=== PATIENT | male | born 1950 | race Caucasian/White ===

== ENCOUNTER 2017-06-13 10:23 | Inpatient (IN) ==
--- NOTE | 2017-06-13 10:33 | Emergency Department Note ---
Disposition Clinical Impression: Dizziness, Near syncope, Hyponatremia Disposition: Admitted As Inpatient Condition: Fair Time of Disposition: 11:06 Dizziness HPI - General Chief Complaint: ED Dizziness Stated Complaint: Dizzy Time Seen by Provider: 06/13/17 10:29 Source: patient Mode of arrival: EMS Limitations: no limitations Nursing Notes Reviewed: Yes Vital Signs Reviewed: Yes - History of Present Illness HPI Narrative: Alert and oriented nontoxic appearing 67-year-old male presents by EMS for evaluation of a near syncopal episode sustained just prior to his arrival. 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 He states that he felt as if he was going to pass out so he sat down on a chair. He states that symptoms resolved quickly after he sat down, however due to his radius medical history, his employer's wanted him to be evaluated at the emergency department. The patient states that he was performing vigorous physical activity both inside the plan and out. He states that "I think I just got winded". He does have a history of COPD and wears oxygen by nasal cannula at 2 L of a nighttime. He denies any recent fevers or increased cough. He denies any change in the characteristics of his sputum. He denies any chest pain during or after this near syncopal event. He denies any visual disturbances, nausea, vomiting, or diaphoresis. He states the symptoms have resolved completely upon his arrival to the emergency department. Pt Subjective Complaint: dizziness Onset (ago): Just THERAPIST RADIATION Timing: sudden onset Description: lightheadedness, near-syncope History of trauma: No Severity: now resolved Improves with: rest Associated symptoms: Reports: denies other symptoms. Denies: chest pain, confusion, diaphoresis, fever, syncope, vision changes, nausea, vomiting, palpitations - Related Data Home Medications Medication Instructions Recorded Confirmed Albuterol Sulfate [Proair Hfa] 2 puff IH Q4-6H PRN 02/12/16 06/13/17 Budesonide/Formoterol 160/4.5 2 puff IH BID 02/12/16 06/13/17 [Symbicort 160/4.5] Ipratropium/Albuterol Neb [Duoneb] 3 ml IH QID PRN 02/12/16 06/13/17 Lisinopril [Zestril] 20 mg PO QAM 02/12/16 06/13/17 Multivitamin/Iron/Folic Acid 1 tab PO QA 02/12/16 06/13/17 [Centrum Complete Multivit Tab] Paroxetine HCl 40 mg PO QA 02/12/16 06/13/17 Pravastatin Sodium [Pravachol] 20 mg PO QPM 02/12/16 06/13/17 clonazePAM [Klonopin] 0.5 mg PO BID PRN 02/12/16 06/13/17 Finasteride [Proscar] 5 mg PO DAILY 10/20/16 06/13/17 Doxazosin [Cardura] 4 mg PO HS 06/13/17 06/13/17 Loratadine [Claritin] 10 mg PO DAILY 06/13/17 06/13/17 Previous Rx's Medication Instructions Recorded Tamsulosin HCl [Flomax] 0.4 mg PO DAILY #14 cap.er.24h 04/19/16 GuaiFENesin ER [Mucinex] 1,200 mg PO BID #28 tbbp.12hr 10/22/16 Allergies Allergy/AdvReac Type Severity Reaction Status Date / Time ampicillin Allergy Hives Verified 06/13/17 10:33 promethazine [From Phenergan] Allergy Confusion Verified 06/13/17 14:36 All systems ED: reviewed and negative except as stated. Constitutional: Denies: fever, chills, weakness, weight change Eyes: Denies: eye pain, eye discharge, vision change ENT ED: Denies: ear pain, throat pain, dental pain, hearing loss, epistaxis, congestion, dysphagia Cardiovascular: Denies: chest pain, palpitations, dyspnea on exertion, edema, syncope Respiratory: Denies: cough, dyspnea, wheezes, hemoptysis, stridor Gastrointestinal: Denies: abdominal pain, nausea, vomiting, diarrhea, constipation, hematemesis, melena, hematochezia Genitourinary: Denies: urgency, dysuria, frequency, hematuria Musculoskeletal: Denies: back pain, neck pain, arthralgia, myalgia Integumentary: Denies: rash, abrasion, lesions Neurological: Reports: as per HPI, other (dizziness). Denies: headache, weakness, numbness, paresthesias, confusion, abnormal gait, vertigo Psychiatric: Denies: anxiety, depression, suicidal thoughts, homicidal thoughts , auditory hallucinations, visual hallucinations Endocrine: Denies: fatigue Hematological/Lymphatic: Denies: easy bleeding, easy bruising Allergic/Immunologic: Denies: facial swelling, urticaria Past Medical History - Past Medical History Attestation: Yes The following information was validated with the patient. Source: patient, nursing notes reviewed Medical history: Reports: COPD, CVA, hyperlipidemia, hypertension, other Surgical history: Reports: other Psychiatric history: Reports: anxiety, depression - Social History Smoking Status: Current some day smoker Smokeless Tobacco Status: No Alcohol use: Reports: none Drug use: Reports: none Physical Exam - General Limitations: no limitations General appearance: alert, in no apparent distress - Head Head exam: atraumatic, normocephalic, normal inspection - Eye Eye exam: Present: normal appearance, PERRL, EOMI. Absent: nystagmus - ENT ENT exam: mucous membranes moist - Neck Neck exam: Present: normal inspection, full ROM, trachea midline - Chest Chest inspection: Present: normal inspection - Respiratory Respiratory exam: Present: wheezes (Bilateral expiratory wheezes throughout the lung periphery). Absent: respiratory distress, stridor, accessory muscle use, prolonged expiratory phase - Cardiovascular Cardiovascular exam: Present: regular rate, normal rhythm, normal heart sounds - Abdominal Exam Abdominal exam: Present: soft, Non-Tender, normal bowel sounds. Absent: tenderness, distention, guarding, rebound, rigidity - Extremities Exam Extremities exam: Present: normal inspection, full ROM. Absent: tenderness, pedal edema - Neurological Exam Neurological exam: Present: alert, oriented X3 - Psychiatric Psychiatric exam: Present: normal affect, normal mood - Skin Skin exam: Present: warm, dry, intact, normal color Course Vital Signs Temperature 97.7 F 06/13/17 10:27 Pulse Rate 86 06/13/17 10:27 Respiratory Rate 20 06/13/17 10:27 Blood Pressure 169/110 06/13/17 10:27 O2 Sat by Pulse Oximetry 100 06/13/17 10:27 Temperature 97.7 F 06/13/17 10:27 Pulse Rate 82 06/13/17 14:24 Respiratory Rate 18 06/13/17 15:27 Blood Pressure 156/99 06/13/17 15:27 O2 Sat by Pulse Oximetry 96 06/13/17 14:24 Oxygen Delivery Oxygen Delivery Room Air Dizziness - Medical Records Medical records reviewed: Yes I reviewed the patient's medical records. - Lab Data Result diagrams: 06/13/17 10:45 06/13/17 10:45 Lab Results 06/13/17 06/13/17 06/13/17 Range/Units 10:40 10:45 10:45 WBC 8.4 (4.3-11.1) K/mcL RBC 4.39 (4.19-5.50) M/mcL Hgb 13.9 (12.9-16.9) g/dL Hct 40.8 (37.5-50.1) % MCV 92.9 (83.0-100.0) fL MCH 31.7 (28.0-33.3) pg MCHC 34.1 (31.6-35.5) g/dL RDW 12.6 (11.5-14.5) % Plt Count 307 (140-400) K/mcL MPV 10.3 (9.4-12.4) fL Immature Gran % 0.7 (0-4) % Seg Neutrophils % 67.0 % Lymphocytes % 20.8 % Monocytes % 9.6 % Eosinophils % 1.4 % Basophils % 0.5 % Neutrophils # 5.6 (1.6-8.9) K/mcL Lymphocytes # 1.7 (0.6-4.6) K/mcL Monocytes # 0.8 (0.0-1.3) K/mcL Eosinophils # 0.1 (0.0-0.6) K/mcL Basophils # 0.0 (0.0-0.2) K/mcL Sodium 130 L (136-145) mEq/L Potassium 4.4 (3.5-4.5) mEq/L Chloride 94 L (98-109) mEq/L Carbon Dioxide 27 (19-29) mEq/L BUN 8 (8-26) mg/dL Creatinine 0.90 (0.72-1.25) mg/dL Est GFR ( Amer) > 60 (> 60) Est GFR (Non-Af Amer) > 60 (> 60) BUN/Creatinine Ratio 9 (6-26) Glucose 88 (70-99) mg/dL POC Glucose 90 H (58-89) Calculated Osmolality 268 L (280-300) Calcium 9.4 (8.6-10.8) mg/dL Troponin I (0-0.03) ng/mL 06/13/17 Range/Units 10:45 WBC (4.3-11.1) K/mcL RBC (4.19-5.50) M/mcL Hgb (12.9-16.9) g/dL Hct (37.5-50.1) % MCV (83.0-100.0) fL MCH (28.0-33.3) pg MCHC (31.6-35.5) g/dL RDW (11.5-14.5) % Plt Count (140-400) K/mcL MPV (9.4-12.4) fL Immature Gran % (0-4) % Seg Neutrophils % % Lymphocytes % % Monocytes % % Eosinophils % % Basophils % % Neutrophils # (1.6-8.9) K/mcL Lymphocytes # (0.6-4.6) K/mcL Monocytes # (0.0-1.3) K/mcL Eosinophils # (0.0-0.6) K/mcL Basophils # (0.0-0.2) K/mcL Sodium (136-145) mEq/L Potassium (3.5-4.5) mEq/L Chloride (98-109) mEq/L Carbon Dioxide (19-29) mEq/L BUN (8-26) mg/dL Creatinine (0.72-1.25) mg/dL Est GFR ( Amer) (> 60) Est GFR (Non-Af Amer) (> 60) BUN/Creatinine Ratio (6-26) Glucose (70-99) mg/dL POC Glucose (58-89) Calculated Osmolality (280-300) Calcium (8.6-10.8) mg/dL Troponin I 0.02 (0-0.03) ng/mL Critical Care Time Total Critical Care Time: 35 Attestation: Greater than 35 minutes of critical care time was spent resuscitating this acutely ill male suffering from CVA. This is excluding billable procedures S.B.A.R. - S.B.A.R. Situation: Demographics, MOA Background: Presenting Complaint, Relevant PMH, Meds, & Allergies Assessment: Vital Signs, Course and respsone to treatment, Exam Concerns, Patient/Family Expectation, Pertinant Lab Results, Outstanding Labs Recommendation: Barrier(s) to disposition, Recommendation based on pending studies, treatments, or consults S.B.A.R. Report Given to: Dr. Moises Dacosta Repor Time: 11:06 Attestation Statement - Attestation Attestation: I examined this patient and my medical decision-making was reviewed with the Resident Physician. I agree with the documented findings, disposition and treatment plan as described except to the extent set forth below. In summary 67 -year-old male presents with vertiginous symptoms. Ultimately has history of stroke. And age score 0 on arrival. Onset of symptoms was approximately 2 hours ago along work. He has no symptoms currently. 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 I do feel he would benefit from medical maximization and inpatient care for further evaluation of chronic cerebellar infarct which could be contributing to acute vertiginous episodes. Full dose aspirin given. No metabolic derangements identified. Patient be admitted for further evaluation.
--- NOTE | 2017-06-13 11:16 | Emergency Department Note ---
Disposition Clinical Impression: Dizziness, Near syncope, Hyponatremia Disposition: Admitted As Inpatient Condition: Fair Time of Disposition: 14:38 Syncope HPI - General Chief Complaint: ED Dizziness Stated Complaint: Dizzy Time Seen by Provider: 06/13/17 10:29 Source: patient Mode of arrival: EMS Limitations: no limitations Nursing Notes Reviewed: Yes Vital Signs Reviewed: Yes - History of Present Illness HPI Narrative: PATIENT PRESENTS TO THE ED VIA EMS FROM [facility]. 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 He got very lightheaded and dizzy and felt like he was going to pass out. States that he has been having similar exertional near syncopal episodes for the last several years. He reports no previous history of coronary artery disease, has never had a stress test or heart catheter. He did not have any chest pain during this event, but he did feel somewhat more short of breath than usual. He is home oxygen dependent at 4 L at night for COPD and has a history of enlarged prostate, but otherwise states he is healthy. He had no diaphoresis, changes in vision, nausea, chest discomfort, abdominal pain associated with this event. No numbness, weakness or headache. No fevers. States he felt completely better by the time EMS got there. - Related Data Home Medications Medication Instructions Recorded Confirmed Albuterol Sulfate [Proair Hfa] 2 puff IH Q4-6H PRN 02/12/16 06/13/17 Budesonide/Formoterol 160/4.5 2 puff IH BID 02/12/16 06/13/17 [Symbicort 160/4.5] Ipratropium/Albuterol Neb [Duoneb] 3 ml IH QID PRN 02/12/16 06/13/17 Lisinopril [Zestril] 20 mg PO QAM 02/12/16 06/13/17 Multivitamin/Iron/Folic Acid 1 tab PO QAM 02/12/16 06/13/17 [Centrum Complete Multivit Tab] Paroxetine HCl 40 mg PO QAM 02/12/16 06/13/17 Pravastatin Sodium [Pravachol] 20 mg PO QPM 02/12/16 06/13/17 clonazePAM [Klonopin] 0.5 mg PO BID PRN 02/12/16 06/13/17 Finasteride [Proscar] 5 mg PO DAILY 10/20/16 06/13/17 Doxazosin [Cardura] 4 mg PO HS 06/13/17 06/13/17 Loratadine [Claritin] 10 mg PO DAILY 06/13/17 06/13/17 Previous Rx's Medication Instructions Recorded Tamsulosin HCl [Flomax] 0.4 mg PO DAILY #14 cap.er.24h 04/19/16 GuaiFENesin ER [Mucinex] 1,200 mg PO BID #28 tbbp.12hr 10/22/16 Allergies Allergy/AdvReac Type Severity Reaction Status Date / Time ampicillin Allergy Hives Verified 06/13/17 10:33 promethazine [From Phenergan] Allergy Confusion Verified 06/13/17 14:36 Constitutional: Denies: fever, chills, weakness, weight change Eyes: Denies: eye pain, eye discharge, vision change ENT ED: Denies: ear pain, throat pain, dental pain, hearing loss, epistaxis, congestion, dysphagia Cardiovascular: Denies: chest pain, palpitations, dyspnea on exertion, edema, syncope Respiratory: Denies: cough, dyspnea, wheezes, hemoptysis, stridor Gastrointestinal: Denies: abdominal pain, nausea, vomiting, diarrhea, constipation, hematemesis, melena, hematochezia Genitourinary: Denies: urgency, dysuria, frequency, hematuria Musculoskeletal: Denies: back pain, neck pain, arthralgia, myalgia Integumentary: Denies: rash, abrasion, lesions Neurological: Reports: as per HPI, other (dizziness). Denies: headache, weakness, numbness, paresthesias, confusion, abnormal gait, vertigo Psychiatric: Denies: anxiety, depression, suicidal thoughts, homicidal thoughts , auditory hallucinations, visual hallucinations Endocrine: Denies: fatigue Hematological/Lymphatic: Denies: easy bleeding, easy bruising Allergic/Immunologic: Denies: facial swelling, urticaria Past Medical History - Past Medical History Medical history: Reports: COPD, CVA, hyperlipidemia, hypertension, other Surgical history: Reports: other Psychiatric history: Reports: anxiety, depression - Social History Smoking Status: Current some day smoker Smokeless Tobacco Status: No Alcohol use: Reports: none Drug use: Reports: none Physical Exam - General Limitations: no limitations General appearance: alert, in no apparent distress - Head Head exam: atraumatic, normocephalic, normal inspection - Eye Eye exam: Present: normal appearance, PERRL, EOMI - ENT ENT exam: normal exam, normal oropharynx, mucous membranes moist, other (4. Dentition) - Neck Neck exam: Present: normal inspection, full ROM, trachea midline - Chest Chest inspection: Present: normal inspection, symmetric chest wall rise - Respiratory Respiratory exam: Present: normal lung sounds bilaterally, other (Decreased breath sounds in bilateral bases, no wheezes, no respiratory distress) - Cardiovascular Cardiovascular exam: Present: regular rate, normal rhythm, normal heart sounds - Abdominal Exam Abdominal exam: Present: soft, Non-Tender. Absent: tenderness, distention, guarding, rebound, rigidity - Extremities Exam Extremities exam: Present: normal inspection, full ROM. Absent: tenderness, pedal edema - Back Exam Back exam: Present: normal inspection, full ROM. Absent: tenderness - Neurological Exam Neurological exam: Present: alert, oriented X3 - Psychiatric Psychiatric exam: Present: normal affect, normal mood - Skin Skin exam: Present: warm, dry, intact, normal color Course - Reevaluation(s) Reevaluation #1: Imaging showed multiple cerebellar and cerebral infarctions, worsening since 2010. We will admit to the hospitalist service for further workup. He is also hyponatremic and looks slightly dehydrated, so we will give IV fluids as well Vital Signs Temperature 97.7 F 06/13/17 10:27 Pulse Rate 86 06/13/17 10:27 Respiratory Rate 20 06/13/17 10:27 Blood Pressure 169/110 06/13/17 10:27 O2 Sat by Pulse Oximetry 100 06/13/17 10:27 Temperature 97.6 F 06/13/17 19:23 Pulse Rate 89 06/13/17 19:23 Respiratory Rate 17 06/13/17 21:22 Blood Pressure 152/98 06/13/17 19:23 O2 Sat by Pulse Oximetry 98 06/13/17 21:22 Oxygen Delivery Oxygen Delivery Room Air Syncope - Medical Records Medical records reviewed: Yes I reviewed the patient's medical records. - Lab Data Lab results reviewed: Yes I reviewed the patient's lab results. Result diagrams: 06/13/17 10:45 06/13/17 10:45 Lab Results 06/13/17 06/13/17 06/13/17 Range/Units 10:40 10:45 10:45 WBC 8.4 (4.3-11.1) K/mcL RBC 4.39 (4.19-5.50) M/mcL Hgb 13.9 (12.9-16.9) g/dL Hct 40.8 (37.5-50.1) % MCV 92.9 (83.0-100.0) fL MCH 31.7 (28.0-33.3) pg MCHC 34.1 (31.6-35.5) g/dL RDW 12.6 (11.5-14.5) % Plt Count 307 (140-400) K/mcL MPV 10.3 (9.4-12.4) fL Immature Gran % 0.7 (0-4) % Seg Neutrophils % 67.0 % Lymphocytes % 20.8 % Monocytes % 9.6 % Eosinophils % 1.4 % Basophils % 0.5 % Neutrophils # 5.6 (1.6-8.9) K/mcL Lymphocytes # 1.7 (0.6-4.6) K/mcL Monocytes # 0.8 (0.0-1.3) K/mcL Eosinophils # 0.1 (0.0-0.6) K/mcL Basophils # 0.0 (0.0-0.2) K/mcL Sodium 130 L (136-145) mEq/L Potassium 4.4 (3.5-4.5) mEq/L Chloride 94 L (98-109) mEq/L Carbon Dioxide 27 (19-29) mEq/L BUN 8 (8-26) mg/dL Creatinine 0.90 (0.72-1.25) mg/dL Est GFR ( Amer) > 60 (> 60) Est GFR (Non-Af Amer) > 60 (> 60) BUN/Creatinine Ratio 9 (6-26) Glucose 88 (70-99) mg/dL POC Glucose 90 H (58-89) Calculated Osmolality 268 L (280-300) Calcium 9.4 (8.6-10.8) mg/dL Troponin I (0-0.03) ng/mL 06/13/17 Range/Units 10:45 WBC (4.3-11.1) K/mcL RBC (4.19-5.50) M/mcL Hgb (12.9-16.9) g/dL Hct (37.5-50.1) % MCV (83.0-100.0) fL MCH (28.0-33.3) pg MCHC (31.6-35.5) g/dL RDW (11.5-14.5) % Plt Count (140-400) K/mcL MPV (9.4-12.4) fL Immature Gran % (0-4) % Seg Neutrophils % % Lymphocytes % % Monocytes % % Eosinophils % % Basophils % % Neutrophils # (1.6-8.9) K/mcL Lymphocytes # (0.6-4.6) K/mcL Monocytes # (0.0-1.3) K/mcL Eosinophils # (0.0-0.6) K/mcL Basophils # (0.0-0.2) K/mcL Sodium (136-145) mEq/L Potassium (3.5-4.5) mEq/L Chloride (98-109) mEq/L Carbon Dioxide (19-29) mEq/L BUN (8-26) mg/dL Creatinine (0.72-1.25) mg/dL Est GFR ( Amer) (> 60) Est GFR (Non-Af Amer) (> 60) BUN/Creatinine Ratio (6-26) Glucose (70-99) mg/dL POC Glucose (58-89) Calculated Osmolality (280-300) Calcium (8.6-10.8) mg/dL Troponin I 0.02 (0-0.03) ng/mL - Radiology Data Radiology results reviewed: Yes I reviewed the patient's radiology results. - EKG Data EKG attestation: Yes I reviewed and interpreted this EKG. EKG results narrative: Sinus rhythm, rate 89, HI interval 122, QRS 98, QTC 416, normal axis, no acute ischemic changes S.B.A.R. - S.B.A.R. Situation: Demographics, MOA Background: Presenting Complaint, Relevant PMH, Meds, & Allergies Assessment: Vital Signs, Course and respsone to treatment, Exam Concerns, Patient/Family Expectation, Pertinant Lab Results, Outstanding Labs Recommendation: Barrier(s) to disposition, Recommendation based on pending studies, treatments, or consults S.B.A.R. Report Given to: Dr. Brandon Dacosta Repor Time: 14:39 Attestation Statement - Attestation Attestation: I examined this patient and my medical decision-making was reviewed with the Resident Physician. I agree with the documented findings, disposition and treatment plan as described except to the extent set forth below. The patient presents with concern for intermittent vertiginous symptoms. Ultimately had negative and age coronary arrival. Does complain of nonspecific nonreproducible intermittent vertigo. Hints testing does not reveal a benign etiology at this time and there is no reproducible nature of his vertiginous symptoms. As such she did undergo to advanced imaging with CT of the head and neck. This shows possible chronic cerebellar infarction which certainly could explain the patient's symptoms. At this point I would proceed with admission for medical maximization and advanced imaging with possible need for MRI and consultation to neurology.
[2017-06-13 11:19] LABS: Basophils % 0.5 %; Eosinophils # 0.1 K/mcL (0.0-0.6); Eosinophils % 1.4 %; Hematocrit 40.8 % (37.5-50.1); Hemoglobin 13.9 g/dL (12.9-16.9); Immature Granulocytes % 0.7 % (0-4); Lymphocytes # 1.7 K/mcL (0.6-4.6); Lymphocytes % 20.8 %; Mean Corpuscular HGB Conc 34.1 g/dL (31.6-35.5); Mean Corpuscular Hemoglobin 31.7 pg (28.0-33.3); Mean Corpuscular Volume 92.9 fL (83.0-100.0); Mean Platelet Volume 10.3 fL (9.4-12.4); Monocytes # 0.8 K/mcL (0.0-1.3); Monocytes % 9.6 %; Neutrophils # 5.6 K/mcL (1.6-8.9); Platelet Count 307 K/mcL (140-400); Red Blood Count 4.39 M/mcL (4.19-5.50); Red Cell Distribution Width 12.6 % (11.5-14.5)
[2017-06-13 11:34] LABS: BUN/Creatinine Ratio 9 (6-26); Blood Urea Nitrogen 8 mg/dL (8-26); Calcium 9.4 mg/dL (8.6-10.8); Carbon Dioxide 27 mEq/L (19-29); Chloride 94 mEq/L (98-109); Glucose 88 mg/dL (70-99); Osmolality,Calculated 268 (280-300); Potassium 4.4 mEq/L (3.5-4.5); Sodium 130 mEq/L (136-145); eGFR For African Americans > 60 (> 60); eGFR For Non-African Americans > 60 (> 60)
[2017-06-13] MEDS ORDERED: 0.9 % Sodium Chloride 1,000 ML IVC ONE (14:11)
[2017-06-13] MEDS ORDERED: Aspirin 325 MG TABLET PO ONE (15:27)
[2017-06-13] MEDS ORDERED: *HR* OxyCODONE Immed Rel 5 MG TABLET PO PRN (15:35)
[2017-06-13] MEDS ORDERED: Naloxone 0.4 MG/ML INJ IVP PRN (15:35)
[2017-06-13] MEDS ORDERED: Ondansetron ODT 4 MG TAB.RAPDIS SL PRN (15:35)
[2017-06-13] MEDS ORDERED: Ondansetron 4 MG/2 ML VIAL IVP PRN (15:35)
[2017-06-13] MEDS ORDERED: *HR* Morphine 2 MG/ML SYRINGE IVP PRN (15:35)
[2017-06-13] MEDS ORDERED: Acetaminophen 325 MG TABLET PO PRN (15:35)
[2017-06-13] MEDS ORDERED: Nicotine 21 MG PATCH.TD24 TD SCH (15:45)
--- NOTE | 2017-06-13 15:47 | Internal Med History&Physical ---
Date of Encounter: 06/13/17 Time of Encounter: 14:30 Assessment and Plan (1) Near syncope Current visit: Yes Status: Acute Placed the pt into Tele for observation his near syncope could be due to dehydration however given his multiple cardiac resik factors and recurrent episodes of dizziness need further work up will put him on manager cardiac cath check serial troponin started on ASA 81mg Will obtain 2 D Echo in AM started him on gentle IV hydration (2) Hyponatremia Current visit: Yes Status: Acute Mild hyponatremia due to dehydration no further work up needed cont gentle IV hydration and check BMP in AM (3) Lung nodule Current visit: Yes Status: Acute Concerned about this Rt LL lung nodule 9mm in size with his extensive smoking history counseled to quit smoking also educated the pt about f/u CT of Chest in 3 months (4) HLD (hyperlipidemia) Current visit: No Status: Chronic resume home med statin check FLP in AM Qualifiers: Hyperlipidemia type: unspecified Qualified Code(s): E78.5 - Hyperlipidemia , unspecified (5) Tobacco abuse Current visit: No Status: Chronic Counseled to quit smoking placed on nicotine patch (6) DVT prophylaxis Current visit: No Status: Acute early ambulation Internal Medicine - H&P: HPI Chief complaint: Dizziness / Lightheadedness , near syncope Admitted From: Home Plans for Post Hospital Care: Home History of present illness: Mr. 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 States that he has been having similar exertional near syncopal episodes for the last several years. He denied any previous cardiac problems or any cardiac work up before. He did have chronic tobacco dependence otherwise denied any illicit drug use / alcohol intake. He denied any micturation , however he does have inc urinary frequency due to his recently diagnosed BPH Past Med Surg Social Fam HX - Past Medical History Medical history: COPD, CVA, hyperlipidemia, hypertension, other Psychiatric history: anxiety, depression - Past Surgical History Surgical History: other - Social History Smoking Status: Current some day smoker Smokeless Tobacco Status: No Alcohol use: none Drug use: none - Additional Family History Additional family history: Reviewed, father with emphysema. Mother had diabetes and hypertension Internal Medicine - H&P: Meds Albuterol Sulfate [Proair Hfa] 2 puff IH Q4-6H PRN 02/12/16 [History] Budesonide/Formoterol 160/4.5 [Symbicort 160/4.5] 2 puff IH BID 02/12/16 [ History] Ipratropium/Albuterol Neb [Duoneb] 3 ml IH QID PRN 02/12/16 [History] Lisinopril [Zestril] 20 mg PO QAM 02/12/16 [History] Multivitamin/Iron/Folic Acid [Centrum Complete Multivit Tab] 1 tab PO QAM [History] Paroxetine HCl 40 mg PO QAM 02/12/16 [History] Pravastatin Sodium [Pravachol] 20 mg PO QPM 02/12/16 [History] clonazePAM [Klonopin] 0.5 mg PO BID PRN 02/12/16 [History] Tamsulosin HCl [Flomax] 0.4 mg PO DAILY #14 cap.er.24h 04/19/16 [Rx] Finasteride [Proscar] 5 mg PO DAILY 10/20/16 [History] GuaiFENesin ER [Mucinex] 1,200 mg PO BID #28 tbbp.12hr 10/22/16 [Rx] Doxazosin [Cardura] 4 mg PO HS 06/13/17 [History] Loratadine [Claritin] 10 mg PO DAILY 06/13/17 [History] Allergies ampicillin Allergy (Verified 06/13/17 10:33) Hives promethazine [From Phenergan] Allergy (Verified 06/13/17 14:36) Confusion All Systems PM: A 10-system review of systems was performed and is negative for pertinent findings except as documented above in the HPI. Review of systems: All the systems are reviewed everything is benign except the systems and symptoms I mentioned in the history of present illness - Constitutional Vitals: Temp Pulse Resp BP Pulse Ox 97.7 F 82 18 156/99 96 06/13/17 10:27 06/13/17 14:24 06/13/17 15:27 06/13/17 15:27 06/13/17 14:24 General appearance: Present: A&O X 3, answers questions appropriately. Absent: no acute distress - Head Head exam: Present: atraumatic, normal inspection - Neck Neck exam general surgery: Present: normal inspection, supple. Absent: lymphadenopathy, thyromegaly - Respiratory Respiratory exam: Present: decreased breath sounds. Absent: accessory muscle use, rales, respiratory distress, rhonchi, wheezes, tachypnea - Cardiovascular Cardiovascular exam: Present: +S1, +S2 - GI/Abdominal GI/Abdominal exam: Present: normal bowel sounds, soft, no peritoneal signs. Absent: distended, tenderness - Extremities Exam Extremities exam: Absent: calf tenderness, pedal edema, tenderness - Neurological Exam Neurological exam: Present: CN II-XII intact, oriented X3, no focal deficits. Absent: pronater drift, facial droop, speech deficit - Psychiatric Psychiatric exam: Present: normal affect, normal mood - Skin Skin exam: Present: dry, intact, warm. Absent: rash Internal Med - H&P Results - Labs CBC & Chem 7: 06/13/17 10:45 06/13/17 10:45 - EKG Data EKG comments: 06/13/17 15:57 Sinus rhythm, rate 89, AL interval 122, QRS 98, normal axis, No ST, T changes, no acute changes - Diagnostic Studies CT scan - chest Additional comments: Emphysema and Pulmonary nodules which measure up to 9 mm. Recommend follow-up CT in 3 months. Chest x-ray Status: image reviewed by me (No acute infiltrates / No consolidations. Poor inspiratory effort)
[2017-06-13] MEDS: Nicotine 21 MG PATCH.TD24 TD SCH (15:49)
[2017-06-13] MEDS: 0.9 % Sodium Chloride 1,000 ML IVC SCH (16:50)
[2017-06-13 18:52] LABS: Bilirubin,Urine Negative (Negative); Blood,Urine Negative (Negative); Clarity,Urine Clear (Clear); Color,Urine Yellow (Yellow); Glucose,Urine (UA) Normal (Normal); Ketones,Urine Trace mg/dL (Negative); Leukocyte Esterase,Urine Negative (Negative); Nitrite,Urine Negative (Negative); Protein,Urine Negative (Neg-Trace); Specific Gravity,Urine 1.014 (1.010-1.025); Urobilinogen,Urine Normal (Normal)
[2017-06-13] MEDS ORDERED: Ipratropium/Albuterol Neb 3 ML IH PRN (20:16)
[2017-06-13] MEDS: Budesonide/Formoterol 160/4.5 MDI IH SCH (21:23)
[2017-06-13] MEDS: clonazePAM 0.5 MG TABLET PO PRN (21:30)
[2017-06-13] MEDS: Famotidine 20 MG TABLET PO SCH (21:31)
[2017-06-14] MEDS: 0.9 % Sodium Chloride 1,000 ML IVC SCH ×2 (00:23→09:21)
[2017-06-14 05:21] LABS: Basophils # 0.1 K/mcL (0.0-0.2); Basophils % 0.7 %; Eosinophils # 0.2 K/mcL (0.0-0.6); Eosinophils % 2.2 %; Hematocrit 38.1 % (37.5-50.1); Hemoglobin 12.4 g/dL (12.9-16.9); Immature Granulocytes % 0.6 % (0-4); Lymphocytes # 1.9 K/mcL (0.6-4.6); Mean Corpuscular HGB Conc 32.5 g/dL (31.6-35.5); Mean Corpuscular Hemoglobin 30.8 pg (28.0-33.3); Mean Corpuscular Volume 94.8 fL (83.0-100.0); Mean Platelet Volume 10.4 fL (9.4-12.4); Monocytes # 0.7 K/mcL (0.0-1.3); Monocytes % 9.1 %; Neutrophils # 5.2 K/mcL (1.6-8.9); Platelet Count 279 K/mcL (140-400); Red Blood Count 4.02 M/mcL (4.19-5.50); Red Cell Distribution Width 12.8 % (11.5-14.5); Segmented Neutrophils % 64.4 %
[2017-06-14 05:38] LABS: Alanine Aminotransferase 12 Units/L (0-55); Albumin 3.2 g/dL (3.5-5.0); Albumin/Globulin Ratio 1.3 (1.1-2.2); Alkaline Phosphatase 60 Units/L (38-126); Aspartate Amino Transferase 23 Units/L (5-34); BUN/Creatinine Ratio 11 (6-26); Bilirubin,Total 0.3 mg/dL (0.2-1.2); Blood Urea Nitrogen 9 mg/dL (8-26); Calcium 8.5 mg/dL (8.6-10.8); Carbon Dioxide 27 mEq/L (19-29); Chloride 105 mEq/L (98-109); Chol/HDL Ratio 2.6 (0-4.9); Cholesterol 145 mg/dL (< 200); Globulin 2.4 g/dL (2.4-3.5); Glucose 85 mg/dL (70-99); HDL Cholesterol 55 mg/dL (40-59); LDL Cholesterol,Calculated 80 mg/dL (0-99); Magnesium 1.9 mg/dL (1.6-2.6); Osmolality,Calculated 282 (280-300); Potassium 4.2 mEq/L (3.5-4.5); Total Protein 5.6 g/dL (6.0-8.3); Triglycerides 51 mg/dL (< 150); eGFR For African Americans > 60 (> 60); eGFR For Non-African Americans > 60 (> 60)
[2017-06-14 05:39] LABS: Sodium 137 mEq/L (136-145)
[2017-06-14 06:00] LABS: Thyroid Stimulating Hormone 1.567 mcIU/mL (0.350-4.840)
[2017-06-14] MEDS: Aspirin Enteric Coated 81 MG Tablet PO SCH (09:20)
[2017-06-14] MEDS: Famotidine 20 MG TABLET PO SCH ×2 (09:20→21:37)
[2017-06-14] MEDS: Nicotine 21 MG PATCH.TD24 TD SCH (09:20)
[2017-06-14] MEDS: Loratadine 10 MG TABLET PO SCH (09:20)
[2017-06-14] MEDS: Finasteride 5 MG TABLET PO SCH (09:21)
[2017-06-14] MEDS: Lisinopril 20 MG TABLET PO SCH (09:21)
[2017-06-14] MEDS: Budesonide/Formoterol 160/4.5 MDI IH SCH ×2 (10:11→20:18)
--- NOTE | 2017-06-14 15:46 | Internal Med Progress Note ---
Date of Encounter: 06/14/17 Time of Encounter: 11:00 (and 1430) - Assessment and plan (1) Acute combined systolic and diastolic heart failure Current Visit: Yes Status: Acute Assessment and plan: Echocardiogram revealing ejection fraction of 20-25% with moderate AR and diastolic dysfunction. In review of his chart, patient had a ERIN in 2010 had an ejection fraction of 55%. Cardiology has been brought on board and they stated to keep the patient nothing by mouth after midnight and we will see him in the morning. Transferring him down to cardiac unit when available. Patient is euvolemic on examination. He does endorse mild shortness of breath above his norm and is requesting a DuoNeb treatment at this time. He is eating and drinking well, renal functioning normal, borderline hypertensive at times, will hold IV fluids at this time. (2) Acute exacerbation of chronic obstructive airways disease Current Visit: No Status: Acute Assessment and plan: Aeration poor to fair with diffuse expiratory wheezing throughout. Will schedule duo nebs every 4 and monitor. Patient upset that he did not get his Symbicort this morning however he was out of the room when staff attempted to give him this medication. He states that his daughter gave him the medication from his home meds. He is also upset that he has not been getting regular breathing treatments but states he has not informed his primary nurse or any other staff that he was short of breath and has not requested a DuoNeb so I will schedule these at this time. (3) Near syncope Current Visit: Yes Status: Acute Assessment and plan: Likely multifactorial. Mildly dehydrated upon arrival, new diagnoses of combined heart failure, COPD exacerbation with continued tobacco abuse. Chest x -ray and chest CT revealing multiple lung nodules with recommendation to follow- up in [address] also revealing remote rib fracture, patient denies rib pain on the left side. Head and neck CTA both unremarkable. Urinalysis negative. Hyponatremia resolved. We will continue to address new onset of heart failure with cardiology consultation. We will continue to treat for COPD exacerbation as well. He is eating and drinking well and ambulating about his room without limitation. ITS Impressions Chest X-Ray 06/13/17 10:29 IMPRESSION: 1. No acute cardiopulmonary disease. 2. Small right upper lobe nodule. Further evaluation with noncontrast chest CT is recommended. D/ / Juan Dueñas MD / Juan Dueñas MD Interpreting Provider: Juan Dueñas MD Head CTA 06/13/17 11:29 IMPRESSION: No evidence of cervical or intracranial arterial occlusion or flow-limiting stenosis. No evidence of acute intracranial hemorrhage or mass effect. Multiple cerebral and cerebellar infarcts appear chronic and progressed from 2010. D/ / Fam Zambrano MD / Fam Zambrano MD Interpreting Provider: Fam Zambrano MD Neck CTA 06/13/17 11:29 IMPRESSION: No evidence of cervical or intracranial arterial occlusion or flow-limiting stenosis. No evidence of acute intracranial hemorrhage or mass effect. Multiple cerebral and cerebellar infarcts appear chronic and progressed from 2010. D/ / Fam Zambrano MD / Fam Zambrano MD Interpreting Provider: Fam Zambrano MD Chest CT 06/13/17 12:20 IMPRESSION: Emphysema. Pulmonary nodules which measure up to 9 mm. Recommend follow-up CT in 3 months. RECOMMENDATIONS: Fleischner Society guidelines for follow-up and management of incidentally detected pulmonary nodules: Multiple Solid Nodules: Nodule size greater than 8 mm In a low-risk patient, CT at 3-6 months, then consider CT at 18-24 months. In a high-risk patient, CT at 3-6 months, then CT at 18-24 months. Radiology 2017 http://pubs.[facility].org/doi/full/[email or web address] D/ / Linh Carr MD / Linh Carr MD Interpreting Provider: Linh Carr MD Echocardiogram impressions: LVEF 20-25%. Moderate aortic regurgitation. Diastolic dysfunction, NOS. Unable to estimate RVSP due to lack of TR jet. (4) Lung nodule Current Visit: Yes Status: Acute Assessment and plan: Recommendation is for follow-up in 3 months (5) Dizziness Current Visit: Yes Status: Resolved Assessment and plan: Currently denies dizziness. States he is ambulating around his room without limitation or difficulty, is requesting to go home. (6) Anxiety Current Visit: Yes Status: Chronic Assessment and plan: Patient appears very anxious and restless at this time. After given the results of his echocardiogram, the patient became more agitated, restless, and appears anxious. Continue home clonazepam. May need IV lorazepam, will monitor (7) Hyponatremia Current Visit: No Status: Resolved (8) DVT prophylaxis Current Visit: No Status: Acute Assessment and plan: Subcutaneous heparin (9) HLD (hyperlipidemia) Current Visit: No Status: Chronic Assessment and plan: Lipid panel normal, statin is indicated given that his LDL is greater than 75, continue home statin low-cholesterol diet Qualifiers: Hyperlipidemia type: unspecified Qualified Code(s): E78.5 - Hyperlipidemia , unspecified (10) Tobacco abuse Current Visit: No Status: Chronic Assessment and plan: Nicotine patch in place. Patient becomes angry when the topic of smoking cessation is broached. (11) Acute and chronic respiratory failure Current Visit: No Status: Acute Assessment and plan: Acute on chronic. He currently complains of shortness of breath but he is tolerating room air at this time. At home, patient is on oxygen at nighttime only. We will place 2 L on him at this time given new diagnosis of combined heart failure. Qualifiers: Respiratory failure complication: hypoxia Qualified Code(s): J96.21 - Acute and chronic respiratory failure with hypoxia (12) Hypertension Current Visit: No Status: Chronic Assessment and plan: Uncontrolled upon arrival with initial blood pressure 169/110. Blood pressure has improved since admission however he remains hypertensive at this time. Patient is currently agitated and emotionally upset, will address his shortness of breath and agitation and adjust blood pressure medications as indicated Qualifiers: Hypertension type: essential hypertension Qualified Code(s): I10 - Essential (primary) hypertension - Subjective Interval history: Patient seen and examined earlier this morning and the patient was upset stating he wanted to go home. He was informed at that time that we were awaiting echocardiogram results. Patient then seen and reexamined once echocardiogram results were available and he was informed of new diagnosis of heart failure. Patient became upset at that time stating he was upset that he had not had any breathing treatments yet today. His daughter was present for both of these interactions. Other than being upset about his care thus far, patient stating his symptoms are slightly better but did not want to elaborate. - Constitutional Vitals: Temp Pulse Resp BP Pulse Ox 97.5 F L 80 16 161/77 96 06/14/17 11:30 06/14/17 11:30 06/14/17 11:30 06/14/17 11:30 06/14/17 11:30 General appearance: Present: mild distress, A&O X 3, answers questions appropriately - Head Head exam: Present: atraumatic, normocephalic - Eye Eye exam: Present: PERRL, conjuntiva pink, sclera anicteric Pupils: Present: PERRL - Neck Neck exam general surgery: Present: supple, trachea midline. Absent: lymphadenopathy - Respiratory Respiratory exam: Present: accessory muscle use, decreased breath sounds, prolonged expiratory phase, respiratory distress, wheezes. Absent: rales, rhonchi - Cardiovascular Cardiovascular exam: Present: RRR, +S1, +S2. Absent: diastolic murmur, gallop, rubs, systolic murmur - GI/Abdominal GI/Abdominal exam: Present: normal bowel sounds, soft, no peritoneal signs. Absent: distended, tenderness - Extremities Exam Extremities exam: Present: warm, radial pulses palpable and symetrical. Absent : calf tenderness, cyanotic, pedal edema - Neurological Exam Neurological exam: Present: alert, CN II-XII intact, normal gait, oriented X3, no focal deficits, strengths equal and symetr throughout. Absent: pronater drift, facial droop, speech deficit - Psychiatric Psychiatric exam: Present: agitated - Expanded Psychiatric Exam Focused psych exam: Present: restlessness - Skin Skin exam: Present: dry, intact, pallor, warm Internal Medicine: Result - Labs CBC & Chem 7: 06/14/17 04:41 06/14/17 04:41 Labs: Short CBC 06/14/17 Range/Units 04:41 WBC 8.1 (4.3-11.1) K/mcL Hgb 12.4 L D (12.9-16.9) g/dL Hct 38.1 (37.5-50.1) % Plt Count 279 (140-400) K/mcL Neutrophils # 5.2 (1.6-8.9) K/mcL BMP 06/14/17 04:41 Sodium 137 D Potassium 4.2 Chloride 105 Carbon Dioxide 27 BUN 9 Creatinine 0.81 Glucose 85 Calcium 8.5 L Cardiac Enzymes 06/13/17 06/13/17 Range/Units 16:50 22:37 Troponin I 0.01 0.02 (0-0.03) ng/mL Liver Function 06/14/17 Range/Units 04:41 Total Bilirubin 0.3 (0.2-1.2) mg/dL AST 23 (5-34) Units/L ALT 12 (0-55) Units/L Alkaline Phosphatase 60 (38-126) Units/L Albumin 3.2 L (3.5-5.0) g/dL Urine 06/13/17 Range/Units 18:00 Urine Color Yellow (Yellow) Urine Clarity Clear (Clear) Urine pH 7.0 (5.0-8.0) pH Units Ur Specific [place] 1.014 (1.010-1.025) Urine Protein Negative (Neg-Trace) mg/dL Urine Glucose (UA) Normal (Normal) mg/dL Consult Discharge Plan - Plan Referrals: Yane Garcia, ELLIS [Primary Care Provider] -
[2017-06-14] MEDS: Ipratropium/Albuterol Neb 3 ML IH SCH ×3 (16:18→23:01)
[2017-06-14] MEDS: clonazePAM 0.5 MG TABLET PO PRN (16:46)
[2017-06-14] MEDS: *HR* Heparin 5,000 UNIT/ML VIAL SQ SCH (18:01)
[2017-06-15] MEDS: Ipratropium/Albuterol Neb 3 ML IH SCH ×5 (04:41→20:46)
[2017-06-15 05:38] LABS: Basophils # 0.1 K/mcL (0.0-0.2); Basophils % 0.6 %; Eosinophils # 0.1 K/mcL (0.0-0.6); Eosinophils % 1.5 %; Hemoglobin 12.5 g/dL (12.9-16.9); Immature Granulocytes % 0.6 % (0-4); Mean Corpuscular HGB Conc 33.8 g/dL (31.6-35.5); Mean Corpuscular Hemoglobin 31.6 pg (28.0-33.3); Mean Corpuscular Volume 93.4 fL (83.0-100.0); Mean Platelet Volume 10.4 fL (9.4-12.4); Monocytes # 0.7 K/mcL (0.0-1.3); Monocytes % 8.4 %; Neutrophils # 5.7 K/mcL (1.6-8.9); Platelet Count 262 K/mcL (140-400); Red Blood Count 3.96 M/mcL (4.19-5.50); Red Cell Distribution Width 12.7 % (11.5-14.5); Segmented Neutrophils % 65.9 %
[2017-06-15] MEDS: *HR* Heparin 5,000 UNIT/ML VIAL SQ SCH ×2 (05:46→18:14)
[2017-06-15 05:48] LABS: BUN/Creatinine Ratio 12 (6-26); Blood Urea Nitrogen 10 mg/dL (8-26); Calcium 8.6 mg/dL (8.6-10.8); Carbon Dioxide 25 mEq/L (19-29); Chloride 102 mEq/L (98-109); Glucose 87 mg/dL (70-99); Osmolality,Calculated 278 (280-300); Potassium 3.7 mEq/L (3.5-4.5); Sodium 135 mEq/L (136-145); eGFR For African Americans > 60 (> 60); eGFR For Non-African Americans > 60 (> 60)
[2017-06-15] MEDS: Budesonide/Formoterol 160/4.5 MDI IH SCH ×2 (08:20→20:46)
[2017-06-15] MEDS: Loratadine 10 MG TABLET PO SCH (08:55)
[2017-06-15] MEDS: Aspirin Enteric Coated 81 MG Tablet PO SCH (08:55)
[2017-06-15] MEDS: Lisinopril 20 MG TABLET PO SCH (08:57)
[2017-06-15] MEDS: Famotidine 20 MG TABLET PO SCH ×2 (08:57→20:30)
[2017-06-15] MEDS: Nicotine 21 MG PATCH.TD24 TD SCH (08:57)
[2017-06-15] MEDS: Finasteride 5 MG TABLET PO SCH (08:57)
[2017-06-15] MEDS: clonazePAM 0.5 MG TABLET PO PRN ×2 (09:03→20:30)
--- NOTE | 2017-06-15 10:13 | Cardiology Consult Note ---
Date of Encounter: 06/15/17 Time of Encounter: 10:15 Assessment and Plan (1) Cardiomyopathy Current Visit: Yes Status: Acute Per Cardiology: Current echo shows EF 20-25%, moderate aortic regurgitation. Upon review of records echo from February 2011 showed EF 55% with mild AR. Had ERIN February 2011 at time of CVA which showed EF 55%. Euvolemic on exam. Troponins negative 3. Experiencing increasing fatigue and dizziness. I had lengthy discussion with patient and family regarding further ischemic evaluation and agreeable to proceed with catheterization-- left heart catheterization tomorrow. We'll check INR. Patient on LEWIS inhibitor, aspirin, statin. Will add beta yane. Further recommendations pending catheterization results. Discussed and reviewed with Dr. West. Qualifiers: Cardiomyopathy type: unspecified Qualified Code(s): I42.9 - Cardiomyopathy , unspecified (2) Lung nodule Current Visit: Yes Status: Acute Per Cardiology: Noted on chest x-ray with CT scan completed-- recs were for continued surveillance. Management per primary service. (3) Tobacco abuse Current Visit: No Status: Chronic Per Cardiology: Smokes 1 pack per day and has smoked one pack per day for 50 years. Has nicotine patch. I spent 5 minutes today providing smoking cessation counseling and education. Known history of COPD and utilizes home oxygen at night. Discussion w patient/family: The assessment and plan as outlined above was discussed with the patient and/or family members who expressed understanding and agreement. All questions were answered. Thank you for involving us in the care of your patient. Please call with any questions. History of Present Illness Consult date: 06/15/17 Requesting physician: Lorene Weiss Consult reason: Decreased EF Chief complaint: Dizziness History of present illness: Mr. Headley is a 67 year old male with relevant past history of nicotine abuse , COPD, hypertension, hyperlipidemia, and CVA in 2010. Cardiology consult for decreased EF on echo. Patient seen with family at bedside. He denies any known history of CAD. Continues to smoke about one pack per day for the past 50 years. Utilizes oxygen at night. He denies any chest pain. He denies any palpitations. He reports shortness of breath at rest and with exertion unchanged about baseline. He does report increasing fatigue from baseline over the past few weeks to few months. 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 He denies any syncope or falls. He denies any active bleeding or blood loss. Denies any edema. Denies any recent fever, chills , nausea, vomiting, cough. Past Med Surg Social Fam HX - Past Medical History Attestation: Yes The following information was validated with the patient. Source: patient, old records reviewed, obtained from family Medical history: COPD, CVA, hyperlipidemia, hypertension, other Psychiatric history: anxiety, depression - Past Surgical History Surgical History: other - Social History Smoking Status: Current some day smoker Packs per day: 1 Smokeless Tobacco Status: No Alcohol use: none Drug use: none - Family History Mother Living Status: Age at : 82 Cause of : cancer Hx Family Cardiac Disorders: Yes Hx Family Cancer: Yes Hx Family Endocrine Disorder: Yes (DM) Father Living Status: Age at : 71 Cause of : Emphasemia Hx Family Respiratory Disorders: Yes Medications and Allergies Albuterol Sulfate [Proair Hfa] 2 puff IH Q4-6H PRN 02/12/16 [History] Budesonide/Formoterol 160/4.5 [Symbicort 160/4.5] 2 puff IH BID 02/12/16 [ History] Ipratropium/Albuterol Neb [Duoneb] 3 ml IH QID PRN 02/12/16 [History] Lisinopril [Zestril] 20 mg PO QAM 02/12/16 [History] Multivitamin/Iron/Folic Acid [Centrum Complete Multivit Tab] 1 tab PO QAM [History] Paroxetine HCl 40 mg PO QAM 02/12/16 [History] Pravastatin Sodium [Pravachol] 20 mg PO QPM 02/12/16 [History] clonazePAM [Klonopin] 0.5 mg PO BID PRN 02/12/16 [History] Tamsulosin HCl [Flomax] 0.4 mg PO DAILY #14 cap.er.24h 04/19/16 [Rx] Finasteride [Proscar] 5 mg PO DAILY 10/20/16 [History] GuaiFENesin ER [Mucinex] 1,200 mg PO BID #28 tbbp.12hr 10/22/16 [Rx] Doxazosin [Cardura] 4 mg PO HS 06/13/17 [History] Loratadine [Claritin] 10 mg PO DAILY 06/13/17 [History] Allergies ampicillin Allergy (Verified 06/13/17 10:33) Hives promethazine [From Phenergan] Allergy (Verified 06/13/17 14:36) Confusion All Systems Review: A 10-system review of systems was performed and is negative for pertinent findings except as documented above in the HPI. - Constitutional Constitutional: fatigue - EENT Ears: bilateral: hearing loss ([place]) - Cardiovascular Cardiovascular: as per HPI, dyspnea at rest, dyspnea on exertion - Neurological Neurological: dizziness Physical Examination Vital Signs, Last 4 Hours Temp Pulse Resp BP Pulse Ox 06/15/17 08:16 16 143/90 90 06/15/17 07:00 98.4 F 86 16 143/90 98 General: Conversant, No Apparent Distress HEENT: Atraumatic, Normocephaly, Mucus Membranes Moist Neck: No JVD, Normal carotid pulses Cardiac: Reg Rate and Rhythm, Normal S1 and S2, No Murmur Lungs: Normal Breath Sounds, No Wheeze, Rales, Rhonchi Neuro: Alert and responsive, No focal deficits noted Abdomen: Soft, Non-Tender Skin: No rashes noted on visualized skin Musculoskeletal: No Chest Wall Tenderness Extremities: No Clubbing, No Cyanosis, No Edema, Normal Pulses Results 06/15/17 04:43 06/15/17 04:43 Lab Results Laboratory Tests 06/13/17 06/13/17 06/13/17 10:45 16:50 22:37 Troponin I 0.02 0.01 0.02 LDL Cholesterol, Calc TSH 06/14/17 04:41 Troponin I LDL Cholesterol, Calc 80 TSH 1.567 ITS Impressions Chest X-Ray 06/13/17 10:29 IMPRESSION: 1. No acute cardiopulmonary disease. 2. Small right upper lobe nodule. Further evaluation with noncontrast chest CT is recommended. D/ / Juan Dueñas MD / Juan Dueñas MD Interpreting Provider: Juan Dueñas MD Head CTA 06/13/17 11:29 IMPRESSION: No evidence of cervical or intracranial arterial occlusion or flow-limiting stenosis. No evidence of acute intracranial hemorrhage or mass effect. Multiple cerebral and cerebellar infarcts appear chronic and progressed from 2010. D/ / Fam Zambrano MD / Fam Zambrano MD Interpreting Provider: Fam Zambrano MD Neck CTA 06/13/17 11:29 IMPRESSION: No evidence of cervical or intracranial arterial occlusion or flow-limiting stenosis. No evidence of acute intracranial hemorrhage or mass effect. Multiple cerebral and cerebellar infarcts appear chronic and progressed from 2010. D/ / Fam Zambrano MD / Fam Zambrano MD Interpreting Provider: Fam Zambrano MD Chest CT 06/13/17 12:20 IMPRESSION: Emphysema. Pulmonary nodules which measure up to 9 mm. Recommend follow-up CT in 3 months. RECOMMENDATIONS: Fleischner Society guidelines for follow-up and management of incidentally detected pulmonary nodules: Multiple Solid Nodules: Nodule size greater than 8 mm In a low-risk patient, CT at 3-6 months, then consider CT at 18-24 months. In a high-risk patient, CT at 3-6 months, then CT at 18-24 months. Radiology 2017 http://pubs.rsna.org/doi/full/10.1148/radiol.[email or web address] D/ / Linh Carr MD / Linh Carr MD Interpreting Provider: Linh Carr MD Intake & Output 06/12/17 06/13/17 06/14/17 06/15/17 23:59 23:59 23:59 23:59 Intake Total 240 / 240 5180 / 5180 200 / 200 Output Total 1400 / 1400 1350 / 1350 950 / 950 Balance -1160 / -1160 3830 / 3830 -750 / -750 Weight 63.701 kg 64.229 kg 64.864 kg Active Medications Acetaminophen (Tylenol) 650 mg PO Q6HR PRN PRN Reason: Mild Pain (1-3) Stop: 12/13/17 15:36 Albuterol Sulfate (Albuterol Inhaler) 2 puff IH Q4H PRN PRN Reason: Shortness Of Breath Stop: 12/13/17 20:17 Last Admin: 06/13/17 21:22 Dose: 2 puff Albuterol/Ipratropium (Duoneb) 3 ml IH [id number] [facility] Stop: 12/14/17 16:01 Last Admin: 06/15/17 08:16 Dose: 3 ml Aspirin (Aspirin Ec) 81 mg PO DAILY [facility] Stop: 12/14/17 09:01 Last Admin: 06/15/17 08:55 Dose: 81 mg Budesonide/Formoterol Fumarate (Symbicort) 2 puff IH BIDR [facility] PRN Reason: Protocol Stop: 12/13/17 22:01 Last Admin: 06/15/17 08:20 Dose: 2 puff Clonazepam (Klonopin) 0.5 mg PO BID PRN PRN Reason: Anxiety Stop: 12/13/17 20:17 Last Admin: 06/15/17 09:03 Dose: 0.5 mg Doxazosin Mesylate (Cardura) 4 mg PO HS [facility] Stop: 12/13/17 21:01 Last Admin: 06/14/17 21:37 Dose: 4 mg Famotidine (Pepcid) 20 mg PO BID [facility] Stop: 12/13/17 21:01 Last Admin: 06/15/17 08:57 Dose: 20 mg Finasteride (Proscar) 5 mg PO DAILY [facility] PRN Reason: Protocol Stop: 12/14/17 09:01 Last Admin: 06/15/17 08:57 Dose: 5 mg Guaifenesin (Mucinex) 1,200 mg PO BID [facility] Stop: 12/13/17 21:01 Last Admin: 06/15/17 08:56 Dose: 1,200 mg Heparin Sodium (Porcine) (Heparin) 5,000 unit SQ Q12HR [facility] Stop: 12/14/17 18:01 Last Admin: 06/15/17 05:46 Dose: Not Given Lisinopril (Zestril) 20 mg PO QAM [facility] PRN Reason: Protocol Stop: 12/14/17 09:01 Last Admin: 06/15/17 08:57 Dose: 20 mg Loratadine (Claritin) 10 mg PO DAILY [facility] PRN Reason: Protocol Stop: 12/14/17 09:01 Last Admin: 06/15/17 08:55 Dose: 10 mg Morphine Sulfate (Morphine Sulfate) 2 mg IVP Q4HR PRN PRN Reason: Severe Pain (7-10) Stop: 12/13/17 15:36 Naloxone HCl (Narcan) 0.4 mg IVP Q2MIN PRN PRN Reason: Opioid Reversal Stop: 12/13/17 15:36 Nicotine (Nicoderm) 21 mg TD DAILY [facility] PRN Reason: Protocol Stop: 12/13/17 14:31 Last Admin: 06/15/17 08:57 Dose: 21 mg Ondansetron HCl (Zofran) 4 mg IVP Q8HR PRN PRN Reason: Nausea And Vomiting Stop: 12/13/17 15:36 Ondansetron HCl (Zofran Odt) 4 mg SL Q8HR PRN PRN Reason: Nausea And Vomiting Stop: 12/13/17 15:36 Oxycodone HCl (Roxicodone) 5 mg PO Q6HR PRN PRN Reason: Moderate Pain (4-6) Stop: 12/13/17 15:36 Paroxetine HCl (Paxil) 40 mg PO QAM [facility] Stop: 12/14/17 09:01 Last Admin: 06/15/17 08:56 Dose: 40 mg Simvastatin (Zocor) 10 mg PO QPM [facility] Stop: 12/14/17 18:01 Last Admin: 06/14/17 18:01 Dose: 10 mg Tamsulosin HCl (Flomax) 0.4 mg PO DAILY [facility] PRN Reason: Protocol Stop: 12/14/17 09:01 Last Admin: 06/15/17 08:55 Dose: 0.4 mg - Imaging and Cardiology Chest Xray: report reviewed Echo: report reviewed Cardiac cath: pending - EKG Interpretation EKG results cardiology: personally reviewed, normal ECG, sinus rhythm, other ( Telemetry reviewed with average heart rate past 24 hours 88, sinus rhythm with brief atrial tachycardia) Consult Discharge Plan - Plan Referrals: Yane Garcia, MRP CONTROLLER [Primary Care Provider] -
[2017-06-15] MEDS: Metoprolol XL (24 HR) Succ 25 MG TAB.ER.24H PO SCH (10:49)
--- NOTE | 2017-06-15 17:56 | Pre-Sedation Evaluation ---
Pre-sedation evaluation - Pre-sedation checklist Date of procedure: 06/15/17 Procedure: [facility] Recent Vitals: Last Vital Signs Temp 98.5 F 06/15/17 15:16 Pulse 71 06/15/17 15:16 Resp 16 06/15/17 16:33 BP 145/66 06/15/17 15:16 Pulse Ox 95 06/15/17 16:33 H&P (including ROS) documented in medical record: Yes Previous reaction to sedatives/anesthetics: No Dietary Status: NPO after Midnight Airway Assessment: Patient can open mouth completely, TMJ function normal ASA Classification *see protocol: CLASS II-Mild systemic disease
--- NOTE | 2017-06-15 18:06 | Internal Med Progress Note ---
Date of Encounter: 06/15/17 Time of Encounter: 11:30 - Assessment and plan (1) Acute combined systolic and diastolic heart failure Current Visit: Yes Status: Acute Assessment and plan: Echocardiogram revealing ejection fraction of 20-25% with moderate AR and diastolic dysfunction. In review of his chart, patient had a ERIN in 2010 had an ejection fraction of 55%. Cardiology has been brought on board and they have added a beta yane and will proceed with a left heart catheter tomorrow. Patient is euvolemic on examination. He does endorse mild shortness of breath but states he feels a lot better than yesterday. He is eating and drinking well, renal functioning normal, borderline hypertensive at times, will hold IV fluids at this time. Echocardiogram Impressions: LVEF 20-25%. Moderate aortic regurgitation. Diastolic dysfunction, NOS Unable to estimate RVSP due to lack of TR jet. (2) Acute exacerbation of chronic obstructive airways disease Current Visit: No Status: Acute Assessment and plan: Aeration much improved today though he continues with fair aeration and diffuse expiratory wheezing. He states he is feeling much better from a respiratory standpoint today. (3) Near syncope Current Visit: Yes Status: Acute Assessment and plan: Likely multifactorial. Mildly dehydrated upon arrival, new diagnoses of combined heart failure, COPD exacerbation with continued tobacco abuse. Chest x -ray and chest CT revealing multiple lung nodules with recommendation to follow- up in [address] also revealing remote rib fracture, patient denies rib pain on the left side. Head and neck CTA both unremarkable. Urinalysis negative. Hyponatremia resolved. Cardiology has been brought on board-left heart catheter tomorrow. We will continue to treat for COPD exacerbation as well. He is eating and drinking well and ambulating about his room without limitation. ITS Impressions Chest X-Ray 06/13/17 10:29 IMPRESSION: 1. No acute cardiopulmonary disease. 2. Small right upper lobe nodule. Further evaluation with noncontrast chest CT is recommended. D/ / Juan Dueñas MD / Juan Dueñas MD Interpreting Provider: Juan Dueñas MD Head CTA 06/13/17 11:29 IMPRESSION: No evidence of cervical or intracranial arterial occlusion or flow-limiting stenosis. No evidence of acute intracranial hemorrhage or mass effect. Multiple cerebral and cerebellar infarcts appear chronic and progressed from 2010. D/ / Fam Zambrano MD / Fam Zambrano MD Interpreting Provider: Fam Zambrano MD Neck CTA 06/13/17 11:29 IMPRESSION: No evidence of cervical or intracranial arterial occlusion or flow-limiting stenosis. No evidence of acute intracranial hemorrhage or mass effect. Multiple cerebral and cerebellar infarcts appear chronic and progressed from 2010. D/ / Fam Zambrano MD / Fam Zambrano MD Interpreting Provider: Fam Zambrano MD Chest CT 06/13/17 12:20 IMPRESSION: Emphysema. Pulmonary nodules which measure up to 9 mm. Recommend follow-up CT in 3 months. RECOMMENDATIONS: Fleischner Society guidelines for follow-up and management of incidentally detected pulmonary nodules: Multiple Solid Nodules: Nodule size greater than 8 mm In a low-risk patient, CT at 3-6 months, then consider CT at 18-24 months. In a high-risk patient, CT at 3-6 months, then CT at 18-24 months. Radiology 2017 http://pubs.rsna.org/doi/full/10.1148/radiol.0933579476 D/ / Linh Carr MD / Linh Carr MD Interpreting Provider: Linh Carr MD Echocardiogram impressions: LVEF 20-25%. Moderate aortic regurgitation. Diastolic dysfunction, NOS. Unable to estimate RVSP due to lack of TR jet. (4) Lung nodule Current Visit: Yes Status: Acute Assessment and plan: Recommendation is for follow-up in 3 months (5) Dizziness Current Visit: Yes Status: Resolved Assessment and plan: Currently denies dizziness. States he is ambulating around his room without limitation or difficulty (6) Anxiety Current Visit: Yes Status: Chronic Assessment and plan: Patient is much calmer today, his home clonazepam was continued. (7) Hyponatremia Current Visit: No Status: Acute Assessment and plan: Mild, acute on chronic and associated with hyperosmolality, will trend (8) DVT prophylaxis Current Visit: No Status: Acute Assessment and plan: Subcutaneous heparin (9) HLD (hyperlipidemia) Current Visit: No Status: Chronic Assessment and plan: Lipid panel normal, statin is indicated given that his LDL is greater than 75, continue home statin and recommend low-cholesterol diet Qualifiers: Hyperlipidemia type: unspecified Qualified Code(s): E78.5 - Hyperlipidemia , unspecified (10) Tobacco abuse Current Visit: No Status: Chronic Assessment and plan: Nicotine patch in place. Patient becomes angry when the topic of smoking cessation is broached. (11) Acute and chronic respiratory failure Current Visit: No Status: Acute Assessment and plan: Acute on chronic. He currently complains of shortness of breath but he is tolerating room air at this time. At home, patient is on oxygen at nighttime only. Will place 2 L on him at this time given new diagnosis of combined heart failure. Qualifiers: Respiratory failure complication: hypoxia Qualified Code(s): J96.21 - Acute and chronic respiratory failure with hypoxia (12) Hypertension Current Visit: No Status: Chronic Assessment and plan: Uncontrolled upon arrival with initial blood pressure 169/110. Blood pressure has improved since admission. We will continue to trend and adjust medications as indicated. Metoprolol has been added to his regimen. Qualifiers: Hypertension type: essential hypertension Qualified Code(s): I10 - Essential (primary) hypertension - Subjective Interval history: Patient seen and examined. On examination, patient sitting upright in bed conversing with his brother. Patient stating he is feeling better today. He states his breathing is better than yesterday. He states he is eating well. He states that he is upset that he was told that his heart catheter would be today, and he is upset that it will be tomorrow. - Constitutional Vitals: Temp Pulse Resp BP Pulse Ox 98.5 F 71 16 145/66 95 06/15/17 15:16 06/15/17 15:16 06/15/17 16:33 06/15/17 15:16 06/15/17 16:33 General appearance: Present: A&O X 3, no acute distress, answers questions appropriately - Head Head exam: Present: atraumatic, normocephalic - Eye Eye exam: Present: PERRL, conjuntiva pink, sclera anicteric Pupils: Present: PERRL - Neck Neck exam general surgery: Present: supple, trachea midline. Absent: lymphadenopathy - Respiratory Respiratory exam: Present: accessory muscle use, decreased breath sounds ( improved from yesterday), prolonged expiratory phase, wheezes. Absent: rales, respiratory distress, rhonchi - Cardiovascular Cardiovascular exam: Present: RRR, +S1, +S2. Absent: diastolic murmur, gallop, rubs, systolic murmur - GI/Abdominal GI/Abdominal exam: Present: normal bowel sounds, soft, no peritoneal signs. Absent: distended, tenderness - Extremities Exam Extremities exam: Present: warm, radial pulses palpable and symetrical. Absent : calf tenderness, cyanotic, pedal edema - Neurological Exam Neurological exam: Present: alert, CN II-XII intact, normal gait, oriented X3, no focal deficits, strengths equal and symetr throughout. Absent: pronater drift, facial droop, speech deficit - Skin Skin exam: Present: dry, intact, pallor, warm Internal Medicine: Result - Labs CBC & Chem 7: 06/15/17 04:43 06/15/17 04:43 Labs: Short CBC 06/15/17 Range/Units 04:43 WBC 8.6 (4.3-11.1) K/mcL Hgb 12.5 L (12.9-16.9) g/dL Hct 37.0 L (37.5-50.1) % Plt Count 262 (140-400) K/mcL Neutrophils # 5.7 (1.6-8.9) K/mcL BMP 06/15/17 04:43 Sodium 135 L Potassium 3.7 Chloride 102 Carbon Dioxide 25 BUN 10 Creatinine 0.81 Glucose 87 Calcium 8.6 Consult Discharge Plan - Plan Referrals: Yane Garcia, [employer] MACHINE OPERATOR [Primary Care Provider] - (web requested an apppointment, will call with a date and time)
[2017-06-16] MEDS: Ipratropium/Albuterol Neb 3 ML IH SCH ×5 (00:43→16:47)
[2017-06-16] MEDS: *HR* Heparin 5,000 UNIT/ML VIAL SQ SCH (04:54)
[2017-06-16 04:58] LABS: INR 0.9; Prothrombin Time 10.1 Seconds (9.4-12.1)
[2017-06-16 05:07] LABS: BUN/Creatinine Ratio 9 (6-26); Blood Urea Nitrogen 9 mg/dL (8-26); Carbon Dioxide 29 mEq/L (19-29); Chloride 102 mEq/L (98-109); Glucose 98 mg/dL (70-99); Osmolality,Calculated 281 (280-300); Potassium 3.7 mEq/L (3.5-4.5); Sodium 136 mEq/L (136-145); eGFR For African Americans > 60 (> 60); eGFR For Non-African Americans > 60 (> 60)
--- NOTE | 2017-06-16 06:12 | Electrocardiograph Report ---
[facility] Test Date: 2017-06-13 Pat Name: Vishal Headley Department: 105 Room: 3B55 Gender: M [employer] Driver: [facility] : 1950 Requested By: Edin Lane Order Number: [id number] Reading MD: Navid Frost DO Measurements Intervals [place] Rate: 89 P: 78 RI: 122 QRS: 82 QRSD: 98 T: 76 QT: 369 QTc: 416 Interpretive Statements SINUS RHYTHM Electronically Signed On 06-16-2017 6:10:09 EDT by Navid Frost DO
[2017-06-16] MEDS: Metoprolol XL (24 HR) Succ 25 MG TAB.ER.24H PO SCH (07:12)
[2017-06-16] MEDS ORDERED: *HR* Heparin 10,000 UNIT/10 ML VIAL ONE (07:18)
[2017-06-16] MEDS ORDERED: 0.9 % Sodium Chloride 1,000 ML ONE ×2 (07:18→07:28)
[2017-06-16] MEDS ORDERED: Heparin 1,000 UNITS/500 mL NS 500 ML ONE (07:18)
[2017-06-16] MEDS ORDERED: Nitroglycerin 1,000 MCG/10 ML VIAL IV ONE (07:25)
[2017-06-16] MEDS ORDERED: Verapamil 5 MG/2 ML VIAL ONE (07:25)
[2017-06-16] MEDS ORDERED: *HR* FentaNYL (PF) 100 MCG/2 ML VIAL ONE (07:34)
[2017-06-16] MEDS ORDERED: *HR* Midazolam HCl 2 MG/2 ML VIAL ONE (07:34)
[2017-06-16] MEDS ORDERED: *HR* Adenosine 6 MG/2 ML VIAL IVP ONE (07:56)
--- NOTE | 2017-06-16 08:32 | Invasive Diagnostic Lab Proc ---
Name: Vishal Headley Date of Study: 06/16/2017 Date: 1950 Ht: 68.1in Medical Record#: [id number] Age: 67 Wt: 141.10lb Gender: Male BSA: 1.76 Order #: [id number] BMI: 21.38 Physicians Procedure Physician: Justino West MD, [facility] Referring MD: Referring MD: Staff Name Position Time In LluviaGladys RN Monitor 07:32 AM Rufino Conway RN Monitor 07:32 AM Stephen Stewart RT (R) Scrub 07:32 AM Ana Mariee RN Dean For Student Affairs 07:33 AM Ofelia Hillman RN Dean For Student Affairs 07:33 AM Indications Indication Unstable Angina Procedures Performed Procedure L HRT ARTERY/VENTRICLE ANGIO IV Doppler BLD Flow 1st Vessel Pre-Procedure Checklist Informed consent is complete signed and on chart. H&P is on chart. ID band is on and ID verified with patient. Patient NPO for procedure The procedure was described for the patient and questions were answered. Blood Pressure: 125/78 ECG is on chart. Rhythm: NSR Plan of Care Patient will tolerate the procedure without complications. Adequate level of comfort will be maintained. Hemodynamics will remain stable Patient will recover from procedure without complications. Respiratory function will be maintained. Cardiac rhythm will remain stable. Patient temperature will be maintained. Patient and/or family have verbalized understanding of the procedure. Patient Education Chief Complaint/Reason for Test: Cardiac Cath Developmental Category: Adult (18-64 years) Developmentally Appropriate for Age: Yes Learning Barriers: None Education Needs: Procedure Education Method: Verbal Information Taught: Cardiac Cath Educational Evaluation: Able to repeat information Intravenous Access Time IV Size Location DC'd Fluid/Drip Rate Units RN 07:36 AM 20g 1 1/" Patent On Arrival 0.9NaCl Allergies promethazine ampicillin NO Vital Signs Time BP (mmHg) HR (bpm) O2 Sat. RR (bpm) LOC 125 / 78 69 98 % 16 5 = Fully awake and oriented or at pre-proc level 07:37 AM / % 5 = Fully awake and oriented or at pre-proc level 07:37 AM / % 4 = Oriented but drowsy 07:52 AM / % 4 = Oriented but drowsy 07:36 AM 142 / 95 77 96 % 13 07:41 AM 140 / 90 74 94 % 16 07:46 AM 132 / 84 69 96 % 10 07:51 AM 119 / 73 72 93 % 11 07:56 AM 123 / 69 78 92 % 18 08:01 AM 130 / 79 86 94 % 26 08:06 AM 123 / 76 69 94 % 15 08:11 AM 133 / 74 70 93 % 26 Procedural Medications Time Medication Dose Units Method Given By 07:37 AM Oxygen 2 L/min nasal cannula Ofelia Hillman RN 07:38 AM Versed 2 mg Intravenous Ofelia Hillman RN 07:38 AM Fentanyl 50 mcg Intravenous Ofelia Hillman RN 07:48 AM Lidocaine 2% 0.5 ml Subcutaneous Justino West MD, [facility] 07:49 AM Heparin 4000 units Nitroglycerin 200 mcg Verapamil 2.5 mg Intraarterial Justino West MD, [facility] 08:03 AM Adenosine 200 mcg Intracoronary Justino West MD, [facility] ASA Classification: CLASS II- Mild systemic disease (i.e. well-controlled diabetes, hypertension, asthma, cigarette smoking) Roxanna Score Preprocedure Postprocedure Activity 2- Moves 4 extremities sustained head lift Activity 2- Moves 4 extremities sustained head lift Circulation 2- SBP +/= 20 points of pre-anesthetic level Circulation 2- SBP +/= 20 points of pre-anesthetic level Consciousness 2- Awake and alert oriented x 3 Consciousness 2- Awake and alert oriented x 3 O2 Saturation 2- Able to maintain O2 satruation of 92% on room air O2 Saturation 2- Able to maintain O2 satruation of 92% on room air Respiratory 2- Able to deep breathe and cough well Respiratory 2- Able to deep breathe and cough well Total Score 10 Total Score 10 Contrast Agent: Isovue Diagnostic Contrast: 77 ml Total Contrast: 77 ml Fluoro Dose: 188 mGy Activated Clotting Time Time Seconds to Clot 08:02 AM 300 Procedure Log Time Note Enter By 07:20 AM CathStat 07:32 AM 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 2 at 07:32 scoates 07:32 AM Gladys Teixeira RN Position: Monitor Time in: 07:32 scoates 07:32 AM Rufino Conway RN Position: Monitor Time in: 07:32 scoates 07:33 AM Stephen Stewart RT (R) Position: Scrub Time in: 07:32 scoates 07:33 AM Ana Mariee RN Position: Dean For Student Affairs Time in: 07:33 scoates 07:33 AM Ofelia Hillman RN Position: Dean For Student Affairs Time in: 07:33 scoates 07:33 AM Patient charges- Angio tray pack, Navilyst 3mm J, Pulse Oximetry and ACIST tubing and transducer scoates 07:34 AM Case Delayed No, Inpatient scoates 07:35 AM Hair removed from procedure site in procedure lab using clippers. Rt groin and rt wrist prepped with Chloraprep by Ofelia Hillman RN, then patient was draped. Skin intact. scoates 07:35 AM Vitals capture started with the following parameters, Patient=Adult, Interval=5 min, Initial Gncuhyvx=628 mmHg, Deflation Rate=5 mmHg, Cuff placed on Left Arm 07:36 AM Physician arrived 07:36 scoates 07:36 AM Meet and greet completed scoates 07:36 AM Sign in performed according to hospital policy. scoates 07:36 AM Procedure start 07:36 scoates 07:36 AM ASA Class CLASS II- Mild systemic disease (i.e. well-controlled diabetes, hypertension, asthma, cigarette smoking) scoates 07:36 AM HR=77 bpm, PLSU=673/95 mmhg, SpO2=96.0 %, Resp=13 B/min, Comment=nsr 07:37 AM Time: 07:37 Patient comfortable and pain free: Yes scoates 07:37 AM Time: 07:37LOC: 5 = Fully awake and oriented or at pre-proc level scoates 07:38 AM Time: 07:37 Oxygen on at 2 L/min per nasal cannula by Ofelia Hillman RN scoates 07:38 AM Time: 07:38 Versed 2 mg Intravenous Given by Ofelia Hillman RN scoates 07:38 AM Time: 07:38 Fentanyl 50 mcg Intravenous Given by Ofelia Hillman RN scoates 07:39 AM Clinical Presentation: Stable angina scoates 07:40 AM Recorded ECG: HR=75 Condition=Condition 1 07:41 AM HR=74 bpm, AQZB=561/90 mmhg, SpO2=94.0 %, Resp=16 B/min, Comment=nsr 07:43 AM Pressure channel 1 zeroed. 07:46 AM HR=69 bpm, EZXN=406/84 mmhg, SpO2=96.0 %, Resp=10 B/min, Comment=nsr 07:47 AM Time out performed according to hospital policy scoates 07:48 AM Time: 07:48 0.5 ml Lidocaine 2% to right radial Subcutaneous Given by Justino West MD, [facility] scoates 07:49 AM Access obtained by percutaneous puncture. 6Fr 11cm Terumo Glidesheath sheath placed in right Radial artery. [id number] scoates 07:49 AM Time: 07:49 Patient given 4,000 units Heparin, 200 mcg Nitroglycerin, and 2.5 mg Verapamil Intraarterial by Justino West MD, [facility] scoates 07:49 AM 5Fr TIG catheter inserted over the wire DN scoates 07:51 AM HR=72 bpm, PZXG=079/73 mmhg, SpO2=93.0 %, Resp=11 B/min, Comment=nsr 07:51 AM LCA angiography performed in multiple views. scoates 07:51 AM Recorded Pressure: Ao, HR=71, Condition=Condition 1 (Aorta) Ao 103/69/84 07:52 AM catheter repositioned to the RCA scoates 07:52 AM Time: 07:37LOC: 4 = Oriented but drowsy scoates 07:53 AM RCA angiography performed in multiple views. scoates 07:54 AM Lesion found in Mid LAD. Pre Stenosis: 50 Pre LEONEL Flow: scoates 07:54 AM Recorded Pressure: Ao, HR=74, Condition=Condition 1 (Aorta) Ao 107/68/86 07:54 AM Lesion found in Distal Circumflex. Pre Stenosis: 60 Pre LEONEL Flow: scoates 07:54 AM Catheter removed scoates 07:54 AM 5Fr Pigtail catheter inserted over the wire [facility] scoates 07:56 AM Catheter selectively placed in left ventricle scoates 07:56 AM HR=78 bpm, LTXN=438/69 mmhg, SpO2=92.0 %, Resp=18 B/min, Comment=nsr 07:56 AM Recorded Pressure: LV, HR=83, Condition=Condition 1 (Left Ventricle) LV 113/23/28 07:56 AM Recorded Pressure: LV, HR=82, Condition=Condition 1 (Left Ventricle) LV 120/13/8 07:57 AM Recorded Pressure: LV, Ao, HR=75, Condition=Condition 1 (Left Ventricle) LV 106/4/27, (Aorta) Ao 115/58/83 07:59 AM Bolus angiogram of left Ventricle complete: 12 ml/sec for a total of 30 mls scoates 07:59 AM Catheter removed scoates 08:01 AM HR=86 bpm, MUCE=732/79 mmhg, SpO2=94.0 %, Resp=26 B/min, Comment=nsr 08:02 AM At 08:02 the ACT was 300 seconds. scoates 08:02 AM [employer] - SNADEC advanced to target lesion. scoates 08:03 AM 6Fr IM Runway guide catheter was used to cannulate the PCI vessel successfully. reused? No scoates 08:03 AM Inflation device was opened. scoates 08:03 AM Time: 08:03 Adenosine 200 mcg administered Intracoronary by Justino West MD, [facility] scoates 08:03 AM Recorded Pressure: Ao, HR=80, Condition=Condition 1 (Aorta) Ao 120/65/87 08:04 AM FFR Measurement: 0.97 scoates 08:04 AM Flow Wire removed intact scoates 08:04 AM Guide catheter removed intact. scoates 08:04 AM Lesion found in Mid RCA. Pre Stenosis: 60 Pre LEONEL Flow: scoates 08:06 AM HR=69 bpm, UFSY=261/76 mmhg, SpO2=94.0 %, Resp=15 B/min, Comment=nsr 08:06 AM Procedure completed at 08:06 scoates 08:07 AM Sign out completed: Radiation Dose 188 mGy Fluoro Time: 2.3 Isovue 370 - 200ml contrast 77 ml given by Justino West MD, [facility]. Complications: NoneCardiac Rehab Consult needed: YesConfirmed administered medications: Yes scoates 08:11 AM Time: 07:52LOC: 4 = Oriented but drowsy scoates 08:11 AM Time: 07:52 Patient comfortable and pain free: Yes scoates 08:11 AM HR=70 bpm, JEFS=564/74 mmhg, SpO2=93.0 %, Resp=26 B/min 08:12 AM Isovue 370 - 200ml,1 Bottle(s) used. scoates 08:12 AM Arterial sheath pulled, Vasc Band closure device used and was Successful S/N. scoates 08:12 AM 11 ml air in Vasc Band. scoates 08:12 AM Post ECG NSR scoates 08:13 AM Post Blood Pressure 133/74 scoates 08:13 AM 08:13 Post Pulses Rt Radial 2+ scoates 08:13 AM Information taught Cardiac Cath, IVUS/Flowire, and Vasc Band scoates 08:13 AM Education needs Procedure, Plan of Care, and Responsibilities of Patient in Care scoates 08:13 AM Learning barriers :None scoates 08:14 AM Education Methods Verbal and written scoates 08:14 AM Education evaluation Able to repeat information scoates 08:14 AM Site status No bleeding/hematoma - Rt Wrist as reported by Stephen Stewart RT (R) at 08:14 scoates 08:14 AM Plavix, Effient or Brilinta given No scoates 08:14 AM Delay to floor No scoates 08:14 AM Family placed in consult room. scoates 08:15 AM Complications: None scoates 08:15 AM Fluoro Time: 2.3 scoates 08:15 AM Radiation Dose 188 mGy scoates 08:16 AM Coronary Dominance: right scoates 08:17 AM Mid/Distal Left Anterior Descending Coronary Artery and diagonal branches with 50% stenosis. If graft is supplying this area, 0 % stenosis scoates 08:17 AM Circumflex, Obtuse Marginal, Left Posterior Descending, and Left Posterolateral Coronary Arteries with 60 % stenosis. If graft is supplying this area, 0 % stenosis scoates 08:17 AM Right Coronary, Right Posterior Descending Arteries with Right Posterolateral and Acute Marginal branches with 60 % stenosis. If graft is supplying this area, 0 % stenosis scoates Complications Complication None None Hemodynamics Pressures Site Systolic/A Wave Diastolic/V Wave Mean AO 103 69 84 AO 107 68 86 LV 113 23 28 LV 120 13 8 LV 106 4 27 AO 115 58 83 AO 120 65 87 Post Procedure Information Blood Pressure: 133/74 mmHg Rhythm: NSR Post procedural instructions were given Closure Device Time Device Success/Fail 06/16/2017 8:15:00 AM Mechanical Compression Successful Site Checks Time Location Status Staff Sheath In? Note 08:14 AM Rt Wrist No bleeding/hematoma Stephen Stewart RT (R) Pulses Time Site Pre-Procedure Post-Procedure Note 06/16/2017 7:36:00 AM Bilateral DP & PT 2+ 06/16/2017 7:36:00 AM Bilateral radial 2+ 8:13:00 AM Rt Radial 2+ Updated by Gladys Kruse RN on 06/16/2017 8:27:00 AM electronically signed on 06/16/2017 8:27:27 AM with status of Final
[2017-06-16] MEDS: Aspirin Enteric Coated 81 MG Tablet PO SCH (10:03)
[2017-06-16] MEDS: Loratadine 10 MG TABLET PO SCH (10:04)
[2017-06-16] MEDS: Famotidine 20 MG TABLET PO SCH (10:05)
[2017-06-16] MEDS: Nicotine 21 MG PATCH.TD24 TD SCH (10:05)
[2017-06-16] MEDS: Finasteride 5 MG TABLET PO SCH (10:06)
[2017-06-16] MEDS: clonazePAM 0.5 MG TABLET PO PRN (10:06)
[2017-06-16] MEDS: Lisinopril 20 MG TABLET PO SCH (10:06)
--- NOTE | 2017-06-16 10:48 | Event Note ---
Date of Encounter: 06/16/17 Time of Encounter: 09:30 Patient seen today with family at bedside. Status post catheterization and per discussion with Dr. West nonischemic cardiomyopathy. Telemetry reviewed with average heart rate 83 and no significant events noted. Current systolic blood pressures in the 120s to 130s. We'll increase Toprol-XL to 50 mg by mouth daily. Patient received a heart rate, blood pressure log, daily weight log and bring to follow-up appointment. 2 L fluid restriction and sodium resection diet provided. Smoking cessation reinforced. Cardiology will sign off, re-consult as needed, follow up as outpatient scheduled. Remain off work until seen by Cardiology. Discussed with Dr. Casper Rogers.
[2017-06-16] MEDS ORDERED: Metoprolol XL (24 HR) Succ 25 MG TAB.ER.24H PO ONE (11:00)
[2017-06-16] MEDS: Budesonide/Formoterol 160/4.5 MDI IH SCH (11:07)
[2017-06-16 12:17] VITALS: BP 111/68
--- NOTE | 2017-06-16 13:03 | Discharge Summary ---
Date of Encounter: 06/16/17 Time of Encounter: 11:00 - Discharge Diagnosis (1) Acute combined systolic and diastolic heart failure Priority: Primary Status: Acute Comments: Echocardiogram revealing ejection fraction of 20-25% with moderate AR and diastolic dysfunction. New for this patient. [facility] with nonischemic cardiomyopathy. Started on a BB per cardiology- fluid and sodium restricted diet. Followup closely outpatient. (2) Acute exacerbation of chronic obstructive airways disease Priority: Primary Status: Resolved Comments: Patient denies shortness of breath above his norm on day of discharge. (3) Near syncope Priority: Primary Status: Acute Comments: Likely multifactorial including new onset nonischemic cardiomyopathy, continued tobacco abuse with COPD, as well as mild dehydration upon arrival. (4) Lung nodule Priority: Primary Status: Acute Comments: Follow-up in 3 months (5) Dizziness Priority: Primary Status: Resolved (6) Anxiety Priority: Secondary Status: Chronic Comments: Controlled with his home clonazepam (7) Hyponatremia Priority: Primary Status: Resolved (8) DVT prophylaxis Priority: Primary Status: Acute Comments: Subcutaneous heparin while admitted (9) HLD (hyperlipidemia) Priority: Secondary Status: Chronic Comments: Lipid panel normal, statin is indicated given that his LDL is greater than 75, continue home statin and recommend low-cholesterol diet Qualifiers: Hyperlipidemia type: unspecified Qualified Code(s): E78.5 - Hyperlipidemia , unspecified (10) Tobacco abuse Priority: Secondary Status: Chronic Comments: Declined smoking cessation counseling (11) Acute and chronic respiratory failure Priority: Secondary Status: Chronic Comments: at home, patient is listed as being on 2L per NC at night only, but he states that he uses 4L at night. On day of discharge, we performed a walking test to see if he needed continuous oxygen at home, and he qualified for 3 L of continuous oxygen. Patient was very upset stating that he would lose his job if he was oxygen dependent. Educated importance on smoking cessation, wearing his oxygen as prescribed, and taking his new cardiac medications. Qualifiers: Respiratory failure complication: hypoxia Qualified Code(s): J96.21 - Acute and chronic respiratory failure with hypoxia (12) Hypertension Priority: Secondary Status: Chronic Comments: Uncontrolled upon arrival with initial blood pressure 169/110. Blood pressure has improved since admission the addition of metoprolol to his regimen. Normotensive on day of discharge. He was given a blood pressure and heart rate log upon discharge. Qualifiers: Hypertension type: essential hypertension Qualified Code(s): I10 - Essential (primary) hypertension - Discharge Medications Prescriptions: Aspirin Enteric Coated [Aspirin EC] 81 mg PO DAILY #30 mg Metoprolol XL (24 HR) Succ [Toprol Xl] 50 mg PO DAILY #30 tab.er.24h Oxygen 3 l IN CONT #1 each Home Medications: Albuterol Sulfate [Proair Hfa] 2 puff IH Q4-6H PRN 02/12/16 [History] Budesonide/Formoterol 160/4.5 [Symbicort 160/4.5] 2 puff IH BID 02/12/16 [ History] Ipratropium/Albuterol Neb [Duoneb] 3 ml IH QID PRN 02/12/16 [History] Lisinopril [Zestril] 20 mg PO QAM 02/12/16 [History] Multivitamin/Iron/Folic Acid [Centrum Complete Multivit Tab] 1 tab PO QAM [History] Paroxetine HCl 40 mg PO QAM 02/12/16 [History] Pravastatin Sodium [Pravachol] 20 mg PO QPM 02/12/16 [History] clonazePAM [Klonopin] 0.5 mg PO BID PRN 02/12/16 [History] Tamsulosin HCl [Flomax] 0.4 mg PO DAILY #14 cap.er.24h 04/19/16 [Rx] Finasteride [Proscar] 5 mg PO DAILY 10/20/16 [History] GuaiFENesin ER [Mucinex] 1,200 mg PO BID #28 tbbp.12hr 10/22/16 [Rx] Doxazosin [Cardura] 4 mg PO HS 06/13/17 [History] Loratadine [Claritin] 10 mg PO DAILY 06/13/17 [History] Aspirin Enteric Coated [Aspirin EC] 81 mg PO DAILY #30 mg 06/16/17 [Rx] Metoprolol XL (24 HR) Succ [Toprol Xl] 50 mg PO DAILY #30 tab.er.24h 06/16/17 [ Rx] Oxygen 3 l IN CONT #1 each 06/16/17 [Rx] Allergies/Adverse Reactions: Allergies ampicillin Allergy (Verified 06/13/17 10:33) Hives promethazine [From Phenergan] Allergy (Verified 06/13/17 14:36) Confusion Procedures/tests Complete & Pending: Procedures Performed prior 72 hours Category Date Time Status CL Cardiac Catheterization [CL] Routine Childcare Attendant 06/16/17 10:19 Ordered Date of admission: 06/14/17 15:30 Primary care physician: Yane Garcia CNP Consults: 06/14/17 15:08 Consult to Cardiology [CONS] Routine Comment: Consulting Provider: [facility] Reason for Consult: here for presyncope. EF 20-25%. prior ERIN from 2010- EF was 55%. Time Notified: 15:09 Call Completed: Yes Discharging clinician: Lorene Weiss Anticipated date of discharge: 06/16/17 - Patient Status Disposition: Home, Self-Care Condition: Fair Functional capacity at discharge: independent ambulation Overall status at discharge: patient is progressing back to baseline - Discharge Instructions Instructions: Heart Failure (DC), Left Heart Catheterization (DC), Pacemaker ( DC), How to Stop Smoking (DC), Chronic Obstructive Pulmonary Disease (DC) Follow Up With: Yane Garcia CNP [Primary Care Provider] - (web requested an apppointment, will call with a date and time) [facility] [Provider Group] Forms: Work/School Release Additional Instructions: RISK FACTORS: STOP SMOKING: If you smoke, STOP. Smoking or tobacco use significantly increases your risk of heart disease because nicotine causes the arteries to narrow or constrict. It also causes fats to stick to the artery. Your chances of having a heart attack are greatly increased if you continue to smoke. For more information, call the education line for smoking cessation 4-372-[id number] EAT A LOW FAT/CHOLESTEROL/SODIUM DIET: This diet may help reduce your chances of having a heart attack. LIFTING: With affected extremity: Avoid bending, pushing off and lifting more than 2 pounds for 24 hours The following 48 hours, avoid lifting anything more than 5 pounds Avoid strenuous activity or repetitive motions ACTIVITY: You may walk or climb stairs as tolerated You can resume sexual activity as tolerated In general, you are encouraged to engage in a minimum of 30 minutes or more of moderate intensity physical activity, such as brisk walking, daily or at least 3 -4 times weekly BATHING Do not submerge the site into water (bath tub, hot tub, swimming pool, dishes) for 1 week. This can be a source for infection into the blood stream. You may shower after 24 hours SITE CARE: After 24 hours, you may remove the dressing and leave the site open to air. Keep the site clean and dry. Clean gently and pat dry. You can expect bruising and tenderness that gradually resolve within a week or two. Return to work as instructed per your physician Resume driving as instructed per physician Keep all scheduled follow up appointments Resume medications as instructed IMPORTANT: If prescribed a Platelet Aggregation Inhibitor such as, Plavix, Brilinta or Effient: Duration of therapy is minimum one year These medications are often used in combination with Aspirin in prevention of future heart attacks Never discontinue unless consult with your Grain Combiner STROKE (CVA) Risk factors for a stroke are: Age, cigarette smoking, diabetes, excessive alcohol consumption, family history, high blood pressure, overweight, physical inactivity, prior stroke, heart attack, diagnosis of carotid artery stenosis or other artery disease. Warning signs: Sudden numbness or weakness of the face, arm or leg; especially on one side of the body, sudden confusion, trouble speaking or understanding, sudden trouble seeing in one or both eyes, sudden trouble walking, dizziness, loss of balance or coordination, sudden severe headache with no cause. Call 911 or go to the Emergency Room. CONGESTIVE HEART FAILURE: If you have been diagnosed with Congestive Heart Failure (CHF) and your symptoms return, make an appointment with your physician Weigh yourself daily. Notify your physician if you have a weight gain of two or more pounds in one day or five or more pounds in one week. If you experience any difficulty breathing, please call 911 BLEEDING: Although the risk of bleeding is minimal, it can happen. If you have any bleeding from the site, apply firm pressure above the puncture site for 10-15 minutes. If the bleeding does not stop, continue manual pressure and call 911 Contact [facility] ( ) if: You develop a fever greater than 101 degrees Fahrenheit Your site becomes reddened or has any drainage You have an increase in pain or burning at the site or if a large knot forms at the site. If you experience chest pain, shortness of breath, dizziness, or extreme tiredness, stop the activity and rest. Please notify [facility] office if you experience any of these symptoms and they are not relieved by rest please call 911! - Diet and Activity Activity: increase activity as tolerated, return to work once cleared by your PCP/specialist (must be cleared by cardiology.), wear oxygen at all times Diet: low fat, low cholesterol, low salt diet (2L fluid restriction as well) Hospital course: Mr. Headley is a 67 year old male with past medical history of COPD on oxygen at night, CVA, hyperlipidemia, hypertension, tobacco abuse. 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 Patient stating he has had similar exertional near syncopal episodes for the past several years. Patient denied any prior cardiac issues or cardiac workup. Workup in the emergency department unremarkable other than accelerated hypertension. Chest x-ray negative for acute processes other than pulmonary nodules. Head and neck CTA negative for acute processes. Chest CT was obtained which again revealed pulmonary nodules with recommendation to follow up in [address] also revealing remote rib fracture, patient denies rib pain on the left side. Patient was admitted to the hospitalist service for further evaluation and management. Echocardiogram revealed ejection fraction of 20-25% with moderate AR and diastolic dysfunction. This is new for this patient, his most recent echo was in 2010 revealed an ejection fraction of 55%. Cardiology was brought on board and added a beta yane to his regimen then proceeded with a left heart catheter. Left heart catheter was reported as nonischemic cardiomyopathy and recommendation for risk factor modification including smoking cessation. The patient was on an LEWIS inhibitor and a statin, aspirin and a beta yane were added to his regimen. With the addition of the beta yane, patient was normotensive on day of discharge. On day of discharge , patient denies shortness of breath above his norm. He tolerated a regular diet prior to discharge. Urinalysis was negative. Patient was ambulatory without restrictions during this admission. He was also educated on a fluid and sodium restricted diet and was given logs so that he can check his heart rate, blood pressure, and daily weights in preparation for his follow-up appointment with cardiology. Patient was euvolemic on examination during this admission. At home, patient is on oxygen at bedtime, prior to discharge, we performed a walking test to see if he qualified for continuous supplemental oxygenation, and he qualified for 3 L of continuous supplemental oxygen at home. Patient became very upset and stated that he would lose his job if he had to wear oxygen. Importance of stopping smoking, wearing his oxygen, adhering to his fluid and sodium restricted diet to take some of the pressure off his heart was discussed with the patient. He remained upset. Per cardiology, he is not to return to work until cleared by them. He was discharged home in stable condition with close outpatient follow-up recommended. ITS Impressions Chest X-Ray 06/13/17 10:29 IMPRESSION: 1. No acute cardiopulmonary disease. 2. Small right upper lobe nodule. Further evaluation with noncontrast chest CT is recommended. D/ / Juan Dueñas MD / Juan Dueñas MD Interpreting Provider: Juan Dueñas MD Head CTA 06/13/17 11:29 IMPRESSION: No evidence of cervical or intracranial arterial occlusion or flow-limiting stenosis. No evidence of acute intracranial hemorrhage or mass effect. Multiple cerebral and cerebellar infarcts appear chronic and progressed from 2010. D/ / Fam Zambrano MD / Fam Zambrano MD Interpreting Provider: Fam Zambrano MD Neck CTA 06/13/17 11:29 IMPRESSION: No evidence of cervical or intracranial arterial occlusion or flow-limiting stenosis. No evidence of acute intracranial hemorrhage or mass effect. Multiple cerebral and cerebellar infarcts appear chronic and progressed from 2010. D/ / Fam Zambrano MD / Fam Zambrano MD Interpreting Provider: Fma Zambrano MD Chest CT 06/13/17 12:20 IMPRESSION: Emphysema. Pulmonary nodules which measure up to 9 mm. Recommend follow-up CT in 3 months. RECOMMENDATIONS: Fleischner Society guidelines for follow-up and management of incidentally detected pulmonary nodules: Multiple Solid Nodules: Nodule size greater than 8 mm In a low-risk patient, CT at 3-6 months, then consider CT at 18-24 months. In a high-risk patient, CT at 3-6 months, then CT at 18-24 months. Radiology 2017 http://pubs.[facility].org/doi/full/10.1148/[email or web address] D/ / Linh Carr MD / Linh Carr MD Interpreting Provider: Linh Carr MD Echocardiogram Impressions: LVEF 20-25%. Moderate aortic regurgitation. Diastolic dysfunction, NOS Unable to estimate RVSP due to lack of TR jet. Time spent discussing smoking cessation with patient: 3 to 10 minutes - Time Spent with Patient Total time spent providing and/or coordinating discharge services: - Constitutional Vitals: Temp Pulse Resp BP Pulse Ox 97.4 F L 84 16 111/68 92 06/16/17 12:10 06/16/17 12:10 06/16/17 12:10 06/16/17 12:10 06/16/17 12:10 General appearance: Present: A&O X 3, no acute distress, answers questions appropriately - Head Head exam: Present: atraumatic, normocephalic - Eye Eye exam: Present: PERRL, conjuntiva pink, sclera anicteric Pupils: Present: PERRL - Neck Neck exam general surgery: Present: supple, trachea midline. Absent: lymphadenopathy - Respiratory Respiratory exam: Present: decreased breath sounds, prolonged expiratory phase, wheezes. Absent: accessory muscle use, rales, respiratory distress, rhonchi - Cardiovascular Cardiovascular exam: Present: RRR, +S1, +S2. Absent: diastolic murmur, gallop, rubs, systolic murmur - GI/Abdominal GI/Abdominal exam: Present: normal bowel sounds, soft, no peritoneal signs. Absent: distended, tenderness - Extremities Exam Extremities exam: Present: warm, radial pulses palpable and symetrical. Absent : calf tenderness, cyanotic, pedal edema - Neurological Exam Neurological exam: Present: alert, CN II-XII intact, normal gait, oriented X3, no focal deficits, strengths equal and symetr throughout. Absent: pronater drift, facial droop, speech deficit - Skin Skin exam: Present: dry, intact, normal color, warm
[2017-06-17] MEDS ORDERED: Metoprolol XL (24 HR) Succ 25 MG TAB.ER.24H PO SCH (09:00)
--- NOTE | 2017-06-18 17:21 | Invasive Diagnostic Lab ---
Name: Vishal Headley Date of Study: 06/16/2017 Date: 1950 Ht: 173.0 cm /68.1 in Medical Record#: [id number] Age: 67 Wt: 64. kg / 141.10 lb Account/Order#: [id number] Gender: Male BSA: 1.76 Order #: [id number] Fluoro Dose: 188 mGy BMI: 21.38 Procedure Physician: Justino West MD, FACC Referring MD: Referring MD: Procedures Performed: Transradial LEFT HEART CATH IV Doppler BLD Flow 1st Vessel Indications: Unstable Angina Impressions: There is moderate three vessel coronary artery disease. There is severe LV Dysfunction EF 20% FFR Measurement: 0.97 Recommendations: Optimal medical therapy of patient's disease. Aggressive risk factor modification. Patient being referred for cardiac rehab. History/Risk Factors: COPD CVA Hypertension Dyslipidemia Procedure Access obtained in the right Radial artery by percutaneous puncture A pressure tipped wire was advanced through the catheter into the RCA. Measurements of FFR were made during hyperemia induced by intracoronary adenosine. FFR Measurement 0.97 Complications: None, None Contrast: Isovue 77ml Closure Device: Mechanical Compression Hemodynamics: Pressures Site Systolic/ A Wave Diastolic/ V Wave End Diastolic/ Mean HR AO 103 69 84 71 AO 107 68 86 74 LV 113 23 28 83 LV 120 13 8 82 LV 106 4 27 73 AO 115 58 83 80 AO 120 65 87 80 LV Ventriculography Ejection Method: LV Gram Ejection Fraction: 20% Wall Motion: XAVIER Anterobasal Severe Hypokinesis Anterolateral Severe Hypokinesis Apical: Severe Hypokinesis Inferoapical Severe Hypokinesis Inferobasal Severe Hypokinesis Coronary Dominance: right Lesion Findings/Interventions * Left Main Coronary Artery The LMCA is angiographically free of disease. * Left Anterior Descending There is a 50% stenosis in the Mid LAD. * Circumflex There is a 60% stenosis in the Distal Circumflex. * Right Coronary Artery There is a 60% stenosis in the Mid RCA. Updated by Gladys Kruse RN on 06/16/2017 8:26:29 AM Justino West MD, FACC electronically signed on 06/18/2017 5:17:17 PM with status of Final
== END 2017-06-16 17:00 | disposition home or self-care (01) | DRG 286 ==
LOC: 3BNU 10:23 → EMEROO 10:23 → 3BNU 15:00
PROVIDERS: ADMIT Family Medicine; ATTEND Nurse Practitioner Family

== ENCOUNTER 2018-04-21 11:47 | Inpatient (IN) ==
[2018-04-21 12:06] LABS: Basophils % 0.2 %; Eosinophils % 0.1 %; Hematocrit 40.4 % (37.5-50.1); Hemoglobin 14.2 g/dL (12.9-16.9); Immature Granulocytes % 1.2 % (0-4); Lymphocytes # 1.4 K/mcL (0.6-4.6); Lymphocytes % 7.1 %; Mean Corpuscular HGB Conc 35.1 g/dL (31.6-35.5); Mean Corpuscular Hemoglobin 32.5 pg (28.0-33.3); Mean Corpuscular Volume 92.4 fL (83.0-100.0); Mean Platelet Volume 9.6 fL (9.4-12.4); Monocytes % 5.4 %; Neutrophils # 16.6 K/mcL (1.6-8.9); Platelet Count 391 K/mcL (140-400); Red Blood Count 4.37 M/mcL (4.19-5.50); Red Cell Distribution Width 12.9 % (11.5-14.5)
[2018-04-21 12:12] LABS: Prothrombin Time 10.5 Seconds (9.4-12.1)
[2018-04-21 12:15] LABS: Activated Partial Thrombo Time 28.3 Seconds (26.0-36.0)
[2018-04-21 12:28] LABS: BUN/Creatinine Ratio 10 (6-26); Blood Urea Nitrogen 11 mg/dL (8-23); Carbon Dioxide 28 mEq/L (23-29); Chloride 97 mEq/L (98-107); Glucose 119 mg/dL (70-105); Osmolality,Calculated 279 (280-300); Sodium 134 mEq/L (136-145); eGFR For African Americans > 60 (> 60); eGFR For Non-African Americans > 60 (> 60)
[2018-04-21 12:31] LABS: Troponin I 0.08 ng/mL (< 0.04)
[2018-04-21] MEDS ORDERED: Isovue-370 500 ML INFUS..BTL IV ONE (12:34)
[2018-04-21 13:09] LABS: Thyroid Stimulating Hormone 1.485 mcIU/mL (0.340-5.600)
[2018-04-21 13:55] LABS: Bilirubin,Urine Negative (Negative); Blood,Urine Negative (Negative); Clarity,Urine Clear (Clear); Color,Urine Yellow (Yellow); Glucose,Urine (UA) Normal (Normal); Ketones,Urine Negative (Negative); Leukocyte Esterase,Urine Negative (Negative); Nitrite,Urine Negative (Negative); Protein,Urine Negative (Neg-Trace); Specific Gravity,Urine 1.017 (1.010-1.025); Urobilinogen,Urine Normal (Normal)
--- NOTE | 2018-04-21 14:27 | Emergency Department Note ---
Disposition Clinical Impression: Stroke, Hyponatremia, Elevated troponin, COPD (chronic obstructive pulmonary disease) Disposition: Admitted As Inpatient Condition: Critical Referrals: Yane Garcia CNP [Primary Care Provider] - Time of Disposition: 15:38 Neuro HPI - General Chief Complaint: ED Neuro Symptoms/Deficit Stated Complaint: neuro sx Time Seen by Provider: 04/21/18 11:48 Source: patient, family Mode of arrival: ambulatory Limitations: no limitations Nursing Notes Reviewed: Yes Vital Signs Reviewed: Yes - History of Present Illness HPI Narrative: Patient presents emergency room by personal vehicle for evaluation of left- sided facial droop and slurred speech. Patient was talking his brother this morning when he notices. Patient did not notice any acute onset of the symptoms. Since any significant difficulty with putting on his clothes and ambulating. Symptom Onset Unknown: No Timing confirmed by: family member Location: speech, left face History of same: No Severity: moderate Quality: weakness Symptoms Improving: No Improves with: none Worsens with: none Context: other On Anticoagulants: No Associated symptoms: Reports: denies other symptoms Treatments Prior to Arrival: none - Related Data Home Medications: Home Medications Medication Instructions Recorded Confirmed Albuterol Sulfate [Proair Hfa] 2 puff IH Q4-6H PRN 02/12/16 04/21/18 Budesonide/Formoterol 160/4.5 2 puff IH BID 02/12/16 04/21/18 [Symbicort 160/4.5] Ipratropium/Albuterol Neb [Duoneb] 3 ml IH QID PRN 02/12/16 04/21/18 Lisinopril [Zestril] 20 mg PO QAM 02/12/16 04/21/18 Multivitamin/Iron/Folic Acid 1 tab PO QAM 02/12/16 04/21/18 [Centrum Complete Multivit Tab] Paroxetine HCl 40 mg PO QAM 02/12/16 04/21/18 Pravastatin Sodium [Pravachol] 20 mg PO QPM 02/12/16 04/21/18 clonazePAM [Klonopin] 0.5 mg PO BID PRN 02/12/16 04/21/18 Finasteride [Proscar] 5 mg PO DAILY 10/20/16 04/21/18 Tamsulosin HCl [Flomax] 0.4 mg PO HS 07/28/17 04/21/18 Previous Rx's Medication Instructions Recorded Aspirin Enteric Coated [Aspirin EC] 81 mg PO DAILY #30 mg 06/16/17 Metoprolol XL (24 HR) Succ [Toprol 50 mg PO DAILY #30 tab.er.24h 06/16/17 Xl] Oxygen 3 l IN CONT #1 each 06/16/17 Albuterol Neb [Proventil Neb] 2.5 mg IH Q2H PRN #120 vial.neb 04/19/18 Levofloxacin [Levaquin] 750 mg PO DAILY #10 tablet 04/19/18 PredniSONE [Deltasone] 60 mg PO DAILY #15 tablet 04/19/18 Allergies/Adverse Reactions: Allergies Allergy/AdvReac Type Severity Reaction Status Date / Time ampicillin Allergy Hives Verified 04/19/18 13:17 promethazine [From Phenergan] AdvReac Confusion Verified 04/19/18 13:17 All systems ED: reviewed and negative except as stated. Review of Systems: As Per HPI Constitutional: Denies: fever, chills ENT ED: Denies: ear pain Cardiovascular: Denies: chest pain, palpitations, dyspnea on exertion, orthopnea Respiratory: Denies: cough, dyspnea, wheezes Gastrointestinal: Denies: abdominal pain, nausea, vomiting Genitourinary: Denies: urgency, dysuria, frequency Musculoskeletal: Denies: back pain, neck pain Integumentary: Denies: rash Neurological: Reports: weakness, numbness. Denies: headache Psychiatric: Denies: anxiety, depression Endocrine: Denies: fatigue Hematological/Lymphatic: Denies: easy bleeding Past Medical History - Past Medical History Attestation: Yes The following information was validated with the patient. Source: patient Medical history: Reports: CHF, COPD, CVA, hyperlipidemia, hypertension, other Surgical history: Reports: other Psychiatric history: Reports: anxiety, depression - Social History Smoking Status: Current every day smoker Smokeless Tobacco Status: No Alcohol use: Reports: occasionally Drug use: Reports: none Physical Exam - General Limitations: no limitations General appearance: alert, in no apparent distress - Head Head exam: atraumatic, normocephalic, normal inspection - Eye Eye exam: Present: normal appearance, PERRL, EOMI. Absent: miosis, mydriasis - ENT ENT exam: normal exam, normal oropharynx, mucous membranes moist - Neck Neck exam: Present: normal inspection, full ROM, trachea midline - Chest Chest inspection: Present: normal inspection, symmetric chest wall rise - Respiratory Respiratory exam: Present: normal lung sounds bilaterally - Cardiovascular Cardiovascular exam: Present: regular rate, normal rhythm, normal heart sounds - Abdominal Exam Abdominal exam: Present: soft, Non-Tender. Absent: tenderness, distention, guarding, rebound, rigidity - Extremities Exam Extremities exam: Present: normal inspection - Back Exam Back exam: Present: normal inspection - Neurological Exam Neurological exam: Present: alert, oriented X3. Absent: CN II-XII intact, normal gait - Skin Skin exam: Present: warm, dry, intact, normal color Course Course Narrative: Patient seen and examined the time of arrival here to the emergency room. Patient presented by personal vehicle. See history of present illness. 67-year -old male presents here today with left-sided facial droop slurred speech and difficulty with walking or trying to provide is closed. Patient had a history of previous strokes. On arrival here patient does not know when he had the onset of the symptoms. He went to bed last night feeling fine this morning and felt fine was talking to his brother and mother noticed some slurred speech. Denies any recent falls traumas or injuries. Patient is alert he follows commands appropriately. He is rated left-sided facial droop slurred speech. He has no other issues at this time. Cranial nerves appear to be grossly intact cerebellar function appears to be normal but the patient does need some coaching to complete evaluation. Otherwise his visual grace appear to be appropriate. Patient is acting at baseline outside of the slurred speech and facial droop. Patient is a significant history of strokes in the past but is not taking any medications and has not follow-up with his primary care provider for these issues. Detailed workup will be completed. Patient is not a TPA candidate based on the unknown time frame. Patient will have CT imaging completed at this time along with screening evaluation disposition to be determined. Aspirin will be given once the CT is reviewed. Patient has no other acute complaints or issues. - Reevaluation(s) Reevaluation #1: CT imaging shows no subacute right-sided temporoparietal stroke. Neurology was contacted and Dr. camp no other recommendations at this point. Vascular surgery was also contacted secondary to stenosis in the carotid artery. This was reviewed with the on-call vascular surgeon as well. No other symptoms at this time. Aspirin was given. The remainder the labs reviewed in detail. Patient was informed of the findings. Patient was discussed with the hospitalist. Detailed review the presentation symptoms medical intervention consultations were discussed and reviewed. No other concerns or issues. Patient will be admitted this time for definitive management. Patient is otherwise clinically stable. Family was informed that coupled with the plan. Aspirin was given. Patient does have hyponatremia and elevated troponin here today. These are new findings. Patient denied any chest pain or other etiology at this time. Initial EKG did not show any acute pathology. Time: 15:33 Reevaluation #2: Patient's heart rate was elevated. Patient did just received 3 breathing treatments secondary to COPD history. Otherwise his heart rate was down trending after he arrived here today we will continue to monitor. Time: 15:38 Vital Signs Temperature 97.9 F 04/21/18 11:49 Pulse Rate 95 04/21/18 11:49 Respiratory Rate 20 04/21/18 11:49 Blood Pressure 168/131 04/21/18 11:49 O2 Sat by Pulse Oximetry 97 04/21/18 11:49 Temperature 97.9 F 04/21/18 11:49 Pulse Rate 101 04/21/18 13:37 Respiratory Rate 20 04/21/18 13:37 Blood Pressure 156/97 04/21/18 13:37 O2 Sat by Pulse Oximetry 96 04/21/18 13:37 Oxygen Delivery Oxygen Delivery Room Air Neuro Symptoms/Deficit - MDM Narrative Medical decision making narrative: Left-sided facial droop and weakness. Dysmetric.. Acute right-sided parietal stroke. Elevated troponin. Hyponatremia - Medical Records Medical records reviewed: Yes I reviewed the patient's medical records. - Lab Data Lab results reviewed: Yes I reviewed the patient's lab results. Result diagrams: 04/21/18 11:53 04/21/18 11:53 Lab Results 04/21/18 04/21/18 04/21/18 Range/Units 11:53 11:53 11:53 WBC 19.2 H (4.3-11.1) K/mcL RBC 4.37 (4.19-5.50) M/mcL Hgb 14.2 (12.9-16.9) g/dL Hct 40.4 (37.5-50.1) % MCV 92.4 (83.0-100.0) fL MCH 32.5 (28.0-33.3) pg MCHC 35.1 (31.6-35.5) g/dL RDW 12.9 (11.5-14.5) % Plt Count 391 (140-400) K/mcL MPV 9.6 (9.4-12.4) fL Immature Gran % 1.2 (0-4) % Seg Neutrophils % 86.0 % Lymphocytes % 7.1 % Monocytes % 5.4 % Eosinophils % 0.1 % Basophils % 0.2 % Neutrophils # 16.6 H (1.6-8.9) K/mcL Lymphocytes # 1.4 (0.6-4.6) K/mcL Monocytes # 1.0 (0.0-1.3) K/mcL Eosinophils # 0.0 (0.0-0.6) K/mcL Basophils # 0.0 (0.0-0.2) K/mcL PT 10.5 (9.4-12.1) Seconds INR 1.0 APTT 28.3 (26.0-36.0) Seconds Sodium 134 L (136-145) mEq/L Potassium 4.0 (3.5-5.1) mEq/L Chloride 97 L (98-107) mEq/L Carbon Dioxide 28 (23-29) mEq/L BUN 11 (8-23) mg/dL Creatinine 1.05 (0.70-1.30) mg/dL Est GFR ( Amer) > 60 (> 60) Est GFR (Non-Af Amer) > 60 (> 60) BUN/Creatinine Ratio 10 (6-26) Glucose 119 H (70-105) mg/dL Calculated Osmolality 279 L (280-300) Calcium 10.0 (8.6-10.3) mg/dL Troponin I 0.08 H* (< 0.04) ng/mL TSH 1.485 (0.340-5.600) mcIU/mL Urine Color (Yellow) Urine Clarity (Clear) Urine pH (5.0-8.0) pH Units Ur Specific [place] (1.010-1.025) Urine Protein (Neg-Trace) mg/dL Urine Glucose (UA) (Normal) mg/dL Urine Ketones (Negative) mg/dL Urine Blood (Negative) Urine Nitrite (Negative) Urine Bilirubin (Negative) Urine Urobilinogen (Normal) mg/dL Ur Leukocyte Esterase (Negative) Ur Culture Indicated? (NO) 04/21/18 Range/Units 13:43 WBC (4.3-11.1) K/mcL RBC (4.19-5.50) M/mcL Hgb (12.9-16.9) g/dL Hct (37.5-50.1) % MCV (83.0-100.0) fL MCH (28.0-33.3) pg MCHC (31.6-35.5) g/dL RDW (11.5-14.5) % Plt Count (140-400) K/mcL MPV (9.4-12.4) fL Immature Gran % (0-4) % Seg Neutrophils % % Lymphocytes % % Monocytes % % Eosinophils % % Basophils % % Neutrophils # (1.6-8.9) K/mcL Lymphocytes # (0.6-4.6) K/mcL Monocytes # (0.0-1.3) K/mcL Eosinophils # (0.0-0.6) K/mcL Basophils # (0.0-0.2) K/mcL PT (9.4-12.1) Seconds INR APTT (26.0-36.0) Seconds Sodium (136-145) mEq/L Potassium (3.5-5.1) mEq/L Chloride (98-107) mEq/L Carbon Dioxide (23-29) mEq/L BUN (8-23) mg/dL Creatinine (0.70-1.30) mg/dL Est GFR ( Amer) (> 60) Est GFR (Non-Af Amer) (> 60) BUN/Creatinine Ratio (6-26) Glucose (70-105) mg/dL Calculated Osmolality (280-300) Calcium (8.6-10.3) mg/dL Troponin I (< 0.04) ng/mL TSH (0.340-5.600) mcIU/mL Urine Color Yellow (Yellow) Urine Clarity Clear (Clear) Urine pH 7.0 (5.0-8.0) pH Units Ur Specific [place] 1.017 (1.010-1.025) Urine Protein Negative (Neg-Trace) mg/dL Urine Glucose (UA) Normal (Normal) mg/dL Urine Ketones Negative (Negative) mg/dL Urine Blood Negative (Negative) Urine Nitrite Negative (Negative) Urine Bilirubin Negative (Negative) Urine Urobilinogen Normal (Normal) mg/dL Ur Leukocyte Esterase Negative (Negative) Ur Culture Indicated? NO (NO) - Radiology Data Radiology results reviewed: Yes I reviewed the patient's radiology results. CT angiography of the head and neck as well as plain film of the head do show what appears to be right-sided temporal parietal stroke that is subacute in presentation along with carotid stenosis. Otherwise no other acute pathology. Patient has a chest x-ray does not show any acute signs of infection or effusion. Patient has known COPD - EKG Data EKG attestation: Yes I reviewed and interpreted this EKG. EKG results narrative: EKG shows sinus rhythm. Ventricular rate of 92. [place] interval 125. QRS duration of 90. QTC of 417. No acute signs of ST segment elevation or abnormality. No acute signs of WPW or Brugada syndrome. EKG was compared and reviewed. EKG collected on 04/19/18 the does not show any acute changes or abnormality NIH Stroke Scale - Level of Consciousness LOC: Alert - LOC Questions LOC Questions: Answers both correctly - LOC Commands LOC Commands: Performs both correctly - Best Gaze Best Gaze: Normal - Visual Visual: No visual loss - Facial Palsy Facial Palsy: Partial, total, or near-total paralysis of lower face - Motor Arms Motor Arm-Left: No drift for 10 seconds Motor Arm-Right: No drift for 10 seconds - Motor Legs Motor Leg-Left: No drift for 5 seconds Motor Leg-Right: No drift for 5 seconds - Limb Ataxia Limb Ataxia: Normal, No Ataxia - Sensory Sensory: Normal - Best Language Best Language: No aphasia - Dysarthria Dysarthria: Mild, slurs some words - Extinction and Inattention Extinction and Inattention: Normal - NIHSS Total Score NIHSS Total Score: 3 TPA Checklist - LKW: 3-4.5 hrs Add. Warnings/Precautions Patient/family understanding: The patient/family members have been counseled and understood the risk, benefit , and alternatives of treatment. Critical Care Time Critical Care Time: Yes Total Critical Care Time: 35 Attestation: Critical care performed: Time is exclusive of separately billable procedures. Time includes: direct patient care, patient reassessment, coordination of patient care, interpretation of data (laboratory data, radiology data, and respiratory data), review of patient's medical records, medical consultation and documentation of patient care. Procedures included in critical care time: Procedures excluded from critical care time:
[2018-04-21] MEDS ORDERED: Ipratropium/Albuterol Neb 3 ML IH ONE (14:34)
[2018-04-21] MEDS ORDERED: methylPREDNISolone 125 MG/2 ML VIAL IVP ONE (14:34)
[2018-04-21] MEDS ORDERED: Aspirin 81 MG TAB.CHEW PO STA (15:39)
--- NOTE | 2018-04-21 15:41 | Internal Med History&Physical ---
Date of Encounter: 04/21/18 Time of Encounter: 15:36 Internal Medicine - H&P: HPI Chief complaint: slurred speech Admitted From: Emergency Dept Plans for Post Hospital Care: Home History of present illness: Mr. Headley is a 67 year old male Patient with history of COPD, CVA cardiomyopathy ejection fraction 20-25%, moderate aortic insufficiency, smoking history, COPD, prior CVA, high cholesterol, hypertension, anxiety and depression, and lung nodule. Patient was brought in by family patient due to slurred speech patient was talking to his brother and he noted slurred speech also had left facial droop and was then brought into the emergency room and apparently has some confusion and unsteady gait when he tried to walk. CT of the head showed right frontal subacute infarct. CTA of neck shows stenosis of left common , carotid artery. Neurology has been consulted Dr. Roche by the ER physician. troponin noted to be elevated no chest pain Past Med Surg Social Fam HX - Past Medical History Medical history: CHF, COPD, CVA, hyperlipidemia, hypertension, other Additional medical history: depression,BPH,psoriasis,dyslipidemia. HARD OF HEARING. HOME OXYGEN AT NIGHT. SMOKER Psychiatric history: anxiety, depression - Past Surgical History Surgical History: other Additional surgical history: nasal surgery. TURP - Social History Smoking Status: Current every day smoker Smokeless Tobacco Status: No Alcohol use: occasionally Drug use: none - Family History Mother Living Status: Hx Family Cardiac Disorders: Yes Hx Family Cancer: Yes Hx Family Endocrine Disorder: Yes (DM) Father Living Status: Hx Family Respiratory Disorders: Yes Internal Medicine - H&P: Meds Albuterol Sulfate [Proair Hfa] 2 puff IH Q4-6H PRN 02/12/16 [History] Budesonide/Formoterol 160/4.5 [Symbicort 160/4.5] 2 puff IH BID 02/12/16 [ History] Ipratropium/Albuterol Neb [Duoneb] 3 ml IH QID PRN 02/12/16 [History] Lisinopril [Zestril] 20 mg PO QAM 02/12/16 [History] Multivitamin/Iron/Folic Acid [Centrum Complete Multivit Tab] 1 tab PO QAM [History] Paroxetine HCl 40 mg PO QAM 02/12/16 [History] Pravastatin Sodium [Pravachol] 20 mg PO QPM 02/12/16 [History] clonazePAM [Klonopin] 0.5 mg PO BID PRN 02/12/16 [History] Finasteride [Proscar] 5 mg PO DAILY 10/20/16 [History] Aspirin Enteric Coated [Aspirin EC] 81 mg PO DAILY #30 mg 06/16/17 [Rx] Metoprolol XL (24 HR) Succ [Toprol Xl] 50 mg PO DAILY #30 tab.er.24h 06/16/17 [ Rx] Oxygen 3 l IN CONT #1 each 06/16/17 [Rx] Tamsulosin HCl [Flomax] 0.4 mg PO HS 07/28/17 [History] Albuterol Neb [Proventil Neb] 2.5 mg IH Q2H PRN #120 vial.neb 04/19/18 [Rx] Levofloxacin [Levaquin] 750 mg PO DAILY #10 tablet 04/19/18 [Rx] PredniSONE [Deltasone] 60 mg PO DAILY #15 tablet 04/19/18 [Rx] 3 Allergy/AdvReac Type Severity Reaction Status Date / Time ampicillin Allergy Hives Verified 04/19/18 13:17 promethazine [From Phenergan] AdvReac Confusion Verified 04/19/18 13:17 All Systems PM: A 10-system review of systems was performed and is negative for pertinent findings except as documented above in the HPI. - EENT Eyes: no change in vision, no discharge, no pain, no photophobia Ears: no ear discharge, no ear pain, no tinnitus Nose, mouth and throat: no dysphagia, no nasal discharge, no neck pain, no sore throat - Cardiovascular Cardiovascular ROS IM: no chest pain, no diaphoresis, no dyspnea, no lightheadedness, no palpitations, no syncope - Respiratory Respiratory: dyspnea - Gastrointestinal Gastrointestinal: no abdominal pain, no diarrhea, no hematemesis, no hematochezia, no melena, no nausea, no vomiting - Musculoskeletal Musculoskeletal ROS IM: no numbness, no tingling - Integumentary Integumentary IM: no rash, no unusual bruising - Constitutional Vitals: Temp Pulse Resp BP Pulse Ox 97.9 F 107 20 166/97 91 04/21/18 11:49 04/21/18 15:06 04/21/18 15:06 04/21/18 15:06 04/21/18 15:06 General appearance: Present: mild distress - Eye Eye exam: Present: PERRL, conjuntiva pink, sclera anicteric Pupils: Present: PERRL - Neck Neck exam general surgery: Present: supple, trachea midline. Absent: lymphadenopathy - Respiratory Respiratory exam: Present: rhonchi - Cardiovascular Cardiovascular exam: Present: RRR, +S1, +S2. Absent: diastolic murmur, gallop, rubs, systolic murmur - GI/Abdominal GI/Abdominal exam: Present: normal bowel sounds, soft, no peritoneal signs. Absent: distended, tenderness - Extremities Exam Extremities exam: Present: pedal edema, tenderness Internal Med - H&P Results - Labs CBC & Chem 7: 04/21/18 11:53 04/21/18 11:53 Labs: Short CBC 04/21/18 Range/Units 11:53 WBC 19.2 H (4.3-11.1) K/mcL Hgb 14.2 (12.9-16.9) g/dL Hct 40.4 (37.5-50.1) % Plt Count 391 (140-400) K/mcL Neutrophils # 16.6 H (1.6-8.9) K/mcL BMP 04/21/18 11:53 Sodium 134 L Potassium 4.0 Chloride 97 L Carbon Dioxide 28 BUN 11 Creatinine 1.05 Glucose 119 H Calcium 10.0 Cardiac Enzymes 04/21/18 Range/Units 11:53 Troponin I 0.08 H* (< 0.04) ng/mL Urine 04/21/18 Range/Units 13:43 Urine Color Yellow (Yellow) Urine Clarity Clear (Clear) Urine pH 7.0 (5.0-8.0) pH Units Ur Specific [place] 1.017 (1.010-1.025) Urine Protein Negative (Neg-Trace) mg/dL Urine Glucose (UA) Normal (Normal) mg/dL - Impressions ITS Impressions Chest X-Ray 04/21/18 11:54 IMPRESSION: No acute abnormality. D/ / Vignesh Camp MD / Vignesh Camp MD Interpreting Provider: Vignesh Camp MD Head CT 04/21/18 11:54 IMPRESSION: 1. Right frontal region demonstrates a likely subacute ischemic infarct. 2. No intracranial hemorrhage. 3. Multiple bilateral old infarcts with encephalomalacia as well as left cerebellar old infarct. Extensive atrophy. RECOMMENDATIONS: Brain MRI. D/ / 04/21/2018 12:13:18 Alea Ba MD / [email or web address] Interpreting Provider: Alea Ba MD Head CTA 04/21/18 12:34 IMPRESSION: No occlusion or severe stenosis of the proximal intracranial arteries. D/ / Vignesh Camp MD / Vignesh Camp MD Interpreting Provider: Vignesh Camp MD Neck CTA 04/21/18 12:34 IMPRESSION: 1. Suggestion of stenosis of the left common carotid artery as it originates from the aortic arch although there is artifact in this area and evaluation is difficult. 2. No evidence of hemodynamically significant carotid bifurcation disease on either side. 3. Patent vertebrobasilar circulation. 4. Severe lung emphysema. RECOMMENDATIONS: Further evaluation of the origin of the left common carotid artery with contrast angiography would be appropriate. D/ / 04/21/2018 13:43:26 Alea Ba MD / [email or web address] Interpreting Provider: Alea Ba MD - Assessment and plan (1) CVA (cerebral vascular accident) Current Visit: Yes Status: Acute Assessment and plan: acute cva DR Roche consulted Qualifiers: CVA mechanism: unspecified Qualified Code(s): I63.9 - Cerebral infarction, unspecified (2) Cardiomyopathy Current Visit: No Status: Acute Assessment and plan: chronic resume home meds Qualifiers: Cardiomyopathy type: unspecified Qualified Code(s): I42.9 - Cardiomyopathy , unspecified (3) Lung nodule Current Visit: No Status: Chronic Assessment and plan: chronic (4) Hypertension Current Visit: No Status: Chronic Assessment and plan: chronci BP not well controlled Qualifiers: Hypertension type: essential hypertension Qualified Code(s): I10 - Essential (primary) hypertension (5) Tobacco abuse Current Visit: No Status: Chronic (6) Elevated troponin Current Visit: Yes Status: Acute Assessment and plan: no chest pain will trend - Time Spent With Patient Total time spent is greater than 50% in coordination of care (as documented) at patient's floor/unit and/or counseling patient:
[2018-04-21] MEDS ORDERED: traMADol 50 MG TABLET PO PRN (15:47)
[2018-04-21] MEDS ORDERED: Acetaminophen 325 MG TABLET PO PRN (15:47)
[2018-04-21] MEDS ORDERED: Naloxone 0.4 MG/ML INJ IVP PRN (15:47)
[2018-04-21] MEDS ORDERED: Albuterol 2.5 MG/3 ML NEBULIZER IH PRN (15:49)
[2018-04-21] MEDS ORDERED: NON-FORMULARY MEDICATION 1 EACH EACH (Oxygen [Oxygen] 3 L) IN SCH (16:00)
--- NOTE | 2018-04-21 16:13 | Electrocardiograph Report ---
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
[2018-04-21 17:28] LABS: ABG Base Excess 3 mEq/L (-2 to 3); ABG HCO3 26 mEq/L (21-27); ABG Oxygen Saturation 93 % (95-98); ABG PCO2 35 mmHg (35-45); ABG PH 7.48 pH Units (7.32-7.45); ABG PO2 60 mmHg (85-104); ABG TCO2 27 mEq/L (20-26)
[2018-04-21] MEDS: clonazePAM 0.5 MG TABLET PO PRN (22:17)
[2018-04-21] MEDS: Budesonide/Formoterol 160/4.5 MDI IH SCH (22:35)
[2018-04-21 22:45] LABS: Bilirubin,Urine Negative (Negative); Blood,Urine Negative (Negative); Clarity,Urine Clear (Clear); Color,Urine Yellow (Yellow); Glucose,Urine (UA) Normal (Normal); Ketones,Urine Negative (Negative); Leukocyte Esterase,Urine Negative (Negative); Nitrite,Urine Negative (Negative); PH,Urine 7.5 pH Units (5.0-8.0); Protein,Urine Trace mg/dL (Neg-Trace); Specific Gravity,Urine 1.023 (1.010-1.025); Urobilinogen,Urine Normal (Normal)
[2018-04-21 22:46] LABS: Bacteria,Urine None Seen per hpf (None-Few); Hyaline Casts,Urine None Seen per lpf (None-Few); RBC,Urine 0-3 per hpf (0-3); Squamous Epithelial Cell,Urine Few per lpf (None-Few); WBC,Urine 0-3 per hpf (0-3)
[2018-04-22 01:21] LABS: Hematocrit 37.2 % (37.5-50.1); Mean Corpuscular HGB Conc 34.9 g/dL (31.6-35.5); Mean Corpuscular Hemoglobin 31.6 pg (28.0-33.3); Mean Corpuscular Volume 90.5 fL (83.0-100.0); Mean Platelet Volume 9.7 fL (9.4-12.4); Platelet Count 396 K/mcL (140-400); Red Blood Count 4.11 M/mcL (4.19-5.50); Red Cell Distribution Width 12.9 % (11.5-14.5)
[2018-04-22 01:36] LABS: Alanine Aminotransferase 12 Units/L (7-52); Albumin 3.8 g/dL (3.5-5.7); Alkaline Phosphatase 55 Units/L (34-104); Aspartate Amino Transferase 21 Units/L (13-39); BUN/Creatinine Ratio 13 (6-26); Bilirubin,Total 0.3 mg/dL (0.3-1.0); Blood Urea Nitrogen 13 mg/dL (8-23); Calcium 9.2 mg/dL (8.6-10.3); Carbon Dioxide 25 mEq/L (23-29); Chloride 101 mEq/L (98-107); Chol/HDL Ratio 1.7 (0-4.9); Cholesterol 136 mg/dL (< 200); Globulin 1.9 g/dL (2.4-3.5); Glucose 210 mg/dL (70-105); HDL Cholesterol 80 mg/dL (40-59); LDL Cholesterol,Calculated 46 mg/dL (0-99); Osmolality,Calculated 288 (280-300); Potassium 4.1 mEq/L (3.5-5.1); Sodium 136 mEq/L (136-145); Total Protein 5.7 g/dL (6.4-8.9); Triglycerides 48 mg/dL (< 150); Troponin I 0.04 ng/mL (< 0.04); eGFR For African Americans > 60 (> 60); eGFR For Non-African Americans > 60 (> 60)
[2018-04-22] MEDS: Aspirin Enteric Coated 81 MG Tablet PO SCH (07:57)
[2018-04-22] MEDS: Lisinopril 20 MG TABLET PO SCH (07:57)
[2018-04-22] MEDS: Multivit/Ca/Min/Fe/FA 1 TAB TABLET PO SCH (07:58)
[2018-04-22] MEDS: predniSONE 20 MG TABLET PO SCH (07:58)
[2018-04-22] MEDS: Metoprolol XL (24 HR) Succ 50 MG TAB.ER.24H PO SCH (07:58)
[2018-04-22] MEDS: Isosorbide MONOnitrate (24 HR) 60 MG TAB.ER.24H PO SCH (07:58)
[2018-04-22] MEDS: amLODIPine 5 MG TABLET PO SCH (07:58)
[2018-04-22] MEDS: Finasteride 5 MG TABLET PO SCH (07:58)
--- NOTE | 2018-04-22 08:19 | Vascular/Endovasc Consult Note ---
Date of Encounter: 04/22/18 Time of Encounter: 08:00 Assessment and Plan (1) Carotid stenosis, left Current Visit: Yes Status: Chronic The pathophysiology and natural history of carotid stenosis was discussed the patient and all questions were answered. The patient has evidence of a left common carotid artery stenosis by CT angiogram. Given the patient is a right hemispheric subacute infarcts is unlikely of the left carotid stenosis factor. Left carotid stenosis appears to be asymptomatic at this time. The etiology of his right hemisphere extremity vascular accident is unclear. He continues to have a left facial droop as well as speech deficit. Recommend speech therapy for the patient. Further evaluate the etiology of his cerebrovascular accident consider an echocardiogram. Recommend Plavix 75 mg daily. Recommend atherosclerotic risk factor reduction. (2) Tobacco abuse Current Visit: No Status: Chronic He was counseled regarding smoking cessation. (3) Hypertension Current Visit: No Status: Chronic Qualifiers: Hypertension type: essential hypertension Qualified Code(s): I10 - Essential (primary) hypertension (4) CVA (cerebral vascular accident) Current Visit: Yes Status: Acute Qualifiers: CVA mechanism: other Qualified Code(s): I63.8 - Other cerebral infarction - History of Present Illness Consult date: 04/22/18 Consult reason: Carotid stenosis Chief complaint: Right hemispheric cerebrovascular accident History of present illness: Mr. Headley is a 67 year old male with history of COPD, congestive heart failure, hyperlipidemia, hypertension and cardiomyopathy. Patient history of bilateral cerebral vascular accidents in the past. He presented to the emergency room yesterday with approximately 12-24 hours of a left facial droop and speech deficitThe patient was brought in by sister. She reports that he is unaware of his neurologic deficits. The patient denies any motor or sensory deficits. He underwent a CT scan which revealed a right hemispheric subacute infarct. He also underwent a CTA of the neck which revealed left common carotid artery stenosis. The patient reports no changes in his symptoms today. He denies any worsening of his symptoms. He denies chest or shortness of breath. Past Med Surg Social Fam HX - Past Medical History Medical history: CHF, COPD, CVA, hyperlipidemia, hypertension, other Additional medical history: depression,BPH,psoriasis,dyslipidemia. HARD OF HEARING. HOME OXYGEN AT NIGHT. SMOKER Psychiatric history: anxiety, depression - Past Surgical History Surgical History: other Additional surgical history: nasal surgery. TURP - Social History Smoking Status: Current every day smoker Packs per day: 0.5 Smokeless Tobacco Status: No Alcohol use: occasionally Drug use: none - Family History Mother Living Status: Hx Family Cardiac Disorders: Yes Hx Family Cancer: Yes Hx Family Endocrine Disorder: Yes (DM) Father Living Status: Hx Family Respiratory Disorders: Yes Medications and Allergies Albuterol Sulfate [Proair Hfa] 2 puff IH Q4-6H PRN 02/12/16 [History] Budesonide/Formoterol 160/4.5 [Symbicort 160/4.5] 2 puff IH BID 02/12/16 [ History] Ipratropium/Albuterol Neb [Duoneb] 3 ml IH QID PRN 02/12/16 [History] Lisinopril [Zestril] 20 mg PO QAM 02/12/16 [History] Multivitamin/Iron/Folic Acid [Centrum Complete Multivit Tab] 1 tab PO QAM [History] Paroxetine HCl 40 mg PO QAM 02/12/16 [History] Pravastatin Sodium [Pravachol] 20 mg PO QPM 02/12/16 [History] clonazePAM [Klonopin] 0.5 mg PO BID PRN 02/12/16 [History] Finasteride [Proscar] 5 mg PO DAILY 10/20/16 [History] Aspirin Enteric Coated [Aspirin EC] 81 mg PO DAILY #30 mg 06/16/17 [Rx] Metoprolol XL (24 HR) Succ [Toprol Xl] 50 mg PO DAILY #30 tab.er.24h 06/16/17 [ Rx] Oxygen 3 l IN CONT #1 each 06/16/17 [Rx] Tamsulosin HCl [Flomax] 0.4 mg PO HS 07/28/17 [History] Albuterol Neb [Proventil Neb] 2.5 mg IH Q2H PRN #120 vial.neb 04/19/18 [Rx] Levofloxacin [Levaquin] 750 mg PO DAILY #10 tablet 04/19/18 [Rx] PredniSONE [Deltasone] 60 mg PO DAILY #15 tablet 04/19/18 [Rx] 3 Allergy/AdvReac Type Severity Reaction Status Date / Time ampicillin Allergy Hives Verified 04/19/18 13:17 promethazine [From Phenergan] AdvReac Confusion Verified 04/19/18 13:17 All Systems Review: The remainder of the systems were reviewed and are negative Exam Vital Signs, Last 4 Hours Temp Pulse Resp BP Pulse Ox 04/22/18 07:32 98.7 F 85 17 153/89 93 General: Present: Conversant, No Apparent Distress HEENT: Present: Trachea midline, Pupils equal Neck: Absent: JVD, Left Carotid bruit, Right Carotid bruit Cardiac: Present: Reg Rate and Rhythm Lungs: Present: Normal Breath Sounds, No Wheeze, Rales, Rhonchi Neuro: Present: Alert and responsive, Motor nerves grossly intact, Sensory nerves grossly intact, Other (Left facial droop, speech deficit noted) Abdomen: Present: Soft, Non-tender. Absent: Masses Vascular: Present: Normal capillary refill. Absent: Cyanosis, Edema Consult Discharge Plan - Plan Referrals: Yane Garcia CNP [Primary Care Provider] -
[2018-04-22] MEDS: Budesonide/Formoterol 160/4.5 MDI IH SCH ×2 (09:46→19:51)
--- NOTE | 2018-04-22 17:37 | Neurology - Consult Note ---
Date of Encounter: 04/22/18 Time of Encounter: 17:30 Assessment and Plan (1) CVA (cerebral vascular accident) Current Visit: Yes Status: Acute Patient's clinical presentation is consistent with some acute right hemispheric event. However his CT of the brain shows multiple areas of infarct. I would like to obtain an MRI to determine whether he has had more than one acute infarct. Noncompliance may be an issue because he is not on ASA and his bp was significantly elevated upon admission. Stroke protocol orders should be implemented. Echocardiogram also pending. Will follow. Ok for VTE prophylaxis. Low dose heparin no bolus. Qualifiers: CVA mechanism: other Qualified Code(s): I63.8 - Other cerebral infarction History of Present Illness HPI: Chart was reviewed, the patient was seen and examined. Mr. Headley is a 67 year old male with a prior hx of multiple strokes presents with c/o left facial droop and slurred speech. Pt. is hard of hearing and is a poor historian. CTA of the neck reveals stenosis of the left common carotid. CT of the brain reveals multiple areas of infarction involvong large vessel and small vessel territories bilaterally.It is presumed that theright frontal infarct is subacute. He was also hypertnsive upon admission. Apparently he lives at home with his daughter. Past Med Surg Social Fam HX - Past Medical History Medical history: CHF, COPD, CVA, hyperlipidemia, hypertension, other Additional medical history: depression,BPH,psoriasis,dyslipidemia. HARD OF HEARING. HOME OXYGEN AT NIGHT. SMOKER Psychiatric history: anxiety, depression - Past Surgical History Surgical History: other Additional surgical history: nasal surgery. TURP - Social History Smoking Status: Current every day smoker Packs per day: 0.5 Smokeless Tobacco Status: No Alcohol use: occasionally Drug use: none - Family History Mother Living Status: Hx Family Cardiac Disorders: Yes Hx Family Cancer: Yes Hx Family Endocrine Disorder: Yes (DM) Father Living Status: Hx Family Respiratory Disorders: Yes Medications and Allergies Albuterol Sulfate [Proair Hfa] 2 puff IH Q4-6H PRN 02/12/16 [History] Budesonide/Formoterol 160/4.5 [Symbicort 160/4.5] 2 puff IH BID 02/12/16 [ History] Ipratropium/Albuterol Neb [Duoneb] 3 ml IH QID PRN 02/12/16 [History] Lisinopril [Zestril] 20 mg PO QAM 02/12/16 [History] Multivitamin/Iron/Folic Acid [Centrum Complete Multivit Tab] 1 tab PO QAM [History] Paroxetine HCl 40 mg PO QAM 02/12/16 [History] Pravastatin Sodium [Pravachol] 20 mg PO QPM 02/12/16 [History] clonazePAM [Klonopin] 0.5 mg PO BID PRN 02/12/16 [History] Finasteride [Proscar] 5 mg PO DAILY 10/20/16 [History] Aspirin Enteric Coated [Aspirin EC] 81 mg PO DAILY #30 mg 06/16/17 [Rx] Metoprolol XL (24 HR) Succ [Toprol Xl] 50 mg PO DAILY #30 tab.er.24h 06/16/17 [ Rx] Oxygen 3 l IN CONT #1 each 06/16/17 [Rx] Tamsulosin HCl [Flomax] 0.4 mg PO HS 07/28/17 [History] Albuterol Neb [Proventil Neb] 2.5 mg IH Q2H PRN #120 vial.neb 04/19/18 [Rx] Levofloxacin [Levaquin] 750 mg PO DAILY #10 tablet 04/19/18 [Rx] PredniSONE [Deltasone] 60 mg PO DAILY #15 tablet 04/19/18 [Rx] 3 Allergy/AdvReac Type Severity Reaction Status Date / Time ampicillin Allergy Hives Verified 04/19/18 13:17 promethazine [From Phenergan] AdvReac Confusion Verified 04/19/18 13:17 All Systems: The remainder of the systems were reviewed and are negative Review of Systems: The balance of the systems review is negative. Physical Examination - Vital Signs Vital Signs: Initial Vital Signs Temp Pulse Resp BP Pulse Ox 97.9 F 95 20 168/131 97 04/21/18 11:49 04/21/18 11:49 04/21/18 11:49 04/21/18 11:49 04/21/18 11:49 - Neurologic Detailed motor examination: full strength in all major muscle groups Detailed sensory examination: intact Reflex and gait examination: intact Mental Status Examination: awake, alert, oriented to person, oriented to place, follows commands appropriately Cranial nerve examination: PERRL, EOMI, visual grace intact, sensory to face intact, mastication intact Cranial Nerve Exam: facial droop: Left (Speech is also dysarthric.), flattening of masolabic/folds: Left, hearing decreased: Left (Bilateral hearing loss) Cerebellar examination: no dysmetria Results - Laboratory Findings CBC and BMP: 04/22/18 00:37 04/22/18 00:37 Abnormal lab findings: Abnormal lab results WBC 12.3 K/mcL (4.3-11.1) H 04/22/18 00:37 RBC 4.11 M/mcL (4.19-5.50) L 04/22/18 00:37 Hct 37.2 % (37.5-50.1) L 04/22/18 00:37 Neutrophils # 16.6 K/mcL (1.6-8.9) H 04/21/18 11:53 ABG pH 7.48 pH Units (7.32-7.45) H 04/21/18 17:25 ABG pO2 60 mmHg (85-104) L 04/21/18 17:25 ABG Total CO2 27 mEq/L (20-26) H 04/21/18 17:25 ABG O2 Saturation 93 % (95-98) L 04/21/18 17:25 Glucose 210 mg/dL (70-105) H 04/22/18 00:37 POC Glucose 116 mg/dL (70-99) H 04/21/18 11:52 Lactic Acid 2.6 mmol/L (0.5-2.2) H 04/22/18 00:37 Troponin I 0.04 ng/mL (< 0.04) H* 04/22/18 00:37 B-Natriuretic Peptide 193 pg/mL (Less than 100) H 04/21/18 11:56 Serum Total Protein 5.7 g/dL (6.4-8.9) L 04/22/18 00:37 Globulin 1.9 g/dL (2.4-3.5) L 04/22/18 00:37 HDL Cholesterol 80 mg/dL (40-59) H 04/22/18 00:37 Consult Discharge Plan - Plan Referrals: Yane Garcia, BRANCH SERVICE REPRESENTATIVE [Primary Care Provider] -
[2018-04-22] MEDS: *HR* Enoxaparin 40 MG/0.4 ML SYRINGE SQ SCH (18:44)
[2018-04-22] MEDS: Nicotine 21 MG PATCH.TD24 TD SCH (19:43)
[2018-04-22] MEDS: Ipratropium/Albuterol Neb 3 ML IH PRN (19:51)
[2018-04-22] MEDS: GuaiFENesin Liq 200 MG/10 ML UDC PO PRN (20:55)
[2018-04-22] MEDS: clonazePAM 0.5 MG TABLET PO PRN (20:56)
--- NOTE | 2018-04-22 22:02 | Internal Med Progress Note ---
Date of Encounter: 04/22/18 Time of Encounter: 17:00 - Assessment and plan (1) CVA (cerebral vascular accident) Current Visit: Yes Status: Acute Assessment and plan: CT of brain shows multiple areas of infarct patient was seen by neurology recommends MRI Continue with aspirin and statin Maintain blood pressure control Echo cardiogram Okay VTE prophylaxis Lovenox PT OT consult Speech therapy recommends diet of advanced soft textures and thin liquids medications in [facility] supervisor for discharge planning Neuro checks Was seen by vascular surgery who fell infarct is unlikely of the left carotid stenosis Qualifiers: CVA mechanism: other Qualified Code(s): I63.8 - Other cerebral infarction (2) Elevated troponin Current Visit: Yes Status: Acute Assessment and plan: Troponins have trended down we will obtain cardiac echo-previous echo does show EF of 2024% with moderate aortic regurgitation and diastolic dysfunction No chest pain this time EKG with no ST-T wave abnormalities We will recheck EKG Continuous cardiac monitoring (3) Cardiomyopathy Current Visit: No Status: Acute Assessment and plan: Thank you echo completed 2016 with EF between 25% with moderate aortic regurgitation Underwent left heart 06/06/17 moderate three-vessel coronary artery disease severe LV dysfunction EF of 25% We will obtain cardiac echo Tenuous cardiac monitoring Consult cardiology if needed Monitor intake and output patient continues to smoke encouraged patient to stop smoking monitor blood pressure Qualifiers: Cardiomyopathy type: unspecified Qualified Code(s): I42.9 - Cardiomyopathy , unspecified (4) DVT prophylaxis Current Visit: No Status: Acute Assessment and plan: Lovenox subcutaneous (5) Hypertension Current Visit: No Status: Chronic Assessment and plan: Presently controlled continue with home medications Qualifiers: Hypertension type: essential hypertension Qualified Code(s): I10 - Essential (primary) hypertension (6) Tobacco abuse Current Visit: No Status: Chronic - Time Spent With Patient Total time spent is greater than 50% in coordination of care (as documented) at patient's floor/unit and/or counseling patient: - Subjective Interval history: Patient was seen and examined at bedside I did discuss recommendations of neurology with the patient he is to undergo MRI in the a.m. Patient verbalized understanding. He denies any pain or discomfort at this time he does have a left-sided facial droop no other neurological deficits. - Constitutional Vitals: Temp Pulse Resp BP Pulse Ox 97.7 F 83 18 137/75 96 04/22/18 16:14 04/22/18 16:14 04/22/18 19:51 04/22/18 16:14 04/22/18 19:51 General appearance: Present: mild distress - Head Head exam: Present: atraumatic, normocephalic - Eye Eye exam: Present: PERRL, conjuntiva pink, sclera anicteric Pupils: Present: PERRL - Neck Neck exam general surgery: Present: supple, trachea midline. Absent: lymphadenopathy - Respiratory Respiratory exam: Present: CTAB. Absent: accessory muscle use, rales, rhonchi, wheezes - Cardiovascular Cardiovascular exam: Present: RRR, +S1, +S2. Absent: diastolic murmur, gallop, rubs, systolic murmur - GI/Abdominal GI/Abdominal exam: Present: normal bowel sounds, soft, no peritoneal signs. Absent: distended, tenderness - Extremities Exam Extremities exam: Present: warm, radial pulses palpable and symmetrical. Absent : calf tenderness, cyanotic, pedal edema - Neurological Exam Neurological exam: Present: CN II-XII intact, oriented X3, no focal deficits, facial droop. Absent: pronater drift, speech deficit - Skin Skin exam: Present: dry, intact Internal Medicine: Result - Labs CBC & Chem 7: 04/22/18 00:37 04/22/18 00:37 Labs: Short CBC 04/22/18 Range/Units 00:37 WBC 12.3 H (4.3-11.1) K/mcL Hgb 13.0 (12.9-16.9) g/dL Hct 37.2 L (37.5-50.1) % Plt Count 396 (140-400) K/mcL BMP 04/22/18 00:37 Sodium 136 Potassium 4.1 Chloride 101 Carbon Dioxide 25 BUN 13 Creatinine 0.97 Glucose 210 H Calcium 9.2 Cardiac Enzymes 04/21/18 04/22/18 Range/Units 21:54 00:37 Troponin I 0.04 H* 0.04 H* (< 0.04) ng/mL Liver Function 04/22/18 Range/Units 00:37 Total Bilirubin 0.3 (0.3-1.0) mg/dL AST 21 (13-39) Units/L ALT 12 (7-52) Units/L Alkaline Phosphatase 55 (34-104) Units/L Albumin 3.8 (3.5-5.7) g/dL Urine 04/21/18 Range/Units 22:40 Urine Color Yellow (Yellow) Urine Clarity Clear (Clear) Urine pH 7.5 (5.0-8.0) pH Units Ur Specific [place] 1.023 (1.010-1.025) Urine Protein Trace (Neg-Trace) mg/dL Urine Glucose (UA) Normal (Normal) mg/dL - ABG Interpretation ABG results: ABG ABG pH 7.48 pH Units (7.32-7.45) H 04/21/18 17:25 ABG pCO2 35 mmHg (35-45) 04/21/18 17:25 ABG pO2 60 mmHg (85-104) L 04/21/18 17:25 ABG O2 Saturation 93 % (95-98) L 04/21/18 17:25 PT/INR, D-dimer PT 10.5 Seconds (9.4-12.1) 04/21/18 11:53 - Impressions Impressions Brain MRI 04/22/18 17:52 IMPRESSION: Motion artifact degrades the images. There is a 5.0 x 3.6 cm area of acute infarct involving the right frontal lobe from an acute right middle cerebral artery territory infarct. Remote infarcts in the left frontal, left parietal, right parietal, and left cerebellum. D/ / 04/22/2018 19:49:25 Lenora Musa MD / nael Interpreting Provider: Lenora Musa MD Consult Discharge Plan - Plan Referrals: Yane Garcia, PROCESS DESCRIPTION WRITER [Primary Care Provider] -
[2018-04-23 01:19] LABS: Basophils % 0.2 %; Hematocrit 37.5 % (37.5-50.1); Hemoglobin 12.6 g/dL (12.9-16.9); Immature Granulocytes % 1.2 % (0-4); Lymphocytes # 1.9 K/mcL (0.6-4.6); Lymphocytes % 15.5 %; Mean Corpuscular HGB Conc 33.6 g/dL (31.6-35.5); Mean Corpuscular Hemoglobin 30.7 pg (28.0-33.3); Mean Corpuscular Volume 91.5 fL (83.0-100.0); Mean Platelet Volume 9.3 fL (9.4-12.4); Monocytes # 1.2 K/mcL (0.0-1.3); Monocytes % 9.5 %; Platelet Count 353 K/mcL (140-400); Red Cell Distribution Width 12.9 % (11.5-14.5); Segmented Neutrophils % 73.6 %
[2018-04-23 01:39] LABS: BUN/Creatinine Ratio 12 (6-26); Blood Urea Nitrogen 12 mg/dL (8-23); Calcium 9.3 mg/dL (8.6-10.3); Carbon Dioxide 27 mEq/L (23-29); Chloride 100 mEq/L (98-107); Glucose 99 mg/dL (70-105); Osmolality,Calculated 282 (280-300); Potassium 3.8 mEq/L (3.5-5.1); Sodium 136 mEq/L (136-145); eGFR For African Americans > 60 (> 60); eGFR For Non-African Americans > 60 (> 60)
[2018-04-23] MEDS: *HR* Enoxaparin 40 MG/0.4 ML SYRINGE SQ SCH (05:12)
[2018-04-23] MEDS: Ipratropium/Albuterol Neb 3 ML IH PRN (07:22)
[2018-04-23] MEDS: Budesonide/Formoterol 160/4.5 MDI IH SCH ×2 (07:23→22:22)
[2018-04-23] MEDS: Finasteride 5 MG TABLET PO SCH (09:48)
[2018-04-23] MEDS: Aspirin Enteric Coated 81 MG Tablet PO SCH (09:48)
[2018-04-23] MEDS: amLODIPine 5 MG TABLET PO SCH (09:48)
[2018-04-23] MEDS: Isosorbide MONOnitrate (24 HR) 60 MG TAB.ER.24H PO SCH (09:48)
[2018-04-23] MEDS: Multivit/Ca/Min/Fe/FA 1 TAB TABLET PO SCH (09:48)
[2018-04-23] MEDS: predniSONE 20 MG TABLET PO SCH (09:48)
[2018-04-23] MEDS: Lisinopril 20 MG TABLET PO SCH (09:48)
[2018-04-23] MEDS: Metoprolol XL (24 HR) Succ 50 MG TAB.ER.24H PO SCH (09:48)
[2018-04-23] MEDS: Nicotine 21 MG PATCH.TD24 TD SCH (09:49)
[2018-04-23] MEDS: clonazePAM 0.5 MG TABLET PO PRN ×2 (09:51→20:59)
[2018-04-23] MEDS: levoFLOXacin 750 MG TABLET PO SCH (15:09)
--- NOTE | 2018-04-23 16:08 | Neurology Progress Note ---
Date of Encounter: 04/23/18 Time of Encounter: 16:04 Assessment and Plan (1) CVA (cerebral vascular accident) Current Visit: Yes Status: Acute I did personally review the MRI scan of the brain which does infact reveal a moderate sized infarct in the right frontal lobe as well as scattered infarcts of the left frontal, left parietal, right parietal, and left cerebellum. The echocardiogram reveals an ejection fraction of 30-35% with multiple components of the left ventricular noted to be hypokinetic. There is also global left ventricular systolic dysfunction. His my suspicion that this dysfunction may be resulting in clot formation. Leading to cardio embolic events.. Other concerning factors are his hypertension, and his cigarette smoking. At this time I believe he is at great risk for further events. Recommend cardiac consultation. Recommend considering anticoagulation long-term. I think it would be safe to pursue anticoagulation 4-5 days after the initial cerebrovascular event. He is also pushing to be released home however I do not feel that this is realistic considering the fact that he is still not steady on his feet. We also have to be assured that his support network is intact and he would be committed to taking the anticoagulation medication. I will reevaluate him tomorrow all of this was discussed with the family. Qualifiers: CVA mechanism: other Qualified Code(s): I63.8 - Other cerebral infarction Subjective Interval history: The chart was reviewed, the patient was seen and examined. Multiple family members are present. He seems to be much more alert today. He denies any headache, he feels that his deficits are stable he certainly denies being any worse. He still has some weakness of the left upper extremity. MRI scan was completed and does reveal an acute infarct in the right frontal region. Echocardiogram was also completed which reveals an ejection fraction of 30-35%. Multiple components of the left ventricle are hypokinetic. But he is more conversant today, however speech is still somewhat dysarthric. His left upper extremity remains ataxic. His gait is a bit unstable as well. Objective - Constitutional Vitals: Temp Pulse Resp BP Pulse Ox 97.2 F L 79 16 117/71 93 04/23/18 16:00 04/23/18 16:00 04/23/18 16:00 04/23/18 16:00 04/23/18 16:00 - Neurological Exam Motor Examination: Present: other (Patient seems to have a tad bit of weakness of the left upper extremity. 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 Left finger to nose is somewhat ataxic as well. 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 His gait is a bit ataxic however.) Mental Status Examination: Present: awake, alert, oriented to person, oriented to place, follows commands appropriately, answers questions appropriately Cranial nerve examination: Present: PERRL, EOMI, visual grace intact, sensory to face intact, mastication intact. Absent: no dysarthria (Patient does have dysarthric speech.) Cranial Nerve Exam: facial droop: Left (Speech is also dysarthric.), flattening of masolabic/folds: Left, hearing decreased: Left (Bilateral hearing loss) Cerebellar examination: Present: no dysmetria Results - Laboratory Findings CBC and BMP: 04/23/18 00:58 04/23/18 00:58 Abnormal lab findings: Abnormal lab results WBC 12.2 K/mcL (4.3-11.1) H 04/23/18 00:58 RBC 4.10 M/mcL (4.19-5.50) L 04/23/18 00:58 Hgb 12.6 g/dL (12.9-16.9) L 04/23/18 00:58 MPV 9.3 fL (9.4-12.4) L 04/23/18 00:58 Neutrophils # 9.0 K/mcL (1.6-8.9) H 04/23/18 00:58 ABG pH 7.48 pH Units (7.32-7.45) H 04/21/18 17:25 ABG pO2 60 mmHg (85-104) L 04/21/18 17:25 ABG Total CO2 27 mEq/L (20-26) H 04/21/18 17:25 ABG O2 Saturation 93 % (95-98) L 04/21/18 17:25 POC Glucose 116 mg/dL (70-99) H 04/21/18 11:52 Lactic Acid 2.6 mmol/L (0.5-2.2) H 04/22/18 00:37 Troponin I 0.04 ng/mL (< 0.04) H* 04/22/18 00:37 B-Natriuretic Peptide 193 pg/mL (Less than 100) H 04/21/18 11:56 Serum Total Protein 5.7 g/dL (6.4-8.9) L 04/22/18 00:37 Globulin 1.9 g/dL (2.4-3.5) L 04/22/18 00:37 HDL Cholesterol 80 mg/dL (40-59) H 04/22/18 00:37 Consult Discharge Plan - Plan Referrals: Yane Garcia, ELLIS [Primary Care Provider] - 05/19/18 1:30 pm
--- NOTE | 2018-04-23 16:47 | Vascular/Endovas Progress Note ---
Date of Encounter: 04/23/18 Time of Encounter: 15:25 - Assessment and plan (1) Carotid stenosis, left Current Visit: Yes Status: Chronic The patient has a left common carotid artery stenosis by CT angiogram. He developed right hemispheric subacute infarcts which are related to the left carotid stenosis factor. His left carotid stenosis appears to be asymptomatic at this time. He underwent an echocardiogram today. Although no mural thrombus is identified, the patient is a low ejection fraction and a cardiac source is suspected. Long-term anticoagulation is recommended. (2) Tobacco abuse Current Visit: No Status: Chronic He was counseled regarding smoking cessation. (3) Hypertension Current Visit: No Status: Chronic Qualifiers: Hypertension type: essential hypertension Qualified Code(s): I10 - Essential (primary) hypertension (4) CVA (cerebral vascular accident) Current Visit: Yes Status: Acute Qualifiers: CVA mechanism: other Qualified Code(s): I63.8 - Other cerebral infarction - Subjective Interval history: The patient denies any acute events overnight. He denies any new symptoms of CVA, TIA or amaurosis fugax. He continues to report a facial droop as well as speech deficits. He denies chest pain or shortness of breath. Vital Signs, Last 4 Hours Temp Pulse Resp BP Pulse Ox 04/23/18 16:00 97.2 F L 79 16 117/71 93 - Physical Examination General: Present: Conversant HEENT: Present: Pupils equal Neck: Absent: Left Carotid bruit, Right Carotid bruit Cardiac: Present: Reg Rate and Rhythm Lungs: Present: Normal Breath Sounds Neuro: Present: Alert and responsive, Motor nerves grossly intact, Sensory nerves grossly intact (Left facial droop, speech deficits) Vascular: Present: Normal capillary refill. Absent: Cyanosis, Edema Abdomen: Present: Soft, Non-tender Skin: Present: No rashes noted on visualized skin Results 04/23/18 00:58 04/23/18 00:58 Lab Results, Last 24 hours 04/23/18 04/23/18 00:58 00:58 WBC 12.2 H Hgb 12.6 L Hct 37.5 Plt Count 353 Sodium 136 Potassium 3.8 Chloride 100 Carbon Dioxide 27 BUN 12 Creatinine 0.97 Glucose 99 Calcium 9.3 - Imaging / Other Tests Echo: report reviewed (LVEF 30-35%. Normal LV chamber size and wall thickness. Global left ventricular systolic dysfunction. Mild left ventricular diastolic dysfunction. Normal right ventricular structure and function. Mild aortic regurgitation. Mild mitral regurgitation. No evidence of pulmonary hypertension. ) Consult Discharge Plan - Plan Referrals: Yane Garcia CNP [Primary Care Provider] - 05/19/18 1:30 pm
--- NOTE | 2018-04-23 17:11 | Internal Med Progress Note ---
Date of Encounter: 04/23/18 Time of Encounter: 17:09 - Assessment and plan (1) CVA (cerebral vascular accident) Current Visit: Yes Status: Acute Assessment and plan: CT of brain shows multiple areas of infarct patient was seen by neurology recommends MRI Continue with aspirin and statin Maintain blood pressure control Echo EF of 3035% which is actually improved from previous-left ventricular noted to be hypokinetic global left ventricular systolic dysfunction neurology suspicious of clot formation-cardioembolic event. Will consult cardiology concerning anticoagulation on long-term basis Okay VTE prophylaxis Lovenox PT OT consult Speech therapy recommends diet of advanced soft textures and thin liquids medications [facility] for discharge planning Neuro checks Was seen by vascular surgery who fell infarct is unlikely of the left carotid stenosis Qualifiers: CVA mechanism: other Qualified Code(s): I63.8 - Other cerebral infarction (2) Elevated troponin Current Visit: Yes Status: Acute Assessment and plan: Troponins have trended down we will obtain cardiac echo-previous echo does show EF of 2025% current echo does show increase in EF to 30-35% global left ventricular systolic dysfunction No chest pain this time EKG with no ST-T wave abnormalities We will recheck EKG Continuous cardiac monitoring (3) Cardiomyopathy Current Visit: No Status: Acute Assessment and plan: Thank you echo completed 2017 with EF between 25% with moderate aortic regurgitation-repeat echo today shows EF of 30-35% global left systolic ventricular dysfunction Underwent left heart 06/06/17 moderate three-vessel coronary artery disease severe LV dysfunction EF of 25% We will obtain cardiac echo Tenuous cardiac monitoring Consult cardiology Monitor intake and output patient continues to smoke encouraged patient to stop smoking monitor blood pressure Qualifiers: Cardiomyopathy type: unspecified Qualified Code(s): I42.9 - Cardiomyopathy , unspecified (4) DVT prophylaxis Current Visit: No Status: Acute Assessment and plan: Lovenox subcutaneous (5) Hypertension Current Visit: No Status: Chronic Assessment and plan: Presently controlled continue with home medications Qualifiers: Hypertension type: essential hypertension Qualified Code(s): I10 - Essential (primary) hypertension (6) Tobacco abuse Current Visit: No Status: Chronic Assessment and plan: Nicotine patch-encourage patient to stop smoking - Time Spent With Patient Total time spent is greater than 50% in coordination of care (as documented) at patient's floor/unit and/or counseling patient: - Subjective Interval history: Patient was seen and examined at bedside he is more alert today he does have some upper extremity weakness. Discussed with patient that physical therapy will be working with him, awaiting neurology recommendations. Patient verbalized understanding of treatment plan. - Constitutional Vitals: Temp Pulse Resp BP Pulse Ox 97.2 F L 79 16 117/71 93 04/23/18 16:00 04/23/18 16:00 04/23/18 16:00 04/23/18 16:00 04/23/18 16:00 General appearance: Present: mild distress - Head Head exam: Present: atraumatic, normocephalic - Eye Eye exam: Present: PERRL, conjuntiva pink, sclera anicteric Pupils: Present: PERRL - Neck Neck exam general surgery: Present: supple, trachea midline. Absent: lymphadenopathy - Respiratory Respiratory exam: Present: CTAB. Absent: accessory muscle use, rales, rhonchi, wheezes - Cardiovascular Cardiovascular exam: Present: RRR, +S1, +S2. Absent: diastolic murmur, gallop, rubs, systolic murmur - GI/Abdominal GI/Abdominal exam: Present: normal bowel sounds, soft, no peritoneal signs. Absent: distended, tenderness - Extremities Exam Extremities exam: Present: warm, radial pulses palpable and symmetrical. Absent : calf tenderness, cyanotic, pedal edema - Neurological Exam Neurological exam: Present: CN II-XII intact, oriented X3. Absent: pronater drift, facial droop, speech deficit Additional comments: Unstable gait left upper extremity weakness and garbled speech - Skin Skin exam: Present: dry, intact Internal Medicine: Result - Labs CBC & Chem 7: 04/23/18 00:58 04/23/18 00:58 Labs: Short CBC 04/23/18 Range/Units 00:58 WBC 12.2 H (4.3-11.1) K/mcL Hgb 12.6 L (12.9-16.9) g/dL Hct 37.5 (37.5-50.1) % Plt Count 353 (140-400) K/mcL Neutrophils # 9.0 H (1.6-8.9) K/mcL BMP 04/23/18 00:58 Sodium 136 Potassium 3.8 Chloride 100 Carbon Dioxide 27 BUN 12 Creatinine 0.97 Glucose 99 Calcium 9.3 - ABG Interpretation ABG results: ABG ABG pH 7.48 pH Units (7.32-7.45) H 04/21/18 17:25 ABG pCO2 35 mmHg (35-45) 04/21/18 17:25 ABG pO2 60 mmHg (85-104) L 04/21/18 17:25 ABG O2 Saturation 93 % (95-98) L 04/21/18 17:25 PT/INR, D-dimer PT 10.5 Seconds (9.4-12.1) 04/21/18 11:53 - Impressions Impressions Brain MRI 04/22/18 17:52 IMPRESSION: Motion artifact degrades the images. There is a 5.0 x 3.6 cm area of acute infarct involving the right frontal lobe from an acute right middle cerebral artery territory infarct. Remote infarcts in the left frontal, left parietal, right parietal, and left cerebellum. D/ / 04/22/2018 19:49:25 Lenora Musa MD / nael Interpreting Provider: Lenora Musa MD Echocardiogram 04/23/18 17:20 Impressions: LVEF 30-35%. Normal LV chamber size and wall thickness. Global left ventricular systolic dysfunction. Mild left ventricular diastolic dysfunction. Normal right ventricular structure and function. Mild aortic regurgitation. Mild mitral regurgitation. No evidence of pulmonary hypertension. Left Ventricular Wall Motion: Rest Echo Findings The apex, apical inferior, mid inferior, basal inferior, apical anterior, mid anterior, basal anterior, apical septal, mid inferior septal, basal inferior septal, apical lateral, mid anterior lateral, basal anterior lateral, mid anterior septal, mid inferior lateral, basal anterior septal and basal inferior lateral almodovar were hypokinetic. Findings: Study Quality * Technically adequate exam. ECG Findings * Normal sinus rhythm. Left Ventricle * LVEF 30-35%. * Normal LV chamber size and wall thickness. * Global left ventricular systolic dysfunction. * Mild left ventricular diastolic dysfunction. Right Ventricle * Normal right ventricular structure and function. Left Atrium * Mildly dilated left atrium. Right Atrium * Normal right atrial size. Aortic Valve * Aortic valve not well visualized. * Mild aortic regurgitation. * No aortic stenosis. Mitral Valve * Normal mitral valve structure. * Mild mitral regurgitation. * No mitral stenosis. Tricuspid Valve * Normal tricuspid valve structure and function. * Trace tricuspid regurgitation. * No evidence of pulmonary hypertension. Pulmonic Valve * Normal pulmonic valve structure and function. * No pulmonic regurgitation. Aorta * Normally sized aortic root. Pericardium * The pericardium appears normal. IVC * Normal IVC dimensions and inspiratory collapse. Pulmonary Artery * Normal visualized portions of the main pulmonary artery. Consult Discharge Plan - Plan Referrals: Yane Garcia CNP [Primary Care Provider] - 05/19/18 1:30 pm
[2018-04-23] MEDS: GuaiFENesin Liq 200 MG/10 ML UDC PO PRN (20:59)
[2018-04-24] MEDS: *HR* Enoxaparin 40 MG/0.4 ML SYRINGE SQ SCH (04:34)
[2018-04-24 06:43] LABS: Basophils % 0.3 %; Eosinophils # 0.1 K/mcL (0.0-0.6); Eosinophils % 0.4 %; Hematocrit 37.3 % (37.5-50.1); Hemoglobin 12.7 g/dL (12.9-16.9); Immature Granulocytes % 2.5 % (0-4); Lymphocytes # 2.9 K/mcL (0.6-4.6); Lymphocytes % 21.1 %; Mean Corpuscular Hemoglobin 30.7 pg (28.0-33.3); Mean Corpuscular Volume 90.1 fL (83.0-100.0); Mean Platelet Volume 9.5 fL (9.4-12.4); Monocytes # 1.1 K/mcL (0.0-1.3); Monocytes % 8.4 %; Neutrophils # 9.1 K/mcL (1.6-8.9); Platelet Count 368 K/mcL (140-400); Red Blood Count 4.14 M/mcL (4.19-5.50); Red Cell Distribution Width 12.8 % (11.5-14.5); Segmented Neutrophils % 67.3 %
[2018-04-24 07:02] LABS: BUN/Creatinine Ratio 11 (6-26); Blood Urea Nitrogen 10 mg/dL (8-23); Calcium 8.8 mg/dL (8.6-10.3); Carbon Dioxide 26 mEq/L (23-29); Chloride 97 mEq/L (98-107); Glucose 121 mg/dL (70-105); Osmolality,Calculated 270 (280-300); Potassium 3.4 mEq/L (3.5-5.1); Sodium 130 mEq/L (136-145); eGFR For African Americans > 60 (> 60); eGFR For Non-African Americans > 60 (> 60)
[2018-04-24] MEDS: Metoprolol XL (24 HR) Succ 50 MG TAB.ER.24H PO SCH (08:03)
[2018-04-24] MEDS: Multivit/Ca/Min/Fe/FA 1 TAB TABLET PO SCH (08:03)
[2018-04-24] MEDS: Lisinopril 20 MG TABLET PO SCH (08:03)
[2018-04-24] MEDS: Isosorbide MONOnitrate (24 HR) 60 MG TAB.ER.24H PO SCH (08:03)
[2018-04-24] MEDS: amLODIPine 5 MG TABLET PO SCH (08:03)
[2018-04-24] MEDS: Aspirin Enteric Coated 81 MG Tablet PO SCH (08:03)
[2018-04-24] MEDS: Finasteride 5 MG TABLET PO SCH (08:03)
[2018-04-24] MEDS: Nicotine 21 MG PATCH.TD24 TD SCH (08:04)
[2018-04-24] MEDS: levoFLOXacin 750 MG TABLET PO SCH (08:04)
[2018-04-24] MEDS: predniSONE 20 MG TABLET PO SCH (08:04)
[2018-04-24] MEDS: Budesonide/Formoterol 160/4.5 MDI IH SCH ×2 (08:04→19:58)
[2018-04-24] MEDS: clonazePAM 0.5 MG TABLET PO PRN ×2 (08:12→23:50)
[2018-04-24] MEDS ORDERED: Metoprolol XL (24 HR) Succ 25 MG TAB.ER.24H PO ONE (09:54)
--- NOTE | 2018-04-24 12:16 | Cardiology Consult Note ---
<Jose MEric Lavonne - Last Filed: 04/24/18 12:27> Date of Encounter: 04/24/18 Time of Encounter: 12:00 Assessment and Plan (1) CVA (cerebral vascular accident) Status: Acute Per Cardiology: History of CVA. Presented with CVA during this hospital stay. Neurology following. Anticipate Neurology would want AC since now at least 2 CVAs and no evidence of conversion. No afib hx warranted-- no need for loop recorder since AC already recommended. Qualifiers: CVA mechanism: other Qualified Code(s): I63.8 - Other cerebral infarction (2) Carotid stenosis, left Status: Chronic Per Cardiology: Vascular following. Recs provided for AC already. (3) Elevated troponin Status: Acute Per Cardiology: Troponins flat and adynamic with peak of 0.08 in setting of acute CVA. Chest pain-free. Suspect demand ischemia. No cardiac rehabilitation warranted. No further ischemic evaluation at this time in setting of acute stroke and patient asymptomatic. (4) CAD (coronary artery disease) Status: Chronic Per Cardiology: [facility] 05/2017: Lesion Findings/Interventions * Left Main Coronary Artery The LMCA is angiographically free of disease. * Left Anterior Descending There is a 50% stenosis in the Mid LAD. * Circumflex There is a 60% stenosis in the Distal Circumflex. * Right Coronary Artery There is a 60% stenosis in the Mid RCA. On aspirin, statin, beta yane, LEWIS inhibitor, and long-acting nitrate. Qualifiers: Coronary Disease-Associated Artery/Lesion type: [place] artery [place] vs. transplanted heart: [place] heart Associated angina: without angina Qualified Code(s): I25.10 - Atherosclerotic heart disease of [place] coronary artery without angina pectoris (5) Cardiomyopathy Status: Chronic Per Cardiology: Previous NICMP with EF 20%. Patient apparently lost to follow-up and did not complete repeat echo to evaluate for potential ICD. Echo noted during this hospitalization with EF 30-35%. Euvolemic on exam. On beta yane and LEWIS inhibitor. Patient scheduled for follow-up and will need evaluation for outpatient ICD. Qualifiers: Cardiomyopathy type: unspecified Qualified Code(s): I42.9 - Cardiomyopathy , unspecified (6) Ventricular tachycardia Status: Acute Per Cardiology: 1 episode noted of 26 beat run of ventricular tachycardia. Magnesium stable 2.0 and potassium slightly depleted at 3.4. Will provide potassium replacement. Recommend keep magnesium above 2.0 and potassium above 4.0. On Toprol-XL 50 mg by mouth daily. Systolic blood pressure stable. We will increase Toprol to 75 mg by mouth daily. Continue to monitor telemetry-- continue to titrate BB as able if warranted. Discussion w patient/family: The assessment and plan as outlined above was discussed with the patient who expressed understanding and agreement. All questions were answered. Thank you for involving us in the care of your patient. Please call with any questions. History of Present Illness Consult date: 04/24/18 Requesting physician: Jenifer Mathews Consult reason: Recs for AC, NSVT, CMP Chief complaint: Slurred Speech History of present illness: Mr. Headley is a 67 year old male with a relevant past medical history of HTN, dyslipidemia, history CVA, nonischemic cardiomyopathy. Last seen by Radha Chen FALAFEL CART COOK August 2017 with cardiology. Cardiology consult initially for anticoagulation recommendations and consult canceled due to recommendations already provided to proceed by Vascular. Cardiology now consulted for 26 beat run of nonsustained ventricular tachycardia. Patient reports upon arrival to the hospital he was on the phone with his brother and his brother called family due to concerns of slurred speech on the phone. Patient denied any chest pain, dizziness, palpitations, syncope, falls, headache, any bleeding or blood loss. Patient unsure if he has been on blood thinners before. He reports currently on aspirin. Past Med Surg Social Fam HX - Past Medical History Attestation: Yes The following information was validated with the patient. Source: patient, old records reviewed Medical history: CHF, COPD, CVA, hyperlipidemia, hypertension, other Additional medical history: depression,BPH,psoriasis,dyslipidemia. HARD OF HEARING. HOME OXYGEN AT NIGHT. SMOKER Psychiatric history: anxiety, depression - Past Surgical History Surgical History: other Additional surgical history: nasal surgery. TURP - Social History Smoking Status: Current every day smoker Packs per day: 0.5 Smokeless Tobacco Status: No Alcohol use: occasionally Drug use: none - Family History Mother Living Status: Hx Family Cardiac Disorders: Yes Hx Family Cancer: Yes Hx Family Endocrine Disorder: Yes (DM) Father Living Status: Hx Family Respiratory Disorders: Yes Medications and Allergies Albuterol Sulfate [Proair Hfa] 2 puff IH Q4-6H PRN 02/12/16 [History] Budesonide/Formoterol 160/4.5 [Symbicort 160/4.5] 2 puff IH BID 02/12/16 [ History] Ipratropium/Albuterol Neb [Duoneb] 3 ml IH QID PRN 02/12/16 [History] Lisinopril [Zestril] 20 mg PO QAM 02/12/16 [History] Multivitamin/Iron/Folic Acid [Centrum Complete Multivit Tab] 1 tab PO QAM [History] Paroxetine HCl 40 mg PO QAM 02/12/16 [History] Pravastatin Sodium [Pravachol] 20 mg PO QPM 02/12/16 [History] clonazePAM [Klonopin] 0.5 mg PO BID PRN 02/12/16 [History] Finasteride [Proscar] 5 mg PO DAILY 10/20/16 [History] Aspirin Enteric Coated [Aspirin EC] 81 mg PO DAILY #30 mg 06/16/17 [Rx] Oxygen 3 l IN CONT #1 each 06/16/17 [Rx] Tamsulosin HCl [Flomax] 0.4 mg PO HS 07/28/17 [History] Albuterol Neb [Proventil Neb] 2.5 mg IH Q2H PRN #120 vial.neb 04/19/18 [Rx] Clindamycin [Cleocin] 300 mg PO Q8HR 3 Days #18 capsule 04/27/18 [Rx] Enoxaparin [Lovenox] 60 mg SQ Q12HR syringe 04/27/18 [Rx] Isosorbide MONOnitrate (24 HR) [Imdur] 60 mg PO DAILY tab.er.24h 04/27/18 [Rx] Lactobacillus [Culturelle] 1 each PO BID cap.sprink 04/27/18 [Rx] Metoprolol XL (24 HR) Succ [Toprol Xl] 75 mg PO DAILY tab.er.24h 04/27/18 [Rx] Nicotine Patch [Nicoderm] 21 mg TD DAILY patch.td24 04/27/18 [Rx] Warfarin [Coumadin] 3 mg PO 1800 #1 tablet 04/27/18 [Rx] Warfarin [Coumadin] 3 mg PO 1800 #10 tablet 04/27/18 [Rx] amLODIPine [Norvasc] 10 mg PO DAILY tablet 04/27/18 [Rx] predniSONE [PredniSONE] 10 mg PO DAILY #12 tablet 04/27/18 [Rx] predniSONE [PredniSONE] 30 mg PO DAILY 2 Days tablet 04/27/18 [Rx] 3 Allergy/AdvReac Type Severity Reaction Status Date / Time ampicillin Allergy Hives Verified 04/19/18 13:17 promethazine [From Phenergan] AdvReac Confusion Verified 04/19/18 13:17 All Systems Review: The remainder of the systems were reviewed and are negative - Cardiovascular Cardiovascular: as per HPI - Neurological Neurological: abnormal speech Physical Examination Vital Signs, Last 4 Hours Temp Pulse Resp BP Pulse Ox 04/24/18 11:41 98.5 F 76 16 106/69 90 General: Conversant, No Apparent Distress HEENT: Atraumatic, Normocephaly, Mucus Membranes Moist Neck: No JVD, Normal carotid pulses Cardiac: Reg Rate and Rhythm, Normal S1 and S2, No Murmur Lungs: Normal Breath Sounds, No Wheeze, Rales, Rhonchi Neuro: Alert and responsive, Other (speech slurred) Abdomen: Soft, Non-Tender Skin: No rashes noted on visualized skin Musculoskeletal: No Chest Wall Tenderness Extremities: No Clubbing, No Cyanosis, No Edema, Normal Pulses Results 04/24/18 05:51 04/24/18 05:51 Lab Results Laboratory Tests 04/21/18 04/21/18 04/21/18 11:53 11:53 11:56 Hgb Hct INR 1.0 Potassium Creatinine Est GFR (Non-Af Amer) Magnesium AST ALT Troponin I 0.08 H* B-Natriuretic Peptide 193 H LDL Cholesterol, Calc TSH 1.485 04/21/18 04/21/18 04/22/18 16:12 21:54 00:37 Hgb Hct INR Potassium Creatinine Est GFR (Non-Af Amer) Magnesium 2.0 AST 21 ALT 12 Troponin I 0.04 H* 0.04 H* 0.04 H* B-Natriuretic Peptide LDL Cholesterol, Calc 46 TSH 04/24/18 04/24/18 05:51 05:51 Hgb 12.7 L Hct 37.3 L INR Potassium 3.4 L Creatinine 0.90 Est GFR (Non-Af Amer) > 60 Magnesium AST ALT Troponin I B-Natriuretic Peptide LDL Cholesterol, Calc TSH ITS Impressions Chest X-Ray 04/21/18 11:54 IMPRESSION: No acute abnormality. D/ / Vignesh Camp MD / Vignesh Camp MD Interpreting Provider: Vignesh Camp MD Head CT 04/21/18 11:54 IMPRESSION: 1. Right frontal region demonstrates a likely subacute ischemic infarct. 2. No intracranial hemorrhage. 3. Multiple bilateral old infarcts with encephalomalacia as well as left cerebellar old infarct. Extensive atrophy. RECOMMENDATIONS: Brain MRI. D/ / 04/21/2018 12:13:18 Alea Ba MD / [email or web address] Interpreting Provider: Alea Ba MD Head CTA 04/21/18 12:34 IMPRESSION: No occlusion or severe stenosis of the proximal intracranial arteries. D/ / Vignesh Camp MD / Vignesh Camp MD Interpreting Provider: Vignesh Camp MD Neck CTA 04/21/18 12:34 IMPRESSION: 1. Suggestion of stenosis of the left common carotid artery as it originates from the aortic arch although there is artifact in this area and evaluation is difficult. 2. No evidence of hemodynamically significant carotid bifurcation disease on either side. 3. Patent vertebrobasilar circulation. 4. Severe lung emphysema. RECOMMENDATIONS: Further evaluation of the origin of the left common carotid artery with contrast angiography would be appropriate. D/ / 04/21/2018 13:43:26 Alea Ba MD / [email or web address] Interpreting Provider: Alea Ba MD Brain MRI 04/22/18 17:52 IMPRESSION: Motion artifact degrades the images. There is a 5.0 x 3.6 cm area of acute infarct involving the right frontal lobe from an acute right middle cerebral artery territory infarct. Remote infarcts in the left frontal, left parietal, right parietal, and left cerebellum. D/ / 04/22/2018 19:49:25 Lenora Musa MD / nael Interpreting Provider: Lenora Musa MD Echocardiogram 04/23/18 17:20 Impressions: LVEF 30-35%. Normal LV chamber size and wall thickness. Global left ventricular systolic dysfunction. Mild left ventricular diastolic dysfunction. Normal right ventricular structure and function. Mild aortic regurgitation. Mild mitral regurgitation. No evidence of pulmonary hypertension. Left Ventricular Wall Motion: Rest Echo Findings The apex, apical inferior, mid inferior, basal inferior, apical anterior, mid anterior, basal anterior, apical septal, mid inferior septal, basal inferior septal, apical lateral, mid anterior lateral, basal anterior lateral, mid anterior septal, mid inferior lateral, basal anterior septal and basal inferior lateral almodovar were hypokinetic. Findings: Study Quality * Technically adequate exam. ECG Findings * Normal sinus rhythm. Left Ventricle * LVEF 30-35%. * Normal LV chamber size and wall thickness. * Global left ventricular systolic dysfunction. * Mild left ventricular diastolic dysfunction. Right Ventricle * Normal right ventricular structure and function. Left Atrium * Mildly dilated left atrium. Right Atrium * Normal right atrial size. Aortic Valve * Aortic valve not well visualized. * Mild aortic regurgitation. * No aortic stenosis. Mitral Valve * Normal mitral valve structure. * Mild mitral regurgitation. * No mitral stenosis. Tricuspid Valve * Normal tricuspid valve structure and function. * Trace tricuspid regurgitation. * No evidence of pulmonary hypertension. Pulmonic Valve * Normal pulmonic valve structure and function. * No pulmonic regurgitation. Aorta * Normally sized aortic root. Pericardium * The pericardium appears normal. IVC * Normal IVC dimensions and inspiratory collapse. Pulmonary Artery * Normal visualized portions of the main pulmonary artery. Active Medications Acetaminophen (Tylenol) 650 mg PO Q6HR PRN PRN Reason: Mild Pain/Fever Stop: 10/21/18 15:48 Albuterol Sulfate (Proventil Neb) 2.5 mg IH Q2H PRN; Protocol PRN Reason: Dyspnea Stop: 10/21/18 15:50 Albuterol Sulfate (Albuterol Inhaler) 2 puff IH [id number] PRN PRN Reason: Shortness Of Breath Stop: 10/21/18 16:01 Last Admin: 04/22/18 16:16 Dose: 2 puff Albuterol/Ipratropium (Duoneb) 3 ml IH QIDR PRN PRN Reason: Shortness Of Breath Stop: 10/21/18 17:01 Last Admin: 04/23/18 07:22 Dose: 3 ml Amlodipine Besylate (Norvasc) 10 mg PO DAILY ABEBE PRN Reason: Protocol Stop: 10/22/18 09:01 Last Admin: 04/24/18 08:03 Dose: 10 mg Aspirin (Aspirin Ec) 81 mg PO DAILY ABEBE Stop: 10/22/18 09:01 Last Admin: 04/24/18 08:03 Dose: 81 mg Budesonide/Formoterol Fumarate (Symbicort) 2 puff IH BIDR ABEBE PRN Reason: Protocol Stop: 10/21/18 22:01 Last Admin: 04/24/18 08:04 Dose: 2 puff Clonazepam (Klonopin) 0.5 mg PO BID PRN PRN Reason: Anxiety Stop: 10/21/18 15:50 Last Admin: 04/24/18 08:12 Dose: 0.5 mg Enoxaparin Sodium (Lovenox) 40 mg SQ 0600 ABEBE PRN Reason: Protocol Stop: 10/22/18 18:16 Last Admin: 04/24/18 04:34 Dose: 40 mg Finasteride (Proscar) 5 mg PO DAILY ABEBE PRN Reason: Protocol Stop: 10/22/18 09:01 Last Admin: 04/24/18 08:03 Dose: 5 mg Guaifenesin (Robitussin Liq) 200 mg PO Q6HR PRN PRN Reason: Cough Stop: 10/22/18 19:55 Last Admin: 04/23/18 20:59 Dose: 200 mg Isosorbide Mononitrate (Imdur) 60 mg PO DAILY ABEBE Stop: 10/22/18 09:01 Last Admin: 04/24/18 08:03 Dose: 60 mg Levofloxacin (Levaquin) 750 mg PO DAILY ABEBE Stop: 10/23/18 14:01 Last Admin: 04/24/18 08:04 Dose: 750 mg Lisinopril (Zestril) 20 mg PO QAM ABEBE PRN Reason: Protocol Stop: 10/22/18 09:01 Last Admin: 04/24/18 08:03 Dose: 20 mg Metoprolol Succinate (Toprol Xl) 75 mg PO DAILY [facility] Stop: 10/25/18 09:01 Multivitamins/Calcium (Thera M Plus) 1 tab PO QAM [facility] Stop: 10/22/18 09:01 Last Admin: 04/24/18 08:03 Dose: 1 tab Naloxone HCl (Narcan) 0.4 mg IVP Q2MIN PRN PRN Reason: SEE COMMENTS Stop: 10/21/18 15:48 Nicotine (Nicoderm) 21 mg TD DAILY ABEBE PRN Reason: Protocol Stop: 10/22/18 17:31 Last Admin: 04/24/18 08:04 Dose: 21 mg Paroxetine HCl (Paxil) 40 mg PO QAM [facility] Stop: 10/22/18 09:01 Last Admin: 04/24/18 08:03 Dose: 40 mg Prednisone (Prednisone) 40 mg PO DAILY [facility] Stop: 10/24/18 09:01 Last Admin: 04/24/18 08:04 Dose: 40 mg Simvastatin (Zocor) 10 mg PO QPM [facility] Stop: 10/21/18 18:01 Last Admin: 04/23/18 17:38 Dose: 10 mg Tamsulosin HCl (Flomax) 0.4 mg PO HS ABEBE PRN Reason: Protocol Stop: 10/21/18 21:01 Last Admin: 04/23/18 20:59 Dose: 0.4 mg Tramadol HCl (Ultram) 50 mg PO Q6HR PRN PRN Reason: Moderate Pain Stop: 10/21/18 15:48 - Imaging and Cardiology Echo: report reviewed - EKG Interpretation EKG results cardiology: personally reviewed, normal ECG, sinus rhythm (SR 90's) , no diagnostic ischemia, other (24-hour telemetry reviewed with average heart rate the past 24 hour 77, one episode of 26 beat run of ventricular tachycardia) Consult Discharge Plan - Plan Instructions: Chronic Obstructive Pulmonary Disease (DC) Referrals: Yane Garcia CNP [Primary Care Provider] - 05/19/18 1:30 pm Prescriptions: Clindamycin [Cleocin] 300 mg PO Q8HR 3 Days #18 capsule predniSONE [PredniSONE] 10 mg PO DAILY #12 tablet Warfarin [Coumadin] 3 mg PO 1800 #1 tablet Warfarin [Coumadin] 3 mg PO 1800 #10 tablet <Andrey Birch - Last Filed: 04/28/18 13:54> Date of Encounter: 04/24/18 Time of Encounter: 15:30 - Attending Attestation I have personally performed a face to face evaluation on this patient. I have reviewed and agree with the care plan. History and Exam by me shows: CC: slurred speech PT initially admitted with his family noting change in speech pattern. Pt denies weakness, numbness, chest pain,palpitations or shortness of breath ROS: reviewed PMH: reviewed PE pt seen and examined, agree with findings as documented. IMP/Plan: 1. Non sustained VT - symptomatic, noted on tele, will increase beta blockade, from 50 mg to 75 mg metoprolol succinate daily, monitor on tele 2. Elevated troponin: flat, adynamic, suspect due to demand ischemia, will monitor on increased beta blockade, not a candidate for invasive strategy with recent stroke. 3. Stroke: note neuro and vascular surgical recommendations for systemic anticoagulation with known left carotid stenosis, following with vascular medications, will defer to their recomendations 4. Cardiomyopathy: Severe dilated non ischemic CMP by hx, last EF 30 to 35%, up from 20%, is a candidate for AICD, will continue to follow, refer to Dr. Casper Rogers for outpatient evalutation 5. CAD: moderate non obstructive CAD @ [facility] 06/02 Assessment and Plan Discussion w patient/family: The assessment and plan as outlined above was discussed with the patient and/or family members who expressed understanding and agreement. All questions were answered. Thank you for involving us in the care of your patient. Please call with any questions. History of Present Illness History of present illness: Mr. Headley is a 67 year old male All Systems Review: The remainder of the systems were reviewed and are negative Results 04/27/18 04:43 04/27/18 04:43
--- NOTE | 2018-04-24 15:00 | Neurology Progress Note ---
Date of Encounter: 04/24/18 Time of Encounter: 08:15 Assessment and Plan (1) CVA (cerebral vascular accident) Current Visit: Yes Status: Acute The case was discussed with the hospitalist. I still feel that we are dealing with a likely with a cardioembolic event secondary to a hypokinetic left ventricle. Ultimately when appropriate, long-term anticoagulation is going to be best for him. Gen. for a small to medium size infarct 3-4 days after the initial event is what I would recommend starting the anticoagulation. Also management of his hypertension is paramount as well as smoking cessation. Apparently he will be going to an inpatient [facility] facility for rehabilitation. You may discharge him at your discretion. Qualifiers: CVA mechanism: other Qualified Code(s): I63.8 - Other cerebral infarction Subjective Interval history: The chart was reviewed, the patient was seen and examined. He was sleeping this morning when I entered the room. Is somewhat startled however was arousable to voice. From a neurologic perspective he appears to be about the same. His speech is slurred, he still has ataxia and weakness of the left upper extremity. However his exam has stabilized. Objective - Constitutional Vitals: Temp Pulse Resp BP Pulse Ox 98.5 F 76 16 106/69 90 04/24/18 11:41 04/24/18 11:41 04/24/18 11:41 04/24/18 11:41 04/24/18 11:41 - Neurological Exam Motor Examination: Present: other (Patient seems to have a tad bit of weakness of the left upper extremity. 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 Left finger to nose is somewhat ataxic as well. 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 His gait is a bit ataxic however.) Mental Status Examination: Present: awake, alert, oriented to person, oriented to place, follows commands appropriately, answers questions appropriately Cranial nerve examination: Present: PERRL, EOMI, visual grace intact, sensory to face intact, mastication intact. Absent: no dysarthria (Patient does have dysarthric speech.) Cranial Nerve Exam: facial droop: Left (Speech is also dysarthric.), flattening of masolabic/folds: Left, hearing decreased: Left (Bilateral hearing loss) Cerebellar examination: Present: no dysmetria Results - Laboratory Findings CBC and BMP: 04/24/18 05:51 04/24/18 05:51 Abnormal lab findings: Abnormal lab results WBC 13.5 K/mcL (4.3-11.1) H 04/24/18 05:51 RBC 4.14 M/mcL (4.19-5.50) L 04/24/18 05:51 Hgb 12.7 g/dL (12.9-16.9) L 04/24/18 05:51 Hct 37.3 % (37.5-50.1) L 04/24/18 05:51 Neutrophils # 9.1 K/mcL (1.6-8.9) H 04/24/18 05:51 ABG pH 7.48 pH Units (7.32-7.45) H 04/21/18 17:25 ABG pO2 60 mmHg (85-104) L 04/21/18 17:25 ABG Total CO2 27 mEq/L (20-26) H 04/21/18 17:25 ABG O2 Saturation 93 % (95-98) L 04/21/18 17:25 Sodium 130 mEq/L (136-145) L 04/24/18 05:51 Potassium 3.4 mEq/L (3.5-5.1) L 04/24/18 05:51 Chloride 97 mEq/L (98-107) L 04/24/18 05:51 Glucose 121 mg/dL (70-105) H 04/24/18 05:51 POC Glucose 116 mg/dL (70-99) H 04/21/18 11:52 Calculated Osmolality 270 (280-300) L 04/24/18 05:51 Lactic Acid 2.6 mmol/L (0.5-2.2) H 04/22/18 00:37 Troponin I 0.04 ng/mL (< 0.04) H* 04/22/18 00:37 B-Natriuretic Peptide 193 pg/mL (Less than 100) H 04/21/18 11:56 Serum Total Protein 5.7 g/dL (6.4-8.9) L 04/22/18 00:37 Globulin 1.9 g/dL (2.4-3.5) L 04/22/18 00:37 HDL Cholesterol 80 mg/dL (40-59) H 04/22/18 00:37 Consult Discharge Plan - Plan Referrals: Yane Garcia CNP [Primary Care Provider] - 05/19/18 1:30 pm
--- NOTE | 2018-04-24 16:19 | Electrocardiograph Report ---
[address] [address] Test Date: 2018-04-22 Pat Name: Vishal Headley Department: 113 Room: 3B Gender: M Upstairs Maid: Artie : 1950 Requested By: Jenifer Mathews Order Number: [id number] Reading MD: Justino West Measurements Intervals [place]ed [place] Rate: 74 P: 66 IA: 127 QRS: 71 QRSD: 113 T: 75 QT: 411 QTc: 439 Interpretive Statements SINUS RHYTHM INCOMPLETE RBBB Electronically Signed On 04-24-2018 16:17:59 EDT by Justino West
--- NOTE | 2018-04-24 16:55 | Vascular/[facility]as Progress Note ---
Date of Encounter: 04/24/18 Time of Encounter: 15:30 - Assessment and plan (1) Carotid stenosis, left Current Visit: Yes Status: Chronic The patient recently sustained a right hemispheric subacute infarction. He has had prior bilateral infarcts as well. He has a left common carotid artery stenosis by CT angiogram. His left carotid stenosis appears a symptomatic. The most likely etiology of his symptoms is a cardiac source. His echocardiogram is unrevealing. Patient had an arrhythmia overnight. It is recommended that the patient have long-term anticoagulation. The patient follow up in vascular clinic after discharge. We will sign off. (2) Tobacco abuse Current Visit: No Status: Chronic He was counseled regarding smoking cessation. (3) Hypertension Current Visit: No Status: Chronic Qualifiers: Hypertension type: essential hypertension Qualified Code(s): I10 - Essential (primary) hypertension (4) CVA (cerebral vascular accident) Current Visit: Yes Status: Acute Qualifiers: CVA mechanism: other Qualified Code(s): I63.8 - Other cerebral infarction - Subjective Interval history: The patient reports he developed an irregular heartbeat during the night. He was asymptomatic and resting comfortably when he was aroused for further evaluation. He denies any recurrent symptoms of CVA, TIA or amaurosis fugax. He reports that his speech deficit and patient to persist. He denies chest pain or shortness of breath. Vital Signs, Last 4 Hours Temp Pulse Resp BP Pulse Ox 04/24/18 15:30 97.9 F 71 16 104/62 92 - Physical Examination General: Present: Conversant, No Apparent Distress Cardiac: Present: Reg Rate and Rhythm Lungs: Present: Normal Breath Sounds Neuro: Present: Alert and responsive, Motor nerves grossly intact, Sensory nerves grossly intact, Other (Left facial droop, speech deficit.) Vascular: Absent: Cyanosis, Edema Abdomen: Present: Soft, Non-tender Skin: Present: No rashes noted on visualized skin Results 04/24/18 05:51 04/24/18 05:51 Lab Results, Last 24 hours 04/24/18 04/24/18 05:51 05:51 WBC 13.5 H Hgb 12.7 L Hct 37.3 L Plt Count 368 Sodium 130 L Potassium 3.4 L Chloride 97 L Carbon Dioxide 26 BUN 10 Creatinine 0.90 Glucose 121 H Calcium 8.8 Consult Discharge Plan - Plan Referrals: Yane Garcia CNP [Primary Care Provider] - 05/19/18 1:30 pm
--- NOTE | 2018-04-24 20:16 | Internal Med Progress Note ---
Date of Encounter: 04/24/18 Time of Encounter: 14:00 - Assessment and plan (1) CVA (cerebral vascular accident) Current Visit: Yes Status: Acute Assessment and plan: CT of brain shows multiple areas of infarct patient was seen by neurology recommends MRI Continue with aspirin and statin Maintain blood pressure control Echo EF of 3035% which is actually improved from previous-left ventricular noted to be hypokinetic global left ventricular systolic dysfunction neurology suspicious of clot formation-cardioembolic event. 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 Neurology recommending initiating anticoagulation 3-4 days after the initial event I did discuss anticoagulation options with the patient/ family who agreed with Coumadin. Daughter states she is able take patient to the Coumadin clinic after he is discharged from rehabilitation Center Qualifiers: CVA mechanism: other Qualified Code(s): I63.8 - Other cerebral infarction (2) Elevated troponin Current Visit: Yes Status: Acute Assessment and plan: Troponins have trended down we will obtain cardiac echo-previous echo does show EF of 20-25% current echo does show increase in EF to 30-35% global left ventricular systolic dysfunction No chest pain this time-most likely demand ischemia EKG with no ST-T wave abnormalities We will recheck EKG Continuous cardiac monitoring (3) Cardiomyopathy Current Visit: No Status: Chronic Assessment and plan: Thank you echo completed 2016 with EF between 25% with moderate aortic regurgitation-repeat echo today shows EF of 30-35% global left systolic ventricular dysfunction Underwent left heart 06/06/17 moderate three-vessel coronary artery disease severe LV dysfunction EF of 25% We will obtain cardiac echo Tenuous cardiac monitoring Monitor intake and output patient continues to smoke encouraged patient to stop smoking monitor blood pressure Continue with beta yane and LEWIS inhibitor Qualifiers: Cardiomyopathy type: unspecified Qualified Code(s): I42.9 - Cardiomyopathy , unspecified (4) DVT prophylaxis Current Visit: No Status: Acute Assessment and plan: Lovenox subcutaneous (5) Hypertension Current Visit: No Status: Chronic Assessment and plan: Presently controlled continue with home medications Qualifiers: Hypertension type: essential hypertension Qualified Code(s): I10 - Essential (primary) hypertension (6) Tobacco abuse Current Visit: No Status: Chronic Assessment and plan: Nicotine patch-encourage patient to stop smoking (7) Ventricular tachycardia Current Visit: Yes Status: Acute Assessment and plan: Patient did have a 26 beat run of ventricular tachycardia electrolytes did show magnesium 2.0 and potassium at 3.4 which we will replace potassium. Cardiology did see the patient ended increased Toprol to 75 mg daily advised to titrate beta yane if able when warranted Continuous cardiac monitoring - Time Spent With Patient Total time spent is greater than 50% in coordination of care (as documented) at patient's floor/unit and/or counseling patient: - Subjective Interval history: Patient was seen and examined at bedside. He is sitting up in a chair requesting to go home and did not inform the patient that he will be going to a rehabilitation because of his stroke. He did verbalize understanding. He repeatedly stated that he did not get any sleep last night was not able sleep in the bed. I did discuss anticoagulation options with the patient and his daughter at the bedside. I explained the benefits and risks of both Coumadin and Xarelto. The daughter expressed that she would prefer Coumadin and that she would be able to take the patient to the Coumadin clinic here at the hospital after leaving the rehabilitation facility. - Constitutional Vitals: Temp Pulse Resp BP Pulse Ox 98.2 F 74 18 122/72 96 04/24/18 19:39 04/24/18 19:39 04/24/18 20:00 04/24/18 19:39 04/24/18 20:00 General appearance: Present: mild distress - Head Head exam: Present: atraumatic, normocephalic - Eye Eye exam: Present: PERRL, conjuntiva pink, sclera anicteric Pupils: Present: PERRL - Neck Neck exam general surgery: Present: supple, trachea midline. Absent: lymphadenopathy - Respiratory Respiratory exam: Present: CTAB. Absent: accessory muscle use, rales, rhonchi, wheezes - Cardiovascular Cardiovascular exam: Present: RRR, +S1, +S2. Absent: diastolic murmur, gallop, rubs, systolic murmur - GI/Abdominal GI/Abdominal exam: Present: normal bowel sounds, soft, no peritoneal signs. Absent: distended, tenderness - Extremities Exam Extremities exam: Present: warm, radial pulses palpable and symmetrical. Absent : calf tenderness, cyanotic, pedal edema - Neurological Exam Neurological exam: Present: CN II-XII intact, oriented X3, no focal deficits. Absent: pronater drift, facial droop, speech deficit - Skin Skin exam: Present: dry, intact Internal Medicine: Result - Labs CBC & Chem 7: 04/24/18 05:51 04/24/18 05:51 Labs: Short CBC 04/24/18 Range/Units 05:51 WBC 13.5 H (4.3-11.1) K/mcL Hgb 12.7 L (12.9-16.9) g/dL Hct 37.3 L (37.5-50.1) % Plt Count 368 (140-400) K/mcL Neutrophils # 9.1 H (1.6-8.9) K/mcL BMP 04/24/18 05:51 Sodium 130 L Potassium 3.4 L Chloride 97 L Carbon Dioxide 26 BUN 10 Creatinine 0.90 Glucose 121 H Calcium 8.8 - ABG Interpretation ABG results: ABG ABG pH 7.48 pH Units (7.32-7.45) H 04/21/18 17:25 ABG pCO2 35 mmHg (35-45) 04/21/18 17:25 ABG pO2 60 mmHg (85-104) L 04/21/18 17:25 ABG O2 Saturation 93 % (95-98) L 04/21/18 17:25 PT/INR, D-dimer PT 10.5 Seconds (9.4-12.1) 04/21/18 11:53 Consult Discharge Plan - Plan Referrals: Yane Garcia CNP [Primary Care Provider] - 05/19/18 1:30 pm
[2018-04-25 04:44] LABS: Basophils # 0.1 K/mcL (0.0-0.2); Basophils % 0.5 %; Eosinophils # 0.1 K/mcL (0.0-0.6); Eosinophils % 0.7 %; Hematocrit 42.9 % (37.5-50.1); Immature Granulocytes % 3.2 % (0-4); Lymphocytes # 3.3 K/mcL (0.6-4.6); Mean Corpuscular HGB Conc 33.8 g/dL (31.6-35.5); Mean Corpuscular Hemoglobin 30.8 pg (28.0-33.3); Mean Corpuscular Volume 91.1 fL (83.0-100.0); Mean Platelet Volume 9.4 fL (9.4-12.4); Monocytes # 1.1 K/mcL (0.0-1.3); Monocytes % 7.5 %; Neutrophils # 9.9 K/mcL (1.6-8.9); Platelet Count 390 K/mcL (140-400); Red Blood Count 4.71 M/mcL (4.19-5.50); Red Cell Distribution Width 12.8 % (11.5-14.5); Segmented Neutrophils % 66.1 %
[2018-04-25 04:45] LABS: Hemoglobin 14.5 g/dL (12.9-16.9)
[2018-04-25 04:57] LABS: BUN/Creatinine Ratio 11 (6-26); Blood Urea Nitrogen 11 mg/dL (8-23); Calcium 9.1 mg/dL (8.6-10.3); Carbon Dioxide 27 mEq/L (23-29); Chloride 96 mEq/L (98-107); Glucose 107 mg/dL (70-105); Osmolality,Calculated 270 (280-300); Potassium 4.2 mEq/L (3.5-5.1); Sodium 130 mEq/L (136-145); eGFR For African Americans > 60 (> 60); eGFR For Non-African Americans > 60 (> 60)
[2018-04-25] MEDS: *HR* Enoxaparin 40 MG/0.4 ML SYRINGE SQ SCH ×2 (06:07→06:12)
--- NOTE | 2018-04-25 08:47 | Internal Med Progress Note ---
Date of Encounter: 04/25/18 Time of Encounter: 08:46 - Assessment and plan (1) CVA (cerebral vascular accident) Current Visit: Yes Status: Acute Assessment and plan: CT of brain shows multiple areas of infarct patient was seen by neurology recommends MRI Continue with aspirin and statin Maintain blood pressure control Echo EF of 3035% which is actually improved from previous-left ventricular noted to be hypokinetic global left ventricular systolic dysfunction neurology suspicious of clot formation-cardioembolic event. 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 Neurology recommending initiating anticoagulation 3-4 days after the initial event I did discuss anticoagulation options with the patient / family who agreed with Coumadin. Daughter states she is able take patient to the Coumadin clinic after he is discharged from rehabilitation Center I did discuss bridging with Dr. West today agreed to bridge with Lovenox to Coumadin. I spoke with pharmacy we will begin with 1 mg per Kg twice a day Lovenox-Coumadin pharmacy to dose. Monitor INR with goal of 2-3. Qualifiers: CVA mechanism: other Qualified Code(s): I63.8 - Other cerebral infarction (2) Elevated troponin Current Visit: Yes Status: Acute Assessment and plan: Troponins have trended down we will obtain cardiac echo-previous echo does show EF of 20-25% current echo does show increase in EF to 30-35% global left ventricular systolic dysfunction No chest pain this time-most likely demand ischemia EKG with no ST-T wave abnormalities We will recheck EKG Continuous cardiac monitoring (3) Cardiomyopathy Current Visit: No Status: Chronic Assessment and plan: Thank you echo completed 2017 with EF between 25% with moderate aortic regurgitation-repeat echo today shows EF of 30-35% global left systolic ventricular dysfunction Underwent left heart 06/06/17 moderate three-vessel coronary artery disease severe LV dysfunction EF of 25% We will obtain cardiac echo Tenuous cardiac monitoring Monitor intake and output patient continues to smoke encouraged patient to stop smoking monitor blood pressure Continue with beta yane and LEWIS inhibitor Qualifiers: Cardiomyopathy type: unspecified Qualified Code(s): I42.9 - Cardiomyopathy , unspecified (4) DVT prophylaxis Current Visit: No Status: Acute Assessment and plan: Lovenox subcutaneous (5) Hypertension Current Visit: No Status: Chronic Assessment and plan: Presently controlled continue with home medications Qualifiers: Hypertension type: essential hypertension Qualified Code(s): I10 - Essential (primary) hypertension (6) Tobacco abuse Current Visit: No Status: Chronic Assessment and plan: Nicotine patch-encourage patient to stop smoking (7) Ventricular tachycardia Current Visit: Yes Status: Acute Assessment and plan: Patient did have a 26 beat run of ventricular tachycardia electrolytes did show magnesium 2.0 and potassium at 3.4 which we will replace potassium. Cardiology did see the patient ended increased Toprol to 75 mg daily advised to titrate beta yane if able when warranted Continuous cardiac monitoring (8) Pneumonia Current Visit: No Status: Acute Assessment and plan: 1 patient was originally seen on Friday 3 was started on Levaquin and steroids due to acquired pneumonia he presented on Friday with stroke symptoms at that time chest x-ray was clear. Levaquin was resumed on as well as steroids. White count was 19 trended down to 12 and now has trended back up to 15. We did do a chest x-ray did show a right lower lobe infiltrate which was new, suspicious for possible aspiration pneumonia. Will obtain blood cultures as well as cultures for Legionella and strep pneumonia. I did discuss with Dr Whittington who recommends continuing Levaquin and adding clindamycin for aspiration pneumonia/community-acquired coverage. Continue to monitor Qualifiers: Pneumonia type: due to unspecified organism Laterality: unspecified laterality Lung location: unspecified part of lung Qualified Code(s): J18.9 - Pneumonia, unspecified organism (9) Hyponatremia Current Visit: Yes Status: Acute Assessment and plan: 1 sodium is 130 today-we will check urine sodium urine osmolality - Time Spent With Patient Total time spent is greater than 50% in coordination of care (as documented) at patient's floor/unit and/or counseling patient: - Subjective Interval history: Patient was seen and examined at bedside. Noted the patient's white count elevated continues to have cough no fever sats are 92% on room air. We did check a chest x-ray which did show new developing right lower lobe infiltrate obtain blood cultures I did update patient and family who verbalized understanding. We will not transfer the patient to rehabilitation today again family is aware - Constitutional Vitals: Temp Pulse Resp BP Pulse Ox 97.8 F 75 18 155/73 92 04/25/18 08:40 04/25/18 08:40 04/25/18 08:40 04/25/18 08:40 04/25/18 08:40 General appearance: Present: A&O X 2 - Head Head exam: Present: atraumatic, normocephalic - Eye Eye exam: Present: PERRL, conjuntiva pink, sclera anicteric Pupils: Present: PERRL - Neck Neck exam general surgery: Present: supple, trachea midline. Absent: lymphadenopathy - Respiratory Respiratory exam: Present: rhonchi. Absent: accessory muscle use, rales, wheezes - Cardiovascular Cardiovascular exam: Present: RRR, +S1, +S2. Absent: diastolic murmur, gallop, rubs, systolic murmur - GI/Abdominal GI/Abdominal exam: Present: normal bowel sounds, soft, no peritoneal signs. Absent: distended, tenderness - Extremities Exam Extremities exam: Present: warm, radial pulses palpable and symmetrical. Absent : calf tenderness, cyanotic, pedal edema - Neurological Exam Neurological exam: Present: CN II-XII intact, oriented X3, no focal deficits, speech deficit. Absent: pronater drift, facial droop - Skin Skin exam: Present: dry, intact Internal Medicine: Result - Labs CBC & Chem 7: 04/25/18 03:59 04/25/18 03:59 Labs: Short CBC 04/25/18 Range/Units 03:59 WBC 15.0 H (4.3-11.1) K/mcL Hgb 14.5 D (12.9-16.9) g/dL Hct 42.9 (37.5-50.1) % Plt Count 390 (140-400) K/mcL Neutrophils # 9.9 H (1.6-8.9) K/mcL BMP 04/25/18 03:59 Sodium 130 L Potassium 4.2 Chloride 96 L Carbon Dioxide 27 BUN 11 Creatinine 0.98 Glucose 107 H Calcium 9.1 - ABG Interpretation ABG results: ABG ABG pH 7.48 pH Units (7.32-7.45) H 04/21/18 17:25 ABG pCO2 35 mmHg (35-45) 04/21/18 17:25 ABG pO2 60 mmHg (85-104) L 04/21/18 17:25 ABG O2 Saturation 93 % (95-98) L 04/21/18 17:25 PT/INR, D-dimer PT 10.5 Seconds (9.4-12.1) 04/21/18 11:53 Consult Discharge Plan - Plan Referrals: Yane Garcia CNP [Primary Care Provider] - 05/19/18 1:30 pm
[2018-04-25 09:03] LABS: Prothrombin Time 10.5 Seconds (9.4-12.1)
[2018-04-25] MEDS: Nicotine 21 MG PATCH.TD24 TD SCH (09:18)
[2018-04-25] MEDS: Aspirin Enteric Coated 81 MG Tablet PO SCH (09:18)
[2018-04-25] MEDS: Metoprolol XL (24 HR) Succ 50 MG TAB.ER.24H PO SCH (09:19)
[2018-04-25] MEDS: Isosorbide MONOnitrate (24 HR) 60 MG TAB.ER.24H PO SCH (09:19)
[2018-04-25] MEDS: predniSONE 20 MG TABLET PO SCH (09:19)
[2018-04-25] MEDS: levoFLOXacin 750 MG TABLET PO SCH (09:19)
[2018-04-25] MEDS: Lisinopril 20 MG TABLET PO SCH (09:19)
[2018-04-25] MEDS: amLODIPine 5 MG TABLET PO SCH (09:19)
[2018-04-25] MEDS: Finasteride 5 MG TABLET PO SCH (09:19)
[2018-04-25] MEDS: Multivit/Ca/Min/Fe/FA 1 TAB TABLET PO SCH (09:19)
[2018-04-25] MEDS: Budesonide/Formoterol 160/4.5 MDI IH SCH ×2 (09:44→20:45)
[2018-04-25 11:48] LABS: Bilirubin,Urine Negative (Negative); Blood,Urine Negative (Negative); Clarity,Urine Clear (Clear); Color,Urine Yellow (Yellow); Glucose,Urine (UA) Normal (Normal); Ketones,Urine Negative (Negative); Leukocyte Esterase,Urine Negative (Negative); Nitrite,Urine Negative (Negative); PH,Urine 7.5 pH Units (5.0-8.0); Protein,Urine Negative (Neg-Trace); Specific Gravity,Urine 1.015 (1.010-1.025); Urobilinogen,Urine Normal (Normal)
[2018-04-25] MEDS: clonazePAM 0.5 MG TABLET PO PRN ×2 (12:06→21:04)
[2018-04-25] MEDS ORDERED: Cefepime HCl 1,000 MG in Water for inj. (sterile) 20 ML 10 ML IVP SCH (13:00)
[2018-04-25] MEDS ORDERED: MetroNIDAZOLE 500 MG/100 ML 500 MG/100 ML BAG IVPB SCH (16:00)
[2018-04-25] MEDS: Ipratropium/Albuterol Neb 3 ML IH PRN (16:04)
[2018-04-25] MEDS: *HR* Enoxaparin 60 MG/0.6 ML SYRINGE SQ SCH (16:51)
[2018-04-25] MEDS ORDERED: Warfarin perPT PO PRN (18:00)
[2018-04-25] MEDS ORDERED: *HR* Warfarin 2.5 MG TABLET PO ONE (18:00)
[2018-04-26 05:11] LABS: Basophils # 0.1 K/mcL (0.0-0.2); Basophils % 0.5 %; Eosinophils # 0.1 K/mcL (0.0-0.6); Eosinophils % 0.4 %; Hematocrit 41.3 % (37.5-50.1); Hemoglobin 13.9 g/dL (12.9-16.9); Immature Granulocytes % 2.8 % (0-4); Lymphocytes # 3.2 K/mcL (0.6-4.6); Lymphocytes % 20.8 %; Mean Corpuscular HGB Conc 33.7 g/dL (31.6-35.5); Mean Corpuscular Hemoglobin 30.5 pg (28.0-33.3); Mean Corpuscular Volume 90.6 fL (83.0-100.0); Mean Platelet Volume 9.7 fL (9.4-12.4); Monocytes % 6.7 %; Neutrophils # 10.6 K/mcL (1.6-8.9); Platelet Count 388 K/mcL (140-400); Red Blood Count 4.56 M/mcL (4.19-5.50); Red Cell Distribution Width 12.8 % (11.5-14.5); Segmented Neutrophils % 68.8 %
[2018-04-26 05:17] LABS: INR 0.9; Prothrombin Time 9.8 Seconds (9.4-12.1)
[2018-04-26 05:36] LABS: BUN/Creatinine Ratio 12 (6-26); Blood Urea Nitrogen 11 mg/dL (8-23); Carbon Dioxide 27 mEq/L (23-29); Chloride 99 mEq/L (98-107); Glucose 105 mg/dL (70-105); Osmolality,Calculated 274 (280-300); Sodium 132 mEq/L (136-145); eGFR For African Americans > 60 (> 60); eGFR For Non-African Americans > 60 (> 60)
[2018-04-26] MEDS: *HR* Enoxaparin 60 MG/0.6 ML SYRINGE SQ SCH ×2 (06:36→17:40)
[2018-04-26] MEDS: amLODIPine 5 MG TABLET PO SCH (07:29)
[2018-04-26] MEDS: Lisinopril 20 MG TABLET PO SCH (07:29)
[2018-04-26] MEDS: Aspirin Enteric Coated 81 MG Tablet PO SCH (07:30)
[2018-04-26] MEDS: Multivit/Ca/Min/Fe/FA 1 TAB TABLET PO SCH (07:30)
[2018-04-26] MEDS: Finasteride 5 MG TABLET PO SCH (07:30)
[2018-04-26] MEDS: predniSONE 20 MG TABLET PO SCH (07:30)
[2018-04-26] MEDS: Nicotine 21 MG PATCH.TD24 TD SCH (07:30)
[2018-04-26] MEDS: Metoprolol XL (24 HR) Succ 50 MG TAB.ER.24H PO SCH (07:30)
[2018-04-26] MEDS: Isosorbide MONOnitrate (24 HR) 60 MG TAB.ER.24H PO SCH (07:30)
[2018-04-26] MEDS: Ipratropium/Albuterol Neb 3 ML IH PRN ×2 (08:48→16:27)
[2018-04-26] MEDS: Budesonide/Formoterol 160/4.5 MDI IH SCH ×2 (08:48→21:57)
[2018-04-26] MEDS ORDERED: levoFLOXacin 750 MG TABLET PO SCH (09:00)
[2018-04-26 10:26] LABS: Acinetobacter baumannii by PCR Not Detected (Not Detect); Candida albicans by PCR Not Detected (Not Detect); Candida glabrata by PCR Not Detected (Not Detect); Candida krusei by PCR Not Detected (Not Detect); Candida parapsilosis by PCR Not Detected (Not Detect); Candida tropicalis by PCR Not Detected (Not Detect); Enterococcus by PCR Not Detected (Not Detect); Escherichia coli by PCR Not Detected (Not Detect); Klebsiella oxytoca by PCR Not Detected (Not Detect); Klebsiella pneumoniae by PCR Not Detected (Not Detect); Pseudomonas aeruginosa by PCR Not Detected (Not Detect); Serratia marcescens by PCR Not Detected (Not Detect); Staphylococcus aureus by PCR Not Detected (Not Detect); Streptococcus agalactiae(B)PCR Not Detected (Not Detect); Streptococcus by PCR Not Detected (Not Detect); Streptococcus pneumoniae PCR Not Detected (Not Detect); Streptococcus pyogenes (A) PCR Not Detected (Not Detect); mecA Methicillin-Resist Gene ***DETECTED*** (Not Detect)
[2018-04-26] MEDS: clonazePAM 0.5 MG TABLET PO PRN (12:21)
[2018-04-26] MEDS: Lactobacillus 1 EACH CAP.SPRINK PO SCH ×2 (12:21→21:06)
--- NOTE | 2018-04-26 15:21 | Internal Med Progress Note ---
Date of Encounter: 04/26/18 Time of Encounter: 10:00 - Assessment and plan (1) CVA (cerebral vascular accident) Current Visit: Yes Status: Acute Assessment and plan: CT of brain shows multiple areas of infarct patient was seen by neurology recommends MRI Continue with aspirin and statin Maintain blood pressure control Echo EF of 3035% which is actually improved from previous-left ventricular noted to be hypokinetic global left ventricular systolic dysfunction neurology suspicious of clot formation-cardioembolic event. 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 Neurology recommending initiating anticoagulation 3-4 days after the initial event I did discuss anticoagulation options with the patient / family who agreed with Coumadin. Daughter states she is able take patient to the Coumadin clinic after he is discharged from rehabilitation Center Continue with Lovenox bridge and Coumadin. Monitor INR with goal of 2-3. Family requesting transfer to rehabilitation facility in the a.m. Qualifiers: CVA mechanism: other Qualified Code(s): I63.8 - Other cerebral infarction (2) Elevated troponin Current Visit: Yes Status: Acute Assessment and plan: Troponins have trended down we will obtain cardiac echo-previous echo does show EF of 20-25% current echo does show increase in EF to 30-35% global left ventricular systolic dysfunction No chest pain this time-most likely demand ischemia EKG with no ST-T wave abnormalities We will recheck EKG Continuous cardiac monitoring (3) Cardiomyopathy Current Visit: No Status: Chronic Assessment and plan: Thank you echo completed 2017 with EF between 25% with moderate aortic regurgitation-repeat echo today shows EF of 30-35% global left systolic ventricular dysfunction Underwent left heart 06/06/17 moderate three-vessel coronary artery disease severe LV dysfunction EF of 25% We will obtain cardiac echo Tenuous cardiac monitoring Monitor intake and output patient continues to smoke encouraged patient to stop smoking monitor blood pressure Continue with beta yane and LEWIS inhibitor Qualifiers: Cardiomyopathy type: unspecified Qualified Code(s): I42.9 - Cardiomyopathy , unspecified (4) DVT prophylaxis Current Visit: No Status: Acute Assessment and plan: Lovenox subcutaneous (5) Hypertension Current Visit: No Status: Chronic Assessment and plan: Presently controlled continue with home medications Qualifiers: Hypertension type: essential hypertension Qualified Code(s): I10 - Essential (primary) hypertension (6) Tobacco abuse Current Visit: No Status: Chronic Assessment and plan: Nicotine patch-encourage patient to stop smoking (7) Ventricular tachycardia Current Visit: Yes Status: Acute Assessment and plan: Patient did have a 26 beat run of ventricular tachycardia on Friday-no new episodes we will continue to monitor electrolytes electrolytes Cardiology did see the patient ended increased Toprol to 75 mg daily advised to titrate beta yane if able when warranted Continuous cardiac monitoring (8) Pneumonia Current Visit: No Status: Acute Assessment and plan: 1 patient was originally seen on Friday 3 was started on Levaquin and steroids due to acquired pneumonia he presented on Friday with stroke symptoms at that time chest x-ray was clear. Levaquin was resumed on as well as steroids. White count was 19 trended down to 12 and now has trended back up to 15. We did do a chest x-ray did show a right lower lobe infiltrate which was new, suspicious for possible aspiration pneumonia. Legionella and strep pneumonia negative. He did complete 5 days of Levaquin to stop. We will place on probiotics by mouth Continue to monitor Qualifiers: Pneumonia type: due to unspecified organism Laterality: unspecified laterality Lung location: unspecified part of lung Qualified Code(s): J18.9 - Pneumonia, unspecified organism (9) Hyponatremia Current Visit: Yes Status: Acute Assessment and plan: 1 sodium improving we will continue to monitor- - Time Spent With Patient Total time spent is greater than 50% in coordination of care (as documented) at patient's floor/unit and/or counseling patient: - Subjective Interval history: Patient was seen and examined at bedside earlier this morning. Patient is up in chair. Alert, speech more clear at this time patient is agitated and cursing at staff. Daughter is at bedside anticipate discharge to rehabilitation today however daughter requesting delay of discharge until tomorrow a.m. due to she is unable to travel to the prison today and feels that her father will transition better if she is there. We will discharge patient tomorrow a.m. - Constitutional Vitals: Temp Pulse Resp BP Pulse Ox 97.9 F 74 15 119/76 94 06/10/18 10:39 04/26/18 10:39 04/26/18 10:39 04/26/18 10:39 04/26/18 10:39 General appearance: Present: A&O X 2 - Head Head exam: Present: atraumatic, normocephalic - Eye Eye exam: Present: PERRL, conjuntiva pink, sclera anicteric Pupils: Present: PERRL - Neck Neck exam general surgery: Present: supple, trachea midline. Absent: lymphadenopathy - Respiratory Respiratory exam: Present: rales. Absent: accessory muscle use, rhonchi, wheezes - Cardiovascular Cardiovascular exam: Present: RRR, +S1, +S2. Absent: diastolic murmur, gallop, rubs, systolic murmur - GI/Abdominal GI/Abdominal exam: Present: normal bowel sounds, soft, no peritoneal signs. Absent: distended, tenderness - Extremities Exam Extremities exam: Present: warm, radial pulses palpable and symmetrical. Absent : calf tenderness, cyanotic, pedal edema - Neurological Exam Neurological exam: Present: CN II-XII intact, oriented X3, no focal deficits, facial droop, speech deficit. Absent: pronater drift Additional comments: Garbled speech and facial droop - Skin Skin exam: Present: dry, intact Internal Medicine: Result - Labs CBC & Chem 7: 04/26/18 04:37 04/26/18 04:37 Labs: Short CBC 04/26/18 Range/Units 04:37 WBC 15.5 H (4.3-11.1) K/mcL Hgb 13.9 (12.9-16.9) g/dL Hct 41.3 (37.5-50.1) % Plt Count 388 (140-400) K/mcL Neutrophils # 10.6 H (1.6-8.9) K/mcL BMP 04/26/18 04:37 Sodium 132 L Potassium 4.0 Chloride 99 Carbon Dioxide 27 BUN 11 Creatinine 0.93 Glucose 105 Calcium 9.0 - ABG Interpretation ABG results: ABG ABG pH 7.48 pH Units (7.32-7.45) H 04/21/18 17:25 ABG pCO2 35 mmHg (35-45) 04/21/18 17:25 ABG pO2 60 mmHg (85-104) L 04/21/18 17:25 ABG O2 Saturation 93 % (95-98) L 04/21/18 17:25 PT/INR, D-dimer PT 9.8 Seconds (9.4-12.1) 04/26/18 04:37 Consult Discharge Plan - Plan Referrals: Yane Garcia CNP [Primary Care Provider] - 05/19/18 1:30 pm
[2018-04-26] MEDS ORDERED: *HR* Warfarin 2.5 MG TABLET PO ONE (18:00)
[2018-04-27 05:09] LABS: Basophils # 0.1 K/mcL (0.0-0.2); Basophils % 0.6 %; Eosinophils # 0.1 K/mcL (0.0-0.6); Eosinophils % 0.5 %; Hematocrit 39.3 % (37.5-50.1); Hemoglobin 13.3 g/dL (12.9-16.9); Immature Granulocytes % 2.6 % (0-4); Lymphocytes # 3.5 K/mcL (0.6-4.6); Lymphocytes % 24.7 %; Mean Corpuscular HGB Conc 33.8 g/dL (31.6-35.5); Mean Corpuscular Hemoglobin 30.4 pg (28.0-33.3); Mean Corpuscular Volume 89.9 fL (83.0-100.0); Mean Platelet Volume 9.5 fL (9.4-12.4); Neutrophils # 9.1 K/mcL (1.6-8.9); Platelet Count 334 K/mcL (140-400); Red Blood Count 4.37 M/mcL (4.19-5.50); Red Cell Distribution Width 12.9 % (11.5-14.5); Segmented Neutrophils % 64.6 %
[2018-04-27 05:28] LABS: Prothrombin Time 10.7 Seconds (9.4-12.1)
[2018-04-27 05:31] LABS: BUN/Creatinine Ratio 13 (6-26); Blood Urea Nitrogen 13 mg/dL (8-23); Calcium 8.7 mg/dL (8.6-10.3); Carbon Dioxide 26 mEq/L (23-29); Chloride 101 mEq/L (98-107); Glucose 102 mg/dL (70-105); Osmolality,Calculated 276 (280-300); Potassium 3.9 mEq/L (3.5-5.1); Sodium 133 mEq/L (136-145); eGFR For African Americans > 60 (> 60); eGFR For Non-African Americans > 60 (> 60)
[2018-04-27] MEDS: *HR* Enoxaparin 60 MG/0.6 ML SYRINGE SQ SCH ×2 (05:45→16:15)
[2018-04-27] MEDS: Budesonide/Formoterol 160/4.5 MDI IH SCH (07:30)
--- NOTE | 2018-04-27 08:21 | Discharge Summary ---
- NOTES TO OUTPATIENT PROVIDER Notes to Outpatient Provider: Patient did experience a moderate sized infarct in the right frontal lobe as well as scattered infarcts of the left frontal parietal and right parietal and left cerebellum. Neurology and vascular surgery recommending anticoagulation family agrees up on Coumadin patient is currently being bridged with Lovenox and Coumadin. Also being treated for possible aspiration pneumonia Orders not resulted at time of discharge: Pending orders 04/28/18 04:00 INR/PT [Prothrombin Time INR] [COAG] AM 0400 04/29/18 04:00 INR/PT [Prothrombin Time INR] [COAG] AM 0400 04/30/18 04:00 INR/PT [Prothrombin Time INR] [COAG] AM 040 Date of Encounter: 04/27/18 Time of Encounter: 08:18 - Discharge Diagnosis (1) CVA (cerebral vascular accident) Priority: Primary Status: Acute Qualifiers: CVA mechanism: other Qualified Code(s): I63.8 - Other cerebral infarction (2) Elevated troponin Priority: Secondary Status: Acute (3) Cardiomyopathy Priority: Secondary Status: Chronic Qualifiers: Cardiomyopathy type: unspecified Qualified Code(s): I42.9 - Cardiomyopathy , unspecified (4) Hypertension Priority: Secondary Status: Chronic Qualifiers: Hypertension type: essential hypertension Qualified Code(s): I10 - Essential (primary) hypertension (5) Tobacco abuse Priority: Secondary Status: Chronic (6) Ventricular tachycardia Priority: Secondary Status: Acute (7) Pneumonia Priority: Secondary Status: Acute Qualifiers: Pneumonia type: due to unspecified organism Laterality: unspecified laterality Lung location: unspecified part of lung Qualified Code(s): J18.9 - Pneumonia, unspecified organism (8) Hyponatremia Priority: Secondary Status: Acute Hospital course: Mr. Headley is a 67 year old male past medical history of COPD CVA cardiomyopathy ejection fraction 3035% moderate aortic insufficiency smoking history COPD prior CVA high cholesterol hypertension anxiety depression and lung nodule. Patient originally presented to the ER on April 19 with cough and shortness of breath he was diagnosed with tinea acquired pneumonia and was given Levaquin and steroid taper. On Friday he began to experience slurred speech while speaking with his brother as well as a left facial droop he was brought to the emergency room and was noted to have confusion and unsteady gait CT of his head showed a right frontal subacute infarct CT of his neck showed stenosis of the left common carotid artery patient was seen by neurology as well as vascular surgery. Vascular surgery noted his left carotid stenosis appears to be asymptomatic at this time and recommended long-term anticoagulation. Neurology noted likely a cardioembolic event secondary to hypokinetic left left ventricle and recommended long-term anticoagulation starting on day 3 or 4 after initial event, recommending [facility]. During the hospital stay patient did have some hyponatremia which eventually was corrected with IV fluids. He also had a slight bump and his white count and continued cough chest x-ray was suspicious for possible aspiration pneumonia. Patient did complete a five-day course of Levaquin for me acquired pneumonia. He was initiated on clindamycin for aspiration pneumonia for another 5 days to complete a 10 day course of antibiotics patient is allergic to ampicillin. We will also place patient on probiotics. Patient also had an episode of ventricular tachycardia and was seen by cardiology who did increase his Toprol. Since this medication change he has not had any more episodes of ectopy. Presently he is alert appropriate he does follow commands continues to have some dysarthria and weakness. Speech therapy has seen him and he is on a modified diet. Patient was initiated on Lovenox bridge with Coumadin/07/2018. Family would like to continue outpatient Coumadin monitoring at the clinic clinic at [facility]. He was evaluated by physical therapy and recommending inpatient rehabilitation he will be discharged to [facility]. I advised family to have patient follow-up with neurology as well as primary care and to monitor INR through the Coumadin clinic. They did verbalize understanding he is hemodynamically stable and he is ready for discharge at this time. Discharge discussed with: patient - Time Spent with Patient Total time spent providing and/or coordinating discharge services: - Discharge Medications Prescriptions: Clindamycin [Cleocin] 300 mg PO Q8HR 3 Days #18 capsule Warfarin [Coumadin] 3 mg PO 1800 #1 tablet Home Medications: Albuterol Sulfate [Proair Hfa] 2 puff IH Q4-6H PRN 02/12/16 [History] Budesonide/Formoterol 160/4.5 [Symbicort 160/4.5] 2 puff IH BID 02/12/16 [ History] Ipratropium/Albuterol Neb [Duoneb] 3 ml IH QID PRN 02/12/16 [History] Lisinopril [Zestril] 20 mg PO QAM 02/12/16 [History] Multivitamin/Iron/Folic Acid [Centrum Complete Multivit Tab] 1 tab PO QAM [History] Paroxetine HCl 40 mg PO QAM 02/12/16 [History] Pravastatin Sodium [Pravachol] 20 mg PO QPM 02/12/16 [History] clonazePAM [Klonopin] 0.5 mg PO BID PRN 02/12/16 [History] Finasteride [Proscar] 5 mg PO DAILY 10/20/16 [History] Aspirin Enteric Coated [Aspirin EC] 81 mg PO DAILY #30 mg 06/16/17 [Rx] Oxygen 3 l IN CONT #1 each 06/16/17 [Rx] Tamsulosin HCl [Flomax] 0.4 mg PO HS 07/28/17 [History] Albuterol Neb [Proventil Neb] 2.5 mg IH Q2H PRN #120 vial.neb 04/19/18 [Rx] Clindamycin [Cleocin] 300 mg PO Q8HR 3 Days #18 capsule 04/27/18 [Rx] Enoxaparin [Lovenox] 60 mg SQ Q12HR syringe 04/27/18 [Rx] Isosorbide MONOnitrate (24 HR) [Imdur] 60 mg PO DAILY tab.er.24h 04/27/18 [Rx] Lactobacillus [Culturelle] 1 each PO BID cap.sprink 04/27/18 [Rx] Metoprolol XL (24 HR) Succ [Toprol Xl] 75 mg PO DAILY tab.er.24h 04/27/18 [Rx] Nicotine Patch [Nicoderm] 21 mg TD DAILY patch.td24 04/27/18 [Rx] Warfarin [Coumadin] 3 mg PO 1800 #1 tablet 04/27/18 [Rx] amLODIPine [Norvasc] 10 mg PO DAILY tablet 04/27/18 [Rx] predniSONE [PredniSONE] 30 mg PO DAILY 2 Days tablet 04/27/18 [Rx] Allergies/Adverse Reactions: 3 Allergy/AdvReac Type Severity Reaction Status Date / Time ampicillin Allergy Hives Verified 04/19/18 13:17 promethazine [From Phenergan] AdvReac Confusion Verified 04/19/18 13:17 Date of admission: 04/25/18 14:16 Primary care physician: Yane Garcia CNP Discharging clinician: Jenifer Mathews Anticipated date of discharge: 04/27/18 - Constitutional Vitals: Temp Pulse Resp BP Pulse Ox 97.9 F 70 18 121/78 93 04/27/18 07:26 04/27/18 07:26 04/27/18 07:33 04/27/18 07:26 04/27/18 07:33 General appearance: Present: A&O X 2 - Head Head exam: Present: atraumatic, normocephalic - Eye Eye exam: Present: PERRL, conjuntiva pink, sclera anicteric Pupils: Present: PERRL - Neck Neck exam general surgery: Present: supple, trachea midline. Absent: lymphadenopathy - Respiratory Respiratory exam: Present: CTAB. Absent: accessory muscle use, rales, rhonchi, wheezes - Cardiovascular Cardiovascular exam: Present: RRR, +S1, +S2. Absent: diastolic murmur, gallop, rubs, systolic murmur - GI/Abdominal GI/Abdominal exam: Present: normal bowel sounds, soft, no peritoneal signs. Absent: distended, tenderness - Extremities Exam Extremities exam: Present: warm, radial pulses palpable and symmetrical. Absent : calf tenderness, cyanotic, pedal edema - Neurological Exam Neurological exam: Present: CN II-XII intact, oriented X3, no focal deficits. Absent: pronater drift, facial droop, speech deficit - Skin Skin exam: Present: dry, intact - Patient Status Disposition: Transfer SNF Condition: Critical Functional capacity at discharge: uses cane/walker Overall status at discharge: patient is not back to baseline - Discharge Instructions Instructions: Chronic Obstructive Pulmonary Disease (DC) Follow Up With: Yane Garcia CNP [Primary Care Provider] - 05/19/18 1:30 pm - Diet and Activity Activity: as per physical therapy Diet: other
[2018-04-27] MEDS: Lactobacillus 1 EACH CAP.SPRINK PO SCH (09:54)
[2018-04-27] MEDS: predniSONE 20 MG TABLET PO SCH (09:54)
[2018-04-27] MEDS: Nicotine 21 MG PATCH.TD24 TD SCH (09:55)
[2018-04-27] MEDS: Lisinopril 20 MG TABLET PO SCH (09:55)
[2018-04-27] MEDS: Aspirin Enteric Coated 81 MG Tablet PO SCH (09:55)
[2018-04-27] MEDS: Metoprolol XL (24 HR) Succ 50 MG TAB.ER.24H PO SCH (09:56)
[2018-04-27] MEDS: Multivit/Ca/Min/Fe/FA 1 TAB TABLET PO SCH (09:56)
[2018-04-27] MEDS: amLODIPine 5 MG TABLET PO SCH (09:56)
[2018-04-27] MEDS: Finasteride 5 MG TABLET PO SCH (09:56)
[2018-04-27] MEDS: Isosorbide MONOnitrate (24 HR) 60 MG TAB.ER.24H PO SCH (09:56)
[2018-04-27] MEDS: clonazePAM 0.5 MG TABLET PO PRN (10:00)
[2018-04-27 12:27] VITALS: BP 97/66
--- NOTE | 2018-04-27 16:00 | Physician Discharge Referral ---
<Jenifer Mathews - Last Filed: 04/27/18 16:02> Home Health/Hosp Referral Info Transfer to: Home Health Attending Provider: Jenifer Mathews Provider in Charge Post Discharge: PCP - Diagnosis (1) CVA (cerebral vascular accident) Priority: Primary Status: Acute (2) Elevated troponin Priority: Secondary Status: Acute (3) Cardiomyopathy Priority: Secondary Status: Chronic (4) Hypertension Priority: Secondary Status: Chronic (5) Tobacco abuse Priority: Secondary Status: Chronic (6) Ventricular tachycardia Priority: Secondary Status: Acute (7) Pneumonia Priority: Secondary Status: Acute (8) Hyponatremia Priority: Secondary Status: Acute - Respiratory Orders Smoking Cessation: Smoking cessation has been advised. For more information, call the [place] Tobacco Quit Line at 3-752-RIEE-NOW. - Diet/Nutrition Diet/Nutrition Orders: Mechanical Soft - Activity Activity Orders: Ambulate - Services Needed Following services are medically necessary services: Nursing, Physical Therapy, Occupational Therapy Home Care Orders: INR 3x week - for first 2 weeks to be managed by Nette Garcia [facility] PCP Chem 7 CBC on 04/30/2018 - Transfer Medications Prescriptions: Clindamycin [Cleocin] 300 mg PO Q8HR 3 Days #18 capsule predniSONE [PredniSONE] 10 mg PO DAILY #12 tablet Warfarin [Coumadin] 3 mg PO 1800 #1 tablet Warfarin [Coumadin] 3 mg PO 1800 #10 tablet Home Medications: Albuterol Sulfate [Proair Hfa] 2 puff IH Q4-6H PRN 02/12/16 [History] Budesonide/Formoterol 160/4.5 [Symbicort 160/4.5] 2 puff IH BID 02/12/16 [ History] Ipratropium/Albuterol Neb [Duoneb] 3 ml IH QID PRN 02/12/16 [History] Lisinopril [Zestril] 20 mg PO QAM 02/12/16 [History] Multivitamin/Iron/Folic Acid [Centrum Complete Multivit Tab] 1 tab PO QAM [History] Paroxetine HCl 40 mg PO QAM 02/12/16 [History] Pravastatin Sodium [Pravachol] 20 mg PO QPM 02/12/16 [History] clonazePAM [Klonopin] 0.5 mg PO BID PRN 02/12/16 [History] Finasteride [Proscar] 5 mg PO DAILY 10/20/16 [History] Aspirin Enteric Coated [Aspirin EC] 81 mg PO DAILY #30 mg 06/16/17 [Rx] Oxygen 3 l IN CONT #1 each 06/16/17 [Rx] Tamsulosin HCl [Flomax] 0.4 mg PO HS 07/28/17 [History] Albuterol Neb [Proventil Neb] 2.5 mg IH Q2H PRN #120 vial.neb 04/19/18 [Rx] Clindamycin [Cleocin] 300 mg PO Q8HR 3 Days #18 capsule 04/27/18 [Rx] Enoxaparin [Lovenox] 60 mg SQ Q12HR syringe 04/27/18 [Rx] Isosorbide MONOnitrate (24 HR) [Imdur] 60 mg PO DAILY tab.er.24h 04/27/18 [Rx] Lactobacillus [Culturelle] 1 each PO BID cap.sprink 04/27/18 [Rx] Metoprolol XL (24 HR) Succ [Toprol Xl] 75 mg PO DAILY tab.er.24h 04/27/18 [Rx] Nicotine Patch [Nicoderm] 21 mg TD DAILY patch.td24 04/27/18 [Rx] Warfarin [Coumadin] 3 mg PO 1800 #1 tablet 04/27/18 [Rx] Warfarin [Coumadin] 3 mg PO 1800 #10 tablet 04/27/18 [Rx] amLODIPine [Norvasc] 10 mg PO DAILY tablet 04/27/18 [Rx] predniSONE [PredniSONE] 10 mg PO DAILY #12 tablet 04/27/18 [Rx] predniSONE [PredniSONE] 30 mg PO DAILY 2 Days tablet 04/27/18 [Rx] Allergies/Adverse Reactions: 3 Allergy/AdvReac Type Severity Reaction Status Date / Time ampicillin Allergy Hives Verified 04/19/18 13:17 promethazine [From Phenergan] AdvReac Confusion Verified 04/19/18 13:17 Certification: Further, I certify that my clinical findings support that this patient is homebound (i.e. absences from home require considerable and taxing effort and are for medical reasons or advent services or infrequently or short duration when for other reasons) because: Homebound Reason: Altered mental status requiring supervision when leaving home Attestation: My signature below is to certify that this patient is under my care and that I, or nurse practitioner, or a physician's education assistant working with me, has a face-to -face encounter with this patient. <Salo Taylor - Last Filed: 04/29/18 10:11> - Respiratory Orders Smoking Cessation: Smoking cessation has been advised. For more information, call the [place] Tobacco Quit Line at 8-658-QQAX-NOW. Certification: Further, I certify that my clinical findings support that this patient is homebound (i.e. absences from home require considerable and taxing effort and are for medical reasons or advent services or infrequently or short duration when for other reasons) because: Attestation: My signature below is to certify that this patient is under my care and that I, or nurse practitioner, or a physician's education assistant working with me, has a face-to -face encounter with this patient.
[2018-04-27] MEDS ORDERED: *HR* Warfarin 3 MG TABLET PO ONE (18:00)
== END 2018-04-27 17:02 | disposition home or self-care (01) | DRG 64 ==
LOC: EMEROO 11:47 → 3BNU 11:47
PROVIDERS: ADMIT Nurse Practitioner Acute Care; ATTEND Internal Medicine Cardiovascular Disease

== ENCOUNTER 2018-06-19 11:02 | Observation (INO) ==
[2018-06-19] MEDS ORDERED: Ipratropium/Albuterol Neb 3 ML IH ONE (11:39)
--- NOTE | 2018-06-19 12:22 | Emergency Department Note ---
Disposition Clinical Impression: Hypoxia Disposition: Admitted As Inpatient Condition: Good General Adult HPI - General Chief complaint: ED Shortness of Breath/Dyspnea Stated complaint: Possible pneumonia Time Seen by Provider: 06/19/18 11:06 Source: patient, family Limitations: no limitations Nursing Notes Reviewed: Yes Vital Signs Reviewed: Yes - History of Present Illness HPI Narrative: Patient being sent by his PCP for hypoxia. He was found to have an oxygen saturation in excuse while at the primary care physician's office. Does have rhonchi throughout. Patient complains of a cough. He is resting comfortably however is very hard of hearing and pleasantly demented. Pain Scale: 0 - Related Data Home Medications Medication Instructions Recorded Confirmed Pravastatin Sodium [Pravachol] 20 mg PO QPM 02/12/16 06/19/18 clonazePAM [Klonopin] 0.5 mg PO BID PRN 02/12/16 06/19/18 Aspirin 325 mg PO DAILY 06/01/18 06/19/18 Warfarin [Coumadin] 5 mg PO HS 06/01/18 06/19/18 hydrOXYzine pamoate [HydrOXYzine 25 mg PO Q8H PRN 06/01/18 06/06/18 Pamoate] Amlodipine Besylate 10 mg PO DAILY 06/06/18 06/19/18 Isosorbide MONOnitrate (24 HR) 60 mg PO DAILY 06/06/18 06/19/18 [Imdur] Sertraline [Zoloft] 50 mg PO DAILY 06/06/18 06/19/18 Tamsulosin [Flomax] 0.4 mg PO HS 06/06/18 06/19/18 Finasteride [Proscar] 5 mg PO DAILY 06/19/18 06/19/18 Ipratropium/Albuterol Neb [Duoneb] 3 ml IH Q6HR 06/19/18 06/19/18 Lisinopril [Zestril] 10 mg PO DAILY 06/19/18 06/19/18 Multivit-Min/FA/Lycopen/Lutein 1 tab PO DAILY 06/19/18 06/19/18 [Adults 50+ Multivitamin Tablet] PARoxetine HCl [Paroxetine HCl] 40 mg PO DAILY 06/19/18 06/19/18 Previous Rx's Medication Instructions Recorded Albuterol Neb [Proventil Neb] 2.5 mg IH Q2H PRN #120 vial.neb 04/19/18 Metoprolol XL (24 HR) Succ [Toprol 50 mg PO DAILY #30 tab.er.24h 06/10/18 Xl] Allergies Allergy/AdvReac Type Severity Reaction Status Date / Time ampicillin Allergy Hives Verified 06/19/18 13:16 promethazine [From Phenergan] AdvReac Confusion Verified 06/19/18 13:16 Review of Systems: As Per HPI (Patient unable to provide a review of systems however this was provided by the daughter.) Limitations: ROS unobtainable due to patients medical condition Constitutional: Denies: fever, chills Cardiovascular: Denies: chest pain Respiratory: Denies: cough, dyspnea Gastrointestinal: Denies: vomiting Integumentary: Denies: rash Past Medical History - Past Medical History Attestation: Yes The following information was validated with the patient. Source: patient Medical history: Reports: CHF, COPD, CVA, hyperlipidemia, hypertension, other Surgical history: Reports: other Psychiatric history: Reports: anxiety, depression - Social History Smoking Status: Current every day smoker Smokeless Tobacco Status: No Alcohol use: Reports: occasionally Drug use: Reports: none Physical Exam - General Limitations: altered mental status (Pleasantly demented) General appearance: alert, in no apparent distress - Head Head exam: atraumatic, normocephalic, normal inspection - Eye Eye exam: Present: normal appearance, PERRL, EOMI - ENT ENT exam: normal exam, normal oropharynx, mucous membranes moist - Neck Neck exam: Present: normal inspection, full ROM, trachea midline - Chest Chest inspection: Present: normal inspection, symmetric chest wall rise - Respiratory Respiratory exam: Present: respiratory distress, other (Rhonchi throughout. Expiratory wheezing.). Absent: stridor - Cardiovascular Cardiovascular exam: Present: regular rate, normal rhythm, normal heart sounds - Abdominal Exam Abdominal exam: Present: soft, Non-Tender. Absent: tenderness, distention, guarding, rebound, rigidity, organomegaly - Extremities Exam Extremities exam: Present: normal inspection, full ROM, normal capillary refill. Absent: tenderness, pedal edema - Back Exam Back exam: Present: normal inspection, full ROM. Absent: tenderness - Neurological Exam Neurological exam: Present: alert, other (Pleasantly demented) - Psychiatric Psychiatric exam: Present: normal affect, normal mood - Skin Skin exam: Present: warm, dry, intact, normal color Course Course Narrative: Pleasantly confused male patient presenting to emergency department after being sent by his primary care physician for a low oxygen saturation and wheezing. Daughter is at bedside with the patient. The patient is very hard of hearing. Recently admitted to the hospital for a stroke. Discharged about a week ago. Patient was found to be wheezing prior to his discharge however no sputum and no fever. Daughter states that today is when the patient's breathing status got bad. On exam patient is pleasantly demented. He is audibly wheezing. He has rhonchi throughout. We are providing with the DuoNeb at this time. We will get a chest x-ray and basic lab workup. Patient's family were denies any falls or fevers recently. She states he does have a cough without a productive sputum. We will start patient on antibiotics at this time and provide him with steroids. He was on a short course of steroids while here in the hospital. Patient's oxygen saturation is within normal limits while here. He does wear 2 L of oxygen at home at night. Is on 2 L at this time. - Reevaluation(s) Reevaluation #1: No signs of pneumonia at this time. We did place patient on Levaquin and gave a dose of steroids for COPD exacerbation. We will admit to the hospital. - Consultations Consultation #1: Dr Willis accepted Pt in stable condition. Time: 13:35 Vital Signs Temperature 97.4 F L 06/19/18 11:03 Pulse Rate 67 06/19/18 11:03 Respiratory Rate 24 06/19/18 11:03 Blood Pressure 113/67 06/19/18 11:03 O2 Sat by Pulse Oximetry 95 06/19/18 11:03 Temperature 97.5 F L 06/19/18 14:42 Pulse Rate 72 06/19/18 14:42 Respiratory Rate 17 06/19/18 14:42 Blood Pressure 114/73 06/19/18 14:42 O2 Sat by Pulse Oximetry 98 06/19/18 14:42 Oxygen Delivery Oxygen Delivery Nasal Cannula Medical Decision Making - Medical Records Medical records reviewed: Yes I reviewed the patient's medical records. - Lab Data Lab results reviewed: Yes I reviewed the patient's lab results. Result diagrams: 06/19/18 12:10 06/19/18 12:10 Lab Results 06/19/18 06/19/18 Range/Units 12:10 12:10 WBC 18.1 H (4.3-11.1) K/mcL RBC 3.90 L (4.19-5.50) M/mcL Hgb 11.8 L (12.9-16.9) g/dL Hct 36.1 L (37.5-50.1) % MCV 92.6 (83.0-100.0) fL MCH 30.3 (28.0-33.3) pg MCHC 32.7 (31.6-35.5) g/dL RDW 13.2 (11.5-14.5) % Plt Count 317 (140-400) K/mcL MPV 10.4 (9.4-12.4) fL Immature Gran % 1.1 (0-4) % Seg Neutrophils % 82.0 % Lymphocytes % 9.9 % Monocytes % 6.0 % Eosinophils % 0.7 % Basophils % 0.3 % Neutrophils # 14.9 H (1.6-8.9) K/mcL Lymphocytes # 1.8 (0.6-4.6) K/mcL Monocytes # 1.1 (0.0-1.3) K/mcL Eosinophils # 0.1 (0.0-0.6) K/mcL Basophils # 0.1 (0.0-0.2) K/mcL Sodium 137 (136-145) mEq/L Potassium 4.2 (3.5-5.1) mEq/L Chloride 101 (98-107) mEq/L Carbon Dioxide 31 H (23-29) mEq/L BUN 9 (8-23) mg/dL Creatinine 0.89 (0.70-1.30) mg/dL Est GFR ( Amer) > 60 (> 60) Est GFR (Non-Af Amer) > 60 (> 60) BUN/Creatinine Ratio 10 (6-26) Glucose 102 (70-105) mg/dL Calculated Osmolality 283 (280-300) Calcium 8.8 (8.6-10.3) mg/dL - Radiology Data Radiology results reviewed: Yes I reviewed the patient's radiology results. Chest X-Ray 06/19/18 11:38 IMPRESSION: No acute cardiopulmonary disease. COPD. D/ / Julio César Moore MD / Julio César Moore MD Interpreting Provider: Julio César Moore MD
--- NOTE | 2018-06-19 12:24 | Emergency Department Note ---
Disposition Clinical Impression: Hypoxia Disposition: Admitted As Inpatient Referrals: Yane Garcia CNP [Primary Care Provider] - Forms: ED Satisfaction Letter General Adult HPI - General Chief complaint: ED Shortness of Breath/Dyspnea Stated complaint: Possible pneumonia Time Seen by Provider: 06/19/18 11:06 Source: patient, family Limitations: no limitations - History of Present Illness Pain Scale: 0 - Related Data Home Medications Medication Instructions Recorded Confirmed Lisinopril [Zestril] 20 mg PO QAM 02/12/16 06/06/18 Pravastatin Sodium [Pravachol] 20 mg PO QPM 02/12/16 06/06/18 clonazePAM [Klonopin] 0.5 mg PO BID PRN 02/12/16 06/06/18 Aspirin 325 mg PO DAILY 06/01/18 06/06/18 Warfarin [Coumadin] 5 mg PO DAILY 06/01/18 06/06/18 hydrOXYzine pamoate [HydrOXYzine 25 mg PO Q8H PRN 06/01/18 06/06/18 Pamoate] Amlodipine Besylate 10 mg PO DAILY 06/06/18 06/06/18 Isosorbide MONOnitrate (24 HR) 60 mg PO DAILY 06/06/18 06/06/18 [Imdur] Sertraline [Zoloft] 50 mg PO DAILY 06/06/18 06/06/18 Tamsulosin [Flomax] 0.4 mg PO DAILY 06/06/18 06/06/18 Previous Rx's Medication Instructions Recorded Albuterol Neb [Proventil Neb] 2.5 mg IH Q2H PRN #120 vial.neb 04/19/18 Metoprolol XL (24 HR) Succ [Toprol 50 mg PO DAILY #30 tab.er.24h 06/10/18 Xl] predniSONE [PredniSONE] 40 mg PO DAILY #5 tablet 06/10/18 Allergies Allergy/AdvReac Type Severity Reaction Status Date / Time ampicillin Allergy Hives Verified 04/19/18 13:17 promethazine [From Phenergan] AdvReac Confusion Verified 04/19/18 13:17 Past Medical History - Past Medical History Medical history: Reports: CHF, COPD, CVA, hyperlipidemia, hypertension, other Surgical history: Reports: other Psychiatric history: Reports: anxiety, depression - Social History Smoking Status: Current every day smoker Smokeless Tobacco Status: No Alcohol use: Reports: occasionally Drug use: Reports: none Physical Exam - General Limitations: no limitations General appearance: alert, in no apparent distress Course Vital Signs Temperature 97.4 F L 06/19/18 11:03 Pulse Rate 67 06/19/18 11:03 Respiratory Rate 24 06/19/18 11:03 Blood Pressure 113/67 06/19/18 11:03 O2 Sat by Pulse Oximetry 95 06/19/18 11:03 Temperature 97.4 F L 06/19/18 11:17 Pulse Rate 68 06/19/18 11:17 Respiratory Rate 20 06/19/18 12:03 Blood Pressure 113/67 06/19/18 11:17 O2 Sat by Pulse Oximetry 100 06/19/18 12:03 Oxygen Delivery Oxygen Delivery Nasal Cannula Attestation Statement - Attestation Attestation: I examined this patient and my medical decision-making was reviewed with the Resident Physician. I agree with the documented findings, disposition and treatment plan as described except to the extent set forth below. 68 year old male prsents ot the ED with complaints of shorness of breath and was at his PCP office today and it showed 67% on RA and wear oxygen at home only at night 2LNC, and has required more ovygen lately. He does have COPD and has all area wheexing in his lungs. chronic cough that is productive. We will contineu with pulmonary rehab and we will admit to sally. He was renelt admitted to the hospital for stroke eval in the past week and there is concern for HCAP.
[2018-06-19] MEDS ORDERED: methylPREDNISolone 125 MG/2 ML VIAL IVP ONE (12:29)
[2018-06-19] MEDS ORDERED: Levofloxacin 750 MG/150 ML 750 MG/150 ML BAG IVPB ONE (12:30)
[2018-06-19 12:31] LABS: Basophils # 0.1 K/mcL (0.0-0.2); Basophils % 0.3 %; Eosinophils # 0.1 K/mcL (0.0-0.6); Eosinophils % 0.7 %; Hematocrit 36.1 % (37.5-50.1); Hemoglobin 11.8 g/dL (12.9-16.9); Immature Granulocytes % 1.1 % (0-4); Lymphocytes # 1.8 K/mcL (0.6-4.6); Lymphocytes % 9.9 %; Mean Corpuscular HGB Conc 32.7 g/dL (31.6-35.5); Mean Corpuscular Hemoglobin 30.3 pg (28.0-33.3); Mean Corpuscular Volume 92.6 fL (83.0-100.0); Mean Platelet Volume 10.4 fL (9.4-12.4); Monocytes # 1.1 K/mcL (0.0-1.3); Neutrophils # 14.9 K/mcL (1.6-8.9); Platelet Count 317 K/mcL (140-400); Red Cell Distribution Width 13.2 % (11.5-14.5)
[2018-06-19 12:51] LABS: BUN/Creatinine Ratio 10 (6-26); Blood Urea Nitrogen 9 mg/dL (8-23); Calcium 8.8 mg/dL (8.6-10.3); Carbon Dioxide 31 mEq/L (23-29); Chloride 101 mEq/L (98-107); Glucose 102 mg/dL (70-105); Osmolality,Calculated 283 (280-300); Potassium 4.2 mEq/L (3.5-5.1); Sodium 137 mEq/L (136-145); eGFR For Non-African Americans > 60 (> 60)
[2018-06-19] MEDS ORDERED: Naloxone 0.4 MG/ML INJ IVP PRN (14:47)
--- NOTE | 2018-06-19 15:23 | Internal Med History&Physical ---
Date of Encounter: 06/19/18 Time of Encounter: 15:00 Internal Medicine - H&P: HPI Chief complaint: HYPOXIA; POSSIBLE EXAC OF COPD Admitted From: Home Plans for Post Hospital Care: Home History of present illness: Mr. Headley is a 68 year old male. This patient has had long-standing COPD. He uses oxygen at home continuously at 2 L/min. He visited his PCP today morning. He was found to be hypoxicwith a pulse ox in the low 60s. Subsequently, he was referred to our emergency department. After giving him treatments in ED he is a pulse ox got the effyhi25 % on 2.5 L/min nasal cannula oxygen. The patient feels weak. Otherwise, he is not voicing any other problems. He tells me that he had the pretty good sleep last night. Denies chest pain. Denies abdominal pain, nausea and vomiting. He lives on his own in his mobile home. He is able to ambulate without any devices. He was hospitalized here at the beginning of April of this year for treatment of right MCA CVA. He was hospitalized here at the beginning of June of this year for possible teressa-infarction in the same brain area. The patient has underlying ischemic cardiomyopathy. His last echocardiogram from April of this year showed ejection fraction of 30-35%. He is on warfarin, likely for paroxysmal atrial fibrillation. His other problems include hypertension, hyperlipidemia, BPH and depression with anxiety. Review of systems: All 14 organ systems were reviewed by me with the patient. Positive and pertinent negative findings are listed above. The rest of organ systems is negative. Physical Exam: Skin: Free of rash and discoloration. Eyes: Sclera is white. There is no discharge from eyes. ENMT: Oral/pharyngeal mucosa is normal in appearance. There is no discharge from nose or ears. Respiratory: Normal breath sounds with no crackles and wheezes bilaterally. CV: Heart is regular with no gallop or murmur. GI: Abdomen is flat and soft with no palpable mass or visceromegaly. : There is no tenderness in patient's flanks bilaterally. Neuro exam: He has good strength in upper and lower extremities. He has normal eye movements. A/P: Hypoxia. The possible COPD exacerbation. He is better after getting her treatments in the emergency department. We will continue Levaquin, prednisone and nebulizer treatments with Duoneb. Paroxysmal atrial fibrillation. Currently normal sinus rhythm. Will obtain EKG. We will keep him on warfarin and Toprol-XL. The patient had at least a few cardiovascular accidents in the past. Ischemic cardiomyopathy with chronic systolic heart failure. The treatment has been optimized her. We will continue Toprol-XL, lisinopril, Imdur and low-dose aspirin. His other problems mentioned by me above. They seem to be under control. We will continue previously used medications. Past Med Surg Social Fam HX - Past Medical History Medical history: CHF, COPD, CVA, hyperlipidemia, hypertension, other Additional medical history: depression,BPH,psoriasis,dyslipidemia. HARD OF HEARING. HOME OXYGEN AT NIGHT. SMOKER Psychiatric history: anxiety, depression - Past Surgical History Surgical History: other Additional surgical history: nasal surgery. TURP - Social History Smoking Status: Current every day smoker Smokeless Tobacco Status: No Alcohol use: occasionally Drug use: none - Family History Mother Living Status: Hx Family Cardiac Disorders: Yes Hx Family Cancer: Yes Hx Family Endocrine Disorder: Yes (DM) Father Living Status: Hx Family Respiratory Disorders: Yes Internal Medicine - H&P: Meds Pravastatin Sodium [Pravachol] 20 mg PO QPM 02/12/16 [History] clonazePAM [Klonopin] 0.5 mg PO BID PRN 02/12/16 [History] Albuterol Neb [Proventil Neb] 2.5 mg IH Q2H PRN #120 vial.neb 04/19/18 [Rx] Aspirin 325 mg PO DAILY 06/01/18 [History] Warfarin [Coumadin] 5 mg PO HS 06/01/18 [History] hydrOXYzine pamoate [HydrOXYzine Pamoate] 25 mg PO Q8H PRN 06/01/18 [History] Amlodipine Besylate 10 mg PO DAILY 06/06/18 [History] Isosorbide MONOnitrate (24 HR) [Imdur] 60 mg PO DAILY 06/06/18 [History] Sertraline [Zoloft] 50 mg PO DAILY 06/06/18 [History] Tamsulosin [Flomax] 0.4 mg PO HS 06/06/18 [History] Metoprolol XL (24 HR) Succ [Toprol Xl] 50 mg PO DAILY #30 tab.er.24h 06/10/18 [ Rx] Finasteride [Proscar] 5 mg PO DAILY 06/19/18 [History] Ipratropium/Albuterol Neb [Duoneb] 3 ml IH Q6HR 06/19/18 [History] Lisinopril [Zestril] 10 mg PO DAILY 06/19/18 [History] Multivit-Min/FA/Lycopen/Lutein [Adults 50+ Multivitamin Tablet] 1 tab PO DAILY 06/19/18 [History] PARoxetine HCl [Paroxetine HCl] 40 mg PO DAILY 06/19/18 [History] 3 Allergy/AdvReac Type Severity Reaction Status Date / Time ampicillin Allergy Hives Verified 06/19/18 13:16 promethazine [From Phenergan] AdvReac Confusion Verified 06/19/18 13:16 - Constitutional Vitals: Temp Pulse Resp BP Pulse Ox 97.5 F L 72 17 114/73 98 06/19/18 14:42 06/19/18 14:42 06/19/18 14:42 06/19/18 14:42 06/19/18 14:42 General appearance: Present: A&O X 3, no acute distress, answers questions appropriately Internal Med - H&P Results - Labs CBC & Chem 7: 06/19/18 12:10 06/19/18 12:10 - Assessment and plan (1) Acute on chronic respiratory failure with hypoxia Current Visit: Yes Status: Acute (2) COPD exacerbation Current Visit: No Status: Acute (3) PAF (paroxysmal atrial fibrillation) Current Visit: Yes Status: Chronic (4) CAD (coronary artery disease) Current Visit: No Status: Chronic Qualifiers: Coronary Disease-Associated Artery/Lesion type: [place] artery [place] vs. transplanted heart: [place] heart Associated angina: without angina Qualified Code(s): I25.10 - Atherosclerotic heart disease of [place] coronary artery without angina pectoris (5) Chronic systolic heart failure Current Visit: Yes Status: Acute - Time Spent With Patient Total time spent is greater than 50% in coordination of care (as documented) at patient's floor/unit and/or counseling patient:
[2018-06-19] MEDS: Ipratropium/Albuterol Neb 3 ML IH SCH ×2 (16:06→22:19)
[2018-06-19] MEDS: clonazePAM 0.5 MG TABLET PO PRN (18:06)
[2018-06-19] MEDS: Nicotine 21 MG PATCH.TD24 TD SCH (18:06)
[2018-06-19] MEDS ORDERED: Warfarin perPT PO SCH ×2 (18:30→18:45)
[2018-06-19 19:12] LABS: INR 5.2; Prothrombin Time 59.1 Seconds (9.4-12.1)
[2018-06-19] MEDS ORDERED: *HR* Warfarin 5 MG TABLET PO SCH (21:00)
[2018-06-20] MEDS: Ipratropium/Albuterol Neb 3 ML IH SCH ×6 (04:40→23:20)
[2018-06-20 05:38] LABS: INR 3.5; Prothrombin Time 39.5 Seconds (9.4-12.1)
[2018-06-20] MEDS: levoFLOXacin 500 MG TABLET PO SCH (08:22)
[2018-06-20] MEDS: amLODIPine 5 MG TABLET PO SCH (08:22)
[2018-06-20] MEDS: Isosorbide MONOnitrate (24 HR) 60 MG TAB.ER.24H PO SCH (08:22)
[2018-06-20] MEDS: Finasteride 5 MG TABLET PO SCH (08:22)
[2018-06-20] MEDS: Aspirin Enteric Coated 81 MG Tablet PO SCH (08:22)
[2018-06-20] MEDS: Nicotine 21 MG PATCH.TD24 TD SCH (08:22)
[2018-06-20] MEDS: predniSONE 20 MG TABLET PO SCH (08:22)
--- NOTE | 2018-06-20 08:24 | Electrocardiograph Report ---
[employer] Test Date: 2018-06-19 Pat Name: Vishal Headley Department: 104 Room: [facility] Gender: M Skip Tender: ARTEM : 1950 Requested By: Sandra Malik Order Number: [id number] Reading MD: Jarek Hollingsworth Measurements Intervals [place] Rate: 69 P: 72 [place]: 122 QRS: 77 QRSD: 98 T: 74 QT: 417 QTc: 436 Interpretive Statements SINUS RHYTHM Electronically Signed On 06-20-2018 8:22:33 EDT by Jarek Hollingsworth
[2018-06-20] MEDS: clonazePAM 0.5 MG TABLET PO PRN ×2 (10:16→21:07)
[2018-06-20] MEDS: Metoprolol XL (24 HR) Succ 50 MG TAB.ER.24H PO SCH (10:17)
--- NOTE | 2018-06-20 17:14 | Internal Med Progress Note ---
Hospitalist Progress Note - Encounter Date of Encounter: 06/20/18 Time of Encounter: 12:40 - Subjective Interval History: Patient was seen and assessed at bedside at 12:40 PM. He is alert, awake, oriented, talkative. Normally wears 3 L of oxygen at night, he is requiring supplemental oxygen above his baseline demand. He, nausea, vomiting, chest pain , abdominal pain, peripheral edema. Patient reports he has a hacking, nonproductive cough that is normal for him. Patient is aware of his leukocytosis and aware that he will probably be here day or 2 until he gets back on his feet. - Exam Vitals: Temp Pulse Resp BP Pulse Ox 97.9 F 97 18 98/62 98 06/20/18 16:08 06/20/18 16:08 06/20/18 16:08 06/20/18 16:08 06/20/18 16:08 Exam: General: Pt resting quietly on bed, no distress. Skin: pwd, no rashes, lesions, redness Neurological: Pt is alert and awake, oriented x 3, Speech is clear, PERRLA, EOMI , no nystagmus, no pronator drift. strength equal x 4 extremities HEENT: mucous mumbranes moist, no conjuctival pallor Neck: supple, no tracheal deviation, no lymphadenopathy, tenderness, no thyromegaly Heart: S1S2 heard without gallops, clicks, murmurs, no bradycardia or tachycardia, pt has no peripheral edema, pedal and radial pulses palpable bilaterally. Lungs:Wheezing is heard in all lung field. respirations are unlabored Abdomen: soft and non tender with bowel sound present, no hepatomegaly. Psych: Normal affect with good eye contact - Assessment and Plan (1) CAD (coronary artery disease) Current Visit: Yes Status: Chronic Assessment and Plan: Pt denies chest pain. Continue telemetry. Continue Imdur, Toprol XL, Zocor, warfarin with pharmacy to dose. (2) Acute on chronic respiratory failure with hypoxia Current Visit: Yes Status: Acute Assessment and Plan: Pt is using 02 above his normal 02 baseline demand of 3L 02 at night. See plan as above. (3) PAF (paroxysmal atrial fibrillation) Current Visit: Yes Status: Chronic Assessment and Plan: Continue BB and telemetry (4) Chronic systolic heart failure Current Visit: Yes Status: Acute Assessment and Plan: No acute exacerbation. Pt appears to be euvolemic. Chest x-ray negative, indicative of COPD without infiltrate pleural fluid or evidence of overt failure. Continue telemetry. Pt is not on diuretic at home. Monitor for signs of fluid overload. (5) Acute exacerbation of chronic obstructive pulmonary disease (COPD) Current Visit: Yes Status: Acute Assessment and Plan: Acute exacerbation with acute on chronic respiratory failure. Wheezing heard in all lung grace. Continue Duonebs, Levaquin, Prednisone taper, 02 as needed to maintain sats >92% DVT Prophylaxis: Pt on Warfarin. Pharmacy to dose, INR was elevated on admission. Today is therapeutic at 3.5. - Time Spent with Patient Total time spent is greater than 50% in coordination of care (as documented) at patient's floor/unit and/or counseling patient: less than 15 minutes Plan of Care Discussed with: patient Internal Medicine: Result - Labs CBC & Chem 7: 06/19/18 12:10 06/19/18 12:10 - ABG Interpretation ABG results: PT/INR, D-dimer PT 39.5 Seconds (9.4-12.1) H 06/20/18 05:10 Consult Discharge Plan - Plan Referrals: Yane Garcia, [employer] [Primary Care Provider] - (1) CAD (coronary artery disease) Qualifiers: Coronary Disease-Associated Artery/Lesion type: [place] artery [place] vs. transplanted heart: [place] heart Associated angina: without angina Qualified Code(s): I25.10 - Atherosclerotic heart disease of [place] coronary artery without angina pectoris
[2018-06-20] MEDS ORDERED: Multivit/Ca/Min/Fe/FA 1 TAB TABLET PO SCH (17:30)
[2018-06-20] MEDS ORDERED: *HR* Warfarin 2.5 MG TABLET PO ONE (18:00)
[2018-06-20] MEDS: Multivit/Ca/Min/Fe/FA 1 TAB TABLET PO SCH (22:02)
[2018-06-21] MEDS: Ipratropium/Albuterol Neb 3 ML IH SCH ×7 (03:48→23:08)
[2018-06-21 07:09] LABS: Basophils % 0.2 %; Eosinophils % 0.1 %; Hematocrit 32.2 % (37.5-50.1); Hemoglobin 10.6 g/dL (12.9-16.9); Lymphocytes # 2.1 K/mcL (0.6-4.6); Lymphocytes % 10.6 %; Mean Corpuscular HGB Conc 32.9 g/dL (31.6-35.5); Mean Corpuscular Hemoglobin 30.5 pg (28.0-33.3); Mean Corpuscular Volume 92.5 fL (83.0-100.0); Mean Platelet Volume 10.2 fL (9.4-12.4); Monocytes # 1.1 K/mcL (0.0-1.3); Monocytes % 5.8 %; Neutrophils # 16.2 K/mcL (1.6-8.9); Platelet Count 300 K/mcL (140-400); Red Blood Count 3.48 M/mcL (4.19-5.50); Red Cell Distribution Width 13.4 % (11.5-14.5); Segmented Neutrophils % 82.3 %
[2018-06-21 07:13] LABS: Prothrombin Time 22.6 Seconds (9.4-12.1)
[2018-06-21] MEDS: Finasteride 5 MG TABLET PO SCH (08:06)
[2018-06-21] MEDS: clonazePAM 0.5 MG TABLET PO PRN ×2 (08:06→20:23)
[2018-06-21] MEDS: Metoprolol XL (24 HR) Succ 50 MG TAB.ER.24H PO SCH (08:07)
[2018-06-21] MEDS: Isosorbide MONOnitrate (24 HR) 60 MG TAB.ER.24H PO SCH (08:07)
[2018-06-21] MEDS: amLODIPine 5 MG TABLET PO SCH (08:07)
[2018-06-21] MEDS: Aspirin Enteric Coated 81 MG Tablet PO SCH (08:07)
[2018-06-21] MEDS: predniSONE 20 MG TABLET PO SCH (08:07)
[2018-06-21] MEDS: Multivit/Ca/Min/Fe/FA 1 TAB TABLET PO SCH (08:07)
[2018-06-21] MEDS: levoFLOXacin 500 MG TABLET PO SCH (08:07)
[2018-06-21] MEDS: Nicotine 21 MG PATCH.TD24 TD SCH (08:36)
[2018-06-21 09:53] LABS: BUN/Creatinine Ratio 19 (6-26); Blood Urea Nitrogen 18 mg/dL (8-23); Calcium 8.7 mg/dL (8.6-10.3); Carbon Dioxide 29 mEq/L (23-29); Chloride 108 mEq/L (98-107); Glucose 145 mg/dL (70-105); Osmolality,Calculated 298 (280-300); Potassium 3.7 mEq/L (3.5-5.1); Sodium 142 mEq/L (136-145); eGFR For Non-African Americans > 60 (> 60)
--- NOTE | 2018-06-21 17:18 | Internal Med Progress Note ---
Hospitalist Progress Note - Encounter Date of Encounter: 06/21/18 Time of Encounter: 09:30 - Subjective Interval History: Patient was seen and assessed at bedside at 9:30 AM. He is alert, awake, oriented, talkative. Normally wears 3 L of oxygen at night, he is requiring supplemental oxygen above his baseline demand. He denies nausea, vomiting, chest pain, abdominal pain, peripheral edema. Pt is in obvious respiratory distress and states that he wants to go home, brother is at bedside and encourages pt to stay for continued treatment. Pt states that he is going home tomorrow, "no matter what. " - Exam Vitals: Temp Pulse Resp BP Pulse Ox 97.9 F 86 18 103/58 94 06/21/18 15:46 06/21/18 15:46 06/21/18 15:46 06/21/18 15:46 06/21/18 15:46 Exam: General: Pt resting quietly on bed, no distress. Skin: pwd, no rashes, lesions, redness Neurological: Pt is alert and awake, oriented x 3, Speech is clear, PERRLA, EOMI , no nystagmus, no pronator drift. strength equal x 4 extremities HEENT: mucous mumbranes moist, no conjuctival pallor Neck: supple, no tracheal deviation, no lymphadenopathy, tenderness, no thyromegaly Heart: S1S2 heard without gallops, clicks, murmurs, no bradycardia or tachycardia, pt has no peripheral edema, pedal and radial pulses palpable bilaterally. Lungs: wheezing throughout, pt in mild distress with conversational dyspnea Abdomen: soft and non tender with bowel sound present, no hepatomegaly. Psych: Normal affect with good eye contact - Assessment and Plan (1) CAD (coronary artery disease) Current Visit: Yes Status: Chronic (2) Acute on chronic respiratory failure with hypoxia Current Visit: Yes Status: Acute (3) PAF (paroxysmal atrial fibrillation) Current Visit: Yes Status: Resolved Assessment and Plan: Continue BB, Warfarin, and telemetry (4) Chronic systolic heart failure Current Visit: Yes Status: Acute Assessment and Plan: No acute exacerbation. Pt appears to be euvolemic. Chest x-ray negative, indicative of COPD without infiltrate pleural fluid or evidence of overt failure. Continue telemetry. Pt is not on diuretic at home. Monitor for signs of fluid overload. (5) Acute exacerbation of chronic obstructive pulmonary disease (COPD) Current Visit: Yes Status: Acute Assessment and Plan: Acute exacerbation with acute on chronic respiratory failure. Wheezing heard in all lung grace. Continue Duonebs, Levaquin, Prednisone taper, 02 as needed to maintain sats >92% - Time Spent with Patient Total time spent is greater than 50% in coordination of care (as documented) at patient's floor/unit and/or counseling patient: less than 15 minutes Plan of Care Discussed with: patient Internal Medicine: Result - Labs CBC & Chem 7: 06/21/18 06:55 06/21/18 06:55 Labs: Short CBC 06/21/18 Range/Units 06:55 WBC 19.7 H (4.3-11.1) K/mcL Hgb 10.6 L (12.9-16.9) g/dL Hct 32.2 L (37.5-50.1) % Plt Count 300 (140-400) K/mcL Neutrophils # 16.2 H (1.6-8.9) K/mcL BMP 06/21/18 06:55 Sodium 142 Potassium 3.7 Chloride 108 H Carbon Dioxide 29 BUN 18 Creatinine 0.97 Glucose 145 H Calcium 8.7 - ABG Interpretation ABG results: PT/INR, D-dimer PT 22.6 Seconds (9.4-12.1) H 06/21/18 06:55 Consult Discharge Plan - Plan Referrals: Yane Garcia, TYPESETTER PERFORATOR OPERATOR [Primary Care Provider] - (1) CAD (coronary artery disease) Qualifiers: Coronary Disease-Associated Artery/Lesion type: [place] artery [place] vs. transplanted heart: [place] heart Associated angina: without angina Qualified Code(s): I25.10 - Atherosclerotic heart disease of [place] coronary artery without angina pectoris
[2018-06-21] MEDS ORDERED: *HR* Warfarin 2.5 MG TABLET PO ONE (18:00)
[2018-06-22] MEDS: Ipratropium/Albuterol Neb 3 ML IH SCH ×2 (04:10→07:49)
[2018-06-22 06:13] LABS: Basophils % 0.2 %; Eosinophils # 0.1 K/mcL (0.0-0.6); Eosinophils % 0.3 %; Hematocrit 35.1 % (37.5-50.1); Hemoglobin 11.6 g/dL (12.9-16.9); Lymphocytes # 2.6 K/mcL (0.6-4.6); Lymphocytes % 15.6 %; Mean Corpuscular Hemoglobin 31.1 pg (28.0-33.3); Mean Corpuscular Volume 94.1 fL (83.0-100.0); Mean Platelet Volume 10.7 fL (9.4-12.4); Monocytes # 1.2 K/mcL (0.0-1.3); Neutrophils # 12.5 K/mcL (1.6-8.9); Platelet Count 320 K/mcL (140-400); Red Blood Count 3.73 M/mcL (4.19-5.50); Red Cell Distribution Width 13.6 % (11.5-14.5); Segmented Neutrophils % 75.9 %
[2018-06-22 06:17] LABS: INR 1.7; Prothrombin Time 19.4 Seconds (9.4-12.1)
[2018-06-22 06:55] LABS: BUN/Creatinine Ratio 18 (6-26); Blood Urea Nitrogen 14 mg/dL (8-23); Calcium 8.3 mg/dL (8.6-10.3); Carbon Dioxide 25 mEq/L (23-29); Chloride 106 mEq/L (98-107); Glucose 133 mg/dL (70-105); Osmolality,Calculated 292 (280-300); Potassium 3.4 mEq/L (3.5-5.1); Sodium 140 mEq/L (136-145); eGFR For Non-African Americans > 60 (> 60)
[2018-06-22 06:57] VITALS: BP 121/75
[2018-06-22] MEDS: Isosorbide MONOnitrate (24 HR) 60 MG TAB.ER.24H PO SCH (08:27)
[2018-06-22] MEDS: Metoprolol XL (24 HR) Succ 50 MG TAB.ER.24H PO SCH (08:27)
[2018-06-22] MEDS: Multivit/Ca/Min/Fe/FA 1 TAB TABLET PO SCH (08:28)
[2018-06-22] MEDS: levoFLOXacin 500 MG TABLET PO SCH (08:28)
[2018-06-22] MEDS: Aspirin Enteric Coated 81 MG Tablet PO SCH (08:28)
[2018-06-22] MEDS: Finasteride 5 MG TABLET PO SCH (08:28)
[2018-06-22] MEDS: predniSONE 20 MG TABLET PO SCH (08:29)
[2018-06-22] MEDS: amLODIPine 5 MG TABLET PO SCH (08:29)
[2018-06-22] MEDS: Nicotine 21 MG PATCH.TD24 TD SCH (08:30)
--- NOTE | 2018-06-22 10:09 | Discharge Summary ---
Date of Encounter: 06/22/18 Time of Encounter: 09:20 - Discharge Diagnosis (1) Acute exacerbation of chronic obstructive pulmonary disease (COPD) Priority: Primary Status: Acute Assessment and Plan: Acute exacerbation of COPD with acute on chronic respiratory failure. Wheezing heard in all lung grace, improved and with improved aeration. Continue Duonebs, Levaquin, Prednisone taper, 02 as needed to maintain sats >92% Pt denies need for medication refills. Pt has been on po Levaquin since admission. He will continue course at home. Pt reports that he has home health coming to his home starting on 06/24. Chest X-Ray 06/19/18 11:38 IMPRESSION: No acute cardiopulmonary disease. COPD. D/ / Julio César Moore MD / Julio César Moore MD Interpreting Provider: Julio César Moore MD (2) CAD (coronary artery disease) Priority: Secondary Status: Chronic Assessment and Plan: Chronic. Denies chest pain. Continue Imdur, Toprol XL, Zocor, warfarin with pharmacy to dose. Qualifiers: Coronary Disease-Associated Artery/Lesion type: [place] artery [place] vs. transplanted heart: [place] heart Associated angina: without angina Qualified Code(s): I25.10 - Atherosclerotic heart disease of [place] coronary artery without angina pectoris (3) Acute on chronic respiratory failure with hypoxia Priority: Secondary Status: Acute Assessment and Plan: Pt has returned to baseline 02 demand. Pt has home 02, wears 2L continuous. (4) PAF (paroxysmal atrial fibrillation) Priority: Secondary Status: Resolved Assessment and Plan: Continue BB, Warfarin. Rate controlled . (5) Chronic systolic heart failure Priority: Secondary Status: Chronic Assessment and Plan: No acute exacerbation. Pt appears to be euvolemic. Chest x-ray negative, indicative of COPD without infiltrate pleural fluid or evidence of overt failure. (6) HLD (hyperlipidemia) Priority: Secondary Status: Chronic Assessment and Plan: Chronic. Continue statin. Qualifiers: Hyperlipidemia type: unspecified Qualified Code(s): E78.5 - Hyperlipidemia , unspecified (7) Hypertension Priority: Secondary Status: Chronic Assessment and Plan: Chronic. Well controlled. Continue home medication regimen. Qualifiers: Hypertension type: essential hypertension Qualified Code(s): I10 - Essential (primary) hypertension (8) Tobacco abuse Priority: Secondary Status: Chronic Assessment and Plan: Chronic. Pt states that he is not interested in smoking cessation. Hospital course: Mr. Headley is a 68 year old male with PMH including COPD, anxiety, hypertension, hyperlipidemia, CVA. Patient admitted for COPD exacerbation. He improved with steroids, oral antibiotics, oxygen, nebulizer treatments. Patient has mild, improving leukocytosis without any signs of sirs or sepsis, he is afebrile. Patient had elevated INR on admission, pharmacy was dosing warfarin. He will need close follow-up with Coumadin clinic. Patient has improved to his baseline, he will be discharged in stable condition. Discharge discussed with: patient - Time Spent with Patient Total time spent providing and/or coordinating discharge services: Less than 30 minutes - Discharge Medications Prescriptions: GuaiFENesin ER [Mucinex] 600 mg PO BID PRN #30 tbbp.12hr PRN Reason: Cough levoFLOXacin [Levaquin] 500 mg PO DAILY #4 tablet predniSONE [PredniSONE] 10 mg PO DAILY #41 tablet Home Medications: Pravastatin Sodium [Pravachol] 20 mg PO QPM 02/12/16 [History] clonazePAM [Klonopin] 0.5 mg PO BID PRN 02/12/16 [History] Albuterol Neb [Proventil Neb] 2.5 mg IH Q2H PRN #120 vial.neb 04/19/18 [Rx] Aspirin 325 mg PO DAILY 06/01/18 [History] Warfarin [Coumadin] 5 mg PO HS 06/01/18 [History] hydrOXYzine pamoate [HydrOXYzine Pamoate] 25 mg PO Q8H PRN 06/01/18 [History] Amlodipine Besylate 10 mg PO DAILY 06/06/18 [History] Isosorbide MONOnitrate (24 HR) [Imdur] 60 mg PO DAILY 06/06/18 [History] Sertraline [Zoloft] 50 mg PO DAILY 06/06/18 [History] Tamsulosin [Flomax] 0.4 mg PO HS 06/06/18 [History] Metoprolol XL (24 HR) Succ [Toprol Xl] 50 mg PO DAILY #30 tab.er.24h 06/10/18 [ Rx] Finasteride [Proscar] 5 mg PO DAILY 06/19/18 [History] Ipratropium/Albuterol Neb [Duoneb] 3 ml IH Q6HR 06/19/18 [History] Lisinopril [Zestril] 10 mg PO DAILY 06/19/18 [History] Multivit-Min/FA/Lycopen/Lutein [Adults 50+ Multivitamin Tablet] 1 tab PO DAILY 06/19/18 [History] PARoxetine HCl [Paroxetine HCl] 40 mg PO DAILY 06/19/18 [History] GuaiFENesin ER [Mucinex] 600 mg PO BID PRN #30 tbbp.12hr 06/22/18 [Rx] levoFLOXacin [Levaquin] 500 mg PO DAILY #4 tablet 06/22/18 [Rx] predniSONE [PredniSONE] 10 mg PO DAILY #41 tablet 06/22/18 [Rx] Allergies/Adverse Reactions: 3 Allergy/AdvReac Type Severity Reaction Status Date / Time ampicillin Allergy Hives Verified 06/19/18 13:16 promethazine [From Phenergan] AdvReac Confusion Verified 06/19/18 13:16 Date of admission: 06/19/18 13:41 Primary care physician: Yane Garcia GROOVER AND STRIPER OPERATOR Discharging clinician: Xiao Harrison Anticipated date of discharge: 06/22/18 - Constitutional Vitals: Temp Pulse Resp BP Pulse Ox 97.8 F 78 16 121/75 96 06/22/18 06:54 06/22/18 06:54 06/22/18 08:02 06/22/18 06:54 06/22/18 08:02 General appearance: Present: cooperative, A&O X 3, no acute distress, answers questions appropriately - Head Head exam: Present: atraumatic, normal inspection, normocephalic - Eye Eye exam: Present: normal appearance, conjuntiva pink, sclera anicteric - Neck Neck exam general surgery: Present: supple, trachea midline. Absent: lymphadenopathy, tenderness - Respiratory Respiratory exam: Present: decreased breath sounds, CTAB, wheezes. Absent: accessory muscle use, chest wall tenderness, rales, respiratory distress, rhonchi - Cardiovascular Cardiovascular exam: Present: RRR, +S1, +S2. Absent: diastolic murmur, gallop, rubs, systolic murmur - GI/Abdominal GI/Abdominal exam: Present: normal bowel sounds, soft. Absent: distended, hepatomegaly, tenderness - Extremities Exam Extremities exam: Present: normal capillary refill, normal inspection, warm, radial pulses palpable and symmetrical. Absent: calf tenderness, cyanotic, pedal edema, tenderness - Neurological Exam Neurological exam: Present: alert, CN II-XII intact, oriented X3, no focal deficits. Absent: facial droop, speech deficit - Skin Skin exam: Present: dry, intact, normal color, warm. Absent: rash - Patient Status Disposition: Home Health Service Condition: Fair Functional capacity at discharge: uses cane/walker Overall status at discharge: patient is progressing back to baseline - Discharge Instructions Follow Up With: Yane Garcia CNP [Primary Care Provider] - 06/26/18 10:35 am Additional Instructions: Please follow up with your PCP as scheduled. Stop smoking Take your medications as directed. Your new prescription is at your pharmacy Return to the ER as needed for any other problems or concerns, or if your symptoms return or worsen. Return to your normal diet and activities as tolerated. - Diet and Activity Activity: increase activity as tolerated, wear oxygen at all times Diet: advance to your usual diet
--- NOTE | 2018-06-22 13:03 | Physician Discharge Referral ---
Home Health/Hosp Referral Info Transfer to: Home Health Provider in Charge Post Discharge: PCP - Diagnosis (1) Acute exacerbation of chronic obstructive pulmonary disease (COPD) Priority: Primary Status: Acute (2) CAD (coronary artery disease) Priority: Secondary Status: Chronic (3) Acute on chronic respiratory failure with hypoxia Priority: Secondary Status: Acute (4) PAF (paroxysmal atrial fibrillation) Priority: Secondary Status: Resolved (5) Chronic systolic heart failure Priority: Secondary Status: Chronic (6) HLD (hyperlipidemia) Priority: Secondary Status: Chronic (7) Hypertension Priority: Secondary Status: Chronic (8) Tobacco abuse Priority: Secondary Status: Chronic - Respiratory Orders Oxygen / L per min (PT/INR to be drawn on 06/24 due to subtherapeutic level on discharge. Results to PCP.) Smoking Cessation: Smoking cessation has been advised. For more information, call the [place] Tobacco Quit Line at 4-112-HSOM-NOW. - Diet/Nutrition Diet/Nutrition Orders: Regular - Activity Activity Orders: Up ad brendan - Services Needed Following services are medically necessary services: Nursing, Home Health Aide, Physical Therapy, Occupational Therapy - Transfer Medications Prescriptions: GuaiFENesin ER [Mucinex] 600 mg PO BID PRN #30 tbbp.12hr PRN Reason: Cough levoFLOXacin [Levaquin] 500 mg PO DAILY #4 tablet predniSONE [PredniSONE] 10 mg PO DAILY #41 tablet Home Medications: Pravastatin Sodium [Pravachol] 20 mg PO QPM 02/12/16 [History] clonazePAM [Klonopin] 0.5 mg PO BID PRN 02/12/16 [History] Albuterol Neb [Proventil Neb] 2.5 mg IH Q2H PRN #120 vial.neb 04/19/18 [Rx] Aspirin 325 mg PO DAILY 06/01/18 [History] Warfarin [Coumadin] 5 mg PO HS 06/01/18 [History] hydrOXYzine pamoate [HydrOXYzine Pamoate] 25 mg PO Q8H PRN 06/01/18 [History] Amlodipine Besylate 10 mg PO DAILY 06/06/18 [History] Isosorbide MONOnitrate (24 HR) [Imdur] 60 mg PO DAILY 06/06/18 [History] Sertraline [Zoloft] 50 mg PO DAILY 06/06/18 [History] Tamsulosin [Flomax] 0.4 mg PO HS 06/06/18 [History] Metoprolol XL (24 HR) Succ [Toprol Xl] 50 mg PO DAILY #30 tab.er.24h 06/10/18 [ Rx] Finasteride [Proscar] 5 mg PO DAILY 06/19/18 [History] Ipratropium/Albuterol Neb [Duoneb] 3 ml IH Q6HR 06/19/18 [History] Lisinopril [Zestril] 10 mg PO DAILY 06/19/18 [History] Multivit-Min/FA/Lycopen/Lutein [Adults 50+ Multivitamin Tablet] 1 tab PO DAILY 06/19/18 [History] PARoxetine HCl [Paroxetine HCl] 40 mg PO DAILY 06/19/18 [History] GuaiFENesin ER [Mucinex] 600 mg PO BID PRN #30 tbbp.12hr 06/22/18 [Rx] levoFLOXacin [Levaquin] 500 mg PO DAILY #4 tablet 06/22/18 [Rx] predniSONE [PredniSONE] 10 mg PO DAILY #41 tablet 06/22/18 [Rx] Allergies/Adverse Reactions: 3 Allergy/AdvReac Type Severity Reaction Status Date / Time ampicillin Allergy Hives Verified 06/19/18 13:16 promethazine [From Phenergan] AdvReac Confusion Verified 06/19/18 13:16 Certification: Further, I certify that my clinical findings support that this patient is homebound (i.e. absences from home require considerable and taxing effort and are for medical reasons or mandaen services or infrequently or short duration when for other reasons) because: Homebound Reason: Leaving home requires considerable and taxing effort due to condition, Severity of cardiac or pulmonary status limits activity tolerance Attestation: My signature below is to certify that this patient is under my care and that I, or nurse practitioner, or a physician's pharmacy innovation assistant working with me, has a face-to -face encounter with this patient.
== END 2018-06-22 11:54 | disposition home health service (06) ==
LOC: 3BNU 11:02 → EMEROO 11:02 → SUATTDRO 13:41 → 3BNU 14:15
PROVIDERS: ADMIT Hospitalist; ATTEND Internal Medicine

== ENCOUNTER 2018-08-24 10:42 | Observation (INO) ==
[2018-08-24] MEDS ORDERED: Aspirin 81 MG TAB.CHEW PO ONE (10:51)
[2018-08-24] MEDS ORDERED: Nitroglycerin 1 INCH/GM PACKET TP ONE (11:00)
[2018-08-24 11:21] LABS: Basophils % 0.4 %; Eosinophils # 0.1 K/mcL (0.0-0.6); Eosinophils % 1.5 %; Hematocrit 41.5 % (37.5-50.1); Hemoglobin 13.2 g/dL (12.9-16.9); Immature Granulocytes % 0.6 % (0-4); Lymphocytes # 1.6 K/mcL (0.6-4.6); Lymphocytes % 23.3 %; Mean Corpuscular HGB Conc 31.8 g/dL (31.6-35.5); Mean Corpuscular Hemoglobin 29.5 pg (28.0-33.3); Mean Corpuscular Volume 92.6 fL (83.0-100.0); Mean Platelet Volume 10.5 fL (9.4-12.4); Monocytes # 0.7 K/mcL (0.0-1.3); Monocytes % 10.4 %; Neutrophils # 4.3 K/mcL (1.6-8.9); Platelet Count 278 K/mcL (140-400); Red Blood Count 4.48 M/mcL (4.19-5.50); Segmented Neutrophils % 63.8 %
[2018-08-24 11:35] LABS: INR 2.2; Prothrombin Time 24.4 Seconds (9.4-12.1)
[2018-08-24 11:37] LABS: Activated Partial Thrombo Time 39.4 Seconds (26.0-36.0)
[2018-08-24 11:38] LABS: Troponin I < 0.03 ng/mL (< 0.04)
[2018-08-24 11:39] LABS: BUN/Creatinine Ratio 15 (6-26); Blood Urea Nitrogen 14 mg/dL (8-23); Calcium 9.4 mg/dL (8.6-10.3); Carbon Dioxide 29 mEq/L (23-29); Chloride 100 mEq/L (98-107); Glucose 104 mg/dL (70-105); Osmolality,Calculated 285 (280-300); Potassium 4.2 mEq/L (3.5-5.1); Sodium 137 mEq/L (136-145); eGFR For Non-African Americans > 60 (> 60)
--- NOTE | 2018-08-24 12:26 | Emergency Department Note ---
Disposition Clinical Impression: Chest pain Qualifiers: Chest pain type: unspecified Qualified Code(s): R07.9 - Chest pain, unspecified Disposition: Admitted As Inpatient Condition: Undetermined Referrals: Yane Garcia CNP [Primary Care Provider] - Chest Pain HPI - General Chief Complaint: ED Chest Pain Stated Complaint: "CP" Time Seen by Provider: 08/24/18 10:51 Source: patient, family Limitations: no limitations Vital Signs Reviewed: Yes Nursing Notes Reviewed: Yes - History of Present Illness HPI Narrative: 60-year-old male presents with concern for chest pain. He admits the symptoms started last evening. They have been waxing and waning. His symptoms now are resolved but he is concern about chest pain. He is hard of hearing. He has no hemoptysis, fever, chills. He does admit that he was told he needed a pacemaker in the past but has not had this completed. He has had no chest wall trauma. He has not followed up with his performance architect in the past year. General: No acute distress HEENT: Pupils equal and reactive to light, extraoccular muscle movement is normal, TMS are clear bilaterally. Heart: RRR, No murmor rub or gallop Lungs: lungs clear, no wheezing, rales or ronchi. ABD: SNT, no focal areas or tenderness, no guarding or rebound tenderness. Extremities: No cyanosis, clubbing or edema Neuro: CN 2-12 in tact, no focal deficit. strength 5/5. 12 point review of systems was completed, pertinent positives are discussed in history of present illness Medical decision making Findings consistent with atypical chest pain. We will admit for cardiac consultation. Previous Shows ejection fraction is low, EKG shows sinus rhythm, 74 bpm, normal intervals, normal axis, nonspecific ST segments nonspecific ECG. Patient will be admitted for cardiac consultation and further management workup. Severity scale (1-10): 0 - Related Data Home Medications Medication Instructions Recorded Confirmed Pravastatin Sodium [Pravachol] 20 mg PO QPM 02/12/16 08/24/18 clonazePAM [Klonopin] 0.5 mg PO DAILY PRN 02/12/16 08/24/18 hydrOXYzine pamoate [HydrOXYzine 25 mg PO Q8H PRN 06/01/18 08/24/18 Pamoate] Amlodipine Besylate 10 mg PO DAILY 06/06/18 08/24/18 Isosorbide MONOnitrate (24 HR) 60 mg PO DAILY 06/06/18 08/24/18 [Imdur] Sertraline [Zoloft] 50 mg PO DAILY 06/06/18 08/24/18 Tamsulosin [Flomax] 0.4 mg PO HS 06/06/18 08/24/18 Finasteride [Proscar] 5 mg PO DAILY 06/19/18 08/24/18 Ipratropium/Albuterol Neb [Duoneb] 3 ml IH Q6HR 06/19/18 08/24/18 Lisinopril [Zestril] 10 mg PO DAILY 06/19/18 08/24/18 Multivit-Min/FA/Lycopen/Lutein 1 tab PO DAILY 06/19/18 08/24/18 [Adults 50+ Multivitamin Tablet] PARoxetine HCl [Paroxetine HCl] 40 mg PO DAILY 06/19/18 08/24/18 Albuterol Sulfate [Proair Hfa] 2 puff IH Q6H PRN 08/24/18 08/24/18 Aspirin [Adult Aspirin] 81 mg PO DAILY 08/24/18 08/24/18 Budesonide/Formoterol 160/4.5 2 puff IH BIDR 08/24/18 08/24/18 [Symbicort 160/4.5] Warfarin [Coumadin] 3 mg PO DAILY 08/24/18 08/24/18 Previous Rx's Medication Instructions Recorded Metoprolol XL (24 HR) Succ [Toprol 50 mg PO DAILY #30 tab.er.24h 06/10/18 Xl] Allergies Allergy/AdvReac Type Severity Reaction Status Date / Time ampicillin Allergy Hives Verified 06/19/18 13:16 promethazine [From Phenergan] AdvReac Confusion Verified 06/19/18 13:16 Chest Pain PMH - Past Medical History Medical history: Reports: CHF, COPD, CVA, hyperlipidemia, hypertension, other Surgical history: Reports: other Psychiatric history: Reports: anxiety, depression - Social History Smoking Status: Current every day smoker Alcohol use: Reports: occasionally Drug use: Reports: none Physical Exam - General Limitations: no limitations General appearance: alert, in no apparent distress Course Vital Signs Temperature 97.7 F 08/24/18 10:45 Pulse Rate 79 08/24/18 10:45 Respiratory Rate 20 08/24/18 10:45 Blood Pressure 126/77 08/24/18 10:45 O2 Sat by Pulse Oximetry 98 08/24/18 10:45 Temperature 97.7 F 08/24/18 10:53 Pulse Rate 70 08/24/18 11:58 Respiratory Rate 18 08/24/18 11:58 Blood Pressure 112/81 08/24/18 11:58 O2 Sat by Pulse Oximetry 98 08/24/18 11:58 Oxygen Delivery Oxygen Delivery Room Air Chest Pain - Lab Data Result diagrams: 08/24/18 11:01 08/24/18 11:01 Lab Results 08/24/18 08/24/18 08/24/18 Range/Units 11:01 11:01 11:01 WBC 6.8 (4.3-11.1) K/mcL RBC 4.48 (4.19-5.50) M/mcL Hgb 13.2 (12.9-16.9) g/dL Hct 41.5 (37.5-50.1) % MCV 92.6 (83.0-100.0) fL MCH 29.5 (28.0-33.3) pg MCHC 31.8 (31.6-35.5) g/dL RDW 13.0 (11.5-14.5) % Plt Count 278 (140-400) K/mcL MPV 10.5 (9.4-12.4) fL Immature Gran % 0.6 (0-4) % Seg Neutrophils % 63.8 % Lymphocytes % 23.3 % Monocytes % 10.4 % Eosinophils % 1.5 % Basophils % 0.4 % Neutrophils # 4.3 (1.6-8.9) K/mcL Lymphocytes # 1.6 (0.6-4.6) K/mcL Monocytes # 0.7 (0.0-1.3) K/mcL Eosinophils # 0.1 (0.0-0.6) K/mcL Basophils # 0.0 (0.0-0.2) K/mcL PT 24.4 H (9.4-12.1) Seconds INR 2.2 APTT 39.4 H (26.0-36.0) Seconds Sodium (136-145) mEq/L Potassium (3.5-5.1) mEq/L Chloride (98-107) mEq/L Carbon Dioxide (23-29) mEq/L BUN (8-23) mg/dL Creatinine (0.70-1.30) mg/dL Est GFR ( Amer) (> 60) Est GFR (Non-Af Amer) (> 60) BUN/Creatinine Ratio (6-26) Glucose (70-105) mg/dL Calculated Osmolality (280-300) Calcium (8.6-10.3) mg/dL Troponin I (< 0.04) ng/mL B-Natriuretic Peptide 36 (Less than 100) pg/mL 08/24/18 Range/Units 11:01 WBC (4.3-11.1) K/mcL RBC (4.19-5.50) M/mcL Hgb (12.9-16.9) g/dL Hct (37.5-50.1) % MCV (83.0-100.0) fL MCH (28.0-33.3) pg MCHC (31.6-35.5) g/dL RDW (11.5-14.5) % Plt Count (140-400) K/mcL MPV (9.4-12.4) fL Immature Gran % (0-4) % Seg Neutrophils % % Lymphocytes % % Monocytes % % Eosinophils % % Basophils % % Neutrophils # (1.6-8.9) K/mcL Lymphocytes # (0.6-4.6) K/mcL Monocytes # (0.0-1.3) K/mcL Eosinophils # (0.0-0.6) K/mcL Basophils # (0.0-0.2) K/mcL PT (9.4-12.1) Seconds INR APTT (26.0-36.0) Seconds Sodium 137 (136-145) mEq/L Potassium 4.2 (3.5-5.1) mEq/L Chloride 100 (98-107) mEq/L Carbon Dioxide 29 (23-29) mEq/L BUN 14 (8-23) mg/dL Creatinine 0.95 (0.70-1.30) mg/dL Est GFR ( Amer) > 60 (> 60) Est GFR (Non-Af Amer) > 60 (> 60) BUN/Creatinine Ratio 15 (6-26) Glucose 104 (70-105) mg/dL Calculated Osmolality 285 (280-300) Calcium 9.4 (8.6-10.3) mg/dL Troponin I < 0.03 (< 0.04) ng/mL B-Natriuretic Peptide (Less than 100) pg/mL
[2018-08-24] MEDS ORDERED: Naloxone 0.4 MG/ML INJ IVP PRN (13:31)
--- NOTE | 2018-08-24 13:58 | Internal Med History&Physical ---
<James Andres P - Last Filed: 08/24/18 13:47> Date of Encounter: 08/24/18 Time of Encounter: 13:00 Internal Medicine - H&P: HPI Chief complaint: Chest Pain Admitted From: Home Plans for Post Hospital Care: Home History of present illness: Mr. Headley is a 68 year old male with past medical history significant for CHF , hypertension, hyperlipidemia, CVA, and COPD who presents for one week history of intermittent 5/10 dull aching left sided chest pain associated with nausea and shortness of breath. States pain is exacerbated with activity and improved with rest. Denies vomiting, diaphoresis, chest pain radiation, abdominal pain, or headache. No current treatment. Currently states he is pain free. Currently smokes 1/2 - 1 pack of cigarettes per day. Has previous history of CVA with current deficits including intermittent expressive aphasia, intermittent disorientation, and intermittent facial droop. Was previously hospitalized with cardiac workup and had cardiology follow up arranged but patient with poor compliance and failed to follow up. During this time pacemaker placement was considered, but follow up did not occur due to patient cancelling appointment and not rescheduling. Explained importance of compliance with patient and daughter at bedside. Previous echocardiogram completed in April 2018 showed 30-35% ejection fraction. Wears 4lpm nasal canula at night. Does not routinely check blood pressure at home but states they have been averaging systolics in 90-110. Discussed patient with Dr Gonzalez. Past Med Surg Social Fam HX - Past Medical History Medical history: CHF, COPD, CVA, hyperlipidemia, hypertension, other Additional medical history: depression,BPH,psoriasis,dyslipidemia. HARD OF HEARING. HOME OXYGEN AT NIGHT. SMOKER Psychiatric history: anxiety, depression - Past Surgical History Surgical History: other Additional surgical history: TURP - Social History Smoking Status: Current every day smoker Smokeless Tobacco Status: No Alcohol use: occasionally Drug use: none - Family History Mother Living Status: Hx Family Cardiac Disorders: Yes Hx Family Cancer: Yes Hx Family Endocrine Disorder: Yes (DM) Father Living Status: Hx Family Respiratory Disorders: Yes Internal Medicine - H&P: Meds Pravastatin Sodium [Pravachol] 20 mg PO QPM 02/12/16 [History] clonazePAM [Klonopin] 0.5 mg PO DAILY PRN 02/12/16 [History] hydrOXYzine pamoate [HydrOXYzine Pamoate] 25 mg PO Q8H PRN 06/01/18 [History] Amlodipine Besylate 10 mg PO DAILY 06/06/18 [History] Isosorbide MONOnitrate (24 HR) [Imdur] 60 mg PO DAILY 06/06/18 [History] Sertraline [Zoloft] 50 mg PO DAILY 06/06/18 [History] Tamsulosin [Flomax] 0.4 mg PO HS 06/06/18 [History] Metoprolol XL (24 HR) Succ [Toprol Xl] 50 mg PO DAILY #30 tab.er.24h 06/10/18 [ Rx] Finasteride [Proscar] 5 mg PO DAILY 06/19/18 [History] Ipratropium/Albuterol Neb [Duoneb] 3 ml IH Q6HR 06/19/18 [History] Lisinopril [Zestril] 10 mg PO DAILY 06/19/18 [History] Multivit-Min/FA/Lycopen/Lutein [Adults 50+ Multivitamin Tablet] 1 tab PO DAILY 06/19/18 [History] PARoxetine HCl [Paroxetine HCl] 40 mg PO DAILY 06/19/18 [History] Albuterol Sulfate [Proair Hfa] 2 puff IH Q6H PRN 08/24/18 [History] Aspirin [Adult Aspirin] 81 mg PO DAILY 08/24/18 [History] Budesonide/Formoterol 160/4.5 [Symbicort 160/4.5] 2 puff IH BIDR 08/24/18 [ History] Warfarin [Coumadin] 3 mg PO DAILY 08/24/18 [History] 3 Allergy/AdvReac Type Severity Reaction Status Date / Time ampicillin Allergy Hives Verified 06/19/18 13:16 promethazine [From Phenergan] AdvReac Confusion Verified 06/19/18 13:16 All Systems PM: A 10-system review of systems was performed and is negative for pertinent findings except as documented above in the HPI. - Constitutional Vitals: Temp Pulse Resp BP Pulse Ox 97.5 F L 73 16 108/71 92 08/24/18 13:04 08/24/18 13:04 08/24/18 13:04 08/24/18 13:04 08/24/18 13:04 Exam: General: Alert and oriented. Skin:Normal color, no rash, no lesions. HEENT:Pupils equal, round and reactive. Cardiovascular:Normal S1 & S2, no rubs, murmurs or gallops. No JVD. Pulse regular. Lungs:Breath sounds decreased, no wheezes or crackles. Abdomen:Soft, non-tender, no rigidity. Extremities:No deformity, no edema or tenderness, no joint swelling or clubbing. Neurological:Normal cognition and motor skills. Pulses:Carotid and radial pulses normal +2. Rest of the physical exam is non contributory. 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 Initial troponin in ER negative, serial troponins ordered. Stress test ordered. Limited echo ordered. Cardiac diet. NPO at midnight. Will initiate cardiac workup and consult cardiology as needed rather than now due to patient poor compliance with cardiology follow up. Qualifiers: Chest pain type: unspecified Qualified Code(s): R07.9 - Chest pain, unspecified (2) Hypertension Current Visit: Yes Status: Chronic Assessment and plan: Continue home medications. Qualifiers: Hypertension type: essential hypertension Qualified Code(s): I10 - Essential (primary) hypertension (3) Tobacco abuse Current Visit: Yes Status: Chronic Assessment and plan: Smoking cessation encouraged. Nicotine patch ordered. (4) COPD (chronic obstructive pulmonary disease) Current Visit: Yes Status: Chronic Assessment and plan: Continue home medications. 4lpm nasal canula at night. Qualifiers: COPD type: unspecified COPD Qualified Code(s): J44.9 - Chronic obstructive pulmonary disease, unspecified - Time Spent With Patient Total time spent is greater than 50% in coordination of care (as documented) at patient's floor/unit and/or counseling patient: - VTE Reasons for not Prescribing Prophylaxis: Not indicated-Anticoagulated or INR therapeutic <Alexy Gonzalez - Last Filed: 08/24/18 14:24> Date of Encounter: 08/24/18 Internal Medicine - H&P: HPI History of present illness: Mr. Headley is a 68 year old male All Systems PM: A 10-system review of systems was performed and is negative for pertinent findings except as documented above in the HPI. - Constitutional Vitals: Temp Pulse Resp BP Pulse Ox 97.5 F L 73 16 108/71 92 08/24/18 13:04 08/24/18 13:04 08/24/18 13:04 08/24/18 13:04 08/24/18 13:04 Internal Med - H&P Results - Labs CBC & Chem 7: 08/24/18 11:01 08/24/18 11:01 - Assessment and plan (1) Chest pain Current Visit: Yes Status: Acute Qualifiers: Chest pain type: unspecified Qualified Code(s): R07.9 - Chest pain, unspecified (2) Tobacco abuse Current Visit: Yes Status: Chronic (3) Hypertension Current Visit: Yes Status: Chronic Qualifiers: Hypertension type: essential hypertension Qualified Code(s): I10 - Essential (primary) hypertension (4) COPD (chronic obstructive pulmonary disease) Current Visit: Yes Status: Chronic Qualifiers: COPD type: unspecified COPD Qualified Code(s): J44.9 - Chronic obstructive pulmonary disease, unspecified - Time Spent With Patient Total time spent is greater than 50% in coordination of care (as documented) at patient's floor/unit and/or counseling patient: - Attending Attestation I have seen and examined the patient with C[employer]ARET[employer]KER Jairo Andres and agree with his/her assessment and plan. 68-year-old male with history of CAD, nonischemic cardiomyopathy with EF 30-35% who was supposed to follow-up outpatient for ICD evaluation but defaulted, pAF, presented to the ED with one-week history of atypical chest pain. Afebrile, hemodynamically stable, unremarkable cardiovascular exam. Troponin was negative and EKG did not show any ST-T changes. Left heart catheterization from May 2017 reviewed; 50-60% stenosis in mid LAD, distal circumflex, and mid RCA. Given his history of poor compliance, he does not seem to be a good PCI candidate and hence will opt for stress test first. Spoke to his daughter at length and they seemed to be willing to be more compliant with follow up in future. Trend troponin. Limited Echo for EF evaluation. Alexy Gonzalez MD
[2018-08-24] MEDS ORDERED: hydrOXYzine pamoate 25 MG CAPSULE PO PRN (14:17)
[2018-08-24] MEDS: Nicotine 7 MG PATCH.TD24 TD SCH (15:17)
[2018-08-24] MEDS: Ipratropium/Albuterol Neb 3 ML IH SCH ×2 (18:39→22:00)
[2018-08-24] MEDS: clonazePAM 0.5 MG TABLET PO PRN (21:34)
[2018-08-24] MEDS: Budesonide/Formoterol 160/4.5 1 PUFF INH IH SCH (22:00)
[2018-08-25] MEDS: Ipratropium/Albuterol Neb 3 ML IH SCH ×4 (04:01→21:47)
[2018-08-25 05:34] LABS: Basophils % 0.6 %; Eosinophils # 0.1 K/mcL (0.0-0.6); Eosinophils % 1.7 %; Hematocrit 37.9 % (37.5-50.1); Immature Granulocytes % 0.6 % (0-4); Lymphocytes # 1.8 K/mcL (0.6-4.6); Lymphocytes % 26.8 %; Mean Corpuscular HGB Conc 31.7 g/dL (31.6-35.5); Mean Corpuscular Hemoglobin 29.3 pg (28.0-33.3); Mean Corpuscular Volume 92.7 fL (83.0-100.0); Mean Platelet Volume 10.7 fL (9.4-12.4); Monocytes # 0.6 K/mcL (0.0-1.3); Monocytes % 9.2 %; Neutrophils # 4.1 K/mcL (1.6-8.9); Platelet Count 248 K/mcL (140-400); Red Blood Count 4.09 M/mcL (4.19-5.50); Red Cell Distribution Width 13.1 % (11.5-14.5); Segmented Neutrophils % 61.1 %
[2018-08-25 05:35] LABS: INR 2.1; Prothrombin Time 23.8 Seconds (9.4-12.1)
[2018-08-25 05:56] LABS: BUN/Creatinine Ratio 18 (6-26); Blood Urea Nitrogen 17 mg/dL (8-23); Calcium 8.9 mg/dL (8.6-10.3); Carbon Dioxide 26 mEq/L (23-29); Chloride 106 mEq/L (98-107); Glucose 98 mg/dL (70-105); Osmolality,Calculated 292 (280-300); Potassium 3.9 mEq/L (3.5-5.1); Sodium 140 mEq/L (136-145); eGFR For Non-African Americans > 60 (> 60)
[2018-08-25] MEDS: Aspirin Enteric Coated 81 MG Tablet PO SCH (08:03)
[2018-08-25] MEDS: Multivit/Ca/Min/Fe/FA 1 TAB TABLET PO SCH (08:03)
[2018-08-25] MEDS: amLODIPine 5 MG TABLET PO SCH (08:10)
[2018-08-25] MEDS: Nicotine 7 MG PATCH.TD24 TD SCH (08:10)
[2018-08-25] MEDS: Isosorbide MONOnitrate (24 HR) 60 MG TAB.ER.24H PO SCH (08:10)
[2018-08-25] MEDS: Metoprolol XL (24 HR) Succ 50 MG TAB.ER.24H PO SCH (08:11)
[2018-08-25] MEDS: Finasteride 5 MG TABLET PO SCH (08:14)
[2018-08-25] MEDS ORDERED: Regadenoson 0.4 MG/5 ML SYRINGE IVP ONE (08:55)
[2018-08-25] MEDS ORDERED: *HR* Warfarin 3 MG TABLET PO SCH (09:00)
[2018-08-25] MEDS: Budesonide/Formoterol 160/4.5 1 PUFF INH IH SCH ×2 (10:15→21:47)
--- NOTE | 2018-08-25 16:32 | Internal Med Progress Note ---
Hospitalist Progress Note - Encounter Date of Encounter: 08/25/18 Time of Encounter: 16:27 - Subjective Interval History: Patient was seen and examined earlier in the a.m. he has not had any chest pain during this admission. He did undergo a nuclear stress test this a.m. Results of the stress test did not show perfusion imaging was negative for ischemia large-size moderate to severe intensity fixed perfusion defect throughout the inferior and inferoseptal segments suggestive of prior infarct. I did review these findings with Dr. Birch as well as I reviewed previous heart catheter 06/16 which did reveal moderate three-vessel coronary artery disease-50% stenosis and mid LAD, 60% stenosis in the mid RCA, 60% stenosis in distal circumflex. Dr. Birch recommends nothing by mouth after midnight hold Coumadin check INR in a.m. possible cardiac catheterization tomorrow. I did discuss these findings with the patient as well as family member at bedside. Verbalized understanding - Exam Vitals: Temp Pulse Resp BP Pulse Ox 96.7 F L 75 18 118/72 95 08/25/18 15:23 08/25/18 15:23 08/25/18 15:41 08/25/18 14:43 08/25/18 15:41 Exam: General: Alert and oriented. Skin:Normal color, no rash, no lesions. HEENT:Pupils equal, round and reactive. Cardiovascular:Normal S1 & S2, no rubs, murmurs or gallops. No JVD. Pulse regular. Lungs:Breath sounds decreased, no wheezes or crackles. Abdomen:Soft, non-tender, no rigidity. Extremities:No deformity, no edema or tenderness, no joint swelling or clubbing. Neurological:Normal cognition and motor skills. Pulses:Carotid and radial pulses normal +2. Rest of the physical exam is non contributory. - Assessment and Plan (1) Chest pain Current Visit: Yes Status: Acute Assessment and Plan: Continuous lunchroom monitor. Initial troponin in ER negative, serial troponins ordered. Stress test ordered. Limited echo ordered. Cardiac diet. NPO at midnight. Will initiate cardiac workup and consult cardiology as needed rather than now due to patient poor compliance with cardiology follow up. 08/25-no chest pain during admission troponins have been negative 3 Echo does reveal increased and EF-45% Stress test does [id number] moderate to severe intensity fixed perfusion defect throughout the anterior and anteroseptal segments suggesting prior infarct. Perfusion imaging was negative for ischemia Previous cardiac catheter performed 06/16/2017 moderate three-vessel coronary disease- There is a 50% stenosis in the Mid LAD. There is a 60% stenosis in the Distal Circumflex. There is a 60% stenosis in the Mid RCA. Consult cardiology NPO after midnight-ray catheterization in a.m. Hold Coumadin and check INR in a.m. (2) Tobacco abuse Current Visit: Yes Status: Chronic Assessment and Plan: Smoking cessation encouraged. Nicotine patch ordered. (3) Hypertension Current Visit: Yes Status: Chronic Assessment and Plan: Stable at this time Continue home medications. (4) COPD (chronic obstructive pulmonary disease) Current Visit: Yes Status: Chronic Assessment and Plan: Stable exacerbation at this time Continue home medications. Oxygen as needed to maintain SPO2 greater than 90% - Time Spent with Patient Total time spent is greater than 50% in coordination of care (as documented) at patient's floor/unit and/or counseling patient: Internal Medicine: Result - Labs CBC & Chem 7: 08/25/18 04:57 08/25/18 04:57 Labs: Short CBC 08/25/18 Range/Units 04:57 WBC 6.6 (4.3-11.1) K/mcL Hgb 12.0 L (12.9-16.9) g/dL Hct 37.9 (37.5-50.1) % Plt Count 248 (140-400) K/mcL Neutrophils # 4.1 (1.6-8.9) K/mcL BMP 08/25/18 04:57 Sodium 140 Potassium 3.9 Chloride 106 Carbon Dioxide 26 BUN 17 Creatinine 0.95 Glucose 98 Calcium 8.9 Cardiac Enzymes 08/24/18 08/25/18 Range/Units 17:29 00:04 Troponin I < 0.03 < 0.03 (< 0.04) ng/mL - ABG Interpretation ABG results: PT/INR, D-dimer PT 23.8 Seconds (9.4-12.1) H 08/25/18 04:57 - Impressions Impressions Echocardiogram Limited Views 08/24/18 13:45 Impressions: LVEF 45%. Normal LV chamber size, wall thickness. Hypokinesis of the basal to mid septal segments. - VTE Reasons for not Prescribing Prophylaxis: Not indicated-Anticoagulated or INR therapeutic Consult Discharge Plan - Plan Referrals: Yane Garcia, [employer] OPERATOR [Primary Care Provider] - (1) Chest pain Qualifiers: Chest pain type: unspecified Qualified Code(s): R07.9 - Chest pain, unspecified (3) Hypertension Qualifiers: Hypertension type: essential hypertension Qualified Code(s): I10 - Essential (primary) hypertension (4) COPD (chronic obstructive pulmonary disease) Qualifiers: COPD type: unspecified COPD Qualified Code(s): J44.9 - Chronic obstructive pulmonary disease, unspecified
[2018-08-25] MEDS ORDERED: Warfarin perPT PO PRN (18:00)
--- NOTE | 2018-08-25 18:40 | Electrocardiograph Report ---
[place] [id number] Test Date: 2018-08-24 Pat Name: Vishal Headley Department: EXAM9 Room: 3B35 Gender: M Dovetailer: : 1950 Requested By: Stephen De Leon Order Number: [id number] Reading MD: Arun Levine Measurements Intervals Datil Rate: 74 P: 79 IA: 128 QRS: 80 QRSD: 98 T: 76 QT: 407 QTc: 452 Interpretive Statements Sinus rhythm RSR' in V1 or V2, probably normal variant Electronically Signed On 08-25-2018 18:39:12 EDT by Arun Levine
[2018-08-26] MEDS: Ipratropium/Albuterol Neb 3 ML IH SCH ×4 (03:43→21:44)
[2018-08-26 06:15] LABS: INR 1.6; Prothrombin Time 18.2 Seconds (9.4-12.1)
[2018-08-26] MEDS: Aspirin Enteric Coated 81 MG Tablet PO SCH (08:38)
[2018-08-26] MEDS: Finasteride 5 MG TABLET PO SCH (08:38)
[2018-08-26] MEDS: Isosorbide MONOnitrate (24 HR) 60 MG TAB.ER.24H PO SCH ×2 (08:38→16:47)
[2018-08-26] MEDS: Nicotine 7 MG PATCH.TD24 TD SCH (08:38)
[2018-08-26] MEDS: Metoprolol XL (24 HR) Succ 50 MG TAB.ER.24H PO SCH (08:38)
[2018-08-26] MEDS: Multivit/Ca/Min/Fe/FA 1 TAB TABLET PO SCH (08:44)
[2018-08-26] MEDS: amLODIPine 5 MG TABLET PO SCH (08:44)
[2018-08-26 08:58] LABS: Basophils % 0.6 %; Eosinophils # 0.1 K/mcL (0.0-0.6); Eosinophils % 1.3 %; Hemoglobin 11.6 g/dL (12.9-16.9); Immature Granulocytes % 0.6 % (0-4); Lymphocytes # 1.5 K/mcL (0.6-4.6); Lymphocytes % 21.6 %; Mean Corpuscular HGB Conc 32.2 g/dL (31.6-35.5); Mean Corpuscular Hemoglobin 29.9 pg (28.0-33.3); Mean Corpuscular Volume 92.8 fL (83.0-100.0); Mean Platelet Volume 10.9 fL (9.4-12.4); Monocytes # 0.7 K/mcL (0.0-1.3); Monocytes % 10.1 %; Neutrophils # 4.4 K/mcL (1.6-8.9); Platelet Count 260 K/mcL (140-400); Red Blood Count 3.88 M/mcL (4.19-5.50); Red Cell Distribution Width 13.2 % (11.5-14.5); Segmented Neutrophils % 65.8 %
[2018-08-26 09:09] LABS: BUN/Creatinine Ratio 23 (6-26); Blood Urea Nitrogen 21 mg/dL (8-23); Carbon Dioxide 27 mEq/L (23-29); Chloride 107 mEq/L (98-107); Glucose 99 mg/dL (70-105); Osmolality,Calculated 291 (280-300); Potassium 4.1 mEq/L (3.5-5.1); Sodium 139 mEq/L (136-145); eGFR For Non-African Americans > 60 (> 60)
[2018-08-26] MEDS ORDERED: Ondansetron 4 MG/2 ML VIAL IVP PRN (09:23)
[2018-08-26] MEDS: Budesonide/Formoterol 160/4.5 1 PUFF INH IH SCH ×2 (11:19→21:44)
--- NOTE | 2018-08-26 11:55 | Cardiology Consult Note ---
<Griffin Tim Laura - Last Filed: 08/26/18 12:28> Date of Encounter: 08/26/18 Time of Encounter: 11:47 Assessment and Plan (1) Chest pain Current Visit: Yes Status: Acute Patient with known CAD presents with typical chest pain symptoms. Symptoms concerning for unstable angina. Stress test was completed and was negative for ischemia with gated EF 41%. There was a large sized, moderate to severe intensity, fixed perfusion defect throughout the inferior and inferoseptal segments suggestive of a prior infarct. TTE EF 45%, hypokenesis of the basal to mid inferior segments and anterior segments, and basal to mid segments of the RV. Prior TTE - EF 30-35% with global systolic dysfunction. Prior LHC 06/18/17- 50% stenosis mLAD, 60% stenosis dLcx artery, 60% stenosis mRCA , EF 20%. No prior history of [place]. [facility] films reviewed by Dr. Birch. With persistent chest pain symptoms and known moderate non-obstructive CAD [facility] recommended. [facility] R/B/A reviewed with patient and he agrees to proceed. He is on coumadin and coumadin was held. INR 1.6 today. Continue asa, statin, and bb. Increase statin to higher intensity statin. Qualifiers: Chest pain type: unspecified Qualified Code(s): R07.9 - Chest pain, unspecified (2) CAD (coronary artery disease) Current Visit: No Status: Chronic H/o moderate non-obstructive CAD. Continue asa, statin, bb. Re-peat C pending. Qualifiers: Coronary Disease-Associated Artery/Lesion type: [place] artery [place] vs. transplanted heart: [place] heart Associated angina: without angina Qualified Code(s): I25.10 - Atherosclerotic heart disease of [place] coronary artery without angina pectoris Discussion w patient/family: The assessment and plan as outlined above was discussed with the patient and/or family members who expressed understanding and agreement. All questions were answered. Thank you for involving us in the care of your patient. Please call with any questions. History of Present Illness Consult date: 08/26/18 Requesting physician: Jenifer Mathews Consult reason: Persistent Chest pain , prior infacrt on stress with no [place] history Chief complaint: Intermittent chest pain for 7 days History of present illness: Mr. Headley is a 68 year old male with past medical history significant for moderate non-obstructive CAD on [facility] in 2017, NICMP with EF previously 20-25% now improved, h/o multiple CVA on coumadin who presents with the c/o chest pain. C/o midsternal chest aching intermittently over the last 7 days. Pain increases with activity and is relieved with rest. Denies radiation of pain. Denies SOB or palpitations. Denies orthopnea, PND, or edema. Cardiac work-up included troponin that was negative x3. EKG shows SR with no acute EKG changes from prior EKG. Stress test was negative for ischemia but did show prior infarct in the inferior segments. TTE also showed segmental WMA in the inferior segments. Denies prior history of [place]. Cardiology consulted for further evaluation. Past Med Surg Social Fam HX - Past Medical History Medical history: CHF, COPD, coronary artery disease, CVA, hyperlipidemia, hypertension, other Additional medical history: depression,BPH,psoriasis,dyslipidemia. HARD OF HEARING. HOME OXYGEN AT NIGHT. SMOKER Psychiatric history: anxiety, depression - Past Surgical History Surgical History: other Additional surgical history: TURP - Social History Smoking Status: Current every day smoker Smokeless Tobacco Status: No Alcohol use: occasionally Drug use: none - Family History Mother Living Status: Hx Family Cardiac Disorders: Yes Hx Family Cancer: Yes Hx Family Endocrine Disorder: Yes (DM) Father Living Status: Hx Family Respiratory Disorders: Yes Medications and Allergies Pravastatin Sodium [Pravachol] 20 mg PO QPM 02/12/16 [History] clonazePAM [Klonopin] 0.5 mg PO DAILY PRN 02/12/16 [History] hydrOXYzine pamoate [HydrOXYzine Pamoate] 25 mg PO Q8H PRN 06/01/18 [History] Amlodipine Besylate 10 mg PO DAILY 06/06/18 [History] Isosorbide MONOnitrate (24 HR) [Imdur] 60 mg PO DAILY 06/06/18 [History] Sertraline [Zoloft] 50 mg PO DAILY 06/06/18 [History] Tamsulosin [Flomax] 0.4 mg PO HS 06/06/18 [History] Metoprolol XL (24 HR) Succ [Toprol Xl] 50 mg PO DAILY #30 tab.er.24h 06/10/18 [ Rx] Finasteride [Proscar] 5 mg PO DAILY 08/03/18 [History] Ipratropium/Albuterol Neb [Duoneb] 3 ml IH Q6HR 06/19/18 [History] Lisinopril [Zestril] 10 mg PO DAILY 06/19/18 [History] Multivit-Min/FA/Lycopen/Lutein [Adults 50+ Multivitamin Tablet] 1 tab PO DAILY 06/19/18 [History] PARoxetine HCl [Paroxetine HCl] 40 mg PO DAILY 06/19/18 [History] Albuterol Sulfate [Proair Hfa] 2 puff IH Q6H PRN 08/24/18 [History] Aspirin [Adult Aspirin] 81 mg PO DAILY 08/24/18 [History] Budesonide/Formoterol 160/4.5 [Symbicort 160/4.5] 2 puff IH BIDR 08/24/18 [ History] Warfarin [Coumadin] 3 mg PO DAILY 08/24/18 [History] 3 Allergy/AdvReac Type Severity Reaction Status Date / Time ampicillin Allergy Hives Verified 06/19/18 13:16 promethazine [From Phenergan] AdvReac Confusion Verified 06/19/18 13:16 All Systems Review: The remainder of the systems were reviewed and are negative Physical Examination Vital Signs, Last 4 Hours Temp Pulse Resp BP Pulse Ox 08/26/18 11:40 97.9 F 60 16 97/55 98 08/26/18 11:19 16 93 General: Conversant, No Apparent Distress HEENT: Atraumatic, Normocephaly, Mucus Membranes Moist Neck: No JVD, Normal carotid pulses Cardiac: Reg Rate and Rhythm, Normal S1 and S2, No Murmur Lungs: Normal Breath Sounds, No Wheeze, Rales, Rhonchi Neuro: Alert and responsive, No focal deficits noted Abdomen: Soft, Non-Tender Skin: No rashes noted on visualized skin Musculoskeletal: No Chest Wall Tenderness Extremities: No Clubbing, No Cyanosis, No Edema, Normal Pulses Results 08/26/18 08:31 08/26/18 08:31 Lab Results 08/26/18 08/26/18 08/26/18 05:06 08:31 08:31 WBC 6.7 Hgb 11.6 L Hct 36.0 L Plt Count 260 INR 1.6 Sodium 139 Potassium 4.1 Chloride 107 Carbon Dioxide 27 BUN 21 Creatinine 0.91 Glucose 99 Calcium 9.0 - Imaging and Cardiology Stress Test: report reviewed Echo: report reviewed Cardiac cath: report reviewed - EKG Interpretation EKG results cardiology: personally reviewed Consult Discharge Plan - Plan Referrals: Yane Garcia, [employer] [Primary Care Provider] - <Andrey Birch - Last Filed: 08/26/18 21:37> Date of Encounter: 08/26/18 Time of Encounter: 21:00 - Attending Attestation I have personally performed a face to face evaluation on this patient. I have reviewed and agree with the care plan. History and Exam by me shows: CC: chest pain HPI: Pt presents for evalution of chest pain, described as severe, 8/10, midsternal, provoked by exercise and relieved with rest. Pt reports pain lasts for up to fifteen minutes, resolves with rest. He has hx of previous LHC which demonstrated moderate non obstructive CAD, with severe LV systolic impairment at that time, EF 25%, with subsequent improvement to 45%. Stress imaging shows improved EF, but reletively fixed inferior scar, not present on previous studies. Chest pain has resolved on admission, has not reoccured. PMH: Reviewed ROS: Reviewed PE: PT seen and examined, agree with findings as documented. IMP/Plan: 1. Chest pain highly suggestive of ischemic etiology, stress test shows new inferior likely fixed defect, suggestive of progression of CAD, recommend LHC to evaluate coronary anatomy for possible revascularization, further recommendations pending definition of coronary anatomy. 2. Cardiomyopathy, initially thought to be non-ischemic with overall improvement , with subsegmental wall motion abnormalites suggestive of ischemic etiology. He has well compensated chronic systolic heart failure. 3. Tobacco abuse against medical advice, recommend smoking cessation. Assessment and Plan Discussion w patient/family: The assessment and plan as outlined above was discussed with the patient and/or family members who expressed understanding and agreement. All questions were answered. Thank you for involving us in the care of your patient. Please call with any questions. History of Present Illness History of present illness: Mr. Headley is a 68 year old male All Systems Review: The remainder of the systems were reviewed and are negative Physical Examination Vital Signs, Last 4 Hours Temp Pulse Resp BP Pulse Ox 08/26/18 20:12 94 08/26/18 19:05 98.0 F 61 16 93/58 94 10/10/18 18:19 67 16 109/72 92 08/26/18 17:30 64 18 107/62 95 Results 08/26/18 08:31 08/26/18 08:31 Lab Results 08/26/18 08/26/18 08/26/18 05:06 08:31 08:31 WBC 6.7 Hgb 11.6 L Hct 36.0 L Plt Count 260 INR 1.6 Sodium 139 Potassium 4.1 Chloride 107 Carbon Dioxide 27 BUN 21 Creatinine 0.91 Glucose 99 Calcium 9.0
--- NOTE | 2018-08-26 12:00 | Internal Med Progress Note ---
Hospitalist Progress Note - Encounter Date of Encounter: 08/31/18 Time of Encounter: 12:00 - Subjective Interval History: Patient was seen and examined earlier in the a.m. he has not had any chest pain during this admission. He did undergo a nuclear stress test this a.m. Results of the stress test did not show perfusion imaging was negative for ischemia large-size moderate to severe intensity fixed perfusion defect throughout the inferior and inferoseptal segments suggestive of prior infarct. I did review these findings with Dr. Birch as well as I reviewed previous heart catheter 06/16 which did reveal moderate three-vessel coronary artery disease-50% stenosis and mid LAD, 60% stenosis in the mid RCA, 60% stenosis in distal circumflex. Dr. Birch recommends nothing by mouth after midnight hold Coumadin check INR in a.m. possible cardiac catheterization tomorrow. I did discuss these findings with the patient as well as family member at bedside. Verbalized understanding - Exam Vitals: Temp Pulse Resp BP Pulse Ox 97.9 F 60 16 97/55 98 08/26/18 11:40 08/26/18 11:40 08/26/18 11:40 08/26/18 11:40 08/26/18 11:40 Exam: General: Alert and oriented. Skin:Normal color, no rash, no lesions. HEENT:Pupils equal, round and reactive. Cardiovascular:Normal S1 & S2, no rubs, murmurs or gallops. No JVD. Pulse regular. Lungs:Breath sounds decreased, no wheezes or crackles. Abdomen:Soft, non-tender, no rigidity. Extremities:No deformity, no edema or tenderness, no joint swelling or clubbing. Neurological:Normal cognition and motor skills. Pulses:Carotid and radial pulses normal +2. Rest of the physical exam is non contributory. - Assessment and Plan (1) Chest pain Status: Acute Assessment and Plan: Continuous cardiac technologist. Initial troponin in ER negative, serial troponins ordered. Stress test ordered. Limited echo ordered. Cardiac diet. NPO at midnight. Will initiate cardiac workup and consult cardiology as needed rather than now due to patient poor compliance with cardiology follow up. 08/25-no chest pain during admission troponins have been negative 3 Echo does reveal increased and EF-45% Stress test does [id number] moderate to severe intensity fixed perfusion defect throughout the anterior and anteroseptal segments suggesting prior infarct. Perfusion imaging was negative for ischemia Previous cardiac catheter performed 06/16/2017 moderate three-vessel coronary disease- There is a 50% stenosis in the Mid LAD. There is a 60% stenosis in the Distal Circumflex. There is a 60% stenosis in the Mid RCA. Consult cardiology NPO after midnight-ray catheterization in a.m. Hold Coumadin and check INR in a.m. 08/26 No chest pain during this admission troponins have been negative Patient is to undergo cardiac catheterization today per cardiology he has been nothing by mouth after midnight INR was 1.6 Coumadin has been held -According to cardiology note patient underwent left heart catheter with no intervention moderate nonobstructive CAD 67% stenosis in M RCA with negative FFR continued medical management Asians Imdur will be increased (2) Tobacco abuse Status: Chronic Assessment and Plan: Smoking cessation encouraged. Nicotine patch ordered. (3) Hypertension Status: Chronic Assessment and Plan: Stable at this time Continue home medications. (4) COPD (chronic obstructive pulmonary disease) Status: Chronic Assessment and Plan: Stable exacerbation at this time Continue home medications. Oxygen as needed to maintain SPO2 greater than 90% - Time Spent with Patient Total time spent is greater than 50% in coordination of care (as documented) at patient's floor/unit and/or counseling patient: Internal Medicine: Result - Labs CBC & Chem 7: 08/26/18 21:26 08/27/18 04:58 Labs: Short CBC 08/26/18 Range/Units 08:31 WBC 6.7 (4.3-11.1) K/mcL Hgb 11.6 L (12.9-16.9) g/dL Hct 36.0 L (37.5-50.1) % Plt Count 260 (140-400) K/mcL Neutrophils # 4.4 (1.6-8.9) K/mcL BMP 08/26/18 08:31 Sodium 139 Potassium 4.1 Chloride 107 Carbon Dioxide 27 BUN 21 Creatinine 0.91 Glucose 99 Calcium 9.0 - ABG Interpretation ABG results: PT/INR, D-dimer PT 18.2 Seconds (9.4-12.1) H 08/26/18 05:06 - VTE Reasons for not Prescribing Prophylaxis: Not indicated-Anticoagulated or INR therapeutic Consult Discharge Plan - Plan Instructions: Isosorbide Mononitrate (By mouth), Chest Pain (DC), Chronic Obstructive Pulmonary Disease (DC), Chronic Hypertension (DC) Referrals: Cardiology [facility] [Provider Group] ([facility] will be calling you with an appointment.) Yane Garcia CNP [Primary Care Provider] - 08/31/18 10:30 am Prescriptions: Isosorbide MONOnitrate (24 HR) [Imdur] 90 mg PO DAILY #30 tab.er.24h (1) Chest pain Qualifiers: Chest pain type: unspecified Qualified Code(s): R07.9 - Chest pain, unspecified (3) Hypertension Qualifiers: Hypertension type: essential hypertension Qualified Code(s): I10 - Essential (primary) hypertension (4) COPD (chronic obstructive pulmonary disease) Qualifiers: COPD type: unspecified COPD Qualified Code(s): J44.9 - Chronic obstructive pulmonary disease, unspecified
[2018-08-26] MEDS ORDERED: Adenosine 90 MG/30 ML MLS IV ONE (12:25)
[2018-08-26] MEDS ORDERED: *HR* Heparin 10,000 UNIT/10 ML VIAL ONE (13:28)
[2018-08-26] MEDS ORDERED: Heparin 1,000 UNITS/500 mL 500 ML ONE (13:28)
[2018-08-26] MEDS ORDERED: 0.9 % Sodium Chloride 1,000 ML ONE ×2 (13:28→14:28)
[2018-08-26] MEDS ORDERED: Verapamil 5 MG/2 ML VIAL ONE (13:28)
[2018-08-26] MEDS ORDERED: Nitroglycerin 1,000 MCG/10 ML VIAL IV ONE (13:29)
[2018-08-26] MEDS ORDERED: ISOVUE-370 200 ML INFUS..BTL IV ONE (13:29)
[2018-08-26] MEDS ORDERED: *HR* FentaNYL (PF) 100 MCG/2 ML VIAL ONE (14:24)
[2018-08-26] MEDS ORDERED: *HR* Midazolam HCl 2 MG/2 ML VIAL ONE (14:24)
--- NOTE | 2018-08-26 14:26 | Pre-Sedation Evaluation ---
Pre-sedation evaluation - Pre-sedation checklist Date of procedure: 08/26/18 Procedure: [facility] Recent Vitals: Last Vital Signs Temp 97.9 F 08/26/18 11:40 Pulse 60 08/26/18 11:40 Resp 16 08/26/18 11:40 BP 97/55 08/26/18 11:40 Pulse Ox 98 08/26/18 11:40 H&P (including ROS) documented in medical record: Yes Previous reaction to sedatives/anesthetics: No Dietary Status: NPO after Midnight Airway Assessment: Patient can open mouth completely, TMJ function normal Dentition: poor dentition ASA Classification *see protocol: CLASS II-Mild systemic disease Plan of Care: Pt appropriate candidate for procedure/moderate/conscious sedation Cardiac Registry (Cardio Only) - Functional Capacity Functional Capacity: >=4 METS with symptoms - Clincal Frailty Scale Clinical Frailty Scale: Managing Well
--- NOTE | 2018-08-26 15:29 | Invasive Diagnostic Lab Proc ---
Name: Vishal Headley Date of Study: 08/26/2018 Date: 1950 Ht: 66.1in Medical Record#: [id number] Age: 68 Wt: 121.25lb Gender: Male BSA: 1.62 Order #: [id number] BMI: 19.49 Physicians Procedure Physician: Justino West MD, [facility] Referring MD: Referring MD: Staff Name Position Time In Ofelia Hillman RN Monitor 02:32 PM Linda Pena RN Fruit Preserver 02:32 PM Diego, Radha RT (R) Scrub 02:32 PM Indications Indication Unstable Angina Abnormal Test - Stress Procedures Performed Procedure L HRT ARTERY/VENTRICLE ANGIO IV Doppler BLD Flow 1st Vessel Pre-Procedure Checklist Informed consent is complete signed and on chart. H&P is on chart. ID band is on and ID verified with patient. Patient NPO for procedure The procedure was described for the patient and questions were answered. Blood Pressure: 102/52 ECG is on chart. Plan of Care Patient will tolerate the procedure without complications. Adequate level of comfort will be maintained. Hemodynamics will remain stable Patient will recover from procedure without complications. Respiratory function will be maintained. Cardiac rhythm will remain stable. Patient temperature will be maintained. Patient and/or family have verbalized understanding of the procedure. Patient Education Allergies promethazine ampicillin Vital Signs Time BP (mmHg) HR (bpm) O2 Sat. RR (bpm) LOC 01:40 PM 102 / 52 69 93 % 15 5 = Fully awake and oriented or at pre-proc level 02:33 PM / % 5 = Fully awake and oriented or at pre-proc level 02:33 PM / % 4 = Oriented but drowsy 02:48 PM / % 4 = Oriented but drowsy 02:32 PM 116 / 63 65 89 % 34 02:37 PM 91 / 53 65 90 % 9 02:42 PM 93 / 47 65 91 % 9 02:47 PM 80 / 47 68 94 % 14 02:50 PM 92 / 45 64 93 % 14 02:51 PM 101 / 55 71 90 % 13 02:57 PM 107 / 55 73 88 % 13 03:02 PM 96 / 50 78 95 % 17 03:07 PM 118 / 63 73 93 % 10 Procedural Medications Time Medication Dose Units Method Given By 02:33 PM Oxygen 4 L/min nasal cannula Linda Pena RN 02:33 PM Versed 2 mg Intravenous Linda Pena RN 02:33 PM Fentanyl 50 mcg Intravenous Linda Pena RN 02:46 PM Lidocaine 2% 20 ml Subcutaneous Justino West MD, [facility] 02:57 PM Heparin 4000 units Intravenous Linda Pena RN 02:58 PM Nitroglycerin 100 mcg Intracoronary Linda Pena RN 02:59 PM Oxygen 6 L/min nasal cannula Linda Pena RN 03:00 PM 90mg Adenosine in 90 ml 0.9 NS 462 ml/hr Intravenous Linda Pena RN ASA Classification: CLASS II- Mild systemic disease (i.e. well-controlled diabetes, hypertension, asthma, cigarette smoking) Roxanna Score Preprocedure Postprocedure Activity 2- Moves 4 extremities sustained head lift Activity 2- Moves 4 extremities sustained head lift Circulation 2- SBP +/= 20 points of pre-anesthetic level Circulation 2- SBP +/= 20 points of pre-anesthetic level Consciousness 2- Awake and alert oriented x 3 Consciousness 2- Awake and alert oriented x 3 O2 Saturation 2- Able to maintain O2 satruation of 92% on room air O2 Saturation 2- Able to maintain O2 satruation of 92% on room air Respiratory 2- Able to deep breathe and cough well Respiratory 2- Able to deep breathe and cough well Total Score 10 Total Score 10 Contrast Agent: Isovue Diagnostic Contrast: 78 ml Total Contrast: 78 ml Fluoro Dose: 1261 mGy Procedure Log Time Note Enter By 01:41 PM CathStat 02:31 PM Vitals capture started with the following parameters, Patient=Adult, Interval=5 min, Initial Xsrmtcsi=455 mmHg, Deflation Rate=5 mmHg, Cuff placed on Right Arm 02:32 PM HR=65 bpm, RQQS=296/63 mmhg, SpO2=89.0 %, Resp=34 B/min, Comment=nsr 02:32 PM Pt arrived to geophysical laboratory supervisor 2 at 14:32 [email or web address] 02:32 PM Ofelia Hillman RN Position: Monitor Time in: 14:32 02:32 PM Linda Pena RN Position: Fruit Preserver Time in: 14:32 mm 02:32 PM Diego, Radha RT (R) Position: Scrub Time in: 14:32 [facility] 02:32 PM Patient charges- Angio tray pack, Navilyst 3mm J, Pulse Oximetry and ACIST tubing and transducer oumm 02:32 PM Meet and greet completed oumm 02:32 PM Sign in performed according to hospital policy. Informed consent was obtained. mm 02:33 PM Procedure start 14:33 mm:33 PM Time: 14:33 Oxygen on at 4 L/min per nasal cannula by Linda Pena RN [facility]:33 PM Time: 14:33 Patient comfortable and pain free: Yes mm:33 PM Time: 14:33LOC: 5 = Fully awake and oriented or at pre-proc level mm:33 PM Time: 14:33 Versed 2 mg Intravenous Given by Linda Pena RN [facility] :33 PM Time: 14:33 Fentanyl 50 mcg Intravenous Given by Linda Pena RN [facility] 02:34 PM Recorded ECG: HR=66 Condition=Condition 1 02:37 PM HR=65 bpm, NIBP=91/53 mmhg, SpO2=90.0 %, Resp=9 B/min, EtCO2=20 mmHg, Comment=nsr 02:41 PM Pressure channel 1 zeroed. 02:42 PM HR=65 bpm, NIBP=93/47 mmhg, SpO2=91.0 %, Resp=9 B/min, Comment=nsr 02:44 PM ASA Class CLASS II- Mild systemic disease (i.e. well-controlled diabetes, hypertension, asthma, cigarette smoking) tsoummers 02:44 PM Time out was performed according to hospital policy. Conscious sedation and anesthesia was achieved (see medication log with in this report above) mm 02:46 PM Time: 14:46 20 ml Lidocaine 2% to right groin Subcutaneous Given by Justino West MD, [facility] mm 02:47 PM HR=68 bpm, NIBP=80/47 mmhg, SpO2=94.0 %, Resp=14 B/min, Comment=nsr 02:48 PM Access obtained by percutaneous puncture. 5Fr 10cm Terumo [place] sheath placed in right Femoral artery. [id number] oummers 02:48 PM 0.035 145cm Navilyst 3mmJ wire [id number] oumm 02:48 PM 5Fr FL 4 catheter inserted over the wire [facility] tsoummers 02:48 PM Time: 14:33LOC: 4 = Oriented but drowsy tsoummers 02:48 PM Time: 14:33 Patient comfortable and pain free: Yes tsoummers 02:48 PM wire removed tsoummers 02:48 PM LCA angiography performed in multiple views. tsoummers 02:48 PM Recorded Pressure: Ao, HR=68, Condition=Condition 1 (Aorta) Ao 70/42/54 02:49 PM NIBP STAT measurement started. 02:50 PM HR=64 bpm, NIBP=92/45 mmhg, SpO2=93.0 %, Resp=14 B/min, EtCO2=25 mmHg, Comment=nsr 02:50 PM Catheter removed tsoumm 02:50 PM 5Fr FR 4 catheter inserted over the wire [facility] tsoummers 02:50 PM RCA angiography performed in multiple views. tsoummers 02:51 PM Coronary Dominance: right tsoummers 02:51 PM Recorded Pressure: Ao, HR=71, Condition=Condition 1 (Aorta) Ao 74/46/59 02:51 PM HR=71 bpm, CILQ=316/55 mmhg, SpO2=90.0 %, Resp=13 B/min, EtCO2=23 mmHg, Comment=nsr 02:53 PM Lesion found in Mid RCA. Pre Stenosis: 70 Pre LEONEL Flow: 3: Complete and Brisk Flow/Perfusion tsoummers 02:53 PM Right Coronary, Right Posterior Descending Arteries with Right Posterolateral and Acute Marginal branches with 70 % stenosis. If graft is supplying this area, 0 % stenosis tsoummers 02:54 PM Catheter removed tsmm 02:54 PM 5Fr Pigtail catheter inserted over the wire [facility] tsoummers 02:54 PM Catheter crossed the aortic valve and was selectively placed in the left ventricle. Pressures recorded on pullback for left heart catheterization. tsoummers 02:54 PM Recorded Pressure: LV, HR=73, Condition=Condition 1 (Left Ventricle) LV 94/-9/2 02:54 PM Bolus angiogram of left Ventricle complete: 11 ml/sec for a total of 30 mls tsoummers 02:55 PM Recorded Pressure: LV, Ao, HR=75, Condition=Condition 1 (Left Ventricle) LV 92/-7/3, (Aorta) Ao 99/44/64 02:56 PM Catheter removed tsag 02:56 PM Inflation device was opened. mm 02:57 PM HR=73 bpm, RABO=961/55 mmhg, SpO2=88.0 %, Resp=13 B/min, EtCO2=31 mmHg, Comment=nsr 02:57 PM Sheath exchanged for a 6 Fr 11 cm Cordis Carin sheath [id number] ag 02:57 PM Time: 14:57 Heparin 4000 units Intravenous Given by Linda Pena RN 02:58 PM 6Fr JR 4 [place] Bright-Tip guide catheter was used to cannulate the PCI vessel successfully. reused? No [email or web address] 02:58 PM .014 [place] 190cm guide wire across target lesion- successful. reused? No ag 02:58 PM Asist FFR Catheter advanced to target lesion. ag 02:58 PM Time: 14:58 Nitroglycerin 100 mcg Intracoronary Given by Linda Pena RN 02:59 PM Time: 14:59 Oxygen on at 6 L/min per nasal cannula by Linda Pena RN 03:00 PM Time: 15:00 90mg Adenosine in 90 ml 0.9 NS 462 ml/hr Intravenous Given by Linda Pena RN Ann pump ag 03:02 PM HR=78 bpm, NIBP=96/50 mmhg, SpO2=95.0 %, Resp=17 B/min, Comment=nsr 03:02 PM Recorded Pressure: Ao, PV1, HR=80, Condition=Condition 1 (Aorta) Ao 67/40/53, (Portal Vein) PV1 60/64/45 03:02 PM FFR Measurement: 0.85 more 03:03 PM Adenosine stopped at this time tsag 03:03 PM Time: 14:48LOC: 4 = Oriented but drowsy tsag 03:03 PM Time: 14:48 Patient comfortable and pain free: Yes tsag 03:04 PM Flow Wire/Catheter removed intact tsag 03:04 PM Guide wire removed intact. [email or web address] 03:04 PM Guide catheter removed intact. more 03:05 PM Bolus angiogram of right Femoral complete: 2 ml/sec for a total of 4 mls more 03:05 PM Procedure completed at 15:05 08/26/2018 tsoummers 03:05 PM Did you address LEONEL flow and Dominance? Yes tsoummers 03:06 PM Sign out completed: Radiation Dose 132.68 mGy, 1260.59 cGy/cm2 Fluoro Time: 3.7 Isovue 370 - 200ml contrast 78 ml given by Justino West MD, [facility]. Complications: None. 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 Cardiac Rehab Consult needed: NoConfirmed administered medications: Yes tsoummers 03:06 PM Isovue 370 - 200ml,1 Bottle(s) used. tsoummers 03:06 PM Estimated Blood Loss: less than 20cc tsoummers 03:06 PM Post ECG NSR tsoummers 03:06 PM Post Blood Pressure 96/50 tsoummers 03:06 PM 15:06 Post Pulses Bilateral DP & PT 1+ tsoummers 03:06 PM Information taught Cardiac Cath, IVUS/Flowire, and Mynx tsoummers 03:06 PM Education needs Procedure, Plan of Care, and Responsibilities of Patient in Care tsoummers 03:06 PM Learning barriers :None tsoummers 03:06 PM Education Methods Verbal oummers 03:06 PM Education evaluation Able to repeat information tsoummers 03:06 PM Site status No bleeding/hematoma - Rt Groin as reported by Sites, Radha RT (R) at 15:06 tsoummers 03:07 PM Arterial sheath pulled, Mynx closure device used and was Successful [id number] S/N. tsoummers 03:07 PM Opsite applied tsoummers 03:07 PM HR=73 bpm, OQQL=919/63 mmhg, SpO2=93.0 %, Resp=10 B/min 03:07 PM Plavix, Effient or Brilinta given No tsoummers 03:14 PM Report given to Bailey MARQUES Pt taken to Room #35. 15:13 tsoummers 03:14 PM Patient out of room: 15:14 tsoummers 03:14 PM Family placed in consult room. tsoummers 03:14 PM Lesion found in Mid LMCA. Pre Stenosis: 20 Pre LEONEL Flow: tsoummers 03:14 PM Lesion found in Mid LAD. Pre Stenosis: 20 Pre LEONEL Flow: tsoummers 03:14 PM Mid/Distal Left Anterior Descending Coronary Artery and diagonal branches with 20% stenosis. If graft is supplying this area, 0 % stenosis tsoummers 03:14 PM Lesion found in Proximal Circumflex. Pre Stenosis: 20 Pre LEONEL Flow: tsoummers Complications Complication None Hemodynamics Pressures Site Systolic/A Wave Diastolic/V Wave Mean AO 70 42 54 AO 74 46 59 LV 94 -9 2 LV 92 -7 3 AO 99 44 64 AO 67 40 53 PV1 60 64 45 Post Procedure Information Blood Pressure: 96/50 mmHg Rhythm: NSR Post procedural instructions were given Closure Device Time Device Success/Fail 08/26/2018 3:07:00 PM MynxGrip Successful Site Checks Time Location Status Staff Sheath In? Note 03:06 PM Rt Groin No bleeding/hematoma Sites, Radha RT (R) Pulses Time Site Pre-Procedure Post-Procedure Note 08/26/2018 1:39:00 PM Bilateral radial 2+ 08/26/2018 1:40:00 PM Bilateral DP & PT 1+ 3:06:00 PM Bilateral DP & PT 1+ Updated by Ofelia Hillman RN on 08/26/2018 3:20:21 PM electronically signed on 08/26/2018 3:20:55 PM with status of Final
--- NOTE | 2018-08-26 15:32 | Event Note ---
Date of Encounter: 08/26/18 Time of Encounter: 15:29 - Cardiology Event Note Discussed with Dr. West, [facility] completed. No intervention. Moderate non- obstructive CAD seen. There was a 60-70% stenosis in the mRCA with negative FFR. Continue medical management. Increase imdur. Out-pt cardiology f/u will be scheduled. Cardiology will sign off.
[2018-08-26] MEDS: Isosorbide MONOnitrate (24 HR) 30 MG TAB.ER.24H PO SCH (16:47)
[2018-08-26] MEDS: clonazePAM 0.5 MG TABLET PO PRN (20:10)
--- NOTE | 2018-08-26 21:12 | Internal Med Progress Note ---
Hospitalist Progress Note - Encounter Date of Encounter: 08/26/18 Time of Encounter: 10:00 - Subjective Interval History: Patient was seen and examined earlier this a.m. currently denies any chest pain or shortness of breath. He has been nothing by mouth overnight and will undergo cardiac catheterization per cardiology - Exam Vitals: Temp Pulse Resp BP Pulse Ox 98.0 F 61 16 93/58 94 08/26/18 19:05 08/26/18 19:05 08/26/18 19:05 08/26/18 19:05 08/26/18 20:12 Exam: General: Alert and oriented. Skin:Normal color, no rash, no lesions. HEENT:Pupils equal, round and reactive. Cardiovascular:Normal S1 & S2, no rubs, murmurs or gallops. No JVD. Pulse regular. Lungs:Breath sounds decreased, no wheezes or crackles. Abdomen:Soft, non-tender, no rigidity. Extremities:No deformity, no edema or tenderness, no joint swelling or clubbing. Neurological:Normal cognition and motor skills. Pulses:Carotid and radial pulses normal +2. Rest of the physical exam is non contributory. - Assessment and Plan (1) Chest pain Current Visit: Yes Status: Acute Assessment and Plan: Continuous secured entrance monitor. Initial troponin in ER negative, serial troponins ordered. Stress test ordered. Limited echo ordered. Cardiac diet. NPO at midnight. Will initiate cardiac workup and consult cardiology as needed rather than now due to patient poor compliance with cardiology follow up. 08/25-no chest pain during admission troponins have been negative 3 Echo does reveal increased and EF-45% Stress test does [id number] moderate to severe intensity fixed perfusion defect throughout the anterior and anteroseptal segments suggesting prior infarct. Perfusion imaging was negative for ischemia Previous cardiac catheter performed 06/16/2017 moderate three-vessel coronary disease- There is a 50% stenosis in the Mid LAD. There is a 60% stenosis in the Distal Circumflex. There is a 60% stenosis in the Mid RCA. Consult cardiology NPO after midnight-ray catheterization in a.m. Hold Coumadin and check INR in a.m. 08/26 No chest pain during this admission troponins have been negative Patient is to undergo cardiac catheterization today per cardiology he has been nothing by mouth after midnight INR was 1.6 Coumadin has been held -According to cardiology note patient underwent left heart catheter with no intervention moderate nonobstructive CAD 67% stenosis in M RCA with negative FFR continued medical management Asians Imdur will be increased (2) Tobacco abuse Current Visit: Yes Status: Chronic Assessment and Plan: Smoking cessation encouraged. Nicotine patch ordered. (3) Hypertension Current Visit: Yes Status: Chronic Assessment and Plan: Stable at this time Continue home medications. (4) COPD (chronic obstructive pulmonary disease) Current Visit: Yes Status: Chronic Assessment and Plan: Stable exacerbation at this time Continue home medications. Oxygen as needed to maintain SPO2 greater than 90% - Time Spent with Patient Total time spent is greater than 50% in coordination of care (as documented) at patient's floor/unit and/or counseling patient: Internal Medicine: Result - Labs CBC & Chem 7: 08/26/18 08:31 08/26/18 08:31 Labs: Short CBC 08/26/18 Range/Units 08:31 WBC 6.7 (4.3-11.1) K/mcL Hgb 11.6 L (12.9-16.9) g/dL Hct 36.0 L (37.5-50.1) % Plt Count 260 (140-400) K/mcL Neutrophils # 4.4 (1.6-8.9) K/mcL BMP 08/26/18 08:31 Sodium 139 Potassium 4.1 Chloride 107 Carbon Dioxide 27 BUN 21 Creatinine 0.91 Glucose 99 Calcium 9.0 - ABG Interpretation ABG results: PT/INR, D-dimer PT 18.2 Seconds (9.4-12.1) H 08/26/18 05:06 - VTE Reasons for not Prescribing Prophylaxis: Not indicated-Anticoagulated or INR therapeutic Consult Discharge Plan - Plan Referrals: Yane Garcia, AGRICULTURAL RESEARCHER [Primary Care Provider] - (1) Chest pain Qualifiers: Chest pain type: unspecified Qualified Code(s): R07.9 - Chest pain, unspecified (3) Hypertension Qualifiers: Hypertension type: essential hypertension Qualified Code(s): I10 - Essential (primary) hypertension (4) COPD (chronic obstructive pulmonary disease) Qualifiers: COPD type: unspecified COPD Qualified Code(s): J44.9 - Chronic obstructive pulmonary disease, unspecified
[2018-08-26 21:48] LABS: Basophils # 0.1 K/mcL (0.0-0.2); Basophils % 0.6 %; Eosinophils # 0.1 K/mcL (0.0-0.6); Eosinophils % 1.1 %; Hematocrit 34.1 % (37.5-50.1); Hemoglobin 11.1 g/dL (12.9-16.9); Immature Granulocytes % 0.5 % (0-4); Mean Corpuscular HGB Conc 32.6 g/dL (31.6-35.5); Mean Corpuscular Hemoglobin 29.8 pg (28.0-33.3); Mean Corpuscular Volume 91.4 fL (83.0-100.0); Mean Platelet Volume 10.6 fL (9.4-12.4); Monocytes # 1.1 K/mcL (0.0-1.3); Monocytes % 12.1 %; Neutrophils # 5.5 K/mcL (1.6-8.9); Platelet Count 261 K/mcL (140-400); Red Blood Count 3.73 M/mcL (4.19-5.50); Red Cell Distribution Width 13.2 % (11.5-14.5); Segmented Neutrophils % 62.7 %
[2018-08-27] MEDS: Ipratropium/Albuterol Neb 3 ML IH SCH ×2 (03:52→10:54)
[2018-08-27 05:33] LABS: INR 1.4; Prothrombin Time 15.5 Seconds (9.4-12.1)
[2018-08-27 05:36] LABS: BUN/Creatinine Ratio 19 (6-26); Blood Urea Nitrogen 18 mg/dL (8-23); Calcium 8.7 mg/dL (8.6-10.3); Carbon Dioxide 26 mEq/L (23-29); Chloride 105 mEq/L (98-107); Glucose 98 mg/dL (70-105); Osmolality,Calculated 290 (280-300); Potassium 4.1 mEq/L (3.5-5.1); Sodium 139 mEq/L (136-145); eGFR For Non-African Americans > 60 (> 60)
[2018-08-27 07:48] VITALS: BP 102/64
[2018-08-27] MEDS: amLODIPine 5 MG TABLET PO SCH (07:59)
[2018-08-27] MEDS: Multivit/Ca/Min/Fe/FA 1 TAB TABLET PO SCH (07:59)
[2018-08-27] MEDS: Finasteride 5 MG TABLET PO SCH (07:59)
[2018-08-27] MEDS: Aspirin Enteric Coated 81 MG Tablet PO SCH (07:59)
[2018-08-27] MEDS: Metoprolol XL (24 HR) Succ 50 MG TAB.ER.24H PO SCH (08:00)
[2018-08-27] MEDS: Isosorbide MONOnitrate (24 HR) 60 MG TAB.ER.24H PO SCH (08:00)
[2018-08-27] MEDS: Nicotine 7 MG PATCH.TD24 TD SCH (08:00)
[2018-08-27] MEDS: Isosorbide MONOnitrate (24 HR) 30 MG TAB.ER.24H PO SCH (08:00)
--- NOTE | 2018-08-27 08:44 | Discharge Summary ---
- NOTES TO OUTPATIENT PROVIDER Notes to Outpatient Provider: Cardiac cath - no intervention Moderate non- obstructive CAD- medical mangement- increased Imdur to 90 mg daily Orders not resulted at time of discharge: Pending orders 08/24/18 13:44 NM karen perf SPECT multi [NM] Routine 08/26/18 11:37 CL Cardiac Catheterization [CL] Routine 08/28/18 04:00 PT/INR [Prothrombin Time INR] [COAG] AM 0400 08/29/18 04:00 PT/INR [Prothrombin Time INR] [COAG] AM 0400 08/30/18 04:00 PT/INR [Prothrombin Time INR] [COAG] AM 0400 Date of Encounter: 08/27/18 Time of Encounter: 08:42 - Discharge Diagnosis (1) Chest pain Priority: Primary Status: Acute Qualifiers: Chest pain type: unspecified Qualified Code(s): R07.9 - Chest pain, unspecified (2) Tobacco abuse Priority: Secondary Status: Chronic (3) Hypertension Priority: Secondary Status: Chronic Qualifiers: Hypertension type: essential hypertension Qualified Code(s): I10 - Essential (primary) hypertension (4) COPD (chronic obstructive pulmonary disease) Priority: Secondary Status: Chronic Qualifiers: COPD type: unspecified COPD Qualified Code(s): J44.9 - Chronic obstructive pulmonary disease, unspecified Hospital course: Mr. Headley is a 68 year old male past medical hx of CHF HTN CVA COPD current smoker presented to the ED with one week hx of intermittent dull aching CP occurring on left side with associated sx of nausea and SOB. Pain is exacerbated with activity. HX of CVA with deficits of intermittent expressive aphasia, intermittent disorientation and intermittent facial droop. current smoker 1/2-1 ppd. Troponin negative x3 cardiac echo completed EF 45% improved from previous echo EF 30-35%- April of this year.EKG with no ST T wave abnormality- He did have a stress test -negative for ischemia with gated EF 41% . There was a large sized, moderate to severe intensity, fixed perfusion defect throughout the inferior and inferoseptal segments suggestive of a prior infarct. Prior LHC 06/18/17- 50% stenosis mLAD, 60% stenosis dLcx artery, 60% stenosis mRCA, EF 20%. Discussed case with Dr Birch- With persistent chest pain symptoms and known moderate non-obstructive CAD LHC recommended. His coumadin was held and he underwent LHC - No intervention. Moderate non-obstructive CAD seen. There was a 60-70% stenosis in the mRCA with negative FFR. Continue medical management. Increase imdur to 90 mg daily. Patient has not had anymore CP I advised patient of medication changes- advised patient to resume home meds including coumadin and to follow up with coumadin clinic Also advised patient to follow up with PCP and cardiology since these providers know him best and can adjust medications accordingly. He verbalized understanding. He is hemodynamically stable and ready for discharge Discharge discussed with: patient - Time Spent with Patient Total time spent providing and/or coordinating discharge services: - Discharge Medications Prescriptions: Isosorbide MONOnitrate (24 HR) [Imdur] 90 mg PO DAILY #30 tab.er.24h Home Medications: Pravastatin Sodium [Pravachol] 20 mg PO QPM 02/12/16 [History] clonazePAM [Klonopin] 0.5 mg PO DAILY PRN 02/12/16 [History] hydrOXYzine pamoate [HydrOXYzine Pamoate] 25 mg PO Q8H PRN 06/01/18 [History] Amlodipine Besylate 10 mg PO DAILY 06/06/18 [History] Sertraline [Zoloft] 50 mg PO DAILY 06/06/18 [History] Tamsulosin [Flomax] 0.4 mg PO HS 06/06/18 [History] Metoprolol XL (24 HR) Succ [Toprol Xl] 50 mg PO DAILY #30 tab.er.24h 06/10/18 [ Rx] Finasteride [Proscar] 5 mg PO DAILY 06/19/18 [History] Ipratropium/Albuterol Neb [Duoneb] 3 ml IH Q6HR 06/19/18 [History] Lisinopril [Zestril] 10 mg PO DAILY 06/19/18 [History] Multivit-Min/FA/Lycopen/Lutein [Adults 50+ Multivitamin Tablet] 1 tab PO DAILY 06/19/18 [History] PARoxetine HCl [Paroxetine HCl] 40 mg PO DAILY 06/19/18 [History] Albuterol Sulfate [Proair Hfa] 2 puff IH Q6H PRN 08/24/18 [History] Aspirin [Adult Aspirin] 81 mg PO DAILY 08/24/18 [History] Budesonide/Formoterol 160/4.5 [Symbicort 160/4.5] 2 puff IH BIDR 08/24/18 [ History] Warfarin [Coumadin] 3 mg PO DAILY 08/24/18 [History] Isosorbide MONOnitrate (24 HR) [Imdur] 90 mg PO DAILY #30 tab.er.24h 08/27/18 [ Rx] Allergies/Adverse Reactions: 3 Allergy/AdvReac Type Severity Reaction Status Date / Time ampicillin Allergy Hives Verified 06/19/18 13:16 promethazine [From Phenergan] AdvReac Confusion Verified 06/19/18 13:16 Date of admission: 08/24/18 12:24 Primary care physician: Yane Garcia CNP Consults: 08/25/18 16:36 Consult to Cardiology [CONS] Routine Comment: Consulting Provider: [facility] Reason for Consult: Abnormal stress Time Notified: 16:37 Call Completed: Yes Discharging clinician: Jenifer Mathews Anticipated date of discharge: 08/27/18 - Constitutional Vitals: Temp Pulse Resp BP Pulse Ox 98.6 F 67 20 102/64 97 08/27/18 07:42 08/27/18 07:42 08/27/18 07:42 08/27/18 07:42 08/27/18 07:42 General appearance: Present: A&O X 3 Exam: General: Alert and oriented. Skin:Normal color, no rash, no lesions. HEENT:Pupils equal, round and reactive. Cardiovascular:Normal S1 & S2, no rubs, murmurs or gallops. No JVD. Pulse regular. Lungs:Breath sounds decreased, no wheezes or crackles. Abdomen:Soft, non-tender, no rigidity. Extremities:No deformity, no edema or tenderness, no joint swelling or clubbing. Neurological:Normal cognition and motor skills. Pulses:Carotid and radial pulses normal +2. Rest of the physical exam is non contributory. - Head Head exam: Present: atraumatic, normocephalic - Eye Eye exam: Present: PERRL, conjuntiva pink, sclera anicteric Pupils: Present: PERRL - Neck Neck exam general surgery: Present: supple, trachea midline. Absent: lymphadenopathy - Respiratory Respiratory exam: Present: CTAB. Absent: accessory muscle use, rales, rhonchi, wheezes - Cardiovascular Cardiovascular exam: Present: RRR, +S1, +S2. Absent: diastolic murmur, gallop, rubs, systolic murmur - GI/Abdominal GI/Abdominal exam: Present: normal bowel sounds, soft, no peritoneal signs. Absent: distended, tenderness - Extremities Exam Extremities exam: Present: warm, radial pulses palpable and symmetrical. Absent : calf tenderness, cyanotic, pedal edema - Neurological Exam Neurological exam: Present: CN II-XII intact, oriented X3, no focal deficits. Absent: pronater drift, facial droop, speech deficit - Skin Skin exam: Present: dry, intact - Patient Status Disposition: Home, Self-Care Condition: Fair Functional capacity at discharge: independent ambulation - Discharge Instructions Instructions: Isosorbide Mononitrate (By mouth), Chest Pain (DC), Chronic Obstructive Pulmonary Disease (DC), Chronic Hypertension (DC) Follow Up With: [facility] [Provider Group] ([facility] will be calling you with an appointment.) Yane Garcia CNP [Primary Care Provider] - 08/31/18 10:30 am Forms: ED Satisfaction Letter, Inpatient Work/School Release - Diet and Activity Activity: increase activity as tolerated Diet: advance to your usual diet - VTE Reasons for not Prescribing Prophylaxis: Not indicated-Anticoagulated or INR therapeutic
[2018-08-27] MEDS: Budesonide/Formoterol 160/4.5 1 PUFF INH IH SCH (10:54)
--- NOTE | 2018-08-27 12:27 | Physician Discharge Referral ---
Home Health/Hosp Referral Info Transfer to: Home Health Attending Provider: naye Burgess Provider in Charge Post Discharge: PCP - Diagnosis (1) Chest pain Priority: Primary Status: Acute (2) Tobacco abuse Priority: Secondary Status: Chronic (3) Hypertension Priority: Secondary Status: Chronic (4) COPD (chronic obstructive pulmonary disease) Priority: Secondary Status: Chronic - Respiratory Orders Oxygen / L per min Smoking Cessation: Smoking cessation has been advised. For more information, call the [place] Tobacco Quit Line at 3-640-EPQX-NOW. - Diet/Nutrition Diet/Nutrition Orders: Cardiac - Activity Activity Orders: Up ad brendan - Services Needed Following services are medically necessary services: Nursing (check INR 08/28/18 ) - Transfer Medications Prescriptions: Isosorbide MONOnitrate (24 HR) [Imdur] 90 mg PO DAILY #30 tab.er.24h Home Medications: Pravastatin Sodium [Pravachol] 20 mg PO QPM 02/12/16 [History] clonazePAM [Klonopin] 0.5 mg PO DAILY PRN 02/12/16 [History] hydrOXYzine pamoate [HydrOXYzine Pamoate] 25 mg PO Q8H PRN 06/01/18 [History] Amlodipine Besylate 10 mg PO DAILY 06/06/18 [History] Sertraline [Zoloft] 50 mg PO DAILY 06/06/18 [History] Tamsulosin [Flomax] 0.4 mg PO HS 06/06/18 [History] Metoprolol XL (24 HR) Succ [Toprol Xl] 50 mg PO DAILY #30 tab.er.24h 06/10/18 [ Rx] Finasteride [Proscar] 5 mg PO DAILY 06/19/18 [History] Ipratropium/Albuterol Neb [Duoneb] 3 ml IH Q6HR 06/19/18 [History] Lisinopril [Zestril] 10 mg PO DAILY 06/19/18 [History] Multivit-Min/FA/Lycopen/Lutein [Adults 50+ Multivitamin Tablet] 1 tab PO DAILY 06/19/18 [History] PARoxetine HCl [Paroxetine HCl] 40 mg PO DAILY 06/19/18 [History] Albuterol Sulfate [Proair Hfa] 2 puff IH Q6H PRN 08/24/18 [History] Aspirin [Adult Aspirin] 81 mg PO DAILY 08/24/18 [History] Budesonide/Formoterol 160/4.5 [Symbicort 160/4.5] 2 puff IH BIDR 08/24/18 [ History] Warfarin [Coumadin] 3 mg PO DAILY 08/24/18 [History] Isosorbide MONOnitrate (24 HR) [Imdur] 90 mg PO DAILY #30 tab.er.24h 08/27/18 [ Rx] Allergies/Adverse Reactions: 3 Allergy/AdvReac Type Severity Reaction Status Date / Time ampicillin Allergy Hives Verified 06/19/18 13:16 promethazine [From Phenergan] AdvReac Confusion Verified 06/19/18 13:16 Certification: Further, I certify that my clinical findings support that this patient is homebound (i.e. absences from home require considerable and taxing effort and are for medical reasons or mandaen services or infrequently or short duration when for other reasons) because: Homebound Reason: Leaving home requires considerable and taxing effort due to condition Attestation: My signature below is to certify that this patient is under my care and that I, or nurse practitioner, or a physician's stonecutter assistant working with me, has a face-to -face encounter with this patient.
== END 2018-08-27 11:00 | disposition home or self-care (01) ==
LOC: 3BNU 10:42 → EMEROOARM 10:42 → 3BNU 12:55
PROVIDERS: ADMIT Internal Medicine; ATTEND Internal Medicine

== ENCOUNTER 2019-02-18 12:17 | Observation (INO) ==
--- NOTE | 2019-02-18 14:05 | Emergency Department Note ---
Disposition Clinical Impression: Exertional chest pain COPD (chronic obstructive pulmonary disease) Qualifiers: COPD type: unspecified COPD Qualified Code(s): J44.9 - Chronic obstructive pulmonary disease, unspecified CHF (congestive heart failure) Qualifiers: Heart failure type: unspecified Heart failure chronicity: chronic Qualified Code(s): I50.9 - Heart failure, unspecified CAD (coronary artery disease) Qualifiers: Coronary Disease-Associated Artery/Lesion type: [place] artery [place] vs. trans planted heart: [place] heart Associated angina: with stable angina Qualified Code(s): I25.118 - Atherosclerotic heart disease of [place] coronary artery with other forms of angina pectoris Disposition: Admitted As Inpatient Condition: Fair Time of Disposition: 16:05 Chest Pain HPI - General Chief Complaint: ED Chest Pain Stated Complaint: CP,LAURA x1 Time Seen by Provider: 02/18/19 13:06 Source: patient, family Limitations: no limitations Vital Signs Reviewed: Yes Nursing Notes Reviewed: Yes - History of Present Illness HPI Narrative: 68 yo male with PMHx of CHF, COPD, previous stroke presents to the emergency department with chief complaint of chest pain that started last time before he went to bed. He states that he has noticed the chest pain on the left side of his chest, describing it as aching in quality without any radiation, before he went to bed at 8 PM last night. He states that it is pain with exertion and goes away when he lies down to rest. He is also had increased shortness of breath with this. He states "I think I had a heart attack last night". He has never had a heart attack to his knowledge. He denies abdominal pain, nausea and vomiting. He feels cold and stated he has gotten sweaty with the chest pain. He is unsure if he has had any sick contacts. He is not had a cough with this chest pain and shortness of breath. He does take Coumadin daily for his history of stroke and irregular heart rate but has had trouble with his INR recently. Patient had a recent heart catheter in August which showed 60-70% occlusion of his right coronary artery without stenting at that time. Severity scale (1-10): 0 - Related Data Home Medications Medication Instructions Recorded Confirmed Pravastatin Sodium [Pravachol] 20 mg PO QPM 02/12/16 02/18/19 clonazePAM [Klonopin] 0.5 mg PO DAILY PRN 02/12/16 02/18/19 hydrOXYzine pamoate [HydrOXYzine 25 mg PO Q8H PRN 06/01/18 08/24/18 Pamoate] Amlodipine Besylate 10 mg PO DAILY 06/06/18 08/24/18 Sertraline [Zoloft] 50 mg PO DAILY 06/06/18 08/24/18 Tamsulosin [Flomax] 0.4 mg PO HS 06/06/18 08/24/18 Finasteride [Proscar] 5 mg PO DAILY 06/19/18 08/24/18 Ipratropium/Albuterol Neb [Duoneb] 3 ml IH Q6HR 06/19/18 08/24/18 Lisinopril [Zestril] 10 mg PO DAILY 06/19/18 08/24/18 Multivit-Min/FA/Lycopen/Lutein 1 tab PO DAILY 06/19/18 08/24/18 [Adults 50+ Multivitamin Tablet] PARoxetine HCl [Paroxetine HCl] 40 mg PO DAILY 06/19/18 08/24/18 Albuterol Sulfate [Proair Hfa] 2 puff IH Q6H PRN 08/24/18 08/24/18 Aspirin [Adult Aspirin] 81 mg PO DAILY 08/24/18 08/24/18 Budesonide/Formoterol 160/4.5 2 puff IH BIDR 08/24/18 02/18/19 [Symbicort 160/4.5] Warfarin [Coumadin] 3 mg PO QPM 08/24/18 02/18/19 Previous Rx's Medication Instructions Recorded Metoprolol XL (24 HR) Succ [Toprol 50 mg PO DAILY #30 tab.er.24h 06/10/18 Xl] Isosorbide MONOnitrate (24 HR) 90 mg PO DAILY #30 tab.er.24h 08/27/18 [Imdur] Allergies Allergy/AdvReac Type Severity Reaction Status Date / Time ampicillin Allergy Hives Verified 02/18/19 12:36 promethazine [From Phenergan] AdvReac Confusion Verified 02/18/19 12:36 All systems ED: reviewed and negative except as stated. Review of Systems: As Per HPI Constitutional: Reports: chills, weakness. Denies: fever Cardiovascular: Reports: chest pain, dyspnea on exertion. Denies: palpitations, orthopnea, edema Respiratory: Reports: dyspnea. Denies: cough, wheezes, hemoptysis, stridor Gastrointestinal: Denies: abdominal pain, nausea, vomiting, diarrhea Musculoskeletal: Denies: back pain, neck pain Integumentary: Denies: rash Neurological: Denies: headache Endocrine: Reports: fatigue Chest Pain PMH - Past Medical History Medical history: Reports: CHF, COPD, coronary artery disease, CVA, hyperlipidemia, hypertension, other Surgical history: Reports: other Psychiatric history: Reports: anxiety, depression - Social History Smoking Status: Current every day smoker Alcohol use: Reports: occasionally Drug use: Reports: none Physical Exam - General Limitations: no limitations General appearance: alert, in no apparent distress - Head Head exam: atraumatic, normocephalic - Eye Eye exam: Present: normal appearance, PERRL, EOMI - ENT ENT exam: normal exam - Neck Neck exam: Present: normal inspection. Absent: tenderness, lymphadenopathy - Chest Chest inspection: Present: normal inspection. Absent: tenderness - Respiratory Respiratory exam: Present: other (Diminished breath sounds in all lung grace without prominent wheezing or crackles.) - Cardiovascular Cardiovascular exam: Present: regular rate, normal rhythm - Abdominal Exam Abdominal exam: Present: soft, Non-Tender. Absent: distention, guarding, rebound, rigidity - Extremities Exam Extremities exam: Present: normal inspection. Absent: tenderness, pedal edema - Neurological Exam Neurological exam: Present: alert, oriented X3 - Psychiatric Psychiatric exam: Present: anxious - Skin Skin exam: Present: warm, dry, intact Course Vital Signs Temperature 97.5 F L 02/18/19 12:36 Pulse Rate 78 02/18/19 12:36 Respiratory Rate 18 02/18/19 12:36 Blood Pressure 116/72 02/18/19 12:36 O2 Sat by Pulse Oximetry 96 02/18/19 12:36 Temperature 97.5 F L 02/18/19 12:36 Pulse Rate 78 02/18/19 12:36 Respiratory Rate 18 02/18/19 12:36 Blood Pressure 116/72 02/18/19 12:36 O2 Sat by Pulse Oximetry 96 02/18/19 12:36 Chest Pain - MDM Narrative Medical decision making narrative: Patient presents with a story concerning for exertional cardiac chest pain with an abnormal heart catheter in August 2018. We will obtain a cardiac workup on this patient at this time with chest x-ray, EKG, lab work. 1520 - chest x-ray did not show any acute cardiopulmonary process. EKG was without changes from his previous. Troponin was less than 0.03. Other lab work was within normal limits for the patient. Since his story is concerning for cardiac etiology with his abnormal cardiac catheter we will admit to the hospitalist for further cardiac evaluation at this time. Patient is agreeable with this plan of care. 1600 - Hospitalist has accepted pt for admission. - Medical Records Medical records reviewed: Yes I reviewed the patient's medical records. - Lab Data Lab results reviewed: Yes I reviewed the patient's lab results. Result diagrams: 02/18/19 13:53 02/18/19 13:53 Lab Results 02/18/19 02/18/19 02/18/19 Range/Units 13:53 13:53 13:53 WBC 7.5 (4.3-11.1) K/mcL RBC 4.65 (4.19-5.50) M/mcL Hgb 13.7 (12.9-16.9) g/dL Hct 41.9 (37.5-50.1) % MCV 90.1 (83.0-100.0) fL MCH 29.5 (28.0-33.3) pg MCHC 32.7 (31.6-35.5) g/dL RDW 13.2 (11.5-14.5) % Plt Count 240 (140-400) K/mcL MPV 11.5 (9.4-12.4) fL Immature Gran % 0.8 (0-4) % Seg Neutrophils % 68.1 % Lymphocytes % 22.6 % Monocytes % 7.6 % Eosinophils % 0.5 % Basophils % 0.4 % Neutrophils # 5.1 (1.6-8.9) K/mcL Lymphocytes # 1.7 (0.6-4.6) K/mcL Monocytes # 0.6 (0.0-1.3) K/mcL Eosinophils # 0.0 (0.0-0.6) K/mcL Basophils # 0.0 (0.0-0.2) K/mcL PT 22.3 H (9.4-12.1) Seconds INR 2.0 APTT 38.6 H (26.0-36.0) Seconds D-Dimer < 215 (0-500) ng/mLFEU Sodium 142 (136-145) mEq/L Potassium 4.3 (3.5-5.1) mEq/L Chloride 105 (98-107) mEq/L Carbon Dioxide 28 (23-29) mEq/L BUN 13 (8-23) mg/dL Creatinine 0.98 (0.70-1.30) mg/dL Est GFR ( Amer) > 60 (> 60) Est GFR (Non-Af Amer) > 60 (> 60) BUN/Creatinine Ratio 13 (6-26) Glucose 96 (70-105) mg/dL Calculated Osmolality 294 (280-300) Calcium 9.3 (8.6-10.3) mg/dL Troponin I < 0.03 (< 0.04) ng/mL - Radiology Data Radiology results reviewed: Yes I reviewed the patient's radiology results. - EKG Data EKG attestation: Yes I reviewed and interpreted this EKG. EKG results narrative: EKG obtained at 12:39 on 02/18/2019 Heart rate 78 bpm, ME interval 151, QRS duration 97, QT 369, QTC 402 Sinus rhythm without any ST segment elevations or depressions. No other T-wave abnormalities. Unchanged when compared to previous EKG dated 08/24/2018. Heart Score - Score History: Moderately Suspicious EKG: Normal Age: Greater than 65 Risk Factors: Equal/Greater than 3 risk factor or history of atherosclerotic disease Troponin: Less than normal limit HEART Score Total: 5 Attestation Statement - Attestation Attestation: I, Casper Lawrence, examined this patient and my medical decision-making was reviewed with the STAFF [employer] OFFICER/PA/Advanced Practice Nurse/Resident Physician. I agree with the documented findings, disposition and treatment plan as described except to the extent set forth below. 68-year-old male presents emergency Department after having acute onset chest pain last night. Patient states symptoms started while at rest. He has been dyspneic and weak and fatigued throughout the day today. Patient had i ntermittent chest pain today as well. Patient denies fever, cough, changes in medications. He does take Coumadin for history of irregular rhythm as well as history of stroke. D-dimer is negative. EKG did not show evidence of STEMI. Initial troponin negative. Patient will be admitted to the hospitalist for further care and evaluation of his acute onset chest pain rule out ACS.
[2019-02-18 14:12] LABS: Basophils % 0.4 %; Eosinophils % 0.5 %; Hematocrit 41.9 % (37.5-50.1); Hemoglobin 13.7 g/dL (12.9-16.9); Immature Granulocytes % 0.8 % (0-4); Lymphocytes # 1.7 K/mcL (0.6-4.6); Lymphocytes % 22.6 %; Mean Corpuscular HGB Conc 32.7 g/dL (31.6-35.5); Mean Corpuscular Hemoglobin 29.5 pg (28.0-33.3); Mean Corpuscular Volume 90.1 fL (83.0-100.0); Mean Platelet Volume 11.5 fL (9.4-12.4); Monocytes # 0.6 K/mcL (0.0-1.3); Monocytes % 7.6 %; Neutrophils # 5.1 K/mcL (1.6-8.9); Platelet Count 240 K/mcL (140-400); Red Blood Count 4.65 M/mcL (4.19-5.50); Red Cell Distribution Width 13.2 % (11.5-14.5); Segmented Neutrophils % 68.1 %
[2019-02-18 14:27] LABS: Prothrombin Time 22.3 Seconds (9.4-12.1)
[2019-02-18 14:30] LABS: Activated Partial Thrombo Time 38.6 Seconds (26.0-36.0); BUN/Creatinine Ratio 13 (6-26); Blood Urea Nitrogen 13 mg/dL (8-23); Calcium 9.3 mg/dL (8.6-10.3); Carbon Dioxide 28 mEq/L (23-29); Chloride 105 mEq/L (98-107); Glucose 96 mg/dL (70-105); Osmolality,Calculated 294 (280-300); Potassium 4.3 mEq/L (3.5-5.1); Sodium 142 mEq/L (136-145); Troponin I < 0.03 ng/mL (< 0.04); eGFR For Non-African Americans > 60 (> 60)
[2019-02-18 14:48] LABS: D-Dimer < 215 ng/mLFEU (0-500)
[2019-02-18] MEDS ORDERED: Aspirin 325 MG TABLET PO ONE (16:48)
[2019-02-18] MEDS ORDERED: traMADol 50 MG TABLET PO PRN (17:06)
[2019-02-18] MEDS ORDERED: Ondansetron 4 MG/2 ML VIAL IVP PRN (17:06)
[2019-02-18] MEDS ORDERED: Acetaminophen 325 MG TABLET PO PRN (17:06)
[2019-02-18] MEDS ORDERED: Naloxone 0.4 MG/ML INJ IVP PRN (17:06)
[2019-02-18] MEDS ORDERED: *HR* Promethazine 25 MG/ML VIAL IVP PRN (17:06)
[2019-02-18] MEDS ORDERED: MOM Conc 10 ML UD.LIQ PO PRN (17:06)
--- NOTE | 2019-02-18 17:12 | Internal Med History&Physical ---
Date of Encounter: 02/18/19 Time of Encounter: 17:10 Internal Medicine - H&P: HPI Admitted From: Home Plans for Post Hospital Care: Home History of present illness: Mr. Headley is a 68 yo male with PMHx of CHF, CAD, COPD, previous stroke presents to the emergency department with chief complaint of chest pain that started last time before he went to bed. He states that he has noticed the chest pain on the left side of his chest, describing it as aching in quality without any radiation, before he went to bed at 8 PM last night. He states that it is pain with exertion and goes away when he lies down to rest. He is also had increased shortness of breath with this. He states "I think I had a heart attack last night". He has never had a heart attack to his knowledge. He denies abdominal pain, nausea and vomiting. He feels cold and stated he has gotten sweaty with the chest pain. He is unsure if he has had any sick contacts. He is not had a cough with this chest pain and shortness of breath. He does take Coumadin daily for his history of stroke and irregular heart rate but has had trouble with his INR recently. Patient had a recent heart catheter in August which showed 60-70% occlusion of his right coronary artery without stenting at that time. While in the ED, patient vital signs were stable, labs were unremarkable i ncluding a negative troponin. EKG showed normal sinus rhythm with nonspecific ST-T change. Chest x-ray showed chronic and stable COPD. He received 1 dose of aspirin and will be admitted for further evaluation. CODE STATUS discussed with patient, he wishes full code. Past Med Surg Social Fam HX - Past Medical History Medical history: CHF, COPD, coronary artery disease, CVA, hyperlipidemia, hypertension, other Additional medical history: depression,BPH,psoriasis,dyslipidemia. HARD OF HEARING. HOME OXYGEN AT NIGHT. SMOKER Psychiatric history: anxiety, depression - Past Surgical History Surgical History: other Additional surgical history: TURP - Social History Smoking Status: Current every day smoker Smokeless Tobacco Status: No Alcohol use: occasionally Drug use: none - Family History Mother Living Status: Hx Family Cardiac Disorders: Yes Hx Family Cancer: Yes Hx Family Endocrine Disorder: Yes (DM) Father Living Status: Hx Family Respiratory Disorders: Yes Internal Medicine - H&P: Meds Pravastatin Sodium [Pravachol] 20 mg PO QPM 02/12/16 [History] clonazePAM [Klonopin] 0.5 mg PO DAILY PRN 02/12/16 [History] hydrOXYzine pamoate [HydrOXYzine Pamoate] 25 mg PO Q8H PRN 06/01/18 [History] Amlodipine Besylate 10 mg PO DAILY 06/06/18 [History] Sertraline [Zoloft] 50 mg PO DAILY 06/06/18 [History] Tamsulosin [Flomax] 0.4 mg PO HS 06/06/18 [History] Metoprolol XL (24 HR) Succ [Toprol Xl] 50 mg PO DAILY #30 tab.er.24h 06/10/18 [Rx] Finasteride [Proscar] 5 mg PO DAILY 06/19/18 [History] Ipratropium/Albuterol Neb [Duoneb] 3 ml IH Q6HR 06/19/18 [History] Lisinopril [Zestril] 10 mg PO DAILY 06/19/18 [History] Multivit-Min/FA/Lycopen/Lutein [Adults 50+ Multivitamin Tablet] 1 tab PO DAILY 06/19/18 [History] PARoxetine HCl [Paroxetine HCl] 40 mg PO DAILY 06/19/18 [History] Albuterol Sulfate [Proair Hfa] 2 puff IH Q6H PRN 08/24/18 [History] Aspirin [Adult Aspirin] 81 mg PO DAILY 08/24/18 [History] Budesonide/Formoterol 160/4.5 [Symbicort 160/4.5] 2 puff IH BIDR 08/24/18 [History] Warfarin [Coumadin] 3 mg PO DAILY 08/24/18 [History] Isosorbide MONOnitrate (24 HR) [Imdur] 90 mg PO DAILY #30 tab.er.24h 08/27/18 [Rx] Allergy/AdvReac Type Severity Reaction Status Date / Time ampicillin Allergy Hives Verified 02/18/19 12:36 promethazine [From Phenergan] AdvReac Confusion Verified 02/18/19 12:36 All Systems PM: A 10-system review of systems was performed and is negative for pertinent findings except as documented above in the HPI. Review of systems: REVIEW OF SYSTEMS: CONSTITUTIONAL: No weight loss, fever, chills, weakness or fatigue. HEENT: Eyes: No visual loss, blurred vision, double vision or yellow sclerae. Ears, Nose, Throat: No hearing loss, sneezing, congestion, runny nose or sore throat. SKIN: No rash or itching. CARDIOVASCULAR: see HPI. RESPIRATORY: No shortness of breath, cough or sputum. GASTROINTESTINAL: No anorexia, nausea, vomiting or diarrhea. No abdominal pain or blood. GENITOURINARY: No dysuria, urgency, or frequency. NEUROLOGICAL: No headache, dizziness, syncope, paralysis, ataxia, numbness or tingling in the extremities. No change in bowel or bladder control. MUSCULOSKELETAL: No muscle, back pain, joint pain or stiffness. HEMATOLOGIC: No anemia, bleeding or bruising. LYMPHATICS: No enlarged nodes. No history of splenectomy. PSYCHIATRIC: No history of depression or anxiety. ENDOCRINOLOGIC: No reports of sweating, cold or heat intolerance. No polyuria or polydipsia. - Constitutional Vitals: Temp Pulse Resp BP Pulse Ox 97.5 F L 78 18 116/72 96 02/18/19 12:36 02/18/19 12:36 02/18/19 12:36 02/18/19 12:36 02/18/19 12:36 General appearance: Present: A&O X 3 Exam: PHYSICAL EXAMINATION: GENERAL APPEARANCE: The patient is alert, oriented and in no acute distress. HEENT: Head is normocephalic. The sinuses are nontender. Pupils are equal and reactive. The nares are patent. Oropharynx clear without lesions. NECK: Supple without lymphadenopathy. HEART: Regular rate and rhythm. LUNGS: No crackles or wheezes are heard. ABDOMEN: Soft, nontender, nondistended with good bowel sounds heard. Inguinal area is normal. EXTREMITIES: Without cyanosis, clubbing or edema. NEUROLOGICAL: Gross nonfocal. SKIN: Warm and dry without any rash. Internal Med - H&P Results - Labs CBC & Chem 7: 02/18/19 13:53 02/18/19 13:53 Labs: Short CBC 02/18/19 Range/Units 13:53 WBC 7.5 (4.3-11.1) K/mcL Hgb 13.7 (12.9-16.9) g/dL Hct 41.9 (37.5-50.1) % Plt Count 240 (140-400) K/mcL Neutrophils # 5.1 (1.6-8.9) K/mcL BMP 02/18/19 13:53 Sodium 142 Potassium 4.3 Chloride 105 Carbon Dioxide 28 BUN 13 Creatinine 0.98 Glucose 96 Calcium 9.3 Cardiac Enzymes 02/18/19 Range/Units 13:53 Troponin I < 0.03 (< 0.04) ng/mL - Impressions ITS Impressions Chest X-Ray 02/18/19 12:41 IMPRESSION: COPD and chronic interstitial changes are stable. No acute finding in the chest. D/ / Pranay Padilla MD / Pranay Padilla MD Interpreting Provider: Pranay Padilla MD - Assessment and Plan (1) Chest pain Current Visit: Yes Status: Acute Assessment and plan: 68-year-old male with known history of CAD presented with left-sided chest pain. First set of troponin was negative, EKG has no acute ST-T change. Symptoms are concerning for stable angina. LHC in 08/2018 revealed one-vessel disease, 60-70% stenosis of RCA. Medication management was recommended at that time and patient was stented. Patient symptoms is similar as last time in August 2018. We will continue cycling troponin, telemetry monitoring, EKG as needed. We will repeat an echocardiogram in the morning. Consult cardiology. Qualifiers: Chest pain type: unspecified Qualified Code(s): R07.9 - Chest pain, unspecified (2) HLD (hyperlipidemia) Current Visit: No Status: Chronic Assessment and plan: Continue home medicine statins. Qualifiers: Hyperlipidemia type: unspecified Qualified Code(s): E78.5 - Hyperlipidemia, unspecified (3) Hypertension Current Visit: No Status: Chronic Assessment and plan: BP controlled, continue home medication once verified. Qualifiers: Hypertension type: essential hypertension Qualified Code(s): I10 - Essential (primary) hypertension (4) CVA (cerebral vascular accident) Current Visit: No Status: Chronic Assessment and plan: INR therapeutic currently, continue Coumadin, pharmacy to dose. Qualifiers: CVA mechanism: other Qualified Code(s): I63.89 - Other cerebral infarction (5) COPD (chronic obstructive pulmonary disease) Current Visit: No Status: Chronic Assessment and plan: Patient has no respiratory distress, continue home medications Qualifiers: COPD type: unspecified COPD Qualified Code(s): J44.9 - Chronic obstructive pulmonary disease, unspecified (6) CAD (coronary artery disease) Current Visit: No Status: Chronic Assessment and plan: Same as above. Qualifiers: Coronary Disease-Associated Artery/Lesion type: [place] artery [place] vs. transplanted heart: [place] heart Associated angina: with stable angina Qualified Code(s): I25.118 - Atherosclerotic heart disease of [place] coronary artery with other forms of angina pectoris (7) Systolic and diastolic CHF, chronic Current Visit: No Status: Chronic Assessment and plan: Patient euvolemic on physical exam, echocardiogram in August 2018 reviewed, ejection fraction 45%. We will repeat echocardiogram. We will continue home medications including beta yane and ACEI. Patient was not on diuretics at home. (8) DVT prophylaxis Current Visit: Yes Status: Acute Assessment and plan: Continue Coumadin. - Time Spent With Patient Total time spent is greater than 50% in coordination of care (as documented) at patient's floor/unit and/or counseling patient: Greater than 35 minutes
[2019-02-18] MEDS: Nicotine 21 MG PATCH.TD24 TD SCH (17:56)
[2019-02-18] MEDS ORDERED: Warfarin perPT PO PRN (18:00)
[2019-02-18] MEDS ORDERED: *HR* Warfarin 3 MG TABLET PO ONE (20:10)
[2019-02-19] MEDS: clonazePAM 0.5 MG TABLET PO PRN ×2 (00:11→20:22)
[2019-02-19] MEDS: Budesonide/Formoterol 160/4.5 1 PUFF INH IH SCH ×3 (01:27→19:39)
[2019-02-19 02:46] LABS: Basophils % 0.4 %; Eosinophils # 0.1 K/mcL (0.0-0.6); Eosinophils % 1.2 %; Hematocrit 36.9 % (37.5-50.1); Immature Granulocytes % 0.4 % (0-4); Lymphocytes % 36.7 %; Mean Corpuscular HGB Conc 32.8 g/dL (31.6-35.5); Mean Corpuscular Hemoglobin 29.2 pg (28.0-33.3); Mean Corpuscular Volume 89.1 fL (83.0-100.0); Mean Platelet Volume 11.5 fL (9.4-12.4); Monocytes # 0.8 K/mcL (0.0-1.3); Monocytes % 9.3 %; Neutrophils # 4.2 K/mcL (1.6-8.9); Platelet Count 232 K/mcL (140-400); Red Blood Count 4.14 M/mcL (4.19-5.50); Red Cell Distribution Width 13.4 % (11.5-14.5)
[2019-02-19 02:48] LABS: Hemoglobin 12.1 g/dL (12.9-16.9)
[2019-02-19 03:00] LABS: BUN/Creatinine Ratio 17 (6-26); Blood Urea Nitrogen 17 mg/dL (8-23); Carbon Dioxide 28 mEq/L (23-29); Chloride 108 mEq/L (98-107); Chol/HDL Ratio 2.7 (0-4.9); Cholesterol 117 mg/dL (< 200); Glucose 90 mg/dL (70-105); HDL Cholesterol 43 mg/dL (40-59); LDL Cholesterol,Calculated 57 mg/dL (0-99); Osmolality,Calculated 297 (280-300); Potassium 4.2 mEq/L (3.5-5.1); Sodium 143 mEq/L (136-145); Triglycerides 83 mg/dL (< 150); eGFR For Non-African Americans > 60 (> 60)
[2019-02-19 03:05] LABS: INR 1.9; Prothrombin Time 20.9 Seconds (9.4-12.1)
--- NOTE | 2019-02-19 06:23 | Electrocardiograph Report ---
[facility] Test Date: 2019-02-18 Pat Name: Vishal Headley Department: 104 Room: 3B65 Gender: M Fern Gatherer: [facility] : 1950 Requested By: Michelle See Order Number: [id number] Reading MD: Nikhil Mcmanus Measurements Intervals [place] Rate: 78 P: 76 VT: 151 QRS: 79 QRSD: 97 T: 73 QT: 369 QTc: 402 Interpretive Statements SINUS RHYTHM Electronically Signed On 02-19-2019 6:22:09 EDT by Nikhil Mcmanus
--- NOTE | 2019-02-19 09:57 | Internal Med Progress Note ---
Hospitalist Progress Note - Encounter Date of Encounter: 02/19/19 Time of Encounter: 09:54 - Subjective Interval History: pt seen and examined in the room. He has no chest pain currently. - Exam Vitals: Temp Pulse Resp BP Pulse Ox 97.8 F 79 14 106/69 96 02/19/19 07:32 02/19/19 07:32 02/19/19 08:06 02/19/19 07:32 02/19/19 09:12 Exam: PHYSICAL EXAMINATION: GENERAL APPEARANCE: The patient is alert, oriented and in no acute distress. HEENT: Head is normocephalic. The sinuses are nontender. Pupils are equal and reactive. The nares are patent. Oropharynx clear without lesions. NECK: Supple without lymphadenopathy. HEART: Regular rate and rhythm. LUNGS: No crackles or wheezes are heard. ABDOMEN: Soft, nontender, nondistended with good bowel sounds heard. Inguinal area is normal. EXTREMITIES: Without cyanosis, clubbing or edema. NEUROLOGICAL: Gross nonfocal. SKIN: Warm and dry without any rash. - Assessment and Plan (1) Chest pain Current Visit: Yes Status: Acute Assessment and Plan: 68-year-old male with known history of CAD presented with left-sided chest pain. First set of troponin was negative, EKG has no acute ST-T change. Symptoms are concerning for stable angina. LHC in 08/2018 revealed one-vessel disease, 60-70% stenosis of RCA. Medication management was recommended at that time and patient was not stented. Patient symptoms is similar as last time in August 2018. We will continue cycling troponin, telemetry monitoring, EKG as needed. Consult cardiology. (2) HLD (hyperlipidemia) Current Visit: No Status: Chronic Assessment and Plan: Continue home medicine statins. (3) Hypertension Current Visit: No Status: Chronic Assessment and Plan: BP controlled, continue home medication. (4) CVA (cerebral vascular accident) Current Visit: No Status: Chronic Assessment and Plan: INR 1.9, continue Coumadin, pharmacy to dose. (5) COPD (chronic obstructive pulmonary disease) Current Visit: No Status: Chronic Assessment and Plan: Patient has no respiratory distress, continue home medications (6) CAD (coronary artery disease) Current Visit: No Status: Chronic Assessment and Plan: Same as above. (7) Systolic and diastolic CHF, chronic Current Visit: No Status: Chronic Assessment and Plan: Patient euvolemic on physical exam, echocardiogram in August 2018 reviewed, ejection fraction 45%. We will repeat echocardiogram. We will continue home medications including beta yane and ACEI. Patient was not on diuretics at home. (8) DVT prophylaxis Current Visit: Yes Status: Acute Assessment and Plan: Continue Coumadin. - Time Spent with Patient Total time spent is greater than 50% in coordination of care (as documented) at patient's floor/unit and/or counseling patient: Greater than 35 minutes Plan of Care Discussed with: family Internal Medicine: Result - Labs CBC & Chem 7: 02/19/19 02:03 02/19/19 02:03 Labs: Short CBC 02/18/19 02/19/19 Range/Units 13:53 02:03 WBC 7.5 8.1 (4.3-11.1) K/mcL Hgb 13.7 12.1 L D (12.9-16.9) g/dL Hct 41.9 36.9 L (37.5-50.1) % Plt Count 240 232 (140-400) K/mcL Neutrophils # 5.1 4.2 (1.6-8.9) K/mcL BMP 02/18/19 02/19/19 13:53 02:03 Sodium 142 143 Potassium 4.3 4.2 Chloride 105 108 H Carbon Dioxide 28 28 BUN 13 17 Creatinine 0.98 1.02 Glucose 96 90 Calcium 9.3 9.0 Cardiac Enzymes 02/18/19 02/18/19 02/19/19 Range/Units 13:53 19:41 02:03 Troponin I < 0.03 < 0.03 < 0.03 (< 0.04) ng/mL - ABG Interpretation ABG results: PT/INR, D-dimer PT 20.9 Seconds (9.4-12.1) H 02/19/19 02:03 D-Dimer < 215 ng/mLFEU (0-500) 02/18/19 13:53 - Impressions Impressions Chest X-Ray 02/18/19 12:41 IMPRESSION: COPD and chronic interstitial changes are stable. No acute finding in the chest. D/ / Pranay Padilla MD / Pranay Padilla MD Interpreting Provider: Pranay Padilla MD Consult Discharge Plan - Plan Referrals: Yane Garcia, [employer] [Primary Care Provider] - (1) Chest pain Qualifiers: Chest pain type: unspecified Qualified Code(s): R07.9 - Chest pain, unspecified (2) HLD (hyperlipidemia) Qualifiers: Hyperlipidemia type: unspecified Qualified Code(s): E78.5 - Hyperlipidemia, unspecified (3) Hypertension Qualifiers: Hypertension type: essential hypertension Qualified Code(s): I10 - Essential (primary) hypertension (4) CVA (cerebral vascular accident) Qualifiers: CVA mechanism: other Qualified Code(s): I63.89 - Other cerebral infarction (5) COPD (chronic obstructive pulmonary disease) Qualifiers: COPD type: unspecified COPD Qualified Code(s): J44.9 - Chronic obstructive pulmonary disease, unspecified (6) CAD (coronary artery disease) Qualifiers: Coronary Disease-Associated Artery/Lesion type: [place] artery [place] vs. transplanted heart: [place] heart Associated angina: with stable angina Qualified Code(s): I25.118 - Atherosclerotic heart disease of [place] coronary artery with other forms of angina pectoris
[2019-02-19] MEDS ORDERED: Isosorbide MONOnitrate (24 HR) 60 MG TAB.ER.24H PO SCH (10:30)
--- NOTE | 2019-02-19 10:38 | Cardiology Consult Note ---
<Stevenson Richter Luna - Last Filed: 02/19/19 14:22> Date of Encounter: 02/19/19 Time of Encounter: 10:15 Assessment and Plan (1) Chest pain Current Visit: Yes Status: Acute Currently resolved Pt reports may be related to news that his only granddaughter is moving away EKG without ischemic changes Troponins negative x3 Echocardiogram without significant changes Recommend continued medical management at this time Continue ASA 81mg daily Continue Warfarin Continue Imdur 60mg daily Continue Metoprolol XL 50mg daily Increase to high intensity statin with ASCVD risk calculation - was on Pravastatin 20mg daily, change to Atorvastatin 40mg daily Continue Norvasc 10mg daily Continue Lisinopril 10mg daily Cardiology will sign off at this time. Please do not hesitate to call with questions. Thank you for involving us in the care of this patient. (2) CAD (coronary artery disease) Current Visit: Yes Status: Chronic as above Had LHC in August 2018 which showed disease of the RCA but no interventions indicated at that time Medications as above (3) COPD (chronic obstructive pulmonary disease) Current Visit: Yes Status: Chronic Not in acute exacerbation Continue home medications (4) Systolic and diastolic CHF, chronic Current Visit: Yes Status: Chronic Does not appear to be in acute exacerbation Echo results as follows: - LVEF 45% - Mild segmental LV systolic dysfunction - Mild LV diastolic dysfunctions Findings unchanged when compared to previous echo from 2018 Continue home medications as above (5) Tobacco abuse Current Visit: Yes Status: Chronic Counseled on the importance of cessation and treatment alternatives Continue nicotine patch (6) History of CVA (cerebrovascular accident) Current Visit: Yes Status: Chronic Hx of CVA in 2018 This hx combined with age - recommend high-intensity statin with ASCVD risk calculation. Pt was previously on low-intensity statin at home. Recommend continue Atorvastatin 40mg daily on discharge. Follow up with PCP Discussion w patient/family: The assessment and plan as outlined above was discussed with the patient and/or family members who expressed understanding and agreement. All questions were answered. Thank you for involving us in the care of your patient. Please call with any questions. History of Present Illness Consult date: 02/19/19 Requesting physician: Benton De La Cruz Consult reason: Chest Pain Chief complaint: Chest Pain History of present illness: Mr. Headley is a 68 year old male with PMH of CAD, CHF, tobacco abuse, previous stroke, and COPD. He originally presented to the ED complaining of left sided chest pain accompanied by some shortness of breath. Denies any syncope, dizziness, headaches, numbness, tingling, palpitations, or nausea. CXR from the ED was negative for acute abnormalities. EKG showed no significant changes from previous. Initial troponin negative. Pt seen and examined at bedside. States chest pain resolved last night and has not returned since. States he thinks it is related to the news that his only granddaughter is moving to [place]. States he is very worried about her moving to [facility] and is worried she will get hurt. Denies any shortness of breath, headache, syncope, palpitations, dizziness, lightheadedness, numbness, tingling, or nausea. Reports that he takes Coumadin at the recommendation of Neurology after multiple strokes in April of 2018 thought to be cardioembolic in nature with hypokinetic LV. Past Med Surg Social Fam HX - Past Medical History Medical history: CHF, COPD, coronary artery disease, CVA, hyperlipidemia, hypertension, other Additional medical history: depression,BPH,psoriasis,dyslipidemia. HARD OF HEARING. HOME OXYGEN AT NIGHT. SMOKER Psychiatric history: anxiety, depression - Past Surgical History Surgical History: other Additional surgical history: TURP - Social History Smoking Status: Current every day smoker Smokeless Tobacco Status: No Alcohol use: occasionally Drug use: none - Family History Mother Living Status: Age at : 82 Cause of : DM Hx Family Cardiac Disorders: Yes Hx Family Cancer: Yes Hx Family Endocrine Disorder: Yes (DM) Father Living Status: Age at : 73 Cause of : COPD lung ca Hx Family Respiratory Disorders: Yes Medications and Allergies Pravastatin Sodium [Pravachol] 20 mg PO QPM 02/12/16 [History] clonazePAM [Klonopin] 0.5 mg PO DAILY PRN 02/12/16 [History] hydrOXYzine pamoate [HydrOXYzine Pamoate] 25 mg PO Q8H PRN 06/01/18 [History] Amlodipine Besylate 10 mg PO DAILY 06/06/18 [History] Sertraline [Zoloft] 50 mg PO DAILY 06/06/18 [History] Tamsulosin [Flomax] 0.4 mg PO HS 06/06/18 [History] Metoprolol XL (24 HR) Succ [Toprol Xl] 50 mg PO DAILY #30 tab.er.24h 06/10/18 [Rx] Finasteride [Proscar] 5 mg PO DAILY 06/19/18 [History] Ipratropium/Albuterol Neb [Duoneb] 3 ml IH Q6HR 06/19/18 [History] Lisinopril [Zestril] 10 mg PO DAILY 06/19/18 [History] Multivit-Min/FA/Lycopen/Lutein [Adults 50+ Multivitamin Tablet] 1 tab PO DAILY 06/19/18 [History] PARoxetine HCl [Paroxetine HCl] 40 mg PO DAILY 06/19/18 [History] Albuterol Sulfate [Proair Hfa] 2 puff IH Q6H PRN 08/24/18 [History] Aspirin [Adult Aspirin] 81 mg PO DAILY 08/24/18 [History] Budesonide/Formoterol 160/4.5 [Symbicort 160/4.5] 2 puff IH BIDR 08/24/18 [History] Warfarin [Coumadin] 3 mg PO QPM 08/24/18 [History] Isosorbide MONOnitrate (24 HR) [Imdur] 90 mg PO DAILY #30 tab.er.24h 08/27/18 [Rx] Allergy/AdvReac Type Severity Reaction Status Date / Time ampicillin Allergy Hives Verified 02/18/19 12:36 promethazine [From Phenergan] AdvReac Confusion Verified 02/18/19 12:36 All Systems Review: The remainder of the systems were reviewed and are negative - Constitutional Constitutional: no chills, no fever(s), no headache(s), no weakness - EENT Eyes: no blurred vision, no loss of vision - Cardiovascular Cardiovascular: no chest pain at rest, no chest pain with exertion, no diaphoresis, no dyspnea at rest, no dyspnea on exertion, no irregular heart rhythm, no leg edema, no lightheadedness, no palpitations, no syncope - Respiratory Respiratory: no cough, no dyspnea, no wheezing - Gastrointestinal Gastrointestinal: no abdominal pain, no constipation, no diarrhea, no nausea - Genitourinary Genitourinary: no dysuria, no hematuria - Musculoskeletal Musculoskeletal: no arthralgias, no myalgias - Integumentary Integumentary: no erythema, no rash, no unusual bruising - Neurological Neurological: no dizziness, no numbness, no syncope, no tingling - Hematological/Lymphatic Hematologic/Lymphatic: no easy bleeding, no easy bruising Physical Examination Vital Signs, Last 4 Hours Temp Pulse Resp BP Pulse Ox 02/19/19 09:12 96 02/19/19 08:06 14 96 02/19/19 07:32 97.8 F 79 14 106/69 96 General: Conversant, No Apparent Distress HEENT: Atraumatic, Normocephaly, Mucus Membranes Moist Neck: No JVD, Normal carotid pulses Cardiac: Reg Rate and Rhythm, Normal S1 and S2, No Murmur Lungs: Normal Breath Sounds, No Wheeze, Rales, Rhonchi Neuro: Alert and responsive, No focal deficits noted Abdomen: Soft, Non-Tender Skin: No rashes noted on visualized skin Musculoskeletal: No Chest Wall Tenderness Extremities: No Clubbing, No Cyanosis, No Edema, Normal Pulses Results 02/19/19 02:03 02/19/19 02:03 Lab Results 02/18/19 02/18/19 02/18/19 13:53 13:53 13:53 WBC 7.5 Hgb 13.7 Hct 41.9 Plt Count 240 INR 2.0 APTT 38.6 H D-Dimer < 215 Sodium 142 Potassium 4.3 Chloride 105 Carbon Dioxide 28 BUN 13 Creatinine 0.98 Glucose 96 Calcium 9.3 Troponin I < 0.03 02/18/19 02/19/19 02/19/19 19:41 02:03 02:03 WBC 8.1 Hgb 12.1 L D Hct 36.9 L Plt Count 232 INR APTT D-Dimer Sodium Potassium Chloride Carbon Dioxide BUN Creatinine Glucose Calcium Troponin I < 0.03 < 0.03 02/19/19 02/19/19 02:03 02:03 WBC Hgb Hct Plt Count INR 1.9 APTT D-Dimer Sodium 143 Potassium 4.2 Chloride 108 H Carbon Dioxide 28 BUN 17 Creatinine 1.02 Glucose 90 Calcium 9.0 Troponin I - Imaging and Cardiology Chest Xray: report reviewed, image reviewed Echo: report reviewed, image reviewed - EKG Interpretation EKG results cardiology: personally reviewed, normal ECG, sinus rhythm, no diagnostic ischemia Consult Discharge Plan - Plan Referrals: Yane Garcia CNP [Primary Care Provider] - 02/26/19 10:35 am <Santiago Sebastian A - Last Filed: 02/19/19 15:10> Date of Encounter: 02/19/19 - Attending Attestation I have personally performed a face to face evaluation on this patient. I have reviewed and agree with the documented findings and care plan as documented by the resident. History and Exam by me shows: 68-year-old gentleman with past history of nonobstructive CAD, COPD presented with worsening shortness of breath and chest tightness. AAOX3 in NAD at the bedside Hemodynamically stable Cardiopulmonary exam revealed S1, S2, no murmur; diffuse expiratory wheezes Rhythm reviewed - sinus rhythm, no acute ST T changes Echo preserved EF, no new wall motion abnormalities Impression/plan: Presentation more consistent with COPD exacerbation. Comment to optimize bronchodilators. CAD: Continue aspirin, Imdur,statin and beta yane Patient was encouraged to quit smoking Santiago Nettles MD FAC Assessment and Plan Discussion w patient/family: The assessment and plan as outlined above was discussed with the patient and/or family members who expressed understanding and agreement. All questions were an swered. Thank you for involving us in the care of your patient. Please call with any questions. History of Present Illness History of present illness: Mr. Headley is a 68 year old male All Systems Review: The remainder of the systems were reviewed and are negative Physical Examination Vital Signs, Last 4 Hours Temp Pulse Resp BP Pulse Ox 02/19/19 11:33 97.6 F 66 14 124/73 97 Results 02/19/19 02:03 02/19/19 02:03 Lab Results 02/18/19 02/19/19 02/19/19 19:41 02:03 02:03 WBC 8.1 Hgb 12.1 L D Hct 36.9 L Plt Count 232 INR Sodium Potassium Chloride Carbon Dioxide BUN Creatinine Glucose Calcium Troponin I < 0.03 < 0.03 02/19/19 02/19/19 02:03 02:03 WBC Hgb Hct Plt Count INR 1.9 Sodium 143 Potassium 4.2 Chloride 108 H Carbon Dioxide 28 BUN 17 Creatinine 1.02 Glucose 90 Calcium 9.0 Troponin I
[2019-02-19] MEDS ORDERED: Ipratropium/Albuterol Neb 3 ML IH PRN (14:12)
--- NOTE | 2019-02-19 14:24 | Internal Med Progress Note ---
Hospitalist Progress Note - Encounter Date of Encounter: 02/19/19 Time of Encounter: 14:21 - Subjective Interval History: pt seen and examined in the room. Currently has no chest pain. - Exam Vitals: Temp Pulse Resp BP Pulse Ox 97.6 F 66 14 124/73 97 02/19/19 11:33 02/19/19 11:33 02/19/19 11:33 02/19/19 11:33 02/19/19 11:33 Exam: PHYSICAL EXAMINATION: GENERAL APPEARANCE: The patient is alert, oriented and in no acute distress. HEENT: Head is normocephalic. The sinuses are nontender. Pupils are equal and reactive. The nares are patent. Oropharynx clear without lesions. NECK: Supple without lymphadenopathy. HEART: Regular rate and rhythm. LUNGS: No crackles or wheezes are heard. ABDOMEN: Soft, nontender, nondistended with good bowel sounds heard. Inguinal area is normal. EXTREMITIES: Without cyanosis, clubbing or edema. NEUROLOGICAL: Gross nonfocal. SKIN: Warm and dry without any rash. - Assessment and Plan (1) Chest pain Current Visit: Yes Status: Acute Assessment and Plan: 68-year-old male with known history of CAD presented with left-sided chest pain. First set of troponin was negative, EKG has no acute ST-T change. Symptoms are concerning for stable angina. LHC in 08/2018 revealed one-vessel disease, 60-70% stenosis of RCA. Medication management was recommended at that time and patient was not stented. Patient symptoms is similar as last time in August 2018. Cardiology consulted and recommended medical management, treat COPD. Duoneb added to symbicort, respiratory status stable. (2) Tobacco abuse Current Visit: Yes Status: Chronic Assessment and Plan: smoking cessation discussed with pt. (3) COPD (chronic obstructive pulmonary disease) Current Visit: Yes Status: Chronic Assessment and Plan: Patient has no respiratory distress, continue home medications (4) CAD (coronary artery disease) Current Visit: Yes Status: Chronic Assessment and Plan: Same as above. (5) Systolic and diastolic CHF, chronic Current Visit: Yes Status: Chronic Assessment and Plan: Patient euvolemic on physical exam, echocardiogram in August 2018 reviewed, ejection fraction 45%. We will repeat echocardiogram. We will continue home medications including beta yane and ACEI. Patient was not on diuretics at home. (6) History of CVA (cerebrovascular accident) Current Visit: Yes Status: Chronic Assessment and Plan: continue home Coumadin. - Time Spent with Patient Total time spent is greater than 50% in coordination of care (as documented) at patient's floor/unit and/or counseling patient: Greater than 35 minutes Plan of Care Discussed with: patient Internal Medicine: Result - Labs CBC & Chem 7: 02/19/19 02:03 02/19/19 02:03 Labs: Short CBC 02/19/19 Range/Units 02:03 WBC 8.1 (4.3-11.1) K/mcL Hgb 12.1 L D (12.9-16.9) g/dL Hct 36.9 L (37.5-50.1) % Plt Count 232 (140-400) K/mcL Neutrophils # 4.2 (1.6-8.9) K/mcL BMP 02/18/19 02/19/19 13:53 02:03 Sodium 142 143 Potassium 4.3 4.2 Chloride 105 108 H Carbon Dioxide 28 28 BUN 13 17 Creatinine 0.98 1.02 Glucose 96 90 Calcium 9.3 9.0 Cardiac Enzymes 02/18/19 02/18/19 02/19/19 Range/Units 13:53 19:41 02:03 Troponin I < 0.03 < 0.03 < 0.03 (< 0.04) ng/mL - ABG Interpretation ABG results: PT/INR, D-dimer PT 20.9 Seconds (9.4-12.1) H 02/19/19 02:03 D-Dimer < 215 ng/mLFEU (0-500) 02/18/19 13:53 - Impressions Impressions Echocardiogram 02/18/19 16:47 Impressions: LVEF 45%. Mild segmental left ventricular systolic dysfunction. Mild left ventricular diastolic dysfunction. Normal right ventricular structure and function. No significant valvular dysfunction. No evidence of pulmonary hypertension. Left Ventricular Wall Motion: Rest Echo Findings The mid inferior, basal inferior, mid inferior septal, basal inferior septal, mid inferior lateral and basal inferior lateral almodovar were hypokinetic. All other wall segments showed normal motion. Findings: Study Quality * Technically adequate exam. ECG Findings * Normal sinus rhythm. Left Ventricle * LVEF 45%. * Normal LV chamber size and wall thickness. * Mild segmental left ventricular systolic dysfunction. * Mild left ventricular diastolic dysfunction. Right Ventricle * Normal right ventricular structure and function. Left Atrium * Normal left atrial size. Right Atrium * Normal right atrial size. Interatrial Septum * Interatrial septum not well evaluated. * No evidence of PFO by color Doppler. Aortic Valve * Aortic valve not well visualized. * No aortic stenosis. * No aortic regurgitation. Mitral Valve * Normal mitral valve structure. * No mitral stenosis. * No mitral regurgitation. Tricuspid Valve * Normal tricuspid valve structure. * No tricuspid stenosis. * No tricuspid regurgitation. * Unable to estimate RVSP due to lack of TR jet. * No evidence of pulmonary hypertension. * Estimated RA pressure is 3 mmHg. Pulmonic Valve * Pulmonic valve is not well visualized. * No pulmonic stenosis. * No pulmonic regurgitation. Aorta * Normally sized aortic root. Pericardium * The pericardium appears normal. IVC * The IVC is not dilated. * > 50% respiratory change Consult Discharge Plan - Plan Referrals: Yane Garcia CNP [Primary Care Provider] - 02/26/19 10:35 am (1) Chest pain Qualifiers: Chest pain type: unspecified Qualified Code(s): R07.9 - Chest pain, unspecified (3) COPD (chronic obstructive pulmonary disease) Qualifiers: COPD type: unspecified COPD Qualified Code(s): J44.9 - Chronic obstructive pulmonary disease, unspecified (4) CAD (coronary artery disease) Qualifiers: Coronary Disease-Associated Artery/Lesion type: [place] artery [place] vs. transplanted heart: [place] heart Associated angina: with stable angina Qualified Code(s): I25.118 - Atherosclerotic heart disease of [place] coronary artery with other forms of angina pectoris
[2019-02-19] MEDS: Nicotine 21 MG PATCH.TD24 TD SCH (14:38)
[2019-02-19] MEDS ORDERED: *HR* Warfarin 3 MG TABLET PO ONE (18:00)
[2019-02-20 05:31] LABS: INR 1.6; Prothrombin Time 18.2 Seconds (9.4-12.1)
[2019-02-20 05:42] LABS: BUN/Creatinine Ratio 13 (6-26); Blood Urea Nitrogen 13 mg/dL (8-23); Calcium 8.8 mg/dL (8.6-10.3); Carbon Dioxide 29 mEq/L (23-29); Chloride 106 mEq/L (98-107); Glucose 98 mg/dL (70-105); Osmolality,Calculated 294 (280-300); Potassium 3.8 mEq/L (3.5-5.1); Sodium 142 mEq/L (136-145); eGFR For Non-African Americans > 60 (> 60)
[2019-02-20 06:59] VITALS: BP 128/76
[2019-02-20] MEDS ORDERED: Triamcinolone Acet 0.1% CRM 15 GM TUBE TP PRN (07:41)
[2019-02-20] MEDS ORDERED: Ipratropium/Albuterol Neb 3 ML IH PRN (07:41)
[2019-02-20] MEDS: Budesonide/Formoterol 160/4.5 1 PUFF INH IH SCH (08:01)
[2019-02-20] MEDS ORDERED: Isosorbide MONOnitrate (24 HR) 60 MG TAB.ER.24H PO SCH (09:00)
[2019-02-20] MEDS ORDERED: amLODIPine 5 MG TABLET PO SCH (09:00)
[2019-02-20] MEDS ORDERED: Aspirin 325 MG TABLET PO SCH (09:00)
[2019-02-20] MEDS ORDERED: Metoprolol XL (24 HR) Succ 50 MG TAB.ER.24H PO SCH (09:00)
--- NOTE | 2019-02-20 10:36 | Discharge Summary ---
- NOTES TO OUTPATIENT PROVIDER Notes to Outpatient Provider: f/u with cardiology within 2 weeks. F/u with PCP within a week. Orders not resulted at time of discharge: Pending orders 02/21/19 04:00 INR/PT [Prothrombin Time INR] [COAG] AM 0400 02/22/19 04:00 INR/PT [Prothrombin Time INR] [COAG] AM 0400 Date of Encounter: 02/20/19 Time of Encounter: 10:33 - Discharge Diagnosis (1) Chest pain Priority: Primary Status: Acute Qualifiers: Chest pain type: unspecified Qualified Code(s): R07.9 - Chest pain, unspecified (2) Tobacco abuse Priority: Secondary Status: Chronic (3) COPD (chronic obstructive pulmonary disease) Priority: Secondary Status: Chronic Qualifiers: COPD type: unspecified COPD Qualified Code(s): J44.9 - Chronic obstructive pulmonary disease, unspecified (4) CAD (coronary artery disease) Priority: Secondary Status: Chronic Qualifiers: Coronary Disease-Associated Artery/Lesion type: [place] artery [place] vs. transplanted heart: [place] heart Associated angina: with stable angina Qualified Code(s): I25.118 - Atherosclerotic heart disease of [place] coronary artery with other forms of angina pectoris (5) Systolic and diastolic CHF, chronic Priority: Secondary Status: Chronic (6) History of CVA (cerebrovascular accident) Priority: Secondary Status: Chronic Hospital course: Mr. Headley is a 68 yo male with PMHx of CHF, CAD, COPD, previous stroke presents to the emergency department with chief complaint of chest pain that started last time before he went to bed. He states that he has noticed the chest pain on the left side of his chest, describing it as aching in quality without any radiation, before he went to bed at 8 PM last night. He states that it is pain with exertion and goes away when he lies down to rest. He is also had increased shortness of breath with this. He states "I think I had a heart attack last night". He has never had a heart attack to his knowledge. He denies abdominal pain, nausea and vomiting. He feels cold and stated he has gotten sweaty with the chest pain. He is unsure if he has had any sick contacts. He is not had a cough with this chest pain and shortness of breath. He does take Coumadin daily for his history of stroke and irregular heart rate but has had trouble with his INR recently. Patient had a recent heart catheter in August which showed 60-70% occlusion of his right coronary artery without stenting at that time. While in the ED, patient vital signs were stable, labs were unremarkable including a negative troponin. EKG showed normal sinus rhythm with nonspecific ST-T change. Chest x-ray showed chronic and stable COPD. He received 1 dose of aspirin and will be admitted for further evaluation. Further tests revealed 3 sets of negative troponin. ECHO was repeated, showed EF 45% and chronic wall motion abnormalities. Cardiology was consulted and recommended medical management and f/u as outpatient. Pt currently pain free, VS stable, he is discharged home, f/u with PCP and cardiology as scheduled. Discharge discussed with: patient Time spent discussing smoking cessation with patient: more than 10 minutes - Time Spent with Patient Total time spent providing and/or coordinating discharge services: Time spent: Greater than 30 minutes - Discharge Medications Prescriptions: New Atorvastatin [Lipitor] 40 mg PO HS #30 tablet Continue clonazePAM [Klonopin] 0.5 mg PO HS Tamsulosin [Flomax] 0.4 mg PO HS Metoprolol XL (24 HR) Succ [Toprol Xl] 50 mg PO DAILY #30 tab.er.24h Lisinopril [Zestril] 10 mg PO DAILY Ipratropium/Albuterol Neb [Duoneb] 3 ml IH Q6HR PRN PRN Reason: Shortness Of Breath Budesonide/Formoterol 160/4.5 [Symbicort 160/4.5] 2 puff IH BID Warfarin [Coumadin] 3 mg PO QPM Aspirin 325 mg PO DAILY Isosorbide MONOnitrate (24 HR) [Imdur] 90 mg PO DAILY Triamcinolone Acetonide 1 appl TP BID PRN PRN Reason: Skin Irritation Amlodipine Besylate 10 mg PO DAILY Discontinued Pravastatin Sodium [Pravachol] 20 mg PO DAILY Home Medications: clonazePAM [Klonopin] 0.5 mg PO HS 02/12/16 [History] Tamsulosin [Flomax] 0.4 mg PO HS 06/06/18 [History] Metoprolol XL (24 HR) Succ [Toprol Xl] 50 mg PO DAILY #30 tab.er.24h 06/10/18 [Rx] Ipratropium/Albuterol Neb [Duoneb] 3 ml IH Q6HR PRN 06/19/18 [History] Lisinopril [Zestril] 10 mg PO DAILY 06/19/18 [History] Budesonide/Formoterol 160/4.5 [Symbicort 160/4.5] 2 puff IH BID 08/24/18 [History] Warfarin [Coumadin] 3 mg PO QPM 08/24/18 [History] Amlodipine Besylate 10 mg PO DAILY 02/19/19 [History] Aspirin 325 mg PO DAILY 02/19/19 [History] Isosorbide MONOnitrate (24 HR) [Imdur] 90 mg PO DAILY 02/19/19 [History] Triamcinolone Acetonide 1 appl TP BID PRN 02/19/19 [History] Atorvastatin [Lipitor] 40 mg PO HS #30 tablet 02/20/19 [Rx] Allergies/Adverse Reactions: Allergy/AdvReac Type Severity Reaction Status Date / Time ampicillin Allergy Hives Verified 02/18/19 12:36 promethazine [From Phenergan] AdvReac Confusion Verified 02/18/19 12:36 Date of admission: 02/18/19 17:52 Primary care physician: Yane Garcia CNP Consults: 02/18/19 16:47 Consult to Cardiology [CONS] Routine Comment: Consulting Provider: Cardiology Khushbu Reason for Consult: CP Call Completed: Yes Anticipated date of discharge: 02/20/19 - Constitutional Vitals: Temp Pulse Resp BP Pulse Ox 97.7 F 90 16 128/76 94 02/20/19 06:56 02/20/19 06:56 02/20/19 08:01 02/20/19 06:56 02/20/19 08:01 General appearance: Present: A&O X 3 Exam: PHYSICAL EXAMINATION: GENERAL APPEARANCE: The patient is alert, oriented and in no acute distress. HEENT: Head is normocephalic. The sinuses are nontender. Pupils are equal and reactive. The nares are patent. Oropharynx clear without lesions. NECK: Supple without lymphadenopathy. HEART: Regular rate and rhythm. LUNGS: No crackles or wheezes are heard. ABDOMEN: Soft, nontender, nondistended with good bowel sounds heard. Inguinal area is normal. EXTREMITIES: Without cyanosis, clubbing or edema. NEUROLOGICAL: Gross nonfocal. SKIN: Warm and dry without any rash. - Patient Status Disposition: Home, Self-Care Condition: Fair Functional capacity at discharge: independent ambulation Overall status at discharge: patient is progressing back to baseline - Discharge Instructions Follow Up With: Yane Garcia CNP [Primary Care Provider] - 02/26/19 10:35 am - Diet and Activity Activity: increase activity as tolerated Diet: low fat, low cholesterol, low salt diet
== END 2019-02-20 11:15 | disposition home or self-care (01) ==
LOC: 3BNU 12:17 → EMEROOARM 12:17 → 3BNU 19:24
PROVIDERS: ADMIT Internal Medicine Nephrology; ATTEND Internal Medicine Nephrology

== ENCOUNTER 2021-08-14 08:51 | Inpatient (IN) ==
[2021-08-14 09:38] LABS: Basophils % 0.2 %; Eosinophils # 0.1 K/mcL (0.0-0.6); Eosinophils % 0.6 %; Hematocrit 35.6 % (37.5-50.1); Hemoglobin 11.3 g/dL (12.9-16.9); Immature Granulocytes % 0.5 % (0-4); Lymphocytes # 1.6 K/mcL (0.6-4.6); Lymphocytes % 12.7 %; Mean Corpuscular HGB Conc 31.7 g/dL (31.6-35.5); Mean Corpuscular Hemoglobin 29.4 pg (28.0-33.3); Mean Corpuscular Volume 92.7 fL (83.0-100.0); Mean Platelet Volume 12.3 fL (9.4-12.4); Monocytes # 1.6 K/mcL (0.0-1.3); Monocytes % 12.5 %; Neutrophils # 9.2 K/mcL (1.6-8.9); Platelet Count 145 K/mcL (140-400); Red Blood Count 3.84 M/mcL (4.19-5.50); Red Cell Distribution Width 13.2 % (11.5-14.5); Segmented Neutrophils % 73.5 %; White Blood Count 12.5 K/mcL (4.3-11.1)
[2021-08-14 09:58] LABS: Activated Partial Thrombo Time 76.2 Seconds (26.0-36.0)
[2021-08-14 10:04] LABS: Alanine Aminotransferase 9 Units/L (7-52); Albumin/Globulin Ratio 1.8 (1.1-2.2); Alkaline Phosphatase 88 Units/L (34-104); Aspartate Amino Transferase 22 Units/L (13-39); BUN/Creatinine Ratio 13 (6-26); Bilirubin,Total 0.8 mg/dL (0.3-1.0); Blood Urea Nitrogen 20 mg/dL (8-23); Calcium 8.7 mg/dL (8.6-10.3); Carbon Dioxide 29 mEq/L (23-29); Chloride 103 mEq/L (98-107); Globulin 2.2 g/dL (2.4-3.5); Glucose 101 mg/dL (70-105); Osmolality,Calculated 287 (280-300); Potassium 4.2 mEq/L (3.5-5.1); Sodium 137 mEq/L (136-145); Total Protein 6.2 g/dL (6.4-8.9); eGFR For African Americans 52 (> 60); eGFR For Non-African Americans 43 (> 60)
[2021-08-14 10:10] LABS: INR 15.5; Prothrombin Time 168.6 Seconds (9.4-12.1)
[2021-08-14] MEDS ORDERED: Isovue-370 500 ML BOTTLE IVP ONE (11:00)
[2021-08-14 11:11] LABS: Bilirubin,Urine Negative (Negative); Blood,Urine Large (Negative); Clarity,Urine Ex.Turbid (Clear); Color,Urine Red (Yellow); Glucose,Urine (UA) Normal (Normal); Ketones,Urine Negative (Negative); Leukocyte Esterase,Urine Negative (Negative); Nitrite,Urine Negative (Negative); PH,Urine 6.5 pH Units (5.0-8.0); Protein,Urine >=300 mg/dL (Neg-Trace); Urobilinogen,Urine Normal (Normal)
[2021-08-14 11:56] LABS: Creatine Kinase 135 Units/L (30-223); Magnesium 1.9 mg/dL (1.6-2.6); Troponin I < 0.03 ng/mL (< 0.04)
[2021-08-14] MEDS ORDERED: Gadolinium Contrast Agent (WT Based) IV PRN (12:09)
[2021-08-14 12:15] LABS: Ethanol < 10 mg/dL (Less than 10)
[2021-08-14] MEDS ORDERED: 0.9 % Sodium Chloride 1,000 ML IVC ONE (12:24)
[2021-08-14] MEDS ORDERED: cefTRIAXone 1,000 MG in Water for inj. (sterile) 10 ML IVP ONE (12:24)
[2021-08-14 12:50] LABS: Amphetamine Screen,Urine Negative ng/mL (Cutoff=1000); Barbiturate Screen,Urine Negative ng/mL (Cutoff=200); Benzodiazepines Screen,Urine Negative ng/mL (Cutoff=200); Cannabinoid Screen,Urine Negative ng/mL (Cutoff = 50); Cocaine Screen,Urine Negative ng/mL (Cutoff= 300); Opiate Screen,Urine Negative ng/mL (Cutoff=300); Phencyclidine Screen,Urine Negative ng/mL (Cutoff=25)
[2021-08-14 17:11] LABS: Basophils % 0.3 %; Eosinophils # 0.1 K/mcL (0.0-0.6); Eosinophils % 0.8 %; Hematocrit 36.5 % (37.5-50.1); Hemoglobin 11.8 g/dL (12.9-16.9); Immature Granulocytes % 0.5 % (0-4); Lymphocytes # 1.4 K/mcL (0.6-4.6); Lymphocytes % 12.6 %; Mean Corpuscular HGB Conc 32.3 g/dL (31.6-35.5); Mean Corpuscular Hemoglobin 30.2 pg (28.0-33.3); Mean Corpuscular Volume 93.4 fL (83.0-100.0); Monocytes # 1.5 K/mcL (0.0-1.3); Monocytes % 13.4 %; Platelet Count 134 K/mcL (140-400); Red Blood Count 3.91 M/mcL (4.19-5.50); Red Cell Distribution Width 13.2 % (11.5-14.5); Segmented Neutrophils % 72.4 %; White Blood Count 11.1 K/mcL (4.3-11.1)
[2021-08-14 17:24] LABS: Activated Partial Thrombo Time 43.2 Seconds (26.0-36.0)
[2021-08-14 17:38] LABS: INR 2.9; Prothrombin Time 31.8 Seconds (9.4-12.1)
[2021-08-14] MEDS ORDERED: Naloxone 0.4 MG/ML INJ IVP PRN (18:12)
[2021-08-14] MEDS ORDERED: Ondansetron 4 MG/2 ML VIAL IVP PRN (18:12)
[2021-08-14 21:31] LABS: Hematocrit 36.1 % (37.5-50.1); Hemoglobin 11.5 g/dL (12.9-16.9)
[2021-08-15] MEDS: Ringers Solution, Lactated 1,000 ML IVC SCH (00:02)
[2021-08-15] MEDS ORDERED: Saline Nasal Spray 44 ML BOTTLE NS PRN (02:38)
[2021-08-15 07:01] LABS: Basophils % 0.3 %; Eosinophils # 0.1 K/mcL (0.0-0.6); Eosinophils % 1.1 %; Hematocrit 35.7 % (37.5-50.1); Hemoglobin 11.6 g/dL (12.9-16.9); Immature Granulocytes % 0.5 % (0-4); Lymphocytes # 1.4 K/mcL (0.6-4.6); Mean Corpuscular HGB Conc 32.5 g/dL (31.6-35.5); Mean Corpuscular Volume 92.2 fL (83.0-100.0); Monocytes # 1.4 K/mcL (0.0-1.3); Monocytes % 13.2 %; Neutrophils # 7.3 K/mcL (1.6-8.9); Platelet Count 152 K/mcL (140-400); Red Blood Count 3.87 M/mcL (4.19-5.50); Red Cell Distribution Width 13.2 % (11.5-14.5); Segmented Neutrophils % 70.9 %; White Blood Count 10.2 K/mcL (4.3-11.1)
[2021-08-15 07:10] LABS: INR 1.1; Prothrombin Time 12.2 Seconds (9.4-12.1)
[2021-08-15 07:23] LABS: BUN/Creatinine Ratio 13 (6-26); Blood Urea Nitrogen 15 mg/dL (8-23); Calcium 8.7 mg/dL (8.6-10.3); Carbon Dioxide 31 mEq/L (23-29); Chloride 102 mEq/L (98-107); Chol/HDL Ratio 2.5 (0-4.9); Glucose 113 mg/dL (70-105); Osmolality,Calculated 288 (280-300); Potassium 3.6 mEq/L (3.5-5.1); Sodium 138 mEq/L (136-145); eGFR For African Americans > 60 (> 60); eGFR For Non-African Americans > 60 (> 60)
[2021-08-15] MEDS: Ipratropium/Albuterol Neb 3 ML IH SCH ×3 (07:41→15:18)
[2021-08-15] MEDS ORDERED: TRIAMCINOLONE ACETONIDE DT SCH (09:00)
[2021-08-15] MEDS ORDERED: Perflutren Lipid Microsphere 1.3 ML in 0.9 % Sodium Chloride 8.7 ML IVP PRN (09:12)
[2021-08-15] MEDS: Loratadine 10 MG TABLET PO SCH (09:41)
[2021-08-15] MEDS: Aspirin Enteric Coated 81 MG Tablet PO SCH (09:43)
[2021-08-15] MEDS: PARoxetine 20 MG TABLET PO SCH (09:43)
[2021-08-15] MEDS: Lactobacillus 1 EACH CAP.SPRINK PO SCH ×2 (09:43→20:27)
[2021-08-15] MEDS: polyethylene glycoL 3350 17 GM POWD.PACK PO SCH (09:44)
[2021-08-15] MEDS: Budesonide/Formoterol 160/4.5 1 PUFF INH IH SCH (10:36)
[2021-08-15 12:09] LABS: Estimated Average Glucose 123 mg/dl; Hemoglobin A1C 5.9 %
[2021-08-15] MEDS: Melatonin 3 MG TABLET PO SCH (20:28)
[2021-08-15] MEDS: Triamcinolone Acet 0.1% CRM 15 GM TUBE TP SCH (20:33)
[2021-08-16] MEDS: Ipratropium/Albuterol Neb 3 ML IH SCH ×5 (00:08→22:57)
[2021-08-16] MEDS: Ringers Solution, Lactated 1,000 ML IVC SCH (02:42)
[2021-08-16] MEDS: Loratadine 10 MG TABLET PO SCH (08:47)
[2021-08-16] MEDS: Aspirin Enteric Coated 81 MG Tablet PO SCH (08:47)
[2021-08-16] MEDS: Lactobacillus 1 EACH CAP.SPRINK PO SCH ×2 (08:48→19:57)
[2021-08-16] MEDS: polyethylene glycoL 3350 17 GM POWD.PACK PO SCH (08:48)
[2021-08-16] MEDS: PARoxetine 20 MG TABLET PO SCH (08:48)
[2021-08-16] MEDS: Triamcinolone Acet 0.1% CRM 15 GM TUBE TP SCH ×2 (08:55→19:58)
[2021-08-16 09:22] LABS: Basophils % 0.3 %; Eosinophils # 0.1 K/mcL (0.0-0.6); Eosinophils % 0.5 %; Hematocrit 34.2 % (37.5-50.1); Hemoglobin 11.1 g/dL (12.9-16.9); Immature Granulocytes % 0.4 % (0-4); Lymphocytes # 1.4 K/mcL (0.6-4.6); Lymphocytes % 13.6 %; Mean Corpuscular HGB Conc 32.5 g/dL (31.6-35.5); Mean Corpuscular Hemoglobin 29.7 pg (28.0-33.3); Mean Corpuscular Volume 91.4 fL (83.0-100.0); Mean Platelet Volume 11.7 fL (9.4-12.4); Monocytes # 1.3 K/mcL (0.0-1.3); Neutrophils # 7.7 K/mcL (1.6-8.9); Platelet Count 167 K/mcL (140-400); Red Blood Count 3.74 M/mcL (4.19-5.50); Red Cell Distribution Width 13.1 % (11.5-14.5); Segmented Neutrophils % 73.2 %; White Blood Count 10.5 K/mcL (4.3-11.1)
[2021-08-16 09:32] LABS: Prothrombin Time 11.3 Seconds (9.4-12.1)
[2021-08-16] MEDS: Budesonide/Formoterol 160/4.5 1 PUFF INH IH SCH (11:34)
[2021-08-16] MEDS: Isosorbide MONOnitrate (24 HR) 60 MG TAB.ER.24H PO SCH (11:37)
[2021-08-16] MEDS: Metoprolol XL (24 HR) Succ 50 MG TAB.ER.24H PO SCH (11:37)
[2021-08-16] MEDS: Melatonin 3 MG TABLET PO SCH (19:57)
[2021-08-17 00:52] LABS: INR 1.1; Prothrombin Time 12.7 Seconds (9.4-12.1)
[2021-08-17 00:55] LABS: BUN/Creatinine Ratio 18 (6-26); Blood Urea Nitrogen 20 mg/dL (8-23); Calcium 8.3 mg/dL (8.6-10.3); Carbon Dioxide 26 mEq/L (23-29); Chloride 104 mEq/L (98-107); Glucose 105 mg/dL (70-105); Osmolality,Calculated 291 (280-300); Potassium 3.8 mEq/L (3.5-5.1); Sodium 139 mEq/L (136-145); eGFR For African Americans > 60 (> 60); eGFR For Non-African Americans > 60 (> 60)
[2021-08-17 01:03] LABS: Basophils % 0.4 %; Eosinophils # 0.3 K/mcL (0.0-0.6); Eosinophils % 3.5 %; Hematocrit 29.7 % (37.5-50.1); Hemoglobin 9.7 g/dL (12.9-16.9); Immature Granulocytes % 0.4 % (0-4); Lymphocytes # 1.3 K/mcL (0.6-4.6); Lymphocytes % 13.8 %; Mean Corpuscular HGB Conc 32.7 g/dL (31.6-35.5); Mean Corpuscular Hemoglobin 30.1 pg (28.0-33.3); Mean Corpuscular Volume 92.2 fL (83.0-100.0); Mean Platelet Volume 11.8 fL (9.4-12.4); Monocytes # 1.2 K/mcL (0.0-1.3); Monocytes % 12.8 %; Neutrophils # 6.7 K/mcL (1.6-8.9); Platelet Count 180 K/mcL (140-400); Red Blood Count 3.22 M/mcL (4.19-5.50); Segmented Neutrophils % 69.1 %; White Blood Count 9.7 K/mcL (4.3-11.1)
[2021-08-17] MEDS: Ipratropium/Albuterol Neb 3 ML IH SCH ×4 (03:39→21:38)
[2021-08-17] MEDS: Lactobacillus 1 EACH CAP.SPRINK PO SCH ×2 (08:58→23:09)
[2021-08-17] MEDS: PARoxetine 20 MG TABLET PO SCH (08:58)
[2021-08-17] MEDS: Isosorbide MONOnitrate (24 HR) 60 MG TAB.ER.24H PO SCH (08:58)
[2021-08-17] MEDS: Metoprolol XL (24 HR) Succ 50 MG TAB.ER.24H PO SCH (08:58)
[2021-08-17] MEDS: Loratadine 10 MG TABLET PO SCH (08:59)
[2021-08-17] MEDS: amLODIPine 5 MG TABLET PO SCH (08:59)
[2021-08-17] MEDS: Aspirin Enteric Coated 81 MG Tablet PO SCH (08:59)
[2021-08-17] MEDS: polyethylene glycoL 3350 17 GM POWD.PACK PO SCH (09:00)
[2021-08-17] MEDS: Triamcinolone Acet 0.1% CRM 15 GM TUBE TP SCH ×2 (09:02→23:12)
[2021-08-17] MEDS: Budesonide/Formoterol 160/4.5 1 PUFF INH IH SCH (10:16)
[2021-08-17] MEDS ORDERED: Haloperidol Lactate 5 MG/ML VIAL IVP ONE (10:28)
[2021-08-17] MEDS: Ringers Solution, Lactated 1,000 ML IVC SCH (11:52)
[2021-08-17] MEDS: Melatonin 3 MG TABLET PO SCH (23:10)
[2021-08-18] MEDS: Ipratropium/Albuterol Neb 3 ML IH SCH ×4 (04:05→21:11)
[2021-08-18 06:19] LABS: Basophils % 0.4 %; Eosinophils # 0.2 K/mcL (0.0-0.6); Eosinophils % 1.8 %; Hematocrit 31.6 % (37.5-50.1); Hemoglobin 10.1 g/dL (12.9-16.9); Immature Granulocytes % 0.6 % (0-4); Lymphocytes # 1.4 K/mcL (0.6-4.6); Lymphocytes % 14.6 %; Mean Corpuscular Hemoglobin 29.2 pg (28.0-33.3); Mean Corpuscular Volume 91.3 fL (83.0-100.0); Mean Platelet Volume 11.7 fL (9.4-12.4); Monocytes % 10.8 %; Neutrophils # 6.7 K/mcL (1.6-8.9); Platelet Count 208 K/mcL (140-400); Red Blood Count 3.46 M/mcL (4.19-5.50); Red Cell Distribution Width 12.8 % (11.5-14.5); Segmented Neutrophils % 71.8 %; White Blood Count 9.3 K/mcL (4.3-11.1)
[2021-08-18 06:40] LABS: BUN/Creatinine Ratio 13 (6-26); Blood Urea Nitrogen 12 mg/dL (8-23); Calcium 9.1 mg/dL (8.6-10.3); Carbon Dioxide 25 mEq/L (23-29); Chloride 101 mEq/L (98-107); Glucose 103 mg/dL (70-105); Osmolality,Calculated 286 (280-300); Potassium 3.4 mEq/L (3.5-5.1); Sodium 138 mEq/L (136-145); eGFR For African Americans > 60 (> 60); eGFR For Non-African Americans > 60 (> 60)
[2021-08-18] MEDS: Lactobacillus 1 EACH CAP.SPRINK PO SCH ×2 (08:43→20:49)
[2021-08-18] MEDS: polyethylene glycoL 3350 17 GM POWD.PACK PO SCH (08:43)
[2021-08-18] MEDS: Aspirin Enteric Coated 81 MG Tablet PO SCH (08:44)
[2021-08-18] MEDS: Loratadine 10 MG TABLET PO SCH (08:44)
[2021-08-18] MEDS: Isosorbide MONOnitrate (24 HR) 60 MG TAB.ER.24H PO SCH (08:45)
[2021-08-18] MEDS: PARoxetine 20 MG TABLET PO SCH (08:45)
[2021-08-18] MEDS: Metoprolol XL (24 HR) Succ 50 MG TAB.ER.24H PO SCH (08:45)
[2021-08-18] MEDS: amLODIPine 5 MG TABLET PO SCH (08:45)
[2021-08-18] MEDS: Triamcinolone Acet 0.1% CRM 15 GM TUBE TP SCH ×2 (10:11→22:28)
[2021-08-18] MEDS: Ringers Solution, Lactated 1,000 ML IVC SCH (10:14)
[2021-08-18] MEDS: Budesonide/Formoterol 160/4.5 1 PUFF INH IH SCH (10:43)
[2021-08-18] MEDS: Melatonin 3 MG TABLET PO SCH (20:49)
[2021-08-19] MEDS: Ringers Solution, Lactated 1,000 ML IVC SCH (04:36)
[2021-08-19] MEDS: Ipratropium/Albuterol Neb 3 ML IH SCH ×3 (04:45→16:29)
[2021-08-19] MEDS: Aspirin Enteric Coated 81 MG Tablet PO SCH (10:04)
[2021-08-19] MEDS: Lactobacillus 1 EACH CAP.SPRINK PO SCH ×2 (10:04→20:31)
[2021-08-19] MEDS: Loratadine 10 MG TABLET PO SCH (10:05)
[2021-08-19] MEDS: Metoprolol XL (24 HR) Succ 50 MG TAB.ER.24H PO SCH (10:05)
[2021-08-19] MEDS: polyethylene glycoL 3350 17 GM POWD.PACK PO SCH (10:05)
[2021-08-19] MEDS: PARoxetine 20 MG TABLET PO SCH (10:05)
[2021-08-19] MEDS: amLODIPine 5 MG TABLET PO SCH (10:05)
[2021-08-19] MEDS: Isosorbide MONOnitrate (24 HR) 60 MG TAB.ER.24H PO SCH (10:05)
[2021-08-19] MEDS: Triamcinolone Acet 0.1% CRM 15 GM TUBE TP SCH ×2 (10:06→20:32)
[2021-08-19 11:25] LABS: Basophils % 0.5 %; Eosinophils # 0.2 K/mcL (0.0-0.6); Eosinophils % 2.6 %; Hemoglobin 9.8 g/dL (12.9-16.9); Immature Granulocytes % 0.7 % (0-4); Lymphocytes # 1.3 K/mcL (0.6-4.6); Lymphocytes % 14.7 %; Mean Corpuscular HGB Conc 32.7 g/dL (31.6-35.5); Mean Corpuscular Hemoglobin 29.6 pg (28.0-33.3); Mean Corpuscular Volume 90.6 fL (83.0-100.0); Mean Platelet Volume 11.5 fL (9.4-12.4); Monocytes % 10.7 %; Neutrophils # 6.3 K/mcL (1.6-8.9); Platelet Count 251 K/mcL (140-400); Red Blood Count 3.31 M/mcL (4.19-5.50); Red Cell Distribution Width 12.8 % (11.5-14.5); Segmented Neutrophils % 70.8 %; White Blood Count 8.8 K/mcL (4.3-11.1)
[2021-08-19] MEDS: Budesonide/Formoterol 160/4.5 1 PUFF INH IH SCH (11:27)
[2021-08-19 11:36] LABS: BUN/Creatinine Ratio 9 (6-26); Blood Urea Nitrogen 8 mg/dL (8-23); Calcium 8.7 mg/dL (8.6-10.3); Carbon Dioxide 26 mEq/L (23-29); Chloride 101 mEq/L (98-107); Glucose 108 mg/dL (70-105); Osmolality,Calculated 281 (280-300); Potassium 4.1 mEq/L (3.5-5.1); Sodium 136 mEq/L (136-145); eGFR For African Americans > 60 (> 60); eGFR For Non-African Americans > 60 (> 60)
[2021-08-19] MEDS: *HR* LORazepam 2 MG/ML VIAL IVP PRN (17:17)
[2021-08-19] MEDS: Melatonin 3 MG TABLET PO SCH (20:31)
[2021-08-20] MEDS: Ipratropium/Albuterol Neb 3 ML IH SCH ×5 (04:14→23:25)
[2021-08-20] MEDS: *HR* LORazepam 2 MG/ML VIAL IVP PRN ×2 (08:37→18:34)
[2021-08-20] MEDS: PARoxetine 20 MG TABLET PO SCH (08:38)
[2021-08-20] MEDS: Aspirin Enteric Coated 81 MG Tablet PO SCH (08:38)
[2021-08-20] MEDS: Lactobacillus 1 EACH CAP.SPRINK PO SCH ×2 (08:38→21:53)
[2021-08-20] MEDS: Isosorbide MONOnitrate (24 HR) 60 MG TAB.ER.24H PO SCH (08:38)
[2021-08-20] MEDS: Loratadine 10 MG TABLET PO SCH (08:38)
[2021-08-20] MEDS: cefTRIAXone 1,000 MG in Water for inj. (sterile) 10 ML IVP SCH (08:38)
[2021-08-20] MEDS: amLODIPine 5 MG TABLET PO SCH (08:38)
[2021-08-20] MEDS: Metoprolol XL (24 HR) Succ 50 MG TAB.ER.24H PO SCH (08:38)
[2021-08-20] MEDS: polyethylene glycoL 3350 17 GM POWD.PACK PO SCH (08:39)
[2021-08-20] MEDS: Budesonide/Formoterol 160/4.5 1 PUFF INH IH SCH (10:52)
[2021-08-20] MEDS: Triamcinolone Acet 0.1% CRM 15 GM TUBE TP SCH ×2 (13:09→21:57)
[2021-08-20 17:22] LABS: Adenovirus Not Detected (Not Detect); Coronavirus 229E Not Detected (Not Detect); Coronavirus HKU1 Not Detected (Not Detect)
[2021-08-20 17:23] LABS: Bordetella Pertussis Not Detected (Not Detect); Chlamydophila pneumoniae Not Detected (Not Detect); Coronavirus NL63 Not Detected (Not Detect); Coronavirus OC43 Not Detected (Not Detect); Human Metapneumovirus Not Detected (Not Detect); Human Rhinovirus/Enterovirus Not Detected (Not Detect); Influenza A Subtype 2009 H1 Not Detected (Not Detect); Influenza B Not Detected (Not Detect); Mycoplasma pneumoniae Not Detected (Not Detect); Parainfluenza Virus 1 Not Detected (Not Detect); Parainfluenza Virus 2 Not Detected (Not Detect); Parainfluenza Virus 3 Not Detected (Not Detect); Parainfluenza Virus 4 Not Detected (Not Detect); Respiratory Syncytial Virus Not Detected (Not Detect); SARS-CoV-2 Not Detected (Not Detect)
[2021-08-20] MEDS: Melatonin 3 MG TABLET PO SCH (21:54)
[2021-08-21] MEDS: *HR* LORazepam 2 MG/ML VIAL IVP PRN ×2 (02:45→10:33)
[2021-08-21] MEDS: Ipratropium/Albuterol Neb 3 ML IH SCH ×3 (04:01→16:02)
[2021-08-21 04:20] LABS: Basophils % 0.5 %; Eosinophils # 0.4 K/mcL (0.0-0.6); Eosinophils % 5.1 %; Hematocrit 29.5 % (37.5-50.1); Hemoglobin 9.7 g/dL (12.9-16.9); Immature Granulocytes % 0.5 % (0-4); Lymphocytes # 1.4 K/mcL (0.6-4.6); Lymphocytes % 16.2 %; Mean Corpuscular HGB Conc 32.9 g/dL (31.6-35.5); Mean Corpuscular Volume 91.3 fL (83.0-100.0); Mean Platelet Volume 11.3 fL (9.4-12.4); Monocytes # 1.1 K/mcL (0.0-1.3); Neutrophils # 5.5 K/mcL (1.6-8.9); Platelet Count 275 K/mcL (140-400); Red Blood Count 3.23 M/mcL (4.19-5.50); Red Cell Distribution Width 12.5 % (11.5-14.5); Segmented Neutrophils % 64.7 %; White Blood Count 8.5 K/mcL (4.3-11.1)
[2021-08-21 04:45] LABS: BUN/Creatinine Ratio 16 (6-26); Blood Urea Nitrogen 16 mg/dL (8-23); Calcium 8.8 mg/dL (8.6-10.3); Carbon Dioxide 30 mEq/L (23-29); Chloride 102 mEq/L (98-107); Glucose 91 mg/dL (70-105); Osmolality,Calculated 287 (280-300); Potassium 3.8 mEq/L (3.5-5.1); Sodium 138 mEq/L (136-145); eGFR For African Americans > 60 (> 60); eGFR For Non-African Americans > 60 (> 60)
[2021-08-21] MEDS: cefTRIAXone 1,000 MG in Water for inj. (sterile) 10 ML IVP SCH (10:32)
[2021-08-21] MEDS: Isosorbide MONOnitrate (24 HR) 60 MG TAB.ER.24H PO SCH (10:33)
[2021-08-21] MEDS: PARoxetine 20 MG TABLET PO SCH (10:33)
[2021-08-21] MEDS: Aspirin Enteric Coated 81 MG Tablet PO SCH (10:33)
[2021-08-21] MEDS: Triamcinolone Acet 0.1% CRM 15 GM TUBE TP SCH (10:34)
[2021-08-21] MEDS: Lactobacillus 1 EACH CAP.SPRINK PO SCH (10:34)
[2021-08-21] MEDS: Loratadine 10 MG TABLET PO SCH (10:34)
[2021-08-21] MEDS: polyethylene glycoL 3350 17 GM POWD.PACK PO SCH (10:34)
[2021-08-21] MEDS: Metoprolol XL (24 HR) Succ 50 MG TAB.ER.24H PO SCH (10:34)
[2021-08-21] MEDS: amLODIPine 5 MG TABLET PO SCH (10:34)
[2021-08-21] MEDS: Budesonide/Formoterol 160/4.5 1 PUFF INH IH SCH (10:51)
[2021-08-21 14:54] VITALS: BP 126/79; PULSE 76; TEMP 97.4; O2SAT 94
[2021-08-21] MEDS ORDERED: QUEtiapine Fumarate 25 MG TABLET PO SCH (21:00)
== END 2021-08-21 17:04 | DRG 64 ==
LOC: EMEROOARM 08:51 → 3ANU 08:51 → SUATTDRO 08-15 10:31 → 3ANU 08-17 09:05
PROVIDERS: ADMIT Internal Medicine; ATTEND Internal Medicine